=== PATIENT | female | born 1935 | race Caucasian/White ===

== ENCOUNTER 2023-08-12 10:35 | Emergency (ER) | payer MEDICARE ==
[2023-08-12 10:56] VITALS: TEMP 98
--- NOTE | 2023-08-12 10:57 | ERPHSYRPT ---
- History of Present Illness Time Seen by Provider: 08/12/23 10:53 Historian: patient, EMS Exam Limitations: no limitations Physician History: Patient is an 88-year-old white female who presents with a complaint of substernal pressure. The pressure sensation does not register it is affected by movement sometimes it helps and sometimes the movement hurts. She denies any shortness of breath her blood pressure per EMS was 200/90. She says that she has been having this pressure sensation on and off for 2 weeks. This morning she mentioned it to the nurses and subsequently was sent to the ER. Timing/Duration: week(s) (2) Activities at Onset: none Quality: pressure Location: substernal Chest Pain Radiation: no radiation Severity of Pain-Max: mild Severity of Pain-Current: mild Modifying Factors: Improves With: movement Associated Symptoms: denies symptoms Nitro Today/Relief: no nitro taken today Aspirin Treatment Today: no aspirin today Allergies/Adverse Reactions: clindamycin Allergy (Verified 08/12/23 10:37) hydralazine Allergy (Verified 08/12/23 10:37) oxytetracycline [From Terramycin] Allergy (Verified 08/12/23 10:37) sulfamethoxazole [From Bactrim] Allergy (Verified 08/12/23 10:37) trimethoprim [From Bactrim] Allergy (Verified 08/12/23 10:37) Home Medications: Acetaminophen 325 mg [Tylenol 325 mg] 650 mg PO Q6H PRN PRN 08/12/23 [History] Amlodipine Besylate [Norvasc] 10 mg PO DAILY 08/12/23 [History] Aspirin EC 81 mg [Ecotrin 81 mg] 81 mg PO DAILY 08/12/23 [History] Atorvastatin Calcium 40 mg PO HS 08/12/23 [History] Calcium Carbonate [Tums] 1 tab PO DAILY 08/12/23 [History] Carboxymethylcellulose Sodium [Refresh Plus] See Rx Instructions .ROUTE .COMPLEX 08/12/23 [History] Carvedilol 12.5 mg [Coreg 12.5 mg] 12.5 mg PO BID 08/12/23 [History] Clonidine HCl 0.1 mg [Clonidine 0.1 mg Tablet] 0.1 mg PO BID 08/12/23 [History] Clopidogrel Bisulfate [PLAVIX Tablet] 75 mg PO DAILY 08/12/23 [History] Insulin Aspart [NovoLOG Insulin] See Rx Instructions .ROUTE .COMPLEX 08/12/23 [History] Insulin Glargine,Hum.rec.anlog [Toujeo Solostar] 10 unit SQ HS 08/12/23 [History] Insulin Glargine,Hum.rec.anlog [Toujeo Solostar] 15 unit SQ DAILY 08/12/23 [History] Isosorbide Mononitrate 30 mg [Imdur 30 MG] 30 mg PO HS 08/12/23 [History] Levothyroxine Sodium 25 Mcg [Synthroid 25 Mcg] 25 mcg PO DAILY 08/12/23 [History] Nitroglycerin 0.4 mg PO Q5MIN PRN MR X 3 PRN 08/12/23 [History] Omeprazole 40 mg PO DAILY 08/12/23 [History] Sennosides/Docusate Sodium [Senna-S Tablet] 1 tab PO BID 08/12/23 [History] Tramadol HCl 50 mg [Ultram 50 mg] 50 mg PO Q6H PRN PRN 08/12/23 [History] Valsartan [Diovan] 320 mg PO DAILY 08/12/23 [History] - Review of Systems Constitutional: No Fever, No Chills Eyes: No Symptoms Ears, Nose, & Throat: No Symptoms Respiratory: No Cough, No Dyspnea Cardiac: Chest Pain (Chest pain in the form of a pressure sensation), No Edema, No Syncope Abdominal/Gastrointestinal: No Abdominal Pain, No Nausea, No Vomiting, No Diarrhea Genitourinary Symptoms: No Dysuria Musculoskeletal: No Back Pain, No Neck Pain Skin: No Rash Neurological: No Dizziness, No Focal Weakness, No Sensory Changes Psychological: No Symptoms Endocrine: No Symptoms All Other Systems: Reviewed and Negative - Nursing Vital Signs Nursing Vital Signs: Initial Vital Signs Pulse Rate 74 08/12/23 10:36 Respiratory Rate 15 08/12/23 10:36 Blood Pressure 187/92 08/12/23 10:36 O2 Sat by Pulse Oximetry 95 08/12/23 10:36 Pain Scale Pain Intensity 0 - Physical Exam General Appearance: mild distress, alert Eye Exam: PERRL/EOMI, eyes nml inspection Ears, Nose, Throat Exam: normal ENT inspection, moist mucous membranes Neck Exam: normal inspection, non-tender, supple, full range of motion Respiratory Exam: normal breath sounds, lungs clear, No respiratory distress Cardiovascular Exam: regular rate/rhythm, normal heart sounds Gastrointestinal/Abdomen Exam: soft, No tenderness, No mass Back Exam: normal inspection, No CVA tenderness, No vertebral tenderness Extremity Exam: normal inspection, normal range of motion Neurologic Exam: alert, oriented x 3, cooperative, normal mood/affect, sensation nml, No motor deficits Skin Exam: normal color, warm, dry - Course Nursing assessment & vital signs reviewed: Yes EKG Interpreted by Me: RATE (80), Sinus Rhythm, LAFB, 1st degree AV Block, Right Bundle Branch Block - Radiology Exams Chest X-ray Interpretation: Reviewed by me - CT Exams Chest CT Interpretation: Negative, Other (Reviewed by me) Ordered Tests: Active Orders 24 hr Category Date Time Status CHEST 1 VIEW (PORTABLE) Stat Exams 08/12/23 10:54 Completed CHEST WITH CONTRAST [CT] Stat Exams 08/12/23 12:12 Completed CBC W DIFF Stat Lab 08/12/23 11:10 Completed CK-Creatinine Phosphokinase Stat Lab 08/12/23 11:10 Completed CMP Stat Lab 08/12/23 11:10 Completed D-DIMER QUANTITATIVE Stat Lab 08/12/23 11:10 Completed PROTIME WITH INR Stat Lab 08/12/23 11:10 Completed PTT Stat Lab 08/12/23 11:10 Completed TROPONIN Q4H Lab 08/12/23 11:10 Completed TROPONIN Q4H Lab 08/12/23 15:00 Ordered TROPONIN Q4H Lab 08/12/23 19:00 Ordered UA W/RFX UR CULTURE Stat Lab 08/12/23 10:55 Ordered Medication Summary Generic Name Dose Route Start Last Admin Trade Name Freq PRN Reason Stop Dose Admin Clonidine 0.1 mg 08/12/23 13:32 Clonidine Hcl 0.1 Mg Tablet PO 08/12/23 13:33 STAT ONE Sodium Chloride 1,000 mls @ 50 mls/hr 08/12/23 11:30 08/12/23 11:43 Sodium Chloride 0.9% 1000 Ml IV 09/11/23 11:29 50 mls/hr .Q20H JOSE Administration Discontinued Medications Generic Name Dose Route Start Last Admin Trade Name Freq PRN Reason Stop Dose Admin Aspirin 324 mg 08/12/23 11:29 08/12/23 11:45 Aspirin 81 Mg Tab.Chew PO 08/12/23 11:30 324 mg STAT ONE Administration Aspirin Confirm 08/12/23 11:42 Aspirin 81 Mg Tab.Chew Administered 08/12/23 11:43 Dose 324 mg .ROUTE .STK-MED ONE Lab/Rad Data: Laboratory Result Diagrams 08/12/23 11:10 08/12/23 11:10 Laboratory Results 08/12/23 08/12/23 08/12/23 Range/Units 11:10 11:10 11:10 WBC (4.0-10.5) x10^3/uL RBC (4.1-5.4) x10^6/uL Hgb (12.0-16.0) g/dL Hct (35-47) % MCV (78-100) fL MCH (26-32) pg MCHC (32-36) g/dL RDW (11.5-14.0) % Plt Count (150-450) x10^3/uL MPV (7.5-11.0) fL Gran % (36.0-66.0) % Immature Gran % (Auto) (0.00-0.4) % Nucleat RBC Rel Count (0.00-0.1) % Eos # (Auto) (0-0.5) x10^3/uL Immature Gran # (Auto) (0.00-0.03) x10^3u/L Absolute Lymphs (auto) (1.0-4.6) x10^3/uL Absolute Monos (auto) (0.0-1.3) x10^3/uL Absolute Nucleated RBC (0.00-0.01) x10^3u/L Lymphocytes % (24.0-44.0) % Monocytes % (0.0-12.0) % Eosinophils % (0.00-5.0) % Basophils % (0.0-0.4) % Absolute Granulocytes (1.4-6.9) x10^3/uL Basophils # (0-0.4) x10^3/uL PT 10.2 (9.4-12.5) SECONDS INR 0.93 (0.8-3.0) APTT 29.2 (25.1-36.5) SECONDS D-Dimer 0.95 H* (0.0-0.50) mg/L Sodium 135 (135-145) mmol/L Potassium 4.4 (3.5-5.1) mmol/L Chloride 100 (98-107) mmol/L Carbon Dioxide 27 (22-30) mmol/L Anion Gap 12.7 (5-15) MEQ/L BUN 19 H (7-17) mg/dL Creatinine 1.14 H (0.52-1.04) mg/dL Estimated GFR 46.9 ML/MIN Glucose 135 H (74-106) mg/dL Calcium 9.1 (8.4-10.2) mg/dL Total Bilirubin 0.60 (0.2-1.3) mg/dL AST 21 (14-36) U/L ALT 12 (0-35) U/L Alkaline Phosphatase 64 (38-126) U/L Creatine Kinase 54 (30-135) U/L Troponin I < 0.012 (0.000-0.033) ng/mL Serum Total Protein 7.5 (6.3-8.2) g/dL Albumin 3.9 (3.5-5.0) g/dL / Range/Units 11:10 WBC 8.3 (4.0-10.5) x10^3/uL RBC 4.06 L (4.1-5.4) x10^6/uL Hgb 11.4 L (12.0-16.0) g/dL Hct 35.7 (35-47) % MCV 87.9 (78-100) fL MCH 28.1 (26-32) pg MCHC 31.9 L (32-36) g/dL RDW 14.1 H (11.5-14.0) % Plt Count 383 (150-450) x10^3/uL MPV 9.6 (7.5-11.0) fL Gran % 64.3 (36.0-66.0) % Immature Gran % (Auto) 0.7 H (0.00-0.4) % Nucleat RBC Rel Count 0.0 (0.00-0.1) % Eos # (Auto) 0.89 H (0-0.5) x10^3/uL Immature Gran # (Auto) 0.06 H (0.00-0.03) x10^3u/L Absolute Lymphs (auto) 1.49 (1.0-4.6) x10^3/uL Absolute Monos (auto) 0.45 (0.0-1.3) x10^3/uL Absolute Nucleated RBC 0.00 (0.00-0.01) x10^3u/L Lymphocytes % 17.9 L (24.0-44.0) % Monocytes % 5.4 (0.0-12.0) % Eosinophils % 10.7 H (0.00-5.0) % Basophils % 1.0 (0.0-0.4) % Absolute Granulocytes 5.34 (1.4-6.9) x10^3/uL Basophils # 0.08 (0-0.4) x10^3/uL PT (9.4-12.5) SECONDS INR (0.8-3.0) APTT (25.1-36.5) SECONDS D-Dimer (0.0-0.50) mg/L Sodium (135-145) mmol/L Potassium (3.5-5.1) mmol/L Chloride (98-107) mmol/L Carbon Dioxide (22-30) mmol/L Anion Gap (5-15) MEQ/L BUN (7-17) mg/dL Creatinine (0.52-1.04) mg/dL Estimated GFR ML/MIN Glucose (74-106) mg/dL Calcium (8.4-10.2) mg/dL Total Bilirubin (0.2-1.3) mg/dL AST (14-36) U/L ALT (0-35) U/L Alkaline Phosphatase (38-126) U/L Creatine Kinase (30-135) U/L Troponin I (0.000-0.033) ng/mL Serum Total Protein (6.3-8.2) g/dL Albumin (3.5-5.0) g/dL - Progress Progress: improved Air Movement: good Blood Culture(s) Obtained: No Antibiotics given: No Medical Desision Making - Diagnostic Testing Diagnostic test were ordered, analyzed, and reviewed by me: Yes Radiological Interpretation: Reviewed by me - Risk of complications Low Risk: Low risk of morbidity from additional dx testing or treatment - Departure Departure Disposition: Home Clinical Impression: Chest pain, Hypertension Condition: Stable Critical Care Time: No Instructions: Chest Pain (DC), High blood pressure in adults
[2023-08-12 11:17] LABS: Absolute Neutrophil Ct (ANC) 5.34 x10^3/uL (1.4-6.9); Basophil (Absolute #) 0.08 x10^3/uL (0-0.4); Eosinophil % 10.7 % (0.00-5.0); Eosinophil (Absolute #) 0.89 x10^3/uL (0-0.5); Hematocrit 35.7 % (35-47); Hemoglobin 11.4 g/dL (12.0-16.0); IMMATURE GRAN # 0.06 x10^3u/L (0.00-0.03); IMMATURE GRAN % 0.7 % (0.00-0.4); Lymphocyte (Absolute #) 1.49 x10^3/uL (1.0-4.6); Lymphocytes % 17.9 % (24.0-44.0); Mean Cell Volume 87.9 fL (78-100); Mean Corpuscular Hemoglobin 28.1 pg (26-32); Mean Corpuscular Hgb Concent. 31.9 g/dL (32-36); Mean Platelet Volume 9.6 fL (7.5-11.0); Monocyte (Absolute #) 0.45 x10^3/uL (0.0-1.3); Monocytes % 5.4 % (0.0-12.0); Neutrophil % 64.3 % (36.0-66.0); Platelet Count 383 x10^3/uL (150-450); Red Blood Count 4.06 x10^6/uL (4.1-5.4); Red Cell Distribution Width 14.1 % (11.5-14.0); White Blood Count 8.3 x10^3/uL (4.0-10.5)
[2023-08-12 11:29] LABS: ALBUMIN 3.9 g/dL (3.5-5.0); ANION GAP 12.7 MEQ/L (5-15); BILIRUBIN,TOTAL 0.6 mg/dL (0.2-1.3); Calcium 9.1 mg/dL (8.4-10.2); Creatinine 1 1.14 mg/dL (0.52-1.04); EST GLOMERULAR FILTRATION RATE 46.9 ML/MIN; Potassium 4.4 mmol/L (3.5-5.1); Total Protein 7.5 g/dL (6.3-8.2)
[2023-08-12] MEDS ORDERED: Sodium Chloride 0.9% 1000 ML 1,000 ML ONE (11:42)
[2023-08-12] MEDS ORDERED: BABY ASPIRIN 81 MG CHEW ONE (11:42)
[2023-08-12] MEDS: Sodium Chloride 0.9% 1000 ML 1,000 ML IV SCH (11:43)
--- NOTE | 2023-08-12 11:44 | XRAY ---
Indication: Chest pain. Comparison: None Portable apical lordotic chest hyperinflated with chronic lung markings. No focal infiltrate, consolidation, or large effusion. Heart not enlarged. Mild focal eventration right hemidiaphragm. Bony thorax intact with osteopenia and mild degenerative changes. Impression: Nonacute hyperinflated chest with chronic features.
[2023-08-12] MEDS: BABY ASPIRIN 81 MG CHEW PO ONE (11:45)
[2023-08-12 11:56] LABS: INR 0.93 (0.8-3.0); PROTIME 10.2 SECONDS (9.4-12.5); PTT 29.2 SECONDS (25.1-36.5)
[2023-08-12 12:02] LABS: D-DIMER QUANTITATIVE 0.95 mg/L (0.0-0.50)
--- NOTE | 2023-08-12 13:11 | XRAY ---
Indication: Chest pain. Elevated D-dimer. Multiple contiguous axial images obtained through the chest using 80 cc Isovue 370 contrast and PE protocol. Comparison: None Good opacification of the pulmonary arteries to includes the lobar and segmental branches. Mild respiration artifact limits evaluation of the segmental branches. No obvious pulmonary embolus. Heart not enlarged. Aorta is minimally arteriosclerotic without aneurysm/dissection. No pathologic mediastinal/hilar lymphadenopathy. Small hiatal hernia. Lungs hyperinflated with mild bibasilar and lesser degree posterior left upper lobe subsegmental atelectasis/scarring. No suspicious pulmonary mass/nodule, infiltrate, or effusion. Bony thorax intact with osteopenia and minimal/mild degenerative changes about the spine. Limited upper abdomen including adrenal glands are unremarkable. Impression: 1. Respiration artifact limits pulmonary embolus evaluation. No obvious pulmonary embolus or acute cardiopulmonary abnormalities. 2. Chronic findings including hiatal hernia, atelectasis/scarring, chronic bony findings, and arteriosclerotic disease.
[2023-08-12] MEDS ORDERED: CLONIDINE 0.1 MG TABLET ONE (13:34)
[2023-08-12] MEDS: CLONIDINE 0.1 MG TABLET PO ONE (13:36)
[2023-08-12 14:30] VITALS: O2SAT 97
[2023-08-12 14:33] VITALS: BP 121/67; PULSE 79; RESP 23
== END 2023-08-12 15:00 | disposition home or self-care (01) ==
LOC: ED 10:35
DX: R07.9 Chest pain, unspecified (principal); I10 Essential (primary) hypertension; Z79.02 Long term (current) use of antithrombotics/antiplatelets; Z79.4 Long term (current) use of insulin; Z79.891 Long term (current) use of opiate analgesic; Z79.899 Other long term (current) drug therapy
CPT/HCPCS: 36000; 36415; 71045; 71260; 80053; 82550; 84484; 85025; 85379; 85610; 85730; 93005; 99284; A9270-GY

== ENCOUNTER 2024-01-12 18:51 | Inpatient (IN) | payer MEDICARE, OTHER ==
[2024-01-12 19:42] LABS: Absolute Neutrophil Ct (ANC) 5.05 x10^3/uL (1.56-6.13); BASOPHIL % 0.7 % (0.1-1.2); Basophil (Absolute #) 0.06 x10^3/uL (0.01-0.08); Eosinophil % 8.1 % (0.7-5.8); Eosinophil (Absolute #) 0.66 x10^3/uL (0.04-0.36); Hematocrit 37.1 % (34.1-44.9); Hemoglobin 11.9 g/dL (11.2-15.7); IMMATURE GRAN # 0.03 x10^3u/L (0.001-0.031); IMMATURE GRAN % 0.4 % (0.001-0.429); Lymphocyte (Absolute #) 1.85 x10^3/uL (1.18-3.74); Lymphocytes % 22.7 % (19.3-51.7); Mean Cell Volume 87.9 fL (79.4-94.8); Mean Corpuscular Hemoglobin 28.2 pg (25.6-32.2); Mean Corpuscular Hgb Concent. 32.1 g/dL (32.2-35.5); Mean Platelet Volume 9.6 fL (9.4-12.3); Monocyte (Absolute #) 0.49 x10^3/uL (0.24-0.86); Neutrophil % 62.1 % (34.0-71.1); Platelet Count 509 x10^3/uL (182-369); Red Blood Count 4.22 x10^6/uL (3.93-5.22); Red Cell Distribution Width 14.6 % (11.7-14.4); White Blood Count 8.1 x10^3/uL (3.98-10.04)
--- NOTE | 2024-01-12 19:44 | ERPHSYRPT ---
- History of Present Illness Time Seen by Provider: 01/12/24 19:39 Source: patient Exam Limitations: no limitations Patient Subjective Stated Complaint: c/o SOB that started today Triage Nursing Assessment: Arrived by ambulance. She is alert and oriented; hard of hearing. Moist, non-productive cough present. SOB with minimal exertion. Crackles noted. BLE are wrapped in dressing; pitting edema noted around dressings to BLE. Physician History: 88-year-old female history of CHF presents to our ED via EMS for evaluation of shortness of breath and leg swelling. Patient reports symptoms began today. No associated chest pain. No trauma no fever. EMS reports patient was hypoxic upon their arrival. O2 sat was 89% on room air. Patient normally does not require home oxygen. Patient placed on oxygen. Oxygenation improved to 97% on 3 L. Patient currently resting no active shortness of breath at this time. Symptoms are mild to moderate in intensity. Exertion physical activity worsens symptoms. Symptoms improved with rest. Patient otherwise feels well. She voices no other complaints or concerns at this time. Portions of this note were created with voice recognition technology. There may be grammatical, spelling, punctuation or sound alike errors Timing/Duration: today Activities at Onset: none Severity of Dyspnea-Max: moderate Possible Cause: occasional episodes Modifying Factors: Improves With: activity Associated Symptoms: cough, leg swelling Allergies/Adverse Reactions: clindamycin Allergy (Verified 01/12/24 19:17) hydralazine Allergy (Verified 01/12/24 19:17) oxytetracycline [From Terramycin] Allergy (Verified 01/12/24 19:17) sulfamethoxazole [From Bactrim] Allergy (Verified 01/12/24 19:17) trimethoprim [From Bactrim] Allergy (Verified 01/12/24 19:17) Home Medications: Acetaminophen 325 mg [Tylenol 325 mg] 650 mg PO Q6H PRN PRN 08/12/23 [History] Amlodipine Besylate [Norvasc] 10 mg PO DAILY 08/12/23 [History] Aspirin EC 81 mg [Ecotrin 81 mg] 81 mg PO DAILY 08/12/23 [History] Atorvastatin Calcium 40 mg PO HS 08/12/23 [History] Calcium Carbonate [Tums] 1 tab PO DAILY 08/12/23 [History] Carboxymethylcellulose Sodium [Refresh Plus] See Rx Instructions .ROUTE .COMPLEX 08/12/23 [History] Carvedilol 12.5 mg [Coreg 12.5 mg] 12.5 mg PO BID 08/12/23 [History] Clonidine HCl 0.1 mg [Clonidine 0.1 mg Tablet] 0.1 mg PO BID 08/12/23 [History] Clopidogrel Bisulfate [PLAVIX Tablet] 75 mg PO DAILY 08/12/23 [History] Insulin Aspart [NovoLOG Insulin] 0 units SQ ACHS 08/12/23 [History] Insulin Glargine,Hum.rec.anlog [Toujeo Solostar] 10 unit SQ HS 08/12/23 [History] Insulin Glargine,Hum.rec.anlog [Toujeo Solostar] 15 unit SQ DAILY 08/12/23 [History] Isosorbide Mononitrate 30 mg [Imdur 30 MG] 30 mg PO HS 08/12/23 [History] Levothyroxine Sodium 25 Mcg [Synthroid 25 Mcg] 25 mcg PO DAILY 08/12/23 [History] Nitroglycerin 0.4 mg PO Q5MIN PRN MR X 3 PRN 08/12/23 [History] Omeprazole 40 mg PO DAILY 08/12/23 [History] Sennosides/Docusate Sodium [Senna-S Tablet] 1 tab PO BID 08/12/23 [History] Tramadol HCl 50 mg [Ultram 50 mg] 50 mg PO Q6H PRN PRN 08/12/23 [History] Valsartan [Diovan] 320 mg PO DAILY 08/12/23 [History] Hx Tetanus, Diphtheria Vaccination/Date Given: Yes Hx Influenza Vaccination/Date Given: Yes Hx Pneumococcal Vaccination/Date Given: Yes Travel Risk - International Travel Have you traveled outside of the country in past 3 weeks: No - Emerging Infectious Disease Are you exhibiting symptoms associated with any current EIDs: Yes Symptoms: Shortness of Breath - Review of Systems Constitutional: No Symptoms, No Fever, No Chills Eyes: No Symptoms Ears, Nose, & Throat: Other (Patient is hard of hearing) Respiratory: No Symptoms, No Cough, No Dyspnea Cardiac: No Symptoms, No Chest Pain, No Edema, No Syncope Abdominal/Gastrointestinal: No Symptoms, No Abdominal Pain, No Nausea, No Vomiting, No Diarrhea Genitourinary Symptoms: No Symptoms, No Dysuria Musculoskeletal: No Symptoms, No Back Pain, No Neck Pain Skin: No Symptoms, No Rash Neurological: No Symptoms, No Dizziness, No Focal Weakness, No Sensory Changes Psychological: No Symptoms Endocrine: No Symptoms Hematologic/Lymphatic: No Symptoms Immunological/Allergic: No Symptoms All Other Systems: Reviewed and Negative - Past Medical History Pertinent Past Medical History: Yes ENT History: Cataracts, Other Cardiac History: Coronary Artery Disease, High Cholesterol, Hypertension Endocrine Medical History: Diabetes Type II, Hypothyroidism GI Medical History: GERD, Gallbladder Disease Other Medical History: dry eyes, BLE wounds and cellulitis - Past Surgical History Past Surgical History: Yes Cardiac: Cardiac Catheterization, Cardiac Stent Gastrointestinal: Cholecystectomy Other Surgical History: breast, hip, heart - Social History Smoking Status: Never smoker Exposure to second hand smoke: No Drug Use: none - Social Determinants of Health Will the patient participate in the screening: Yes Do you worry about a steady place to live?: No Do you have any problems with any of the following?: No known problems In the past 12 months,have you had to go without utilities?: No Transportation Issues: No Has anyone in your support network made you feel unsafe?: No Have you or anyone in your house had to go without enough: No Comment: Lives at [facility] - Nursing Vital Signs Nursing Vital Signs: Initial Vital Signs Temperature 97.1 F 01/12/24 18:55 Pulse Rate 80 01/12/24 18:55 Respiratory Rate 24 01/12/24 18:55 Blood Pressure 184/101 01/12/24 18:55 O2 Sat by Pulse Oximetry 94 L 01/12/24 18:55 Pain Scale Pain Intensity 0 - Physical Exam General Appearance: no apparent distress, alert Eye Exam: PERRL/EOMI, eyes nml inspection Ears, Nose, Throat Exam: hearing grossly normal, normal ENT inspection, normal pharynx Neck Exam: normal inspection, supple, full range of motion Respiratory Exam: diminished breath sounds, crackles/rales Cardiovascular/Chest Exam: normal heart sounds, regular rate/rhythm Abdominal/Gastrointestinal Exam: soft, No tenderness, No distention, No mass Extremity Exam: non-tender, normal range of motion, normal inspection, no calf tenderness, pedal edema, No trenton's sign Neurologic Exam: alert, oriented x 3, cooperative, nephrologist II-XII nml as tested, se nsation nml, No motor deficits Skin Exam: normal color, warm, No dry Lymphatic Exam: No adenopathy SpO2 Interpretation: normal SpO2: 94 O2 Delivery: Room Air - Course Nursing assessment & vital signs reviewed: Yes - Radiology Exams Chest X-ray Interpretation: Interpreted by me (No acute findings) Ordered Tests: Active Orders 24 hr Category Date Time Status Mixer Machine Feeder STAT Care 01/12/24 19:37 Active EKG-ER Only STAT Care 01/12/24 19:36 Active IV Insertion STAT Care 01/12/24 19:36 Active Pulse Oximetry (ED) STAT Care 01/12/24 19:36 Active CHEST 1 VIEW (PORTABLE) Stat Exams 01/12/24 19:37 Taken BLOOD CULTURE Stat Lab 01/12/24 19:50 Received CBC W DIFF Stat Lab 01/12/24 19:41 Completed CMP Stat Lab 01/12/24 19:41 Completed CULTURE,URINE Stat Lab 01/12/24 19:30 Received NT PRO BNPII Stat Lab 01/12/24 Completed TROPONIN Q4H Lab 01/12/24 19:41 Completed TROPONIN Q4H Lab 01/12/24 23:45 Ordered TROPONIN Q4H Lab 01/13/24 03:45 Ordered UA W/RFX UR CULTURE Stat Lab 01/12/24 19:30 Completed Respiratory Therapy Assessment DAILY RT 01/12/24 22:42 Active Transfer Order Routine Transfer 01/12/24 Ordered Medication Summary Generic Name Dose Route Start Last Admin Trade Name Freq PRN Reason Stop Dose Admin Azithromycin 500 mg in 250 mls @ 250 mls/hr 01/12/24 22:10 Zithromax 500 Mg/ 250 Ml Nacl Premix IV 01/12/24 23:09 STAT STA Discontinued Medications Generic Name Dose Route Start Last Admin Trade Name Freq PRN Reason Stop Dose Admin Albuterol/Ipratropium 3 ml 01/12/24 22:13 01/12/24 22:29 Ipratropium/Albuterol Sulfate 3 Ml Ampul.Neb IH 01/12/24 22:14 3 ml STAT ONE Administration Albuterol/Ipratropium Confirm 01/12/24 22:25 Ipratropium/Albuterol Sulfate 3 Ml Ampul.Neb Administered 01/12/24 22:26 Dose 3 ml IH .STK-MED ONE Methylprednisolone Sodium 0 mg 01/12/24 22:09 01/12/24 22:22 Succinate 125 mg/ Sterile IV 01/12/24 22:10 125 mg Water 2 ml STAT ONE Administration Ceftriaxone Sodium 2 gm in 100 mls @ 200 mls/hr 01/12/24 22:10 01/12/24 22:23 Rocephin 2 Gm/100 Ml Nacl IV 01/12/24 22:39 200 mls/hr STAT ONE 200 mls/hr Administration Ceftriaxone Sodium Confirm 01/12/24 22:21 Rocephin 2 Gm/100 Ml Nacl Administered 01/12/24 22:22 Dose 2 gm in 100 mls @ ud IV .STK-MED ONE Methylprednisolone Sodium Succinate Confirm 01/12/24 22:21 Methylprednis Sod Succ 125 Mg/2 Ml Vial Administered 01/12/24 22:22 Dose 125 mg .ROUTE .STK-MED ONE Sterile Water Confirm 01/12/24 22:21 Water For Injection,Sterile 10 Ml Vial Administered 01/12/24 22:22 Dose 10 ml IJ .STK-MED ONE Lab/Rad Data: Laboratory Result Diagrams 01/12/24 19:41 01/12/24 19:41 Laboratory Results 01/12/24 01/12/24 01/12/24 Range/Units Unknown 19:41 19:41 WBC (3.98-10.04) x10^3/uL RBC (3.93-5.22) x10^6/uL Hgb (11.2-15.7) g/dL Hct (34.1-44.9) % MCV (79.4-94.8) fL MCH (25.6-32.2) pg MCHC (32.2-35.5) g/dL RDW (11.7-14.4) % Plt Count (182-369) x10^3/uL MPV (9.4-12.3) fL Gran % (34.0-71.1) % Immature Gran % (Auto) (0.001-0.429) % Nucleat RBC Rel Count (0.00-0.2) % Eos # (Auto) (0.04-0.36) x10^3/uL Immature Gran # (Auto) (0.001-0.031) x10^3u/L Absolute Lymphs (auto) (1.18-3.74) x10^3/uL Absolute Monos (auto) (0.24-0.86) x10^3/uL Absolute Nucleated RBC (0.00-0.012) x10^3u/L Lymphocytes % (19.3-51.7) % Monocytes % (4.7-12.5) % Eosinophils % (0.7-5.8) % Basophils % (0.1-1.2) % Absolute Granulocytes (1.56-6.13) x10^3/uL Basophils # (0.01-0.08) x10^3/uL Sodium 134 L (135-145) mmol/L Potassium 4.7 (3.5-5.1) mmol/L Chloride 99 (98-107) mmol/L Carbon Dioxide 24 (22-30) mmol/L Anion Gap 16.1 H (5-15) MEQ/L BUN 18 H (7-17) mg/dL Creatinine 0.93 (0.52-1.04) mg/dL Estimated GFR 59.9 ML/MIN Glucose 147 H (74-106) mg/dL Calcium 9.4 (8.4-10.2) mg/dL Total Bilirubin 0.50 (0.2-1.3) mg/dL AST 34 (14-36) U/L ALT 18 (0-35) U/L Alkaline Phosphatase 70 (38-126) U/L Troponin I 0.016 (0.000-0.033) ng/mL NT-Pro-B Natriuret Pep 1050 (<300) pg/mL Serum Total Protein 7.9 (6.3-8.2) g/dL Albumin 4.1 (3.5-5.0) g/dL Urine Color (Yellow) Urine Appearance (Clear) Urine pH (4.6-8.0) Ur Specific [place] (1.005-1.030) Urine Protein (Negative) Urine Glucose (UA) (Negative) mg/dL Urine Ketones (Negative) Urine Blood (Negative) Urine Nitrite (Negative) Urine Bilirubin (Negative) Urine Urobilinogen (0.2) mg/dL Ur Leukocyte Esterase (Negative) U Hyaline Cast (Auto) (0-2) /LPF Urine Microscopic RBC (0-5) /HPF Urine Microscopic WBC (0-5) /HPF Ur Epithelial Cells (None Seen) /HPF Urine Bacteria (None Seen) /HPF Urine Culture Reflexed (NO) 01/12/24 01/12/24 Range/Units 19:41 19:30 WBC 8.1 (3.98-10.04) x10^3/uL RBC 4.22 (3.93-5.22) x10^6/uL Hgb 11.9 (11.2-15.7) g/dL Hct 37.1 (34.1-44.9) % MCV 87.9 (79.4-94.8) fL MCH 28.2 (25.6-32.2) pg MCHC 32.1 L (32.2-35.5) g/dL RDW 14.6 H (11.7-14.4) % Plt Count 509 H (182-369) x10^3/uL MPV 9.6 (9.4-12.3) fL Gran % 62.1 (34.0-71.1) % Immature Gran % (Auto) 0.4 (0.001-0.429) % Nucleat RBC Rel Count 0.0 (0.00-0.2) % Eos # (Auto) 0.66 H (0.04-0.36) x10^3/uL Immature Gran # (Auto) 0.03 (0.001-0.031) x10^3u/L Absolute Lymphs (auto) 1.85 (1.18-3.74) x10^3/uL Absolute Monos (auto) 0.49 (0.24-0.86) x10^3/uL Absolute Nucleated RBC 0.00 (0.00-0.012) x10^3u/L Lymphocytes % 22.7 (19.3-51.7) % Monocytes % 6.0 (4.7-12.5) % Eosinophils % 8.1 H (0.7-5.8) % Basophils % 0.7 (0.1-1.2) % Absolute Granulocytes 5.05 (1.56-6.13) x10^3/uL Basophils # 0.06 (0.01-0.08) x10^3/uL Sodium (135-145) mmol/L Potassium (3.5-5.1) mmol/L Chloride (98-107) mmol/L Carbon Dioxide (22-30) mmol/L Anion Gap (5-15) MEQ/L BUN (7-17) mg/dL Creatinine (0.52-1.04) mg/dL Estimated GFR ML/MIN Glucose (74-106) mg/dL Calcium (8.4-10.2) mg/dL Total Bilirubin (0.2-1.3) mg/dL AST (14-36) U/L ALT (0-35) U/L Alkaline Phosphatase (38-126) U/L Troponin I (0.000-0.033) ng/mL NT-Pro-B Natriuret Pep (<300) pg/mL Serum Total Protein (6.3-8.2) g/dL Albumin (3.5-5.0) g/dL Urine Color Yellow (Yellow) Urine Appearance Clear (Clear) Urine pH 7.0 (4.6-8.0) Ur Specific [place] <=1.005 (1.005-1.030) Urine Protein 100 A (Negative) Urine Glucose (UA) Negative (Negative) mg/dL Urine Ketones Negative (Negative) Urine Blood Trace (Negative) Urine Nitrite Negative (Negative) Urine Bilirubin Negative (Negative) Urine Urobilinogen 0.2 (0.2) mg/dL Ur Leukocyte Esterase Trace A (Negative) U Hyaline Cast (Auto) NONE SEEN (0-2) /LPF Urine Microscopic RBC 0-2 (0-5) /HPF Urine Microscopic WBC 3-5 (0-5) /HPF Ur Epithelial Cells None Seen (None Seen) /HPF Urine Bacteria Rare A (None Seen) /HPF Urine Culture Reflexed YES (NO) - Progress Progress: improved Air Movement: good Progress Note: 88-year-old female presents to emergency department for evaluation of shortness of breath and hypoxia. Physical exam reveals diminished and coarse breath sounds. BNP 1050. Lungs are clear. No pulmonary congestive changes. Blood cultures obtained. Patient received Solu-Medrol and DuoNeb. Symptoms improved. Antibiotics administered. Symptoms significantly improved. Patient no longer complains of shortness of breath. Patient will require hospitalization for further evaluation and treatment. Case discussed with Dr. Marco Parsons hospitalist who accepts admission to observation at 10:32 PM. Plan of care discussed with patient. She agrees to admission [facility] for further evaluation and treatment. Portions of this note were created with voice recognition technology. There may be grammatical, spelling, punctuation or sound alike errors Complexity of problem addressed is moderate acute complicated. No critical care time. Complexity of data reviewed and analyzed is extensive. Test ordered chest reviewed results analyzed and correlated clinically with history and physical exam. Management discussed with hospitalist who accepts admission to observation at 10:32 PM. Risk of complication and or risk of morbidity/mortality of patient management is high. Patient requires hospitalization for further evaluation and treatment. Vital stable. Time spent admit patient approximately 20 minutes. Plan of care established for shared decision making. No social determinants of health present to impede follow-up. Portions of this note were created with voice recognition technology. There may be grammatical, spelling, punctuation or sound alike errors 01/12/24 23:04 Blood Culture(s) Obtained: Yes Antibiotics given: Yes Discussed with Dr.: Aria Will see patient in: hospital (observation) Counseled pt/family regarding: lab results, diagnosis, rad results - Departure Departure Disposition: Home Clinical Impression: Shortness of breath, Hypoxia, COPD exacerbation Condition: Stable Critical Care Time: No Referrals: WOLF HUERTA JR [Primary Care Provider] - Follow up/PCP as directed Instructions: Chronic Obstructive Pulmonary Disease Additional Instructions: Discharge/Care Plan STU AGUILAR was seen on 01/12/24 in the Emergency Room. The patient was counseled regarding Diagnosis,Lab results, Imaging studies, need for follow up and when to return to the Emergency Room. Prescriptions given: Discharge Note I have spoken with the patient and/or caregivers. I have explained the patient's condition, diagnosis and treatment plan based on the information available to me at this time. I have answered the patient's and/or caregiver's questions and addressed any concerns. The patient and/or caregivers have as good understanding of the patient's diagnosis, condition and treatment plan as can be expected at this point. The vital signs have been stable. The patient's condition is stable and appropriate for discharge from the emergency department. The patient will pursue further outpatient evaluation with the primary care physician or other designated or consulting physician as outlined in the discharge instructions. The patient and/or caregivers are agreeable to this plan of care and follow-up instructions have been explained in detail. The patient and/or caregivers have received these instruction. The patient/and or caregivers are aware that any significant change in condition or worsening of symptoms should prompt an immediate return to this or the closest emergency department or call 911.
[2024-01-12 19:47] LABS: ALBUMIN 4.1 g/dL (3.5-5.0); ANION GAP 16.1 MEQ/L (5-15); BILIRUBIN,TOTAL 0.5 mg/dL (0.2-1.3); Calcium 9.4 mg/dL (8.4-10.2); Creatinine 1 0.93 mg/dL (0.52-1.04); EST GLOMERULAR FILTRATION RATE 59.9 ML/MIN; Potassium 4.7 mmol/L (3.5-5.1); Total Protein 7.9 g/dL (6.3-8.2)
[2024-01-12 19:50] LABS: Appearance Clear (Clear); Bacteria Rare /HPF (None Seen); Bilirubin Negative (Negative); Blood Trace (Negative); Epithelial Cells None Seen /HPF (None Seen); Glucose, Urine Negative (Negative); Hyaline Casts NONE SEEN /LPF (0-2); Ketones Negative (Negative); Leukocyte Esterase Trace (Negative); Nitrite Negative (Negative); Protein,Urine Dip 100 (Negative); RBC 0-2 /HPF (0-5); Specific Gravity <=1.005 (1.005-1.030); Urobilinogen 0.2 mg/dL (0.2)
[2024-01-12] MEDS ORDERED: ROCEPHIN 2 GM/100 ML NACL 2 GM/100 ML IVPB IV ONE (22:21)
[2024-01-12] MEDS ORDERED: solu-MEDROL ONE (22:21)
[2024-01-12] MEDS ORDERED: Sterile H2O 10 ml IJ ONE (22:21)
[2024-01-12] MEDS: solu-MEDROL 125 MG, Sterile H2O 10 ml 2 ML IV ONE (22:22)
[2024-01-12] MEDS: ROCEPHIN 2 GM/100 ML NACL 2 GM/100 ML IVPB IV ONE (22:23)
[2024-01-12] MEDS ORDERED: DUONEB 0.5-3 MG/3 ml Neb IH ONE (22:25)
[2024-01-12] MEDS: DUONEB 0.5-3 MG/3 ml Neb IH ONE (22:29)
[2024-01-12] MEDS ORDERED: Zithromax 500 MG/ 250 ML NaCl Premix 500 MG/250 ML IVPB IV ONE (23:03)
[2024-01-12] MEDS: Zithromax 500 MG/ 250 ML NaCl Premix 500 MG/250 ML IVPB IV STA (23:04)
[2024-01-12 23:07] LABS: INFLUENZA A NEGATIVE (NEGATIVE); INFLUENZA B NEGATIVE (NEGATIVE); RESPIRATORY SYNCTIAL VIRUS NEGATIVE (NEGATIVE); SARS-CoV-2 Xpert Express NEGATIVE (NEGATIVE)
--- NOTE | 2024-01-13 00:58 | PCM.HP ---
History of Present Illness - Chief Complaint Chief Complaint: COPD Exac History of Present Illness: is a 88 year old female with CHF, COPD presents with SOB, leg swelling. No chest pain. O2 sat was 89% on room air. Patient normally does not require home oxygen. Patient placed on oxygen. Oxygenation improved to 97% on 3 L. Patient currently resting no active shortness of breath at this time and had improvement with nebs in the ED. - Review of Systems Constitutional: No Fever, No Chills Eyes: No Symptoms Ears, Nose, & Throat: No Symptoms Respiratory: No Cough, No Short Of Breath Cardiac: No Chest Pain, No Edema, No Syncope Abdominal/Gastrointestinal: No Abdominal Pain, No Nausea, No Vomiting, No Diarrhea Genitourinary Symptoms: No Dysuria Musculoskeletal: No Back Pain, No Neck Pain Skin: No Rash Neurological: No Dizziness, No Focal Weakness, No Sensory Changes Psychological: No Symptoms Endocrine: No Symptoms Hematologic/Lymphatic: No Symptoms Immunological/Allergic: No Symptoms Medications & Allergies Home Medications: Home Medication List Acetaminophen 325 mg [Tylenol 325 mg] 650 mg PO Q6H PRN PRN 08/12/23 [History Confirmed 01/12/24] Amlodipine Besylate [Norvasc] 10 mg PO DAILY 08/12/23 [History Confirmed 01/12/24] Aspirin EC 81 mg [Ecotrin 81 mg] 81 mg PO DAILY 08/12/23 [History Confirmed 01/12/24] Atorvastatin Calcium 40 mg PO HS 08/12/23 [History Confirmed 01/12/24] Calcium Carbonate [Tums] 1 tab PO DAILY 08/12/23 [History Confirmed 01/12/24] Carboxymethylcellulose Sodium [Refresh Plus] See Rx Instructions .ROUTE .COMPLEX 08/12/23 [History Confirmed 01/12/24] Carvedilol 12.5 mg [Coreg 12.5 mg] 12.5 mg PO BID 08/12/23 [History Confirmed 01/12/24] Clonidine HCl 0.1 mg [Clonidine 0.1 mg Tablet] 0.1 mg PO BID 08/12/23 [History Confirmed 01/12/24] Clopidogrel Bisulfate [PLAVIX Tablet] 75 mg PO DAILY 08/12/23 [History Confirmed 01/12/24] Insulin Aspart [NovoLOG Insulin] 0 units SQ ACHS 08/12/23 [History Confirmed 01/12/24] Insulin Glargine,Hum.rec.anlog [Toujeo Solostar] 10 unit SQ HS 08/12/23 [History Confirmed 01/12/24] Insulin Glargine,Hum.rec.anlog [Toujeo Solostar] 15 unit SQ DAILY 08/12/23 [History Confirmed 01/12/24] Isosorbide Mononitrate 30 mg [Imdur 30 MG] 30 mg PO HS 08/12/23 [History Confirmed 01/12/24] Levothyroxine Sodium 25 Mcg [Synthroid 25 Mcg] 25 mcg PO DAILY 08/12/23 [History Confirmed 01/12/24] Nitroglycerin 0.4 mg PO Q5MIN PRN MR X 3 PRN 08/12/23 [History Confirmed 01/12/24] Omeprazole 40 mg PO DAILY 08/12/23 [History Confirmed 01/12/24] Sennosides/Docusate Sodium [Senna-S Tablet] 1 tab PO BID 08/12/23 [History Confirmed 01/12/24] Tramadol HCl 50 mg [Ultram 50 mg] 50 mg PO Q6H PRN PRN 08/12/23 [History Confirmed 01/12/24] Valsartan [Diovan] 320 mg PO DAILY 08/12/23 [History Confirmed 01/12/24] Allergies/Adverse Reactions: Allergies Allergy/AdvReac Type Severity Reaction Status Date / Time clindamycin Allergy Verified 01/12/24 19:17 hydralazine Allergy Verified 01/12/24 19:17 oxytetracycline Allergy Verified 01/12/24 19:17 [From Terramycin] sulfamethoxazole Allergy Verified 01/12/24 19:17 [From Bactrim] trimethoprim [From Bactrim] Allergy Verified 01/12/24 19:17 - Past Medical History Past Medical History: Yes ENT History: Cataracts, Other Cardiac History: Coronary Artery Disease, High Cholesterol, Hypertension Endocrine Medical History: Diabetes Type II, Hypothyroidism GI Medical History: GERD, Gallbladder Disease Comment: dry eyes, BLE wounds and cellulitis - Past Surgical History Past Surgical History: Yes Cardiac History: Cardiac Catheterization, Cardiac Stent GI Surgical History: Cholecystectomy Other Surgical History: breast, hip, heart - Social History Smoking Status: Never smoker Exposure to second hand smoke: No Alcohol: None Drug Use: none - Social Determinants of Health Will the patient participate in the screening: Yes Do you worry about a steady place to live?: No Do you have any problems with any of the following?: No known problems In the past 12 months,have you had to go without utilities?: No Have you or anyone in your house had to go without enough: No Transportation Issues: No Has anyone in your support network made you feel unsafe?: No Comment: Lives at [facility] - Physical Exam Vital Signs: Vital Signs - 24 hr Temp Pulse Resp BP BP Pulse Ox 01/13/24 00:00 82 15 162/83 96 01/12/24 23:30 83 19 156/79 99 01/12/24 23:08 94 L 01/12/24 23:00 82 16 137/83 97 01/12/24 22:42 86 16 98 01/12/24 22:30 75 17 169/81 96 01/12/24 22:00 86 17 142/75 95 01/12/24 21:30 82 14 176/103 01/12/24 21:00 85 19 148/75 96 01/12/24 20:30 94 H 17 167/80 97 01/12/24 20:00 94 H 15 165/84 01/12/24 19:37 97 01/12/24 19:30 77 32 H 168/78 97 01/12/24 19:00 79 25 H 184/101 01/12/24 18:56 80 22 188/128 98 01/12/24 18:55 97.1 F 80 24 184/101 94 L General Appearance: no apparent distress, alert Neurologic Exam: alert, oriented x 3, cooperative, normal mood/affect, nml cerebellar function, nml station & gait, sensation nml, No motor deficits Eye Exam: PERRL/EOMI, eyes nml inspection Ears, Nose, Throat Exam: normal ENT inspection, TMs normal, pharynx normal, moist mucous membranes Neck Exam: normal inspection, non-tender, supple, full range of motion Respiratory Exam: normal breath sounds, lungs clear, No respiratory distress Cardiovascular Exam: regular rate/rhythm, normal heart sounds, normal peripheral pulses Gastrointestinal/Abdomen Exam: soft, normal bowel sounds, No tenderness, No mass Back Exam: normal inspection, normal range of motion, No CVA tenderness, No vertebral tenderness Extremity Exam: normal inspection, normal range of motion, pelvis stable Skin Exam: normal color, warm, dry, No rash Lymphatic Exam: No adenopathy Results - Labs Lab/Micro Results: Lab Results-Last 24 Hours 01/12/24 01/12/24 01/12/24 Range/Units 19:30 19:41 19:41 WBC 8.1 (3.98-10.04) x10^3/uL RBC 4.22 (3.93-5.22) x10^6/uL Hgb 11.9 (11.2-15.7) g/dL Hct 37.1 (34.1-44.9) % MCV 87.9 (79.4-94.8) fL MCH 28.2 (25.6-32.2) pg MCHC 32.1 L (32.2-35.5) g/dL RDW 14.6 H (11.7-14.4) % Plt Count 509 H (182-369) x10^3/uL MPV 9.6 (9.4-12.3) fL Gran % 62.1 (34.0-71.1) % Immature Gran % (Auto) 0.4 (0.001-0.429) % Nucleat RBC Rel Count 0.0 (0.00-0.2) % Eos # (Auto) 0.66 H (0.04-0.36) x10^3/uL Immature Gran # (Auto) 0.03 (0.001-0.031) x10^3u/L Absolute Lymphs (auto) 1.85 (1.18-3.74) x10^3/uL Absolute Monos (auto) 0.49 (0.24-0.86) x10^3/uL Absolute Nucleated RBC 0.00 (0.00-0.012) x10^3u/L Lymphocytes % 22.7 (19.3-51.7) % Monocytes % 6.0 (4.7-12.5) % Eosinophils % 8.1 H (0.7-5.8) % Basophils % 0.7 (0.1-1.2) % Absolute Granulocytes 5.05 (1.56-6.13) x10^3/uL Basophils # 0.06 (0.01-0.08) x10^3/uL Sodium 134 L (135-145) mmol/L Potassium 4.7 (3.5-5.1) mmol/L Chloride 99 (98-107) mmol/L Carbon Dioxide 24 (22-30) mmol/L Anion Gap 16.1 H (5-15) MEQ/L BUN 18 H (7-17) mg/dL Creatinine 0.93 (0.52-1.04) mg/dL Estimated GFR 59.9 ML/MIN Glucose 147 H (74-106) mg/dL Calcium 9.4 (8.4-10.2) mg/dL Total Bilirubin 0.50 (0.2-1.3) mg/dL AST 34 (14-36) U/L ALT 18 (0-35) U/L Alkaline Phosphatase 70 (38-126) U/L Troponin I (0.000-0.033) ng/mL NT-Pro-B Natriuret Pep (<300) pg/mL Serum Total Protein 7.9 (6.3-8.2) g/dL Albumin 4.1 (3.5-5.0) g/dL Urine Color Yellow (Yellow) Urine Appearance Clear (Clear) Urine pH 7.0 (4.6-8.0) Ur Specific [place] <=1.005 (1.005-1.030) Urine Protein 100 A (Negative) Urine Glucose (UA) Negative (Negative) mg/dL Urine Ketones Negative (Negative) Urine Blood Trace (Negative) Urine Nitrite Negative (Negative) Urine Bilirubin Negative (Negative) Urine Urobilinogen 0.2 (0.2) mg/dL Ur Leukocyte Esterase Trace A (Negative) U Hyaline Cast (Auto) NONE SEEN (0-2) /LPF Urine Microscopic RBC 0-2 (0-5) /HPF Urine Microscopic WBC 3-5 (0-5) /HPF Ur Epithelial Cells None Seen (None Seen) /HPF Urine Bacteria Rare A (None Seen) /HPF Urine Culture Reflexed YES (NO) Influenza Type A Ag (NEGATIVE) Influenza Type B Ag (NEGATIVE) RSV (PCR) (NEGATIVE) SARS-CoV-2 (PCR) (NEGATIVE) 01/12/24 01/12/24 01/12/24 Range/Units 19:41 22:24 23:51 WBC (3.98-10.04) x10^3/uL RBC (3.93-5.22) x10^6/uL Hgb (11.2-15.7) g/dL Hct (34.1-44.9) % MCV (79.4-94.8) fL MCH (25.6-32.2) pg MCHC (32.2-35.5) g/dL RDW (11.7-14.4) % Plt Count (182-369) x10^3/uL MPV (9.4-12.3) fL Gran % (34.0-71.1) % Immature Gran % (Auto) (0.001-0.429) % Nucleat RBC Rel Count (0.00-0.2) % Eos # (Auto) (0.04-0.36) x10^3/uL Immature Gran # (Auto) (0.001-0.031) x10^3u/L Absolute Lymphs (auto) (1.18-3.74) x10^3/uL Absolute Monos (auto) (0.24-0.86) x10^3/uL Absolute Nucleated RBC (0.00-0.012) x10^3u/L Lymphocytes % (19.3-51.7) % Monocytes % (4.7-12.5) % Eosinophils % (0.7-5.8) % Basophils % (0.1-1.2) % Absolute Granulocytes (1.56-6.13) x10^3/uL Basophils # (0.01-0.08) x10^3/uL Sodium (135-145) mmol/L Potassium (3.5-5.1) mmol/L Chloride (98-107) mmol/L Carbon Dioxide (22-30) mmol/L Anion Gap (5-15) MEQ/L BUN (7-17) mg/dL Creatinine (0.52-1.04) mg/dL Estimated GFR ML/MIN Glucose (74-106) mg/dL Calcium (8.4-10.2) mg/dL Total Bilirubin (0.2-1.3) mg/dL AST (14-36) U/L ALT (0-35) U/L Alkaline Phosphatase (38-126) U/L Troponin I 0.016 0.013 (0.000-0.033) ng/mL NT-Pro-B Natriuret Pep (<300) pg/mL Serum Total Protein (6.3-8.2) g/dL Albumin (3.5-5.0) g/dL Urine Color (Yellow) Urine Appearance (Clear) Urine pH (4.6-8.0) Ur Specific [place] (1.005-1.030) Urine Protein (Negative) Urine Glucose (UA) (Negative) mg/dL Urine Ketones (Negative) Urine Blood (Negative) Urine Nitrite (Negative) Urine Bilirubin (Negative) Urine Urobilinogen (0.2) mg/dL Ur Leukocyte Esterase (Negative) U Hyaline Cast (Auto) (0-2) /LPF Urine Microscopic RBC (0-5) /HPF Urine Microscopic WBC (0-5) /HPF Ur Epithelial Cells (None Seen) /HPF Urine Bacteria (None Seen) /HPF Urine Culture Reflexed (NO) Influenza Type A Ag NEGATIVE (NEGATIVE) Influenza Type B Ag NEGATIVE (NEGATIVE) RSV (PCR) NEGATIVE (NEGATIVE) SARS-CoV-2 (PCR) NEGATIVE (NEGATIVE) 01/12/24 Range/Units Unknown WBC (3.98-10.04) x10^3/uL RBC (3.93-5.22) x10^6/uL Hgb (11.2-15.7) g/dL Hct (34.1-44.9) % MCV (79.4-94.8) fL MCH (25.6-32.2) pg MCHC (32.2-35.5) g/dL RDW (11.7-14.4) % Plt Count (182-369) x10^3/uL MPV (9.4-12.3) fL Gran % (34.0-71.1) % Immature Gran % (Auto) (0.001-0.429) % Nucleat RBC Rel Count (0.00-0.2) % Eos # (Auto) (0.04-0.36) x10^3/uL Immature Gran # (Auto) (0.001-0.031) x10^3u/L Absolute Lymphs (auto) (1.18-3.74) x10^3/uL Absolute Monos (auto) (0.24-0.86) x10^3/uL Absolute Nucleated RBC (0.00-0.012) x10^3u/L Lymphocytes % (19.3-51.7) % Monocytes % (4.7-12.5) % Eosinophils % (0.7-5.8) % Basophils % (0.1-1.2) % Absolute Granulocytes (1.56-6.13) x10^3/uL Basophils # (0.01-0.08) x10^3/uL Sodium (135-145) mmol/L Potassium (3.5-5.1) mmol/L Chloride (98-107) mmol/L Carbon Dioxide (22-30) mmol/L Anion Gap (5-15) MEQ/L BUN (7-17) mg/dL Creatinine (0.52-1.04) mg/dL Estimated GFR ML/MIN Glucose (74-106) mg/dL Calcium (8.4-10.2) mg/dL Total Bilirubin (0.2-1.3) mg/dL AST (14-36) U/L ALT (0-35) U/L Alkaline Phosphatase (38-126) U/L Troponin I (0.000-0.033) ng/mL NT-Pro-B Natriuret Pep 1050 (<300) pg/mL Serum Total Protein (6.3-8.2) g/dL Albumin (3.5-5.0) g/dL Urine Color (Yellow) Urine Appearance (Clear) Urine pH (4.6-8.0) Ur Specific [place] (1.005-1.030) Urine Protein (Negative) Urine Glucose (UA) (Negative) mg/dL Urine Ketones (Negative) Urine Blood (Negative) Urine Nitrite (Negative) Urine Bilirubin (Negative) Urine Urobilinogen (0.2) mg/dL Ur Leukocyte Esterase (Negative) U Hyaline Cast (Auto) (0-2) /LPF Urine Microscopic RBC (0-5) /HPF Urine Microscopic WBC (0-5) /HPF Ur Epithelial Cells (None Seen) /HPF Urine Bacteria (None Seen) /HPF Urine Culture Reflexed (NO) Influenza Type A Ag (NEGATIVE) Influenza Type B Ag (NEGATIVE) RSV (PCR) (NEGATIVE) SARS-CoV-2 (PCR) (NEGATIVE) - Radiology Impressions Radiology Exams & Impressions: Radiology Procedures Category Date Time Status CHEST 1 VIEW (PORTABLE) Stat Exams 01/12/24 19:37 Taken - Other Procedures and Tests Respiratory Therapy 01/12/24 22:42 Respiratory Therapy Assessment DAILY Assessment/Plan (1) COPD exacerbation Current Visit: Yes Status: Acute Assessment & Plan: 1. Duo nebs PRN 2. O2 as needed 3. Transition to pred in the AM Code(s): J44.1 - CHRONIC OBSTRUCTIVE PULMONARY DISEASE W (ACUTE) EXACERBATION Telemedicine Encounter - Telemedicine Encounter Telemedicine Encounter: "The entirety of this encounter was performed via Telemedicine" This visit was performed using real-time audio and video connection between my location and thepatients locationwith the assistance of a surrogateat the patients location. Written or verbal consent was obtained from the patient/guardian to perform this visit usingsynchrReal Time Winetelemedicine technology. Any patient questions regarding the telemedicine interaction were answered.
[2024-01-13 05:42] LABS: Hematocrit 37.2 % (34.1-44.9); Hemoglobin 11.9 g/dL (11.2-15.7); Mean Cell Volume 87.9 fL (79.4-94.8); Mean Corpuscular Hemoglobin 28.1 pg (25.6-32.2); Mean Platelet Volume 9.6 fL (9.4-12.3); Platelet Count 477 x10^3/uL (182-369); Red Blood Count 4.23 x10^6/uL (3.93-5.22); Red Cell Distribution Width 14.8 % (11.7-14.4); White Blood Count 6.6 x10^3/uL (3.98-10.04)
[2024-01-13 07:01] LABS: ALBUMIN 3.6 g/dL (3.5-5.0); ANION GAP 15.8 MEQ/L (5-15); BILIRUBIN,TOTAL 0.4 mg/dL (0.2-1.3); Calcium 9.4 mg/dL (8.4-10.2); Creatinine 1 0.93 mg/dL (0.52-1.04); EST GLOMERULAR FILTRATION RATE 59.9 ML/MIN; PREALBUMIN 17.67 mg/dL (17.6-36.0); Potassium 4.6 mmol/L (3.5-5.1); Total Protein 6.8 g/dL (6.3-8.2)
[2024-01-13] MEDS: DUONEB 0.5-3 MG/3 ml Neb IH SCH (07:25)
[2024-01-13] MEDS ORDERED: ULTRAM 50 MG PO PRN (07:27)
--- NOTE | 2024-01-13 08:33 | XRAY ---
Indication: Short of breath. Comparison: August 12, 2023 Portable apical lordotic chest again hyperinflated with chronic lung markings and focal eventration right hemidiaphragm. No focal infiltrate, consolidation, or large effusion. Heart not enlarged. Bony thorax intact again with osteopenia and degenerative changes. Impression: Continued nonacute chest with chronic features.
[2024-01-13] MEDS: ECOTRIN 81 MG PO SCH (09:07)
[2024-01-13] MEDS: CLONIDINE 0.1 MG TABLET PO SCH (09:08)
[2024-01-13] MEDS: NORVASC 5 MG PO SCH (09:08)
[2024-01-13] MEDS: PLAVIX Tablet PO SCH (09:08)
[2024-01-13] MEDS: COREG 12.5 MG PO SCH (09:08)
[2024-01-13] MEDS: Senokot-S Tablet PO SCH (09:08)
[2024-01-13] MEDS: SYNTHROID 25 MCG PO SCH (09:08)
[2024-01-13] MEDS: Lantus Insulin SQ SCH ×2 (09:08→22:41)
[2024-01-13] MEDS: Protonix 40MG Tablet PO SCH (09:08)
[2024-01-13] MEDS: DIOVAN 80 MG PO SCH (09:08)
[2024-01-13] MEDS ORDERED: Tums EX 750 MG PO SCH (10:00)
[2024-01-13] MEDS ORDERED: NON-FORMULARY ITEM (Valsartan [Diovan] 320 MG Tablet) PO SCH (10:00)
[2024-01-13] MEDS ORDERED: NON-FORMULARY ITEM (Insulin Glargine,Hum.Rec.Anlog [Toujeo Solostar] 300 UNIT/ML Insuln.Pe SQ SCH ×2 (10:00→22:00)
[2024-01-13] MEDS ORDERED: NON-FORMULARY ITEM (Amlodipine Besylate [Norvasc] 10 MG Tablet) PO SCH (10:00)
[2024-01-13] MEDS ORDERED: NON-FORMULARY ITEM (Omeprazole [Omeprazole] 40 MG Capsule.Dr) PO SCH (10:00)
[2024-01-13] MEDS ORDERED: NON-FORMULARY ITEM (Calcium Carbonate [Tums] 200 MG Tab.Chew) PO SCH (10:00)
[2024-01-13] MEDS: solu-MEDROL 40 MG, Sterile H2O 10 ml 1 ML IV SCH (10:44)
[2024-01-13] MEDS: Advair Hfa 230/21 Mcg COMMON CANISTER IH SCH (10:46)
[2024-01-13] MEDS: HUMALOG SQ PRN (15:00)
--- NOTE | 2024-01-13 16:37 | PCM.CONS ---
Podiatry HPI - Consult Reason for Consult: bilateral lower extremity cellulitis Consulting Provider: YUSUF ARMENDARIZ DPM - HPI History of Present Illness: is a 88 year old female with CHF, COPD presents with SOB, leg swelling. No chest pain. O2 sat was 89% on room air. Patient normally does not require home oxygen. Patient placed on oxygen. Oxygenation improved to 97% on 3 L. Patient currently resting no active shortness of breath at this time and had improvement with nebs in the ED. Medications & Allergies Home Medications: Home Medication List Acetaminophen 325 mg [Tylenol 325 mg] 650 mg PO Q6H PRN PRN 08/12/23 [History Confirmed 01/13/24] Amlodipine Besylate [Norvasc] 10 mg PO DAILY 08/12/23 [History Confirmed 01/13/24] Aspirin EC 81 mg [Ecotrin 81 mg] 81 mg PO DAILY 08/12/23 [History Confirmed 01/13/24] Atorvastatin Calcium 40 mg PO HS 08/12/23 [History Confirmed 01/13/24] Calcium Carbonate [Tums] 1 tab PO DAILY 08/12/23 [History Confirmed 01/13/24] Carboxymethylcellulose Sodium [Refresh Plus] 1 drop OP TID PRN PRN 08/12/23 [History Confirmed 01/13/24] Carvedilol 12.5 mg [Coreg 12.5 mg] 12.5 mg PO BID 08/12/23 [History Confirmed 01/13/24] Clonidine HCl 0.1 mg [Clonidine 0.1 mg Tablet] 0.1 mg PO BID 08/12/23 [History Confirmed 01/13/24] Clopidogrel Bisulfate [PLAVIX Tablet] 75 mg PO DAILY 08/12/23 [History Confirmed 01/13/24] Insulin Aspart [NovoLOG Insulin] 0 units SQ ACHS 08/12/23 [History Confirmed 01/13/24] Insulin Glargine,Hum.rec.anlog [Toujeo Solostar] 10 unit SQ HS 08/12/23 [History Confirmed 01/13/24] Insulin Glargine,Hum.rec.anlog [Toujeo Solostar] 15 unit SQ DAILY 08/12/23 [History Confirmed 01/13/24] Isosorbide Mononitrate 30 mg [Imdur 30 MG] 30 mg PO HS 08/12/23 [History Confirmed 01/13/24] Levothyroxine Sodium 25 Mcg [Synthroid 25 Mcg] 25 mcg PO 0700 08/12/23 [History Confirmed 01/13/24] Nitroglycerin 0.4 mg PO Q5MIN PRN MR X 3 PRN 08/12/23 [History Confirmed 01/13/24] Omeprazole 40 mg PO DAILY 08/12/23 [History Confirmed 01/13/24] Sennosides/Docusate Sodium [Senna-S Tablet] 1 tab PO BID 08/12/23 [History Confirmed 01/13/24] Tramadol HCl 50 mg [Ultram 50 mg] 50 mg PO Q6H PRN PRN 08/12/23 [History Confirmed 01/13/24] Valsartan [Diovan] 320 mg PO DAILY 08/12/23 [History Confirmed 01/13/24] Allergies/Adverse Reactions: Allergies Allergy/AdvReac Type Severity Reaction Status Date / Time clindamycin Allergy Verified 01/12/24 19:17 hydralazine Allergy Verified 01/12/24 19:17 oxytetracycline Allergy Verified 01/12/24 19:17 [From Terramycin] sulfamethoxazole Allergy Verified 01/12/24 19:17 [From Bactrim] trimethoprim [From Bactrim] Allergy Verified 01/12/24 19:17 - Past Medical History Past Medical History: Yes Neurological History: No Pertinent History ENT History: Cataracts, Other Cardiac History: Coronary Artery Disease, High Cholesterol, Hypertension Respiratory History: Asthma Endocrine Medical History: Diabetes Type II, Hypothyroidism Musculoskelatal History: Arthritis GI Medical History: GERD, Gallbladder Disease History: No Pertinent History Pyscho-Social History: No Pertinent History Reproductive Disorders: No Pertinent History Comment: dry eyes, BLE wounds and cellulitis - Past Surgical History Past Surgical History: Yes Neuro Surgical History: No Pertinent History Cardiac History: Cardiac Catheterization, Cardiac Stent Respiratory Surgery: No Pertinent History GI Surgical History: Cholecystectomy Genitourinary Surgical Hx: No Pertinent History Musculskeletal Surgical Hx: Orthopedic Surgery Female Surgical History: Other Other Surgical History: breast abcess removed, hip surgery, 2 stents - Social History Smoking Status: Never smoker Exposure to second hand smoke: Yes Alcohol: None Drug Use: none - Social Determinants of Health Will the patient participate in the screening: Yes Do you worry about a steady place to live?: No Do you have any problems with any of the following?: No known problems In the past 12 months,have you had to go without utilities?: No Have you or anyone in your house had to go without enough: No Transportation Issues: No Has anyone in your support network made you feel unsafe?: No Does the patient want assistance with any of the above?: No Comment: Lives at [facility] Physical Exam - Narrative Narrative Physical Exam: Podiatry Physical Exam Results - Labs Lab/Micro Results: Lab Results-Last 24 Hours 01/12/24 01/12/24 01/12/24 Range/Units 19:30 19:41 19:41 WBC 8.1 (3.98-10.04) x10^3/uL RBC 4.22 (3.93-5.22) x10^6/uL Hgb 11.9 (11.2-15.7) g/dL Hct 37.1 (34.1-44.9) % MCV 87.9 (79.4-94.8) fL MCH 28.2 (25.6-32.2) pg MCHC 32.1 L (32.2-35.5) g/dL RDW 14.6 H (11.7-14.4) % Plt Count 509 H (182-369) x10^3/uL MPV 9.6 (9.4-12.3) fL Gran % 62.1 (34.0-71.1) % Immature Gran % (Auto) 0.4 (0.001-0.429) % Nucleat RBC Rel Count 0.0 (0.00-0.2) % Eos # (Auto) 0.66 H (0.04-0.36) x10^3/uL Immature Gran # (Auto) 0.03 (0.001-0.031) x10^3u/L Absolute Lymphs (auto) 1.85 (1.18-3.74) x10^3/uL Absolute Monos (auto) 0.49 (0.24-0.86) x10^3/uL Absolute Nucleated RBC 0.00 (0.00-0.012) x10^3u/L Lymphocytes % 22.7 (19.3-51.7) % Monocytes % 6.0 (4.7-12.5) % Eosinophils % 8.1 H (0.7-5.8) % Basophils % 0.7 (0.1-1.2) % Absolute Granulocytes 5.05 (1.56-6.13) x10^3/uL Basophils # 0.06 (0.01-0.08) x10^3/uL Sodium 134 L (135-145) mmol/L Potassium 4.7 (3.5-5.1) mmol/L Chloride 99 (98-107) mmol/L Carbon Dioxide 24 (22-30) mmol/L Anion Gap 16.1 H (5-15) MEQ/L BUN 18 H (7-17) mg/dL Creatinine 0.93 (0.52-1.04) mg/dL Estimated GFR 59.9 ML/MIN Glucose 147 H (74-106) mg/dL POC Glucometer (74 to 106) mg/dL Hemoglobin A1c (4.5-6.0) % Calcium 9.4 (8.4-10.2) mg/dL Total Bilirubin 0.50 (0.2-1.3) mg/dL AST 34 (14-36) U/L ALT 18 (0-35) U/L Alkaline Phosphatase 70 (38-126) U/L Troponin I (0.000-0.033) ng/mL NT-Pro-B Natriuret Pep (<300) pg/mL Serum Total Protein 7.9 (6.3-8.2) g/dL Albumin 4.1 (3.5-5.0) g/dL Prealbumin (17.6-36.0) mg/dL Urine Color Yellow (Yellow) Urine Appearance Clear (Clear) Urine pH 7.0 (4.6-8.0) Ur Specific [place] <=1.005 (1.005-1.030) Urine Protein 100 A (Negative) Urine Glucose (UA) Negative (Negative) mg/dL Urine Ketones Negative (Negative) Urine Blood Trace (Negative) Urine Nitrite Negative (Negative) Urine Bilirubin Negative (Negative) Urine Urobilinogen 0.2 (0.2) mg/dL Ur Leukocyte Esterase Trace A (Negative) U Hyaline Cast (Auto) NONE SEEN (0-2) /LPF Urine Microscopic RBC 0-2 (0-5) /HPF Urine Microscopic WBC 3-5 (0-5) /HPF Ur Epithelial Cells None Seen (None Seen) /HPF Urine Bacteria Rare A (None Seen) /HPF Urine Culture Reflexed YES (NO) Influenza Type A Ag (NEGATIVE) Influenza Type B Ag (NEGATIVE) RSV (PCR) (NEGATIVE) SARS-CoV-2 (PCR) (NEGATIVE) 01/12/24 01/12/24 01/12/24 Range/Units 19:41 22:24 23:51 WBC (3.98-10.04) x10^3/uL RBC (3.93-5.22) x10^6/uL Hgb (11.2-15.7) g/dL Hct (34.1-44.9) % MCV (79.4-94.8) fL MCH (25.6-32.2) pg MCHC (32.2-35.5) g/dL RDW (11.7-14.4) % Plt Count (182-369) x10^3/uL MPV (9.4-12.3) fL Gran % (34.0-71.1) % Immature Gran % (Auto) (0.001-0.429) % Nucleat RBC Rel Count (0.00-0.2) % Eos # (Auto) (0.04-0.36) x10^3/uL Immature Gran # (Auto) (0.001-0.031) x10^3u/L Absolute Lymphs (auto) (1.18-3.74) x10^3/uL Absolute Monos (auto) (0.24-0.86) x10^3/uL Absolute Nucleated RBC (0.00-0.012) x10^3u/L Lymphocytes % (19.3-51.7) % Monocytes % (4.7-12.5) % Eosinophils % (0.7-5.8) % Basophils % (0.1-1.2) % Absolute Granulocytes (1.56-6.13) x10^3/uL Basophils # (0.01-0.08) x10^3/uL Sodium (135-145) mmol/L Potassium (3.5-5.1) mmol/L Chloride (98-107) mmol/L Carbon Dioxide (22-30) mmol/L Anion Gap (5-15) MEQ/L BUN (7-17) mg/dL Creatinine (0.52-1.04) mg/dL Estimated GFR ML/MIN Glucose (74-106) mg/dL POC Glucometer (74 to 106) mg/dL Hemoglobin A1c (4.5-6.0) % Calcium (8.4-10.2) mg/dL Total Bilirubin (0.2-1.3) mg/dL AST (14-36) U/L ALT (0-35) U/L Alkaline Phosphatase (38-126) U/L Troponin I 0.016 0.013 (0.000-0.033) ng/mL NT-Pro-B Natriuret Pep (<300) pg/mL Serum Total Protein (6.3-8.2) g/dL Albumin (3.5-5.0) g/dL Prealbumin (17.6-36.0) mg/dL Urine Color (Yellow) Urine Appearance (Clear) Urine pH (4.6-8.0) Ur Specific [place] (1.005-1.030) Urine Protein (Negative) Urine Glucose (UA) (Negative) mg/dL Urine Ketones (Negative) Urine Blood (Negative) Urine Nitrite (Negative) Urine Bilirubin (Negative) Urine Urobilinogen (0.2) mg/dL Ur Leukocyte Esterase (Negative) U Hyaline Cast (Auto) (0-2) /LPF Urine Microscopic RBC (0-5) /HPF Urine Microscopic WBC (0-5) /HPF Ur Epithelial Cells (None Seen) /HPF Urine Bacteria (None Seen) /HPF Urine Culture Reflexed (NO) Influenza Type A Ag NEGATIVE (NEGATIVE) Influenza Type B Ag NEGATIVE (NEGATIVE) RSV (PCR) NEGATIVE (NEGATIVE) SARS-CoV-2 (PCR) NEGATIVE (NEGATIVE) 01/12/24 01/13/24 01/13/24 Range/Units Unknown 02:09 05:15 WBC (3.98-10.04) x10^3/uL RBC (3.93-5.22) x10^6/uL Hgb (11.2-15.7) g/dL Hct (34.1-44.9) % MCV (79.4-94.8) fL MCH (25.6-32.2) pg MCHC (32.2-35.5) g/dL RDW (11.7-14.4) % Plt Count (182-369) x10^3/uL MPV (9.4-12.3) fL Gran % (34.0-71.1) % Immature Gran % (Auto) (0.001-0.429) % Nucleat RBC Rel Count (0.00-0.2) % Eos # (Auto) (0.04-0.36) x10^3/uL Immature Gran # (Auto) (0.001-0.031) x10^3u/L Absolute Lymphs (auto) (1.18-3.74) x10^3/uL Absolute Monos (auto) (0.24-0.86) x10^3/uL Absolute Nucleated RBC (0.00-0.012) x10^3u/L Lymphocytes % (19.3-51.7) % Monocytes % (4.7-12.5) % Eosinophils % (0.7-5.8) % Basophils % (0.1-1.2) % Absolute Granulocytes (1.56-6.13) x10^3/uL Basophils # (0.01-0.08) x10^3/uL Sodium (135-145) mmol/L Potassium (3.5-5.1) mmol/L Chloride (98-107) mmol/L Carbon Dioxide (22-30) mmol/L Anion Gap (5-15) MEQ/L BUN (7-17) mg/dL Creatinine (0.52-1.04) mg/dL Estimated GFR ML/MIN Glucose (74-106) mg/dL POC Glucometer 130 H (74 to 106) mg/dL Hemoglobin A1c 7.44 H (4.5-6.0) % Calcium (8.4-10.2) mg/dL Total Bilirubin (0.2-1.3) mg/dL AST (14-36) U/L ALT (0-35) U/L Alkaline Phosphatase (38-126) U/L Troponin I (0.000-0.033) ng/mL NT-Pro-B Natriuret Pep 1050 (<300) pg/mL Serum Total Protein (6.3-8.2) g/dL Albumin (3.5-5.0) g/dL Prealbumin (17.6-36.0) mg/dL Urine Color (Yellow) Urine Appearance (Clear) Urine pH (4.6-8.0) Ur Specific [place] (1.005-1.030) Urine Protein (Negative) Urine Glucose (UA) (Negative) mg/dL Urine Ketones (Negative) Urine Blood (Negative) Urine Nitrite (Negative) Urine Bilirubin (Negative) Urine Urobilinogen (0.2) mg/dL Ur Leukocyte Esterase (Negative) U Hyaline Cast (Auto) (0-2) /LPF Urine Microscopic RBC (0-5) /HPF Urine Microscopic WBC (0-5) /HPF Ur Epithelial Cells (None Seen) /HPF Urine Bacteria (None Seen) /HPF Urine Culture Reflexed (NO) Influenza Type A Ag (NEGATIVE) Influenza Type B Ag (NEGATIVE) RSV (PCR) (NEGATIVE) SARS-CoV-2 (PCR) (NEGATIVE) 01/13/24 01/13/24 01/13/24 Range/Units 05:27 05:27 05:27 WBC 6.6 (3.98-10.04) x10^3/uL RBC 4.23 (3.93-5.22) x10^6/uL Hgb 11.9 (11.2-15.7) g/dL Hct 37.2 (34.1-44.9) % MCV 87.9 (79.4-94.8) fL MCH 28.1 (25.6-32.2) pg MCHC 32.0 L (32.2-35.5) g/dL RDW 14.8 H (11.7-14.4) % Plt Count 477 H (182-369) x10^3/uL MPV 9.6 (9.4-12.3) fL Gran % (34.0-71.1) % Immature Gran % (Auto) (0.001-0.429) % Nucleat RBC Rel Count (0.00-0.2) % Eos # (Auto) (0.04-0.36) x10^3/uL Immature Gran # (Auto) (0.001-0.031) x10^3u/L Absolute Lymphs (auto) (1.18-3.74) x10^3/uL Absolute Monos (auto) (0.24-0.86) x10^3/uL Absolute Nucleated RBC (0.00-0.012) x10^3u/L Lymphocytes % (19.3-51.7) % Monocytes % (4.7-12.5) % Eosinophils % (0.7-5.8) % Basophils % (0.1-1.2) % Absolute Granulocytes (1.56-6.13) x10^3/uL Basophils # (0.01-0.08) x10^3/uL Sodium 138 (135-145) mmol/L Potassium 4.6 (3.5-5.1) mmol/L Chloride 101 (98-107) mmol/L Carbon Dioxide 26 (22-30) mmol/L Anion Gap 15.8 H (5-15) MEQ/L BUN 17 (7-17) mg/dL Creatinine 0.93 (0.52-1.04) mg/dL Estimated GFR 59.9 ML/MIN Glucose 178 H (74-106) mg/dL POC Glucometer (74 to 106) mg/dL Hemoglobin A1c (4.5-6.0) % Calcium 9.4 (8.4-10.2) mg/dL Total Bilirubin 0.40 (0.2-1.3) mg/dL AST 22 (14-36) U/L ALT 16 (0-35) U/L Alkaline Phosphatase 76 (38-126) U/L Troponin I < 0.012 (0.000-0.033) ng/mL NT-Pro-B Natriuret Pep (<300) pg/mL Serum Total Protein 6.8 (6.3-8.2) g/dL Albumin 3.6 (3.5-5.0) g/dL Prealbumin 17.67 (17.6-36.0) mg/dL Urine Color (Yellow) Urine Appearance (Clear) Urine pH (4.6-8.0) Ur Specific [place] (1.005-1.030) Urine Protein (Negative) Urine Glucose (UA) (Negative) mg/dL Urine Ketones (Negative) Urine Blood (Negative) Urine Nitrite (Negative) Urine Bilirubin (Negative) Urine Urobilinogen (0.2) mg/dL Ur Leukocyte Esterase (Negative) U Hyaline Cast (Auto) (0-2) /LPF Urine Microscopic RBC (0-5) /HPF Urine Microscopic WBC (0-5) /HPF Ur Epithelial Cells (None Seen) /HPF Urine Bacteria (None Seen) /HPF Urine Culture Reflexed (NO) Influenza Type A Ag (NEGATIVE) Influenza Type B Ag (NEGATIVE) RSV (PCR) (NEGATIVE) SARS-CoV-2 (PCR) (NEGATIVE) 01/13/24 01/13/24 Range/Units 07:18 11:16 WBC (3.98-10.04) x10^3/uL RBC (3.93-5.22) x10^6/uL Hgb (11.2-15.7) g/dL Hct (34.1-44.9) % MCV (79.4-94.8) fL MCH (25.6-32.2) pg MCHC (32.2-35.5) g/dL RDW (11.7-14.4) % Plt Count (182-369) x10^3/uL MPV (9.4-12.3) fL Gran % (34.0-71.1) % Immature Gran % (Auto) (0.001-0.429) % Nucleat RBC Rel Count (0.00-0.2) % Eos # (Auto) (0.04-0.36) x10^3/uL Immature Gran # (Auto) (0.001-0.031) x10^3u/L Absolute Lymphs (auto) (1.18-3.74) x10^3/uL Absolute Monos (auto) (0.24-0.86) x10^3/uL Absolute Nucleated RBC (0.00-0.012) x10^3u/L Lymphocytes % (19.3-51.7) % Monocytes % (4.7-12.5) % Eosinophils % (0.7-5.8) % Basophils % (0.1-1.2) % Absolute Granulocytes (1.56-6.13) x10^3/uL Basophils # (0.01-0.08) x10^3/uL Sodium (135-145) mmol/L Potassium (3.5-5.1) mmol/L Chloride (98-107) mmol/L Carbon Dioxide (22-30) mmol/L Anion Gap (5-15) MEQ/L BUN (7-17) mg/dL Creatinine (0.52-1.04) mg/dL Estimated GFR ML/MIN Glucose (74-106) mg/dL POC Glucometer 192 H 320 H (74 to 106) mg/dL Hemoglobin A1c (4.5-6.0) % Calcium (8.4-10.2) mg/dL Total Bilirubin (0.2-1.3) mg/dL AST (14-36) U/L ALT (0-35) U/L Alkaline Phosphatase (38-126) U/L Troponin I (0.000-0.033) ng/mL NT-Pro-B Natriuret Pep (<300) pg/mL Serum Total Protein (6.3-8.2) g/dL Albumin (3.5-5.0) g/dL Prealbumin (17.6-36.0) mg/dL Urine Color (Yellow) Urine Appearance (Clear) Urine pH (4.6-8.0) Ur Specific [place] (1.005-1.030) Urine Protein (Negative) Urine Glucose (UA) (Negative) mg/dL Urine Ketones (Negative) Urine Blood (Negative) Urine Nitrite (Negative) Urine Bilirubin (Negative) Urine Urobilinogen (0.2) mg/dL Ur Leukocyte Esterase (Negative) U Hyaline Cast (Auto) (0-2) /LPF Urine Microscopic RBC (0-5) /HPF Urine Microscopic WBC (0-5) /HPF Ur Epithelial Cells (None Seen) /HPF Urine Bacteria (None Seen) /HPF Urine Culture Reflexed (NO) Influenza Type A Ag (NEGATIVE) Influenza Type B Ag (NEGATIVE) RSV (PCR) (NEGATIVE) SARS-CoV-2 (PCR) (NEGATIVE) Microbiology 01/12/24 19:30 Urine Culture - Preliminary Urine, Void GRAM NEGATIVE ID AND SENSITIVITY PENDING Accuchecks Date 01/13/24 - Radiology Impressions Radiology Exams & Impressions: Radiology Procedures Category Date Time Status CHEST 1 VIEW (PORTABLE) Stat Exams 01/12/24 19:37 Completed - Other Procedures and Tests Respiratory Therapy 01/12/24 22:42 Respiratory Therapy Assessment DAILY 01/13/24 07:26 Oxygen NASAL CANNULA 2 lpm Assessment/Plan (1) Venous insufficiency of both lower extremities Current Visit: Yes Status: Acute Code(s): I87.2 - VENOUS INSUFFICIENCY (CHRONIC) (PERIPHERAL) (2) Bilateral lower leg cellulitis Current Visit: Yes Status: Acute Code(s): L03.116 - CELLULITIS OF LEFT LOWER LIMB; L03.115 - CELLULITIS OF RIGHT LOWER LIMB (3) Shortness of breath Current Visit: Yes Status: Acute Code(s): R06.02 - SHORTNESS OF BREATH (4) COPD exacerbation Current Visit: Yes Status: Acute Code(s): J44.1 - CHRONIC OBSTRUCTIVE PULMONARY DISEASE W (ACUTE) EXACERBATION
[2024-01-13] MEDS ORDERED: LIPITOR 40MG PO SCH (22:00)
[2024-01-13] MEDS: ROCEPHIN 1 GM / 100 ML NaCl 1 GM/100 ML IVPB IV SCH (22:10)
[2024-01-13] MEDS: ZOCOR 20MG PO SCH (22:42)
[2024-01-13] MEDS: TYLENOL 325 MG PO PRN (22:43)
[2024-01-13] MEDS: Imdur 30 MG PO SCH (22:43)
[2024-01-14 05:31] LABS: Hematocrit 31.2 % (34.1-44.9); Hemoglobin 10.1 g/dL (11.2-15.7); Mean Cell Volume 87.6 fL (79.4-94.8); Mean Corpuscular Hemoglobin 28.4 pg (25.6-32.2); Mean Corpuscular Hgb Concent. 32.4 g/dL (32.2-35.5); Mean Platelet Volume 9.8 fL (9.4-12.3); Platelet Count 451 x10^3/uL (182-369); Red Blood Count 3.56 x10^6/uL (3.93-5.22); Red Cell Distribution Width 14.8 % (11.7-14.4); White Blood Count 10.8 x10^3/uL (3.98-10.04)
[2024-01-14 06:01] LABS: ALBUMIN 3.2 g/dL (3.5-5.0); ANION GAP 12.8 MEQ/L (5-15); BILIRUBIN,TOTAL 0.2 mg/dL (0.2-1.3); Calcium 8.4 mg/dL (8.4-10.2); Creatinine 1 1.15 mg/dL (0.52-1.04); EST GLOMERULAR FILTRATION RATE 46.4 ML/MIN; Potassium 4.6 mmol/L (3.5-5.1); Total Protein 6.2 g/dL (6.3-8.2)
--- NOTE | 2024-01-14 10:21 | PCM.NOTE ---
Date and Time: 01/14/24 1014 Subjective Assessment: is a 88 year old female with PMHX of CHF, CAD, hyperlipidemia, HTN, Type II DM, GERD, hypothyroidism, and COPD. She presented to ER on 01/13/24 with SOB, and BL leg swelling. No chest pain. O2 sat was 89% on room air. Patient normally does not require home oxygen. Patient placed on oxygen. Oxygenation improved to 97% on 3 L. Antibiotics started IP for COPD exacerbation and cellulitis of BLLE. UA + for e-coli in urine. Continue Rocephin as sensitivity shows this works well. SOB has improved today. She is awaiting arterial and venous duplex ordered by podiatry. 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 BC x2 negative. Continue Advair, duonebs and steriods. WBC up at 10.8 and likely 2:2 starting steroids yesterday. She states she is overall feeling better but has continued weakness. Will have PT eval and treat. She denies CP, Abd pain, N/V/D. - Review of Systems Constitutional: Weakness, No Fever, No Chills Eyes: No Symptoms Ears, Nose, & Throat: No Symptoms Respiratory: Short Of Breath, Wheezing, No Cough Cardiac: No Chest Pain, No Edema, No Syncope Abdominal/Gastrointestinal: No Abdominal Pain, No Nausea, No Vomiting, No Diarrhea Genitourinary Symptoms: No Dysuria Musculoskeletal: No Back Pain, No Neck Pain Skin: Cellulitis (BLLE), No Rash Neurological: No Dizziness, No Focal Weakness, No Sensory Changes Psychological: No Symptoms Endocrine: No Symptoms Hematologic/Lymphatic: No Symptoms Immunological/Allergic: No Symptoms Objective Exam General Appearance: no apparent distress, alert Neurologic Exam: alert, oriented x 3, cooperative, normal mood/affect, nml cerebellar function, sensation nml, No motor deficits Skin Exam: warm, dry, pale Wound Assessment: Skin/Wound Assessment Wound/Incision Assessment Start: 01/13/24 03:39 Text: Status: Active Freq: Q6H Protocol: Document 01/14/24 08:00 AR (Rec: 01/14/24 08:27 AR [id number]) Wound/Incision Assessment Bilateral Lower Extremities Wound Assessment Shift Assessment Wound Type cellulitis Wound Stage Non Pressure Wound General Appearance Open to air,Reddened Surrounding Tissue Dark Red,Edematous Comment barrier cream applied Wound Photo Photo Taken No Eye Exam: PERRL, EOMI, eyes nml inspection Ears, Nose, Throat Exam: normal ENT inspection, pharynx normal, moist mucous membranes Neck Exam: normal inspection, non-tender, supple, full range of motion Respiratory Exam: normal breath sounds, lungs clear, wheezing (CABRERA), No respiratory distress Cardiovascular Exam: regular rate/rhythm, normal heart sounds, murmur Gastrointestinal/Abdomen Exam: soft, No tenderness, No mass Extremity Exam: normal inspection, normal range of motion, inflammation, swelling (BLLE) Back Exam: normal inspection, normal range of motion, No CVA tenderness, No vertebral tenderness Pelvic Exam: deferred Rectal Exam: deferred Objective Data Vital Signs: Vital Signs - 24 hr Temp Pulse Resp BP Pulse Ox 01/14/24 08:00 98.3 F 76 18 145/67 96 01/14/24 06:57 70 18 96 01/14/24 04:00 97.1 F 73 20 141/63 93 L 01/14/24 00:00 97.6 F 100 H 18 156/73 91 L 01/13/24 20:00 97.3 F 92 H 21 132/63 92 L 01/13/24 18:26 80 20 92 L 01/13/24 16:00 97.1 F 71 16 137/65 96 01/13/24 14:46 78 18 94 L 01/13/24 13:28 91 L 01/13/24 13:02 97 01/13/24 11:48 97.1 F 90 18 152/70 97 01/13/24 10:48 90 18 98 Pain Assessment - Last Documented Pain Intensity 6 Pain Scale Used 0-10 Pain Scale Intake and Output: Intake & Output 01/11/24 01/12/24 01/13/24 01/14/24 11:59 11:59 11:59 11:59 Intake Total 220 880 Output Total 300 Balance 220 580 Weight 62.5 kg Lab Results: Lab Results-Last 24 Hours 01/13/24 01/13/24 01/13/24 Range/Units 05:15 11:16 16:51 WBC (3.98-10.04) x10^3/uL RBC (3.93-5.22) x10^6/uL Hgb (11.2-15.7) g/dL Hct (34.1-44.9) % MCV (79.4-94.8) fL MCH (25.6-32.2) pg MCHC (32.2-35.5) g/dL RDW (11.7-14.4) % Plt Count (182-369) x10^3/uL MPV (9.4-12.3) fL Sodium (135-145) mmol/L Potassium (3.5-5.1) mmol/L Chloride (98-107) mmol/L Carbon Dioxide (22-30) mmol/L Anion Gap (5-15) MEQ/L BUN (7-17) mg/dL Creatinine (0.52-1.04) mg/dL Estimated GFR ML/MIN Glucose (74-106) mg/dL POC Glucometer 320 H 324 H (74 to 106) mg/dL Hemoglobin A1c 7.44 H (4.5-6.0) % Calcium (8.4-10.2) mg/dL Total Bilirubin (0.2-1.3) mg/dL AST (14-36) U/L ALT (0-35) U/L Alkaline Phosphatase (38-126) U/L Serum Total Protein (6.3-8.2) g/dL Albumin (3.5-5.0) g/dL 01/13/24 01/14/24 01/14/24 Range/Units 22:38 05:23 05:23 WBC 10.8 H (3.98-10.04) x10^3/uL RBC 3.56 L (3.93-5.22) x10^6/uL Hgb 10.1 L (11.2-15.7) g/dL Hct 31.2 L (34.1-44.9) % MCV 87.6 (79.4-94.8) fL MCH 28.4 (25.6-32.2) pg MCHC 32.4 (32.2-35.5) g/dL RDW 14.8 H (11.7-14.4) % Plt Count 451 H (182-369) x10^3/uL MPV 9.8 (9.4-12.3) fL Sodium 132 L (135-145) mmol/L Potassium 4.6 (3.5-5.1) mmol/L Chloride 98 (98-107) mmol/L Carbon Dioxide 26 (22-30) mmol/L Anion Gap 12.8 (5-15) MEQ/L BUN 34 H (7-17) mg/dL Creatinine 1.15 H (0.52-1.04) mg/dL Estimated GFR 46.4 ML/MIN Glucose 237 H (74-106) mg/dL POC Glucometer 317 H (74 to 106) mg/dL Hemoglobin A1c (4.5-6.0) % Calcium 8.4 (8.4-10.2) mg/dL Total Bilirubin 0.20 (0.2-1.3) mg/dL AST 20 (14-36) U/L ALT 16 (0-35) U/L Alkaline Phosphatase 62 (38-126) U/L Serum Total Protein 6.2 L (6.3-8.2) g/dL Albumin 3.2 L (3.5-5.0) g/dL 01/13/ Range/Units 07:06 WBC (3.98-10.04) x10^3/uL RBC (3.93-5.22) x10^6/uL Hgb (11.2-15.7) g/dL Hct (34.1-44.9) % MCV (79.4-94.8) fL MCH (25.6-32.2) pg MCHC (32.2-35.5) g/dL RDW (11.7-14.4) % Plt Count (182-369) x10^3/uL MPV (9.4-12.3) fL Sodium (135-145) mmol/L Potassium (3.5-5.1) mmol/L Chloride (98-107) mmol/L Carbon Dioxide (22-30) mmol/L Anion Gap (5-15) MEQ/L BUN (7-17) mg/dL Creatinine (0.52-1.04) mg/dL Estimated GFR ML/MIN Glucose (74-106) mg/dL POC Glucometer 248 H (74 to 106) mg/dL Hemoglobin A1c (4.5-6.0) % Calcium (8.4-10.2) mg/dL Total Bilirubin (0.2-1.3) mg/dL AST (14-36) U/L ALT (0-35) U/L Alkaline Phosphatase (38-126) U/L Serum Total Protein (6.3-8.2) g/dL Albumin (3.5-5.0) g/dL Radiology Exams: Radiology Procedures Category Date Time Status ARTERIAL BILAT LOWER EXTREMITY [US] Urgent Exams 01/14/24 10:00 Ordered ARTERIAL BILAT LOWER EXTREMITY [US] Urgent Exams 01/15/24 08:00 Stop Req CHEST 1 VIEW (PORTABLE) Stat Exams 01/12/24 19:37 Completed VENOUS BILATERAL EXTREMITY [US] Urgent Exams 01/14/24 08:00 Stop Req VENOUS BILATERAL EXTREMITY [US] Urgent Exams 01/15/24 08:00 Ordered Assessment/Plan (1) COPD exacerbation Current Visit: Yes Status: Acute Assessment & Plan: - Ceftriaxone IV - CBC, CMP reviewed - WBC 10.8- elevated today - likely 2:2 Steroids started yesterday - Advair, Duonebs, Steriods - 2LNC 93%- Baseline RA Code(s): J44.1 - CHRONIC OBSTRUCTIVE PULMONARY DISEASE W (ACUTE) EXACERBATION (2) Shortness of breath Current Visit: Yes Status: Acute Assessment & Plan: - 2:2 COPD exacerbation - Improving today - See above plan Code(s): R06.02 - SHORTNESS OF BREATH (3) Weakness Current Visit: Yes Status: Acute Assessment & Plan: - Lives in assisted living - 2:2 COPD exacerbation - PT eval and treat Code(s): R53.1 - WEAKNESS (4) Bilateral lower leg cellulitis Current Visit: Yes Status: Acute Assessment & Plan: - podiatry consult - Ceftriaxone Code(s): L03.116 - CELLULITIS OF LEFT LOWER LIMB; L03.115 - CELLULITIS OF RIGHT LOWER LIMB (5) Venous insufficiency of both lower extremities Current Visit: Yes Status: Acute Assessment & Plan: - podiatry consulted - Arterial and venous duplex ordered by podiatry Code(s): I87.2 - VENOUS INSUFFICIENCY (CHRONIC) (PERIPHERAL) (6) UTI (urinary tract infection) Current Visit: Yes Status: Acute Assessment & Plan: - UC + e-coli - Ceftraixone IV Code(s): N39.0 - URINARY TRACT INFECTION, SITE NOT SPECIFIED (7) Type II diabetes mellitus Current Visit: Yes Status: Chronic Qualifiers: Diabetes mellitus local intermodal truck driver insulin use: with local intermodal truck driver use Diabetes mellitus complication status: with circulatory complication Diabetes mellitus complication detail: with peripheral angiopathy without gangrene Qualified Code(s): E11.51 - Type 2 diabetes mellitus with diabetic peripheral angiopathy without gangrene; Z79.4 - snf (current) use of insulin Assessment & Plan: - Continue home insulin dosing - Accuchecks ac/hs - Humalog s/s - A1C 7.44- controlled (8) Hypothyroidism Current Visit: Yes Status: Chronic Assessment & Plan: - continue synthroid Code(s): E03.9 - HYPOTHYROIDISM, UNSPECIFIED (9) GERD (gastroesophageal reflux disease) Current Visit: Yes Status: Chronic Assessment & Plan: - continue protonix Code(s): K21.9 - GASTRO-ESOPHAGEAL REFLUX DISEASE WITHOUT ESOPHAGITIS (10) Hypertension Current Visit: No Status: Chronic Assessment & Plan: - BP stable - Continue home meds Code(s): I10 - ESSENTIAL (PRIMARY) HYPERTENSION (11) Hyperlipemia Current Visit: Yes Status: Chronic Assessment & Plan: - Continue statin VTE: Plavix PPI: Protonix Next of KIN: Child- Stoney Murillo [phone] D/C plan: tomorrow? Code status: Full Code(s): E78.5 - HYPERLIPIDEMIA, UNSPECIFIED
--- NOTE | 2024-01-14 12:25 | XRAY ---
Indication: Cellulitis. Left leg DVT. Two-dimensional sonogram and color Doppler imaging major arteries left and right leg performed. Comparison: None Examination right leg demonstrates minimal/mild scattered arteriosclerotic disease in common femoral and deep femoral arteries. Greater mild/moderate scattered disease in remaining superficial femoral, popliteal, posterior tibial, and dorsal pedal arteries. Arterial waveforms are monophasic throughout right leg. Examination left leg demonstrates minimal/mild scattered arterial scattered disease in common femoral and deep femoral arteries. Mild/moderate scattered disease throughout superficial femoral, popliteal, and dorsal pedal arteries. No flow in posterior tibial artery. Ankle brachial index not performed due to known left leg DVT and lower extremity blisters. Impression: Scattered arteriosclerotic disease bilaterally as detailed. No flow left posterior tibial artery. Right leg negative for critical stenosis/obstruction.
[2024-01-15 05:03] LABS: Hematocrit 29.5 % (34.1-44.9); Hemoglobin 9.5 g/dL (11.2-15.7); Mean Cell Volume 87.8 fL (79.4-94.8); Mean Corpuscular Hemoglobin 28.3 pg (25.6-32.2); Mean Corpuscular Hgb Concent. 32.2 g/dL (32.2-35.5); Mean Platelet Volume 9.8 fL (9.4-12.3); Platelet Count 426 x10^3/uL (182-369); Red Blood Count 3.36 x10^6/uL (3.93-5.22); White Blood Count 12.3 x10^3/uL (3.98-10.04)
[2024-01-15 05:20] LABS: ALBUMIN 2.9 g/dL (3.5-5.0); ANION GAP 12.6 MEQ/L (5-15); BILIRUBIN,TOTAL 0.2 mg/dL (0.2-1.3); Creatinine 1 1.25 mg/dL (0.52-1.04); Potassium 4.6 mmol/L (3.5-5.1); Total Protein 5.7 g/dL (6.3-8.2)
--- NOTE | 2024-01-15 07:44 | XRAY ---
Indication: Cellulitis. Two-dimensional sonogram and color Doppler imaging major venous vessels left and right leg performed. Comparison: None Left leg demonstrates tiny nonoccluding thrombus distal femoral vein. No thrombus seen in the remaining deep venous vessels left right leg including greater saphenous vein. Patent veins demonstrate normal compressibility and normal venous waveforms. Impression: Tiny nonoccluding DVT distal left femoral vein. Right leg negative for DVT.
[2024-01-15] MEDS: COREG 12.5 MG PO SCH (08:07)
[2024-01-15] MEDS: Sodium Chloride 0.9% 1000 ML 1,000 ML IV SCH (08:48)
--- NOTE | 2024-01-15 12:04 | PCM.DS ---
Discharge Summary Date of Admission: 01/13/24 08:00 Date of Discharge: 01/15/24 Admitting Physician: DANYA LEIGH MD Consults: Consults on Case 01/13/24 09:50 Consult Podiatry ROUTINE Primary Care Provider: WOLF HUERTA JR Allergies Allergies clindamycin Allergy (Verified 01/12/24 19:17) hydralazine Allergy (Verified 01/12/24 19:17) oxytetracycline [From Terramycin] Allergy (Verified 01/12/24 19:17) sulfamethoxazole [From Bactrim] Allergy (Verified 01/12/24 19:17) trimethoprim [From Bactrim] Allergy (Verified 01/12/24 19:17) Hospital Summary - Vitals & Intake/Output Vital Signs: Vital Signs Temperature 97.1 F 01/15/24 08:00 Pulse Rate 64 01/15/24 10:53 Respiratory Rate 18 01/15/24 10:53 Blood Pressure 134/63 01/15/24 08:00 O2 Sat by Pulse Oximetry 95 01/15/24 10:53 Intake & Output: Intake & Output 01/12/24 01/13/24 01/14/24 01/15/24 11:59 11:59 11:59 11:59 Intake Total 220 880 700 Output Total 600 750 Balance 220 280 -50 Weight 62.5 kg - Lab Result Diagrams: 01/15/24 04:25 01/15/24 04:25 Lab Results-Last 24 Hrs: Lab Results-Last 24 Hours 01/14/24 01/14/24 01/15/24 Range/Units 16:20 22:12 04:25 WBC 12.3 H (3.98-10.04) x10^3/uL RBC 3.36 L (3.93-5.22) x10^6/uL Hgb 9.5 L (11.2-15.7) g/dL Hct 29.5 L (34.1-44.9) % MCV 87.8 (79.4-94.8) fL MCH 28.3 (25.6-32.2) pg MCHC 32.2 (32.2-35.5) g/dL RDW 15.0 H (11.7-14.4) % Plt Count 426 H (182-369) x10^3/uL MPV 9.8 (9.4-12.3) fL Sodium (135-145) mmol/L Potassium (3.5-5.1) mmol/L Chloride (98-107) mmol/L Carbon Dioxide (22-30) mmol/L Anion Gap (5-15) MEQ/L BUN (7-17) mg/dL Creatinine (0.52-1.04) mg/dL Estimated GFR ML/MIN Glucose (74-106) mg/dL POC Glucometer TNP 279 H Uric Acid (2.6-6.0) mg/dL Calcium (8.4-10.2) mg/dL Total Bilirubin (0.2-1.3) mg/dL AST (14-36) U/L ALT (0-35) U/L Alkaline Phosphatase (38-126) U/L Serum Total Protein (6.3-8.2) g/dL Albumin (3.5-5.0) g/dL 25-OH Vitamin D Total (30-100) ng/mL 01/15/24 01/15/24 01/15/24 Range/Units 04:25 04:45 04:45 WBC (3.98-10.04) x10^3/uL RBC (3.93-5.22) x10^6/uL Hgb (11.2-15.7) g/dL Hct (34.1-44.9) % MCV (79.4-94.8) fL MCH (25.6-32.2) pg MCHC (32.2-35.5) g/dL RDW (11.7-14.4) % Plt Count (182-369) x10^3/uL MPV (9.4-12.3) fL Sodium 129 L (135-145) mmol/L Potassium 4.6 (3.5-5.1) mmol/L Chloride 97 L (98-107) mmol/L Carbon Dioxide 24 (22-30) mmol/L Anion Gap 12.6 (5-15) MEQ/L BUN 42 H (7-17) mg/dL Creatinine 1.25 H (0.52-1.04) mg/dL Estimated GFR 42.0 ML/MIN Glucose 301 H (74-106) mg/dL POC Glucometer Uric Acid 6.9 H (2.6-6.0) mg/dL Calcium 8.0 L (8.4-10.2) mg/dL Total Bilirubin 0.20 (0.2-1.3) mg/dL AST 22 (14-36) U/L ALT 19 (0-35) U/L Alkaline Phosphatase 56 (38-126) U/L Serum Total Protein 5.7 L (6.3-8.2) g/dL Albumin 2.9 L (3.5-5.0) g/dL 25-OH Vitamin D Total < 12.8 L (30-100) ng/mL 01/15/24 01/15/24 Range/Units 07:03 11:08 WBC (3.98-10.04) x10^3/uL RBC (3.93-5.22) x10^6/uL Hgb (11.2-15.7) g/dL Hct (34.1-44.9) % MCV (79.4-94.8) fL MCH (25.6-32.2) pg MCHC (32.2-35.5) g/dL RDW (11.7-14.4) % Plt Count (182-369) x10^3/uL MPV (9.4-12.3) fL Sodium (135-145) mmol/L Potassium (3.5-5.1) mmol/L Chloride (98-107) mmol/L Carbon Dioxide (22-30) mmol/L Anion Gap (5-15) MEQ/L BUN (7-17) mg/dL Creatinine (0.52-1.04) mg/dL Estimated GFR ML/MIN Glucose (74-106) mg/dL POC Glucometer 308 H 386 H Uric Acid (2.6-6.0) mg/dL Calcium (8.4-10.2) mg/dL Total Bilirubin (0.2-1.3) mg/dL AST (14-36) U/L ALT (0-35) U/L Alkaline Phosphatase (38-126) U/L Serum Total Protein (6.3-8.2) g/dL Albumin (3.5-5.0) g/dL 25-OH Vitamin D Total (30-100) ng/mL Micro Results-Entire Visit: Microbiology 01/12/24 19:50 Blood Culture - Preliminary Blood 01/12/24 19:50 Blood Culture - Preliminary Blood 01/12/24 19:30 Urine Culture - Final Urine, Void Escherichia Coli Accuchecks Date 01/15/24 Date 01/14/24 - Radiology Exams Ordered Rad Exams-Entire Visit: Radiology Procedures Category Date Time Status ARTERIAL BILAT LOWER EXTREMITY [US] Urgent Exams 01/14/24 10:00 Completed VENOUS BILATERAL EXTREMITY [US] Urgent Exams 01/14/24 08:00 Completed - Procedures and Test Procedures and Tests throughout Hospitalization: Therapy Orders & Screens 01/12/24 22:42 Respiratory Therapy Assessment DAILY Comment: 01/13/24 03:39 OT Screen per Nursing Assess ONCE Comment: Protocol Order Physician Instructions: Greater than 3 points order OT Admission Screening Reason For Exam: Triggered on Admission Diagnosis: COPD Exacerbation Open Wound/Cellutlitis/Pressure Ulcers: Yes Acute Fx/ORIF/Change in wt bearing status: No Severe MUSCULOSKELETAL pain: No ADL Dysfunction: Yes Acute CVA w/Hemiparesis/Hemiplegia: No Decreased Functional Mobility/Strength: No Sprain/Strain: No Acute Post-op Mobility Dysfunction: No Total Points: 8 PT Screen per Nursing Assess ONCE Comment: Protocol Order Physician Instructions: Greater than 3 points order PT Admission Screenin Reason For Exam: Triggered on Admission Diagnosis: COPD Exacerbation Open Wound/Cellutlitis/Pressure Ulcers: Yes Acute Fx/ORIF/Change in wt bearing status: No Severe MUSCULOSKELETAL pain: No ADL Dysfunction: Yes Acute CVA w/Hemiparesis/Hemiplegia: No Decreased Functional Mobility/Strength: No Sprain/Strain: No Acute Post-op Mobility Dysfunction: No Total Points: 8 RT Screen per Nursing Assess ONCE Comment: Protocol Order Physician Instructions: Greater than 3 points order RT Admission Screen Reason For Exam: Triggered on Admission Diagnosis: COPD Exacerbation Diagnosis: COPD Exacerbation Pneumonia: No Home O2: No Asthma: Yes CHF: No Home CPAP/BIPAP: No Home Nebs/MDI: Yes Total Points: 9 01/13/24 07:26 Oxygen NASAL CANNULA 2 lpm Comment: Diagnosis: COPD Exacerbation 01/13/24 09:49 Respiratory MDI BID Comment: Diagnosis: COPD Exacerbation 01/14/24 10:21 PT Eval & Treat (MD Order) ONCE Reason for Eval:: weakness, lives in assisted living Diagnosis: COPD Exacerbation, BLE CELLULITIS, UTI Discharge Exam Wound Assessment: Skin/Wound Assessment Wound/Incision Assessment Start: 01/13/24 03:39 Text: Status: Active Freq: Q6H Protocol: Document 01/15/24 02:00 KD (Rec: 01/15/24 02:15 KD [id number]) Wound/Incision Assessment Bilateral Lower Extremities Wound Assessment Shift Assessment Wound Type cellulitis Wound Stage Non Pressure Wound General Appearance Open to air,Reddened Surrounding Tissue [place],Edematous Wound Photo Photo Taken No Final Diagnosis/Problem List - Final Discharge Diagnosis/Problem (1) COPD exacerbation Current Visit: Yes Status: Acute Code(s): J44.1 - CHRONIC OBSTRUCTIVE PULMONARY DISEASE W (ACUTE) EXACERBATION (2) Shortness of breath Current Visit: Yes Status: Acute Code(s): R06.02 - SHORTNESS OF BREATH (3) Weakness Current Visit: Yes Status: Acute Code(s): R53.1 - WEAKNESS (4) Bilateral lower leg cellulitis Current Visit: Yes Status: Acute Code(s): L03.116 - CELLULITIS OF LEFT LOWER LIMB; L03.115 - CELLULITIS OF RIGHT LOWER LIMB (5) Venous insufficiency of both lower extremities Current Visit: Yes Status: Acute Code(s): I87.2 - VENOUS INSUFFICIENCY (CHR ONIC) (PERIPHERAL) (6) UTI (urinary tract infection) Current Visit: Yes Status: Acute Code(s): N39.0 - URINARY TRACT INFECTION, SITE NOT SPECIFIED (7) Type II diabetes mellitus Current Visit: Yes Status: Chronic (8) Hypothyroidism Current Visit: Yes Status: Chronic Code(s): E03.9 - HYPOTHYROIDISM, UNSPECIFIED (9) GERD (gastroesophageal reflux disease) Current Visit: Yes Status: Chronic Code(s): K21.9 - GASTRO-ESOPHAGEAL REFLUX DISEASE WITHOUT ESOPHAGITIS (10) Hypertension Current Visit: No Status: Chronic Code(s): I10 - ESSENTIAL (PRIMARY) H YPERTENSION (11) Hyperlipemia Current Visit: Yes Status: Chronic Code(s): E78.5 - HYPERLIPIDEMIA, UNSPEC IFIED - Discharge Disposition: Home, Self-Care Condition: Stable Prescriptions: No Action Insulin Glargine,Hum.rec.anlog [Toujeo Solostar] 10 unit SQ HS Insulin Glargine,Hum.rec.anlog [Toujeo Solostar] 15 unit SQ DAILY Calcium Carbonate [Tums] 1 tab PO DAILY Carvedilol 12.5 mg [Coreg 12.5 mg] 12.5 mg PO BID Tramadol HCl 50 mg [Ultram 50 mg] 50 mg PO Q6H PRN PRN PRN Reason: Pain Carboxymethylcellulose Sodium [Refresh Plus] 1 drop OP TID PRN PRN PRN Reason: dry eyes Valsartan [Diovan] 320 mg PO DAILY Acetaminophen 325 mg [Tylenol 325 mg] 650 mg PO Q6H PRN PRN PRN Reason: Pain Sennosides/Docusate Sodium [Senna-S Tablet] 1 tab PO BID Nitroglycerin 0.4 mg PO Q5MIN PRN MR X 3 PRN PRN Reason: Chest Pain Aspirin EC 81 mg [Ecotrin 81 mg] 81 mg PO DAILY Omeprazole 40 mg PO DAILY Levothyroxine Sodium 25 Mcg [Synthroid 25 Mcg] 25 mcg PO 0700 Isosorbide Mononitrate 30 mg [Imdur 30 MG] 30 mg PO HS Clopidogrel Bisulfate [PLAVIX Tablet] 75 mg PO DAILY Clonidine HCl 0.1 mg [Clonidine 0.1 mg Tablet] 0.1 mg PO BID Atorvastatin Calcium 40 mg PO HS Amlodipine Besylate [Norvasc] 10 mg PO DAILY Insulin Aspart [NovoLOG Insulin] 0 units SQ ACHS Follow up with: WOLF HUERTA JR [Primary Care Provider] -
--- NOTE | 2024-01-15 12:11 | PCM.NOTE ---
Date and Time: 01/15/24 1206 Subjective Assessment: 01/14/24 is a 88 year old female with PMHX of CHF, CAD, hyperlipidemia, HTN, Type II DM, GERD, hypothyroidism, and COPD. She presented to ER on 01/13/24 with SOB, and BL leg swelling. No chest pain. O2 sat was 89% on room air. Patient normally does not require home oxygen. Patient placed on oxygen. Oxygenation improved to 97% on 3 L. Antibiotics started IP for COPD exacerbation and cellulitis of BLLE. UA + for e-coli in urine. Continue Rocephin as sensitivity shows this works well. SOB has improved today. She is awaiting arterial and venous duplex ordered by podiatry. Pt reports a hx of vascular insufficiency reported to her by her collection support specialist. BC x2 negative. Continue Advair, duonebs and steriods. WBC up at 10.8 and likely 2:2 starting steroids yesterday. She states she is overall feeling better but has continued weakness. Will have PT eval and treat. She denies CP, Abd pain, N/V/D. 01/15/24 Pt resting in bed. She is feeling weak today. Na+ 129- NS at 80ml/hr started. 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 She had a venous and arterial duplex yesterday. Results back today and show no flow of left posterior tibial artery. She also has a tiiny non-occluding left femoral DVT. She is already on Plavix. Pt states she knew she has a hx of poor peripheral perfusion but did not know the extent. Discussed pt case with vascular surgeon Dr. Martinez vascular surgeon at [facility] in [place]. He did not feel pt needed transferred to higher level of care and could be f/u op based on findings of arterial and venous duplex. Also asked about anticoagulation and he said d/t her age to keep her on Plavix. Continue antibiotic for cellulitis, UTI, COPD exacerbation. Continue Duonebs, steriods, and advair for COPD exacerbation. - Review of Systems Constitutional: Weakness, No Fever, No Chills Eyes: No Symptoms Ears, Nose, & Throat: No Symptoms Respiratory: No Cough, No Short Of Breath Cardiac: No Chest Pain, No Edema, No Syncope Abdominal/Gastrointestinal: No Abdominal Pain, No Nausea, No Vomiting, No Diarrhea Genitourinary Symptoms: No Dysuria Musculoskeletal: No Back Pain, No Neck Pain Skin: Cellulitis, No Rash Neurological: No Dizziness, No Focal Weakness, No Sensory Changes Psychological: No Symptoms Endocrine: No Symptoms Hematologic/Lymphatic: No Symptoms Immunological/Allergic: No Symptoms Objective Exam General Appearance: no apparent distress, alert Neurologic Exam: alert, oriented x 3, cooperative, normal mood/affect, nml cerebellar function, sensation nml, motor weakness, No motor deficits Skin Exam: warm, dry, pale, other (Cellulitis of BLLE) Wound Assessment: Skin/Wound Assessment Wound/Incision Assessment Start: 01/13/24 03:39 Text: Status: Active Freq: Q6H Protocol: Document 01/15/24 02:00 KD (Rec: 01/15/24 02:15 KD [id number]) Wound/Incision Assessment Bilateral Lower Extremities Wound Assessment Shift Assessment Wound Type cellulitis Wound Stage Non Pressure Wound General Appearance Open to air,Reddened Surrounding Tissue [place],Edematous Wound Photo Photo Taken No Eye Exam: PERRL, EOMI, eyes nml inspection Ears, Nose, Throat Exam: normal ENT inspection, pharynx normal, moist mucous membranes Neck Exam: normal inspection, non-tender, supple, full range of motion Respiratory Exam: normal breath sounds, lungs clear, No respiratory distress Cardiovascular Exam: regular rate/rhythm, murmur (aortic), other (decreased pulses LLE) Gastrointestinal/Abdomen Exam: soft, No tenderness, No mass Extremity Exam: normal inspection, normal range of motion, inflammation (BLLE), tenderness Back Exam: normal inspection, normal range of motion, No CVA tenderness, No vertebral tenderness Pelvic Exam: deferred Rectal Exam: deferred Objective Data Vital Signs: Vital Signs - 24 hr Temp Pulse Resp BP Pulse Ox 01/15/24 10:53 64 18 95 01/15/24 08:00 97.1 F 62 18 134/63 97 01/15/24 07:12 60 16 96 01/15/24 04:00 97.3 F 69 22 130/61 88 L 01/15/24 02:00 53 L 01/15/24 00:00 97.3 F 75 22 147/66 88 L 01/14/24 22:31 68 18 94 L 01/14/24 20:00 97.1 F 72 18 130/60 89 L 01/14/24 16:00 97.5 F 67 18 125/60 92 L 01/14/24 15:11 72 20 92 L Pain Assessment - Last Documented Pain Intensity 5 Pain Scale Used 0-10 Pain Scale Intake and Output: Intake & Output 01/13/24 01/14/24 01/15/24 01/16/24 11:59 11:59 11:59 11:59 Intake Total 220 880 700 Output Total 600 750 Balance 220 280 -50 Weight 62.5 kg Lab Results: Lab Results-Last 24 Hours 01/14/24 01/14/24 01/15/24 Range/Units 16:20 22:12 04:25 WBC 12.3 H (3.98-10.04) x10^3/uL RBC 3.36 L (3.93-5.22) x10^6/uL Hgb 9.5 L (11.2-15.7) g/dL Hct 29.5 L (34.1-44.9) % MCV 87.8 (79.4-94.8) fL MCH 28.3 (25.6-32.2) pg MCHC 32.2 (32.2-35.5) g/dL RDW 15.0 H (11.7-14.4) % Plt Count 426 H (182-369) x10^3/uL MPV 9.8 (9.4-12.3) fL Sodium (135-145) mmol/L Potassium (3.5-5.1) mmol/L Chloride (98-107) mmol/L Carbon Dioxide (22-30) mmol/L Anion Gap (5-15) MEQ/L BUN (7-17) mg/dL Creatinine (0.52-1.04) mg/dL Estimated GFR ML/MIN Glucose (74-106) mg/dL POC Glucometer TNP 279 H Uric Acid (2.6-6.0) mg/dL Calcium (8.4-10.2) mg/dL Total Bilirubin (0.2-1.3) mg/dL AST (14-36) U/L ALT (0-35) U/L Alkaline Phosphatase (38-126) U/L Serum Total Protein (6.3-8.2) g/dL Albumin (3.5-5.0) g/dL 25-OH Vitamin D Total (30-100) ng/mL 01/15/24 01/15/24 01/15/24 Range/Units 04:25 04:45 04:45 WBC (3.98-10.04) x10^3/uL RBC (3.93-5.22) x10^6/uL Hgb (11.2-15.7) g/dL Hct (34.1-44.9) % MCV (79.4-94.8) fL MCH (25.6-32.2) pg MCHC (32.2-35.5) g/dL RDW (11.7-14.4) % Plt Count (182-369) x10^3/uL MPV (9.4-12.3) fL Sodium 129 L (135-145) mmol/L Potassium 4.6 (3.5-5.1) mmol/L Chloride 97 L (98-107) mmol/L Carbon Dioxide 24 (22-30) mmol/L Anion Gap 12.6 (5-15) MEQ/L BUN 42 H (7-17) mg/dL Creatinine 1.25 H (0.52-1.04) mg/dL Estimated GFR 42.0 ML/MIN Glucose 301 H (74-106) mg/dL POC Glucometer Uric Acid 6.9 H (2.6-6.0) mg/dL Calcium 8.0 L (8.4-10.2) mg/dL Total Bilirubin 0.20 (0.2-1.3) mg/dL AST 22 (14-36) U/L ALT 19 (0-35) U/L Alkaline Phosphatase 56 (38-126) U/L Serum Total Protein 5.7 L (6.3-8.2) g/dL Albumin 2.9 L (3.5-5.0) g/dL 25-OH Vitamin D Total < 12.8 L (30-100) ng/mL 01/15/24 01/15/24 Range/Units 07:03 11:08 WBC (3.98-10.04) x10^3/uL RBC (3.93-5.22) x10^6/uL Hgb (11.2-15.7) g/dL Hct (34.1-44.9) % MCV (79.4-94.8) fL MCH (25.6-32.2) pg MCHC (32.2-35.5) g/dL RDW (11.7-14.4) % Plt Count (182-369) x10^3/uL MPV (9.4-12.3) fL Sodium (135-145) mmol/L Potassium (3.5-5.1) mmol/L Chloride (98-107) mmol/L Carbon Dioxide (22-30) mmol/L Anion Gap (5-15) MEQ/L BUN (7-17) mg/dL Creatinine (0.52-1.04) mg/dL Estimated GFR ML/MIN Glucose (74-106) mg/dL POC Glucometer 308 H 386 H Uric Acid (2.6-6.0) mg/dL Calcium (8.4-10.2) mg/dL Total Bilirubin (0.2-1.3) mg/dL AST (14-36) U/L ALT (0-35) U/L Alkaline Phosphatase (38-126) U/L Serum Total Protein (6.3-8.2) g/dL Albumin (3.5-5.0) g/dL 25-OH Vitamin D Total (30-100) ng/mL Radiology Exams: Radiology Procedures Category Date Time Status ARTERIAL BILAT LOWER EXTREMITY [US] Urgent Exams 01/14/24 10:00 Completed VENOUS BILATERAL EXTREMITY [US] Urgent Exams 01/14/24 08:00 Completed Multi-Disciplinary Progress Notes: Multi-Disciplinary Progress Notes 01/14/24 12:17 Case Management Note by Elsa Marlow S/W PATIENT ABOUT DC PLANS- SHE CONTINUES TO REFUSE A REHAB STAY. SHE PLANS TO RETURN HOME TO HER ASSISTED LIVING APARTMENT WITH HER . WILL SEE IF I CAN GET PATIENT AGREEABLE TO [facility], ESPECIALLY IF [employer] BOOTS ARE NEEDED AT DC. PATIENT REQUIRING OXYGEN WHEN SHE SLEEPS- OVERNIGHT PULSE OX ORDERED TO ASSESS NEED FOR HS OXYGEN. Initialized on 01/14/24 12:17 - END OF NOTE Assessment/Plan (1) COPD exacerbation Current Visit: Yes Status: Acute Code(s): J44.1 - CHRONIC OBSTRUCTIVE PULMONARY DISEASE W (ACUTE) EXACERBATION (2) Shortness of breath Current Visit: Yes Status: Acute Code(s): R06.02 - SHORTNESS OF BREATH (3) Weakness Current Visit: Yes Status: Acute Code(s): R53.1 - WEAKNESS (4) Bilateral lower leg cellulitis Current Visit: Yes Status: Acute Code(s): L03.116 - CELLULITIS OF LEFT LOWER LIMB; L03.115 - CELLULITIS OF RIGHT LOWER LIMB (5) Venous insufficiency of both lower extremities Current Visit: Yes Status: Acute Code(s): I87.2 - VENOUS INSUFFICIENCY (CHRONIC) (PERIPHERAL) (6) UTI (urinary tract infection) Current Visit: Yes Status: Acute Code(s): N39.0 - URINARY TRACT INFECTION, SITE NOT SPECIFIED (7) Type II diabetes mellitus Current Visit: Yes Status: Chronic Qualifiers: Diabetes mellitus care home insulin use: with care home use Diabetes mellitus complication status: with circulatory complication Diabetes mellitus complication detail: with peripheral angiopathy without gangrene Qualified Code(s): E11.51 - Type 2 diabetes mellitus with diabetic peripheral angiopathy without gangrene; Z79.4 - intermodal customer service (current) use of insulin (8) Hypothyroidism Current Visit: Yes Status: Chronic Code(s): E03.9 - HYPOTHYROIDISM, UNSP ECIFIED (9) GERD (gastroesophageal reflux disease) Current Visit: Yes Status: Chronic Code(s): K21.9 - GASTRO-ESOPHAGEAL REFLUX DISEASE WITHOUT ESOPHAGITIS (10) Hypertension Current Visit: No Status: Chronic Code(s): I10 - ESSENTIAL (PRIMARY) HYPERTENSION (11) Hyperlipemia Current Visit: Yes Status: Chronic Assessment & Plan: (1) COPD exacerbation Current Visit: Yes Status: Acute Assessment & Plan: - Ceftriaxone IV - CBC, CMP reviewed - WBC 10.8- elevated today - likely 2:2 Steroids started yesterday - Sean Card Steriods - 2LNC 93%- Baseline RA 01/14 - overnight pulse ox - O2 96% RA - qualified for home O2 at d/c - O2 drops at night - WBC 12.3 - up likely 2:2 steroids Code(s): J44.1 - CHRONIC OBSTRUCTIVE PULMONARY DISEASE W (ACUTE) EXACERBATION (2) Shortness of breath Current Visit: Yes Status: Acute Assessment & Plan: - 2:2 COPD exacerbation - Improving today - See above plan Code(s): R06.02 - SHORTNESS OF BREATH (3) Weakness Current Visit: Yes Status: Acute Assessment & Plan: - Lives in assisted living - 2:2 COPD exacerbation - PT eval and treat 01/14 - continued weakness Code(s): R53.1 - WEAKNESS (4) Bilateral lower leg cellulitis Current Visit: Yes Status: Acute Assessment & Plan: - podiatry consult - Ceftriaxone 01/14 - Arterial and venous duplex results read- Report shows no blood flow left posterior tibial artery, tiny non-occluding left femoral DVT - Spoke with vascular surgeon and no need to transfer to higher level of care and can be f/u OP at D/C. - Continue plavix no additional meds required d/t her age. Code(s): L03.116 - CELLULITIS OF LEFT LOWER LIMB; L03.115 - CELLULITIS OF RIGHT LOWER LIMB (5) Venous insufficiency of both lower extremities Current Visit: Yes Status: Acute Assessment & Plan: - podiatry consulted - Arterial and venous duplex ordered by podiatry Code(s): I87.2 - VENOUS INSUFFICIENCY (CHRONIC) (PERIPHERAL) (6) UTI (urinary tract infection) Current Visit: Yes Status: Acute Assessment & Plan: - UC + e-coli - Ceftraixone IV - CBC and CMP reviewed daily Code(s): N39.0 - URINARY TRACT INFECTION, SITE NOT SPECIFIED (7) Type II diabetes mellitus Current Visit: Yes Status: Chronic Qualifiers: Diabetes mellitus care home insulin use: with terminal gauger use Diabetes mellitus complication status: with circulatory complication Diabetes mellitus complication detail: with peripheral angiopathy without gangrene Qualified Code(s): E11.51 - Type 2 diabetes mellitus with diabetic peripheral angiopathy without gangrene; Z79.4 - intermodal customer service (current) use of insulin Assessment & Plan: - Continue home insulin dosing - Accuchecklina ac/hs - Humalog s/s - A1C 7.44- controlled 01/14 - HUmalog changed to 10 units with meals (8) Hypothyroidism Current Visit: Yes Status: Chronic Assessment & Plan: - continue synthroid Code(s): E03.9 - HYPOTHYROIDISM, UNSPECIFIED (9) GERD (gastroesophageal reflux disease) Current Visit: Yes Status: Chronic Assessment & Plan: - continue protonix Code(s): K21.9 - GASTRO-ESOPHAGEAL REFLUX DISEASE WITHOUT ESOPHAGITIS (10) Hypertension Current Visit: No Status: Chronic Assessment & Plan: - BP stable - Continue home meds Code(s): I10 - ESSENTIAL (PRIMARY) HYPERTENSION (11) Hyperlipemia Current Visit: Yes Status: Chronic Assessment & Plan: - Continue statin Code(s): E78.5 - HYPERLIPIDEMIA, UNSPECIFIED Code(s): E78.5 - HYPERLIPIDEMIA, UNSPECIFIED (12) Hyponatremia Current Visit: Yes Status: Acute Assessment & Plan: - Likely SIADH- labs ordered - Na+ 129- trend - NS @ 80ml/hr started VTE: Plavix PPI: Protonix Next of KIN: Child- Stoney Murillo [phone] D/C plan: 1-2 days Code status: Full Code(s): E87.1 - HYPO-OSMOLALITY AND HYPONATREMIA
[2024-01-15] MEDS: HUMALOG SQ SCH (12:24)
[2024-01-15] MEDS: Lantus Insulin SQ SCH (22:15)
[2024-01-16 06:33] LABS: Hematocrit 27.3 % (34.1-44.9); Hemoglobin 8.9 g/dL (11.2-15.7); Mean Cell Volume 88.6 fL (79.4-94.8); Mean Corpuscular Hemoglobin 28.9 pg (25.6-32.2); Mean Corpuscular Hgb Concent. 32.6 g/dL (32.2-35.5); Mean Platelet Volume 9.8 fL (9.4-12.3); Platelet Count 387 x10^3/uL (182-369); Red Blood Count 3.08 x10^6/uL (3.93-5.22); Red Cell Distribution Width 15.2 % (11.7-14.4); White Blood Count 12.2 x10^3/uL (3.98-10.04)
[2024-01-16 06:49] LABS: ALBUMIN 2.6 g/dL (3.5-5.0); ALKALINE PHOSPHATASE 47 U/L (38-126); ANION GAP 13.7 MEQ/L (5-15); BILIRUBIN,TOTAL < 0.10 mg/dL (0.2-1.3); BLOOD UREA NITROGEN 40 mg/dL (7-17); CHLORIDE 99 mmol/L (98-107); Calcium 7.5 mg/dL (8.4-10.2); Carbon Dioxide 22 mmol/L (22-30); Creatinine 1 1.27 mg/dL (0.52-1.04); EST GLOMERULAR FILTRATION RATE 41.2 ML/MIN; Glucose 243 mg/dL (74-106); Potassium 4.6 mmol/L (3.5-5.1); SGOT/AST 17 U/L (14-36); SGPT/ALT 17 U/L (0-35); SODIUM 130 mmol/L (135-145); Total Protein 5.1 g/dL (6.3-8.2)
[2024-01-16] MEDS: VITAMIN D PO SCH (09:36)
--- NOTE | 2024-01-16 12:11 | PCM.NOTE ---
Date and Time: 01/16/24 1205 Subjective Assessment: 01/14/24 is a 88 year old female with PMHX of CHF, CAD, hyperlipidemia, HTN, Type II DM, GERD, hypothyroidism, and COPD. She presented to ER on 01/13/24 with SOB, and BL leg swelling. No chest pain. O2 sat was 89% on room air. Patient normally does not require home oxygen. Patient placed on oxygen. Oxygenation improved to 97% on 3 L. Antibiotics started IP for COPD exacerbation and cellulitis of BLLE. UA + for e-coli in urine. Continue Rocephin as sensitivity shows this works well. SOB has improved today. She is awaiting arterial and venous duplex ordered by podiatry. Pt reports a hx of vascular insufficiency reported to her by her project management engineer. BC x2 negative. Continue Advair, duonebs and steriods. WBC up at 10.8 and likely 2:2 starting steroids yesterday. She states she is overall feeling better but has continued weakness. Will have PT eval and treat. She denies CP, Abd pain, N/V/D. 01/15/24 Pt resting in bed. She is feeling weak today. Na+ 129- NS at 80ml/hr started. 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 She had a venous and arterial duplex yesterday. Results back today and show no flow of left posterior tibial artery. She also has a tiiny non-occluding left femoral DVT. She is already on Plavix. Pt states she knew she has a hx of poor peripheral perfusion but did not know the extent. Discussed pt case with vascular surgeon Dr. Martinez vascular surgeon at [facility] in [place]. He did not feel pt needed transferred to higher level of care and could be f/u op based on findings of arterial and venous duplex. Also asked about anticoagulation and he said d/t her age to keep her on Plavix. Continue antibiotic for cellulitis, UTI, COPD exacerbation. Continue Duonebs, steriods, and advair for COPD exacerbation. 01/16/24 Pt resting in the chair. She is feeling better today. BLLE wrapped by podiatry yesterday. Na+ improved 130 with IVF. Creat 1.27- worsening, valsartan held. IVF stopped as pt states she feels somewhat SOB today and not to cause fluid overload with CHF hx. She is RA 92% currently. Vit D < 12.8 and daily replacem ent added in combination with education on diet and addition of sunlight daily. She denies CP, Abd. pain, N/V/D. - Review of Systems Constitutional: No Fever, No Chills Eyes: No Symptoms Ears, Nose, & Throat: No Symptoms Respiratory: Short Of Breath, No Cough Cardiac: No Chest Pain, No Edema, No Syncope Abdominal/Gastrointestinal: No Abdominal Pain, No Nausea, No Vomiting, No Diarrhea Genitourinary Symptoms: No Dysuria Musculoskeletal: No Back Pain, No Neck Pain Skin: Other (BLLE wrapped by podiatry yesterday), No Rash Neurological: No Dizziness, No Focal Weakness, No Sensory Changes Psychological: No Symptoms Endocrine: No Symptoms Hematologic/Lymphatic: No Symptoms Immunological/Allergic: No Symptoms Objective Exam General Appearance: no apparent distress, alert Neurologic Exam: alert, oriented x 3, cooperative, normal mood/affect, nml cerebellar function, sensation nml, motor weakness, No motor deficits Skin Exam: warm, dry, pale Wound Assessment: Skin/Wound Assessment Wound/Incision Assessment Start: 01/13/24 03:39 Text: Status: Active Freq: Q6H Protocol: Document 01/16/24 08:00 RB (Rec: 01/16/24 08:39 RB [id number]) Wound/Incision Assessment Bilateral Lower Extremities Wound Assessment Shift Assessment Wound Type cellulitis Wound Stage Non Pressure Wound Primary Dressing orville boots Secondary Dressing Gauze Roll/Wrap Comment orville boots in place Wound Photo Photo Taken No Eye Exam: PERRL, EOMI, eyes nml inspection Ears, Nose, Throat Exam: normal ENT inspection, pharynx normal, moist mucous membranes Neck Exam: normal inspection, non-tender, supple, full range of motion Respiratory Exam: normal breath sounds, lungs clear, No respiratory distress Cardiovascular Exam: regular rate/rhythm, normal heart sounds Gastrointestinal/Abdomen Exam: soft, No tenderness, No mass Extremity Exam: normal inspection, normal range of motion, other (BLLE wrapped) Back Exam: normal inspection, normal range of motion, No CVA tenderness, No vertebral tenderness Pelvic Exam: deferred Rectal Exam: deferred Objective Data Vital Signs: Vital Signs - 24 hr Temp Pulse Resp BP Pulse Ox 01/16/24 11:07 61 16 92 L 01/16/24 07:35 97.1 F 59 L 10 L 138/65 97 01/16/24 07:18 57 L 18 93 L 01/16/24 04:00 97.6 F 66 17 134/62 98 01/16/24 00:00 97.8 F 65 17 159/72 96 01/15/24 19:43 97.5 F 74 18 120/59 94 L 01/15/24 18:44 88 16 88 L 01/15/24 16:00 97.3 F 72 16 134/63 91 L 01/15/24 14:59 68 16 92 L Pain Assessment - Last Documented Pain Intensity 0 Pain Scale Used 0-10 Pain Scale Intake and Output: Intake & Output 01/14/24 01/15/24 01/16/24 01/17/24 11:59 11:59 11:59 11:59 Intake Total 004 159 4086 Output Total 600 750 700 Balance 280 -50 1129 Lab Results: Lab Results-Last 24 Hours 01/15/24 01/15/24 01/16/24 Range/Units 15:58 21:05 05:20 WBC 12.2 H (3.98-10.04) x10^3/uL RBC 3.08 L (3.93-5.22) x10^6/uL Hgb 8.9 L (11.2-15.7) g/dL Hct 27.3 L (34.1-44.9) % MCV 88.6 (79.4-94.8) fL MCH 28.9 (25.6-32.2) pg MCHC 32.6 (32.2-35.5) g/dL RDW 15.2 H (11.7-14.4) % Plt Count 387 H (182-369) x10^3/uL MPV 9.8 (9.4-12.3) fL Sodium (135-145) mmol/L Potassium (3.5-5.1) mmol/L Chloride (98-107) mmol/L Carbon Dioxide (22-30) mmol/L Anion Gap (5-15) MEQ/L BUN (7-17) mg/dL Creatinine (0.52-1.04) mg/dL Estimated GFR ML/MIN Glucose (74-106) mg/dL POC Glucometer 291 H 277 H (74 to 106) mg/dL Calcium (8.4-10.2) mg/dL Total Bilirubin (0.2-1.3) mg/dL AST (14-36) U/L ALT (0-35) U/L Alkaline Phosphatase (38-126) U/L Serum Total Protein (6.3-8.2) g/dL Albumin (3.5-5.0) g/dL 01/16/24 01/16/24 Range/Units 05:20 06:55 WBC (3.98-10.04) x10^3/uL RBC (3.93-5.22) x10^6/uL Hgb (11.2-15.7) g/dL Hct (34.1-44.9) % MCV (79.4-94.8) fL MCH (25.6-32.2) pg MCHC (32.2-35.5) g/dL RDW (11.7-14.4) % Plt Count (182-369) x10^3/uL MPV (9.4-12.3) fL Sodium 130 L (135-145) mmol/L Potassium 4.6 (3.5-5.1) mmol/L Chloride 99 (98-107) mmol/L Carbon Dioxide 22 (22-30) mmol/L Anion Gap 13.7 (5-15) MEQ/L BUN 40 H (7-17) mg/dL Creatinine 1.27 H (0.52-1.04) mg/dL Estimated GFR 41.2 ML/MIN Glucose 243 H (74-106) mg/dL POC Glucometer 226 H (74 to 106) mg/dL Calcium 7.5 L (8.4-10.2) mg/dL Total Bilirubin < 0.10 L (0.2-1.3) mg/dL AST 17 (14-36) U/L ALT 17 (0-35) U/L Alkaline Phosphatase 47 (38-126) U/L Serum Total Protein 5.1 L (6.3-8.2) g/dL Albumin 2.6 L (3.5-5.0) g/dL Multi-Disciplinary Progress Notes: Multi-Disciplinary Progress Notes 01/15/24 13:52 Case Management Note by Elsa Marlow PATIENT REPORTS SHE CONTINUES TO PLAN TO DC HOME TO HER ASSISTED LIVING APARTMENT. PATIENT HAVING [employer] APPLIED TODAY- SET UP C TO ASSIST WITH CHANGING THESE AT HOME. PATIENT HAS HAD [facility] IN THE PAST AND WOULD LIKE THEM AGAIN. PATIENT QUALIFIED FOR HS OXYGEN VIA OVERNIGHT PULSE OX. SHE PREFERS TO USE [employer] TO SUPPLY THIS. ORDER SUBMITTED TO [employer] [facility] [employer] FOR 2L/NC AT HS. [facility] RECEIVED ORDER- PATIENT TO CALL WHEN SHE GETS HOME AND THEY WILL DELIVER IT AT THAT TIME. INSTRUCTIONS ADDED TO DC INSTRUCTIONS Initialized on 01/15/24 13:52 - END OF NOTE 01/15/24 12:59 Case Management Note by Elsa Marlow REFERRAL FAXED TO [facility]. THEY WILL NEED NOTIFIED AT TIME OF DC AT [phone]. THEY WILL NEED FAXED THE DC INSTRUCTIONS, DC MED LIST AND DC SUMMARY TO [phone] Initialized on 01/15/24 12:59 - END OF NOTE Assessment/Plan (1) COPD exacerbation Current Visit: Yes Status: Acute Code(s): J44.1 - CHRONIC OBSTRUCTIVE PULMONARY DISEASE W (ACUTE) EXACERBATION (2) Shortness of breath Current Visit: Yes Status: Acute Code(s): R06.02 - SHORTNESS OF BREATH (3) Weakness Current Visit: Yes Status: Acute Code(s): R53.1 - WEAKNESS (4) Bilateral lower leg cellulitis Current Visit: Yes Status: Acute Code(s): L03.116 - CELLULITIS OF LEFT LOWER LIMB; L03.115 - CELLULITIS OF RIGHT LOWER LIMB (5) Venous insufficiency of both lower extremities Current Visit: Yes Status: Acute Code(s): I87.2 - VENOUS INSUFFICIENCY (CHRONIC) (PERIPHERAL) (6) UTI (urinary tract infection) Current Visit: Yes Status: Acute Code(s): N39.0 - URINARY TRACT INFECTION, SITE NOT SPECIFIED (7) Type II diabetes mellitus Current Visit: Yes Status: Chronic Qualifiers: Diabetes mellitus nursing home insulin use: with roasterman use Diabetes mellitus complication status: with circulatory complication Diabetes mellitus complication detail: with peripheral angiopathy without gangrene Qualified Code(s): E11.51 - Type 2 diabetes mellitus with diabetic peripheral angiopathy without gangrene; Z79.4 - termite control representative (current) use of insulin (8) Hypothyroidism Current Visit: Yes Status: Chronic Code(s): E03.9 - HYPOTHYROIDISM, UNSPECIFIED (9) GERD (gastroesophageal reflux disease) Current Visit: Yes Status: Chronic Code(s): K21.9 - GASTRO-ESOPHAGEAL REFLUX DISEASE WITHOUT ESOPHAGITIS (10) Hypertension Current Visit: No Status: Chronic Code(s): I10 - ESSENTIAL (PRIMARY) HYPERTENSION (11) Hyperlipemia Current Visit: Yes Status: Chronic Code(s): E78.5 - HYPERLIPIDEMIA, UNSPECIFIED (12) Hyponatremia Current Visit: Yes Status: Acute Assessment & Plan: (1) COPD exacerbation Current Visit: Yes Status: Acute Assessment & Plan: - Ceftriaxone IV - CBC, CMP reviewed - WBC 10.8- elevated today - likely 2:2 Steroids started yesterday - Sean Card Steriodlina - 2LNC 93%- Baseline RA 01/14 - overnight pulse ox - O2 96% RA - qualified for home O2 at d/c - O2 drops at night - WBC 12.3 - up likely 2:2 steroids 01/15 - CBC reviewed - WBC 12.2 -2:2 steroids - RA 92% - BC x2 negative Code(s): J44.1 - CHRONIC OBSTRUCTIVE PULMONARY DISEASE W (ACUTE) EXACERBATION (2) Shortness of breath Current Visit: Yes Status: Acute Assessment & Plan: - 2:2 COPD exacerbation - Improving today - See above plan Code(s): R06.02 - SHORTNESS OF BREATH (3) Weakness Current Visit: Yes Status: Acute Assessment & Plan: - Lives in assisted living - 2:2 COPD exacerbation - PT eval and treat 01/14 - continued weakness 01/15 - improved- up in chair Code(s): R53.1 - WEAKNESS (4) Bilateral lower leg cellulitis Current Visit: Yes Status: Acute Assessment & Plan: - podiatry consult - Ceftriaxone 01/14 - Arterial and venous duplex results read- Report shows no blood flow left posterior tibial artery, tiny non-occluding left femoral DVT - Spoke with vascular surgeon and no need to transfer to higher level of care and can be f/u OP at D/C. - Continue plavix no additional meds required d/t her age and bleeding risk. - BLLE wrapped by podiatry Code(s): L03.116 - CELLULITIS OF LEFT LOWER LIMB; L03.115 - CELLULITIS OF RIGHT LOWER LIMB (5) Venous insufficiency of both lower extremities Current Visit: Yes Status: Acute Assessment & Plan: - podiatry consulted - Arterial and venous duplex ordered by podiatry- reviewed Code(s): I87.2 - VENOUS INSUFFICIENCY (CHRONIC) (PERIPHERAL) (6) UTI (urinary tract infection) Current Visit: Yes Status: Acute Assessment & Plan: - UC + e-coli - Ceftraixone IV - CBC and CMP reviewed daily Code(s): N39.0 - URINARY TRACT INFECTION, SITE NOT SPECIFIED (7) Type II diabetes mellitus Current Visit: Yes Status: Chronic Qualifiers: Diabetes mellitus nursing home insulin use: with roasterman use Diabetes mellitus complication status: with circulatory complication Diabetes mellitus complication detail: with peripheral angiopathy without gangrene Qualified Code(s): E11.51 - Type 2 diabetes mellitus with diabetic peripheral angiopathy without gangrene; Z79.4 - residential (current) use of insulin Assessment & Plan: - Continue home insulin dosing - Accuchecks ac/hs - Humalog s/s - A1C 7.44- controlled 01/14 - Humalog changed to 10 units with meals 01/15 - continue to monitor accuchecks-may need to change insulin dosing. (8) Hypothyroidism Current Visit: Yes Status: Chronic Assessment & Plan: - continue synthroid - TSH in AM Code(s): E03.9 - HYPOTHYROIDISM, UNSPECIFIED (9) GERD (gastroesophageal reflux disease) Current Visit: Yes Status: Chronic Assessment & Plan: - continue protonix Code(s): K21.9 - GASTRO-ESOPHAGEAL REFLUX DISEASE WITHOUT ESOPHAGITIS (10) Hypertension Current Visit: No Status: Chronic Assessment & Plan: - BP stable - Continue home meds Code(s): I10 - ESSENTIAL (PRIMARY) HYPERTENSION (11) Hyperlipemia Current Visit: Yes Status: Chronic Assessment & Plan: - Continue statin Code(s): E78.5 - HYPERLIPIDEMIA, UNSPECIFIED Code(s): E78.5 - HYPERLIPIDEMIA, UNSPECIFIED (12) Hyponatremia Current Visit: Yes Status: Acute Assessment & Plan: - Likely SIADH- labs ordered for further eval - Na+ 129- trend - NS @ 80ml/hr started 01/15 - Na+130- improved- mild hyponatremia - IVF stopped as to not cause CHF exacerbation Code(s): E87.1 - HYPO-OSMOLALITY AND HYPONATREMIA Code(s): E87.1 - HYPO-OSMOLALITY AND HYPONATREMIA (13) Vitamin D deficiency Current Visit: Yes Status: Acute Assessment & Plan: - Vit D <12.8 - Pale - 2,000 units daily PO- will continue OP at D/C VTE: Plavix PPI: Protonix Next of KIN: Child- Stoney Murillo [phone] D/C plan: 1-2 days Code status: Full Code(s): E55.9 - VITAMIN D DEFICIENCY, UNSPECIFIED
[2024-01-16] MEDS: HUMALOG SQ PRN (18:08)
[2024-01-16 18:49] LABS: Hematocrit 32.4 % (34.1-44.9); Hemoglobin 10.3 g/dL (11.2-15.7)
[2024-01-17 07:11] LABS: ALBUMIN 2.5 g/dL (3.5-5.0); BILIRUBIN,TOTAL 0.3 mg/dL (0.2-1.3); Calcium 7.6 mg/dL (8.4-10.2); Creatinine 1 1.3 mg/dL (0.52-1.04); EST GLOMERULAR FILTRATION RATE 40.1 ML/MIN; Potassium 3.9 mmol/L (3.5-5.1); Total Protein 5.1 g/dL (6.3-8.2)
[2024-01-17 07:25] LABS: Hematocrit 29.7 % (34.1-44.9); Hemoglobin 9.6 g/dL (11.2-15.7); Mean Cell Volume 88.9 fL (79.4-94.8); Mean Corpuscular Hemoglobin 28.7 pg (25.6-32.2); Mean Corpuscular Hgb Concent. 32.3 g/dL (32.2-35.5); Mean Platelet Volume 9.7 fL (9.4-12.3); Platelet Count 384 x10^3/uL (182-369); Red Blood Count 3.34 x10^6/uL (3.93-5.22); Red Cell Distribution Width 15.1 % (11.7-14.4)
[2024-01-17 07:30] LABS: White Blood Count 28.4 x10^3/uL (3.98-10.04)
[2024-01-17] MEDS: Sodium Chloride 0.9% 1000 ML 1,000 ML IV SCH (10:14)
[2024-01-17 11:25] LABS: Slide Review YES
--- NOTE | 2024-01-17 11:33 | XRAY ---
CLINICAL HISTORY: INCREASED SHORTNESS OF BREATH COMPARISON: 01/12/2024 TECHNIQUE: Single portable view. FINDINGS: Lung Almaraz: Bilateral reticular opacities are noted, consistent with interstitial lung disease. Cystic changes particularly prominent in the lower lung zones,. Increased linear markings throughout the lungs suggest the presence of interstitial thickening. Pleura: No pleural effusion or pleural thickening is observed. Cardiac Silhouette: The cardiac silhouette is within normal limits, with no significant cardiomegaly noted. Diaphragm: The diaphragms are well positioned, with no evidence of eventration or paralysis. Other Structures: No significant mediastinal shift is observed. The trachea is midline, with no evidence of mass effect. Degenerative bony changes. IMPRESSION: Imaging appearances are likely due to interstitial lung disease, would recommend HRCT chest for further evaluation. Electronically Signed by: Benjamin Bateman MD. (01/17/2024 11:29:05 EDT)
[2024-01-17] MEDS: PHARMACY RENAL DOSING MC ONE (12:54)
[2024-01-17] MEDS: VANCOCIN 500 MG VIAL*** 500 MG in Sodium Chloride 100ML MINI-BAG PLUS 100 ML IV SCH (12:58)
[2024-01-17 14:03] LABS: Appearance Clear (Clear); Bacteria None Seen /HPF (None Seen); Bilirubin Negative (Negative); Blood Negative (Negative); Epithelial Cells Rare /HPF (None Seen); Glucose, Urine Negative (Negative); Hyaline Casts NONE SEEN /LPF (0-2); Ketones Negative (Negative); Leukocyte Esterase Trace (Negative); Nitrite Negative (Negative); Ph 5.5 (4.6-8.0); Protein,Urine Dip 100 (Negative); RBC 0-2 /HPF (0-5); Urobilinogen 0.2 mg/dL (0.2); WBC 0-2 /HPF (0-5)
--- NOTE | 2024-01-17 14:11 | PCM.NOTE ---
Date and Time: 01/17/24 1406 Subjective Assessment: 01/14/24 is a 88 year old female with PMHX of CHF, CAD, hyperlipidemia, HTN, Type II DM, GERD, hypothyroidism, and COPD. She presented to ER on 01/13/24 with SOB, and BL leg swelling. No chest pain. O2 sat was 89% on room air. Patient normally does not require home oxygen. Patient placed on oxygen. Oxygenation improved to 97% on 3 L. Antibiotics started IP for COPD exacerbation and cellulitis of BLLE. UA + for e-coli in urine. Continue Rocephin as sensitivity shows this works well. SOB has improved today. She is awaiting arterial and venous duplex ordered by podiatry. Pt reports a hx of vascular insufficiency reported to her by her rehabilitation teacher. BC x2 negative. Continue Advair, duonebs and steriods. WBC up at 10.8 and likely 2:2 starting steroids yesterday. She states she is overall feeling better but has continued weakness. Will have PT eval and treat. She denies CP, Abd pain, N/V/D. 01/15/24 Pt resting in bed. She is feeling weak today. Na+ 129- NS at 80ml/hr started. 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 She had a venous and arterial duplex yesterday. Results back today and show no flow of left posterior tibial artery. She also has a tiiny non-occluding left femoral DVT. She is already on Plavix. Pt states she knew she has a hx of poor peripheral perfusion but did not know the extent. Discussed pt case with vascular surgeon Dr. Martinez vascular surgeon at [facility] in [place]. He did not feel pt needed transferred to higher level of care and could be f/u op based on findings of arterial and venous duplex. Also asked about anticoagulation and he said d/t her age to keep her on Plavix. Continue antibiotic for cellulitis, UTI, COPD exacerbation. Continue Duonebs, steriods, and advair for COPD exacerbation. 01/16/24 Pt resting in the chair. She is feeling better today. BLLE wrapped by podiatry yesterday. Na+ improved 130 with IVF. Creat 1.27- worsening, valsartan held. IVF stopped as pt states she feels somewhat SOB today and not to cause fluid overload with CHF hx. She is RA 92% currently. Vit D < 12.8 and daily replacem ent added in combination with education on diet and addition of sunlight daily. She denies CP, Abd. pain, N/V/D. 01/17/24 Pt resting in bed. She reports not feeling well this AM. WBC 28.4 and lung sounds are coarse in BL upper lobes. She reports feeling SOB overnight but her O2 was off. Ceftriaxone changed to cefepime and vancomycin. BC x2 and UC ordered. Pt had a temp of 99.5 this AM. GIANNI worse- NS at 50ml/hr started. Pt refused insulin this morning per nursing staff. CT chest ordered for further evaluation of findings on CXR. Continue nguyen flor steriods. She denies CP, Abd. pain, N/V/D. - Review of Systems Constitutional: No Fever, No Chills Eyes: No Symptoms Ears, Nose, & Throat: No Symptoms Respiratory: Short Of Breath, No Cough Cardiac: No Chest Pain, No Edema, No Syncope Abdominal/Gastrointestinal: No Abdominal Pain, No Nausea, No Vomiting, No Diarrhea Genitourinary Symptoms: No Dysuria Musculoskeletal: No Back Pain, No Neck Pain Skin: Other (BLLE wrapped), No Rash Neurological: No Dizziness, No Focal Weakness, No Sensory Changes Psychological: No Symptoms Endocrine: No Symptoms Hematologic/Lymphatic: No Symptoms Immunological/Allergic: No Symptoms Objective Exam General Appearance: no apparent distress, alert Neurologic Exam: alert, oriented x 3, cooperative, normal mood/affect, nml cerebellar function, sensation nml, No motor deficits Skin Exam: warm, dry, pale Wound Assessment: Skin/Wound Assessment Wound/Incision Assessment Start: 01/13/24 03:39 Text: Status: Active Freq: Q6H Protocol: Document 01/17/24 02:00 LB (Rec: 01/17/24 04:55 LB [id number]) Wound/Incision Assessment Bilateral Lower Extremities Wound Assessment Shift Assessment Wound Type cellulitis Wound Stage Non Pressure Wound Primary Dressing orville boots Secondary Dressing Gauze Roll/Wrap Comment orville boots in place- orders to not remove. Wound Photo Photo Taken No Eye Exam: PERRL, EOMI, eyes nml inspection Ears, Nose, Throat Exam: normal ENT inspection, pharynx normal, moist mucous membranes Neck Exam: normal inspection, non-tender, supple, full range of motion Respiratory Exam: crackles/rales (BL upper lobes), No respiratory distress Cardiovascular Exam: regular rate/rhythm, normal heart sounds Gastrointestinal/Abdomen Exam: soft, No tenderness, No mass Extremity Exam: normal inspection, normal range of motion Back Exam: normal inspection, normal range of motion, No CVA tenderness, No vertebral tenderness Pelvic Exam: deferred Rectal Exam: deferred Objective Data Vital Signs: Vital Signs - 24 hr Temp Pulse Resp BP Pulse Ox 01/17/24 11:44 97.3 F 71 13 112/59 91 L 01/17/24 10:18 98.5 F 73 17 114/55 94 L 01/17/24 07:04 99.5 F 64 11 L 117/57 92 L 01/17/24 07:02 69 16 92 L 01/17/24 03:14 99.9 F 72 16 144/66 92 L 01/16/24 23:32 97.9 F 86 16 127/63 94 L 01/16/24 20:00 98.0 F 71 16 101/55 93 L 01/16/24 19:34 67 16 90 L 01/16/24 16:00 97.8 F 65 14 113/54 94 L 01/16/24 15:13 66 16 93 L Pain Assessment - Last Documented Pain Intensity 0 Pain Scale Used 0-10 Pain Scale Intake and Output: Intake & Output 01/15/24 01/16/24 01/17/24 01/18/24 11:59 11:59 11:59 11:59 Intake Total 700 1829 1580 400 Output Total 750 700 200 200 Balance -50 1129 1380 200 Lab Results: Lab Results-Last 24 Hours 01/16/24 01/16/24 01/16/24 Range/Units 16:16 18:40 20:51 WBC (3.98-10.04) x10^3/uL RBC (3.93-5.22) x10^6/uL Hgb 10.3 L (11.2-15.7) g/dL Hct 32.4 L (34.1-44.9) % MCV (79.4-94.8) fL MCH (25.6-32.2) pg MCHC (32.2-35.5) g/dL RDW (11.7-14.4) % Plt Count (182-369) x10^3/uL MPV (9.4-12.3) fL Smear Path Review Sodium (135-145) mmol/L Potassium (3.5-5.1) mmol/L Chloride (98-107) mmol/L Carbon Dioxide (22-30) mmol/L Anion Gap (5-15) MEQ/L BUN (7-17) mg/dL Creatinine (0.52-1.04) mg/dL Estimated GFR ML/MIN Glucose (74-106) mg/dL POC Glucometer 274 H 223 H (74 to 106) mg/dL Calcium (8.4-10.2) mg/dL Total Bilirubin (0.2-1.3) mg/dL AST (14-36) U/L ALT (0-35) U/L Alkaline Phosphatase (38-126) U/L Serum Total Protein (6.3-8.2) g/dL Albumin (3.5-5.0) g/dL TSH 3rd Generation (0.470-4.680) mIU/L Slides for Path Review 01/17/24 01/17/24 01/17/24 Range/Units 05:35 05:35 05:40 WBC 28.4 H* (3.98-10.04) x10^3/uL RBC 3.34 L (3.93-5.22) x10^6/uL Hgb 9.6 L (11.2-15.7) g/dL Hct 29.7 L (34.1-44.9) % MCV 88.9 (79.4-94.8) fL MCH 28.7 (25.6-32.2) pg MCHC 32.3 (32.2-35.5) g/dL RDW 15.1 H (11.7-14.4) % Plt Count 384 H (182-369) x10^3/uL MPV 9.7 (9.4-12.3) fL Smear Path Review Pending Sodium 132 L (135-145) mmol/L Potassium 3.9 (3.5-5.1) mmol/L Chloride 101 (98-107) mmol/L Carbon Dioxide 23 (22-30) mmol/L Anion Gap 12.0 (5-15) MEQ/L BUN 47 H (7-17) mg/dL Creatinine 1.30 H (0.52-1.04) mg/dL Estimated GFR 40.1 ML/MIN Glucose 170 H (74-106) mg/dL POC Glucometer (74 to 106) mg/dL Calcium 7.6 L (8.4-10.2) mg/dL Total Bilirubin 0.30 (0.2-1.3) mg/dL AST 20 (14-36) U/L ALT 17 (0-35) U/L Alkaline Phosphatase 50 (38-126) U/L Serum Total Protein 5.1 L (6.3-8.2) g/dL Albumin 2.5 L (3.5-5.0) g/dL TSH 3rd Generation 0.747 (0.470-4.680) mIU/L Slides for Path Review YES 01/17/24 01/17/24 Range/Units 06:52 11:42 WBC (3.98-10.04) x10^3/uL RBC (3.93-5.22) x10^6/uL Hgb (11.2-15.7) g/dL Hct (34.1-44.9) % MCV (79.4-94.8) fL MCH (25.6-32.2) pg MCHC (32.2-35.5) g/dL RDW (11.7-14.4) % Plt Count (182-369) x10^3/uL MPV (9.4-12.3) fL Smear Path Review Sodium (135-145) mmol/L Potassium (3.5-5.1) mmol/L Chloride (98-107) mmol/L Carbon Dioxide (22-30) mmol/L Anion Gap (5-15) MEQ/L BUN (7-17) mg/dL Creatinine (0.52-1.04) mg/dL Estimated GFR ML/MIN Glucose (74-106) mg/dL POC Glucometer 171 H 205 H (74 to 106) mg/dL Calcium (8.4-10.2) mg/dL Total Bilirubin (0.2-1.3) mg/dL AST (14-36) U/L ALT (0-35) U/L Alkaline Phosphatase (38-126) U/L Serum Total Protein (6.3-8.2) g/dL Albumin (3.5-5.0) g/dL TSH 3rd Generation (0.470-4.680) mIU/L Slides for Path Review Radiology Exams: Radiology Procedures Category Date Time Status CHEST 1 VIEW (PORTABLE) Urgent Exams 01/17/24 09:28 Completed CHEST WITHOUT CONTRAST [CT] Routine Exams 01/17/24 11:35 Ordered Multi-Disciplinary Progress Notes: Multi-Disciplinary Progress Notes 01/17/24 03:15 Respiratory Note by Wendi Dye Pt's SpO2 mid 80's on room air, applied 2lpm nasal cannula. SpO2 92%. Will continue to monitor. Initialized on 01/17/24 03:15 - END OF NOTE Assessment/Plan (1) COPD exacerbation Current Visit: Yes Status: Acute Code(s): J44.1 - CHRONIC OBSTRUCTIVE PULMONARY DISEASE W (ACUTE) EXACERBATION (2) Shortness of breath Current Visit: Yes Status: Acute Code(s): R06.02 - SHORTNESS OF BREATH (3) Weakness Current Visit: Yes Status: Acute Code(s): R53.1 - WEAKNESS (4) Bilateral lower leg cellulitis Current Visit: Yes Status: Acute Code(s): L03.116 - CELLULITIS OF LEFT LOWER LIMB; L03.115 - CELLULITIS OF RIGHT LOWER LIMB (5) Venous insufficiency of both lower extremities Current Visit: Yes Status: Acute Code(s): I87.2 - VENOUS INSUFFICIENCY (CHRONIC) (PERIPHERAL) (6) UTI (urinary tract infection) Current Visit: Yes Status: Acute Code(s): N39.0 - URINARY TRACT INFECTION, SITE NOT SPECIFIED (7) Type II diabetes mellitus Current Visit: Yes Status: Chronic Qualifiers: Diabetes mellitus intermediate teacher insulin use: with intermediate teacher use Diabetes mellitus complication status: with circulatory complication Diabetes mellitus complication detail: with peripheral angiopathy without gangrene Qualified Code(s): E11.51 - Type 2 diabetes mellitus with diabetic peripheral angiopathy without gangrene; Z79.4 - long-term (current) use of insulin (8) Hypothyroidism Current Visit: Yes Status: Chronic Code(s): E03.9 - HYPOTHYROIDISM, UNSPECIFIED (9) GERD (gastroesophageal reflux disease) Current Visit: Yes Status: Chronic Code(s): K21.9 - GASTRO-ESOPHAGEAL REFLUX DISEASE WITHOUT ESOPHAGITIS (10) Hypertension Current Visit: No Status: Chronic Code(s): I10 - ESSENTIAL (PRIMARY) HYPERTENSION (11) Hyperlipemia Current Visit: Yes Status: Chronic Code(s): E78.5 - HYPERLIPIDEMIA, UNSPECIFIED (12) Hyponatremia Current Visit: Yes Status: Acute Code(s): E87.1 - HYPO-OSMOLALITY AND HYPONATREMIA (13) Vitamin D deficiency Current Visit: Yes Status: Acute Assessment & Plan: (1) COPD exacerbation Current Visit: Yes Status: Acute Assessment & Plan: - Ceftriaxone IV - CBC, CMP reviewed - WBC 10.8- elevated today - likely 2:2 Steroids started yesterday - Advair, Duonebs, Steriods - 2LNC 93%- Baseline RA 01/14 - overnight pulse ox - O2 96% RA - qualified for home O2 at d/c - O2 drops at night - WBC 12.3 - up likely 2:2 steroids 01/15 - CBC reviewed - WBC 12.2 -2:2 steroids - RA 92% - BC x2 negative 01/16 - WBC 28.4 - CXR reviewed- CT chest ordered for further evaluation - CBC, CMP reviewed. - Antibiotics changed. - 2lNC 91% Code(s): J44.1 - CHRONIC OBSTRUCTIVE PULMONARY DISEASE W (ACUTE) EXACERBATION (2) Shortness of breath Current Visit: Yes Status: Acute Assessment & Plan: - 2:2 COPD exacerbation - Improving today - See above plan 01/16 - Antibiotics changed to cefepime and vancomycin - CXR reviewed- CT chest ordered for further evaluation - rrepeat BC x2 Code(s): R06.02 - SHORTNESS OF BREATH (3) Weakness Current Visit: Yes Status: Acute Assessment & Plan: - Lives in assisted living - 2:2 COPD exacerbation - PT eval and treat 01/14 - continued weakness 01/15 - improved- up in chair Code(s): R53.1 - WEAKNESS (4) Bilateral lower leg cellulitis Current Visit: Yes Status: Acute Assessment & Plan: - podiatry consult - Ceftriaxone 01/14 - Arterial and venous duplex results read- Report shows no blood flow left posterior tibial artery, tiny non-occluding left femoral DVT - Spoke with vascular surgeon and no need to transfer to higher level of care and can be f/u OP at D/C. - Continue plavix no additional meds required d/t her age and bleeding risk. - BLLE wrapped by podiatry Code(s): L03.116 - CELLULITIS OF LEFT LOWER LIMB; L03.115 - CELLULITIS OF RIGHT LOWER LIMB (5) Venous insufficiency of both lower extremities Current Visit: Yes Status: Acute Assessment & Plan: - podiatry consulted - Arterial and venous duplex ordered by podiatry- reviewed Code(s): I87.2 - VENOUS INSUFFICIENCY (CHRONIC) (PERIPHERAL) (6) UTI (urinary tract infection) Current Visit: Yes Status: Acute Assessment & Plan: - UC + e-coli - Ceftraixone IV - CBC and CMP reviewed daily 01/16 - repeat UC Code(s): N39.0 - URINARY TRACT INFECTION, SITE NOT SPECIFIED (7) Type II diabetes mellitus Current Visit: Yes Status: Chronic Qualifiers: Diabetes mellitus intermediate teacher insulin use: with correction use Diabetes mellitus complication status: with circulatory complication Diabetes mellitus complication detail: with peripheral angiopathy without gangrene Qualified Code(s): E11.51 - Type 2 diabetes mellitus with diabetic peripheral angiopathy without gangrene; Z79.4 - long-term (current) use of insulin Assessment & Plan: - Continue home insulin dosing - Accuchecks ac/hs - Humalog s/s - A1C 7.44- controlled 01/14 - Humalog changed to 10 units with meals 01/15 - continue to monitor accuchecks-may need to change insulin dosing. 01/16 - refused insulin coverage this AM (8) Hypothyroidism Current Visit: Yes Status: Chronic Assessment & Plan: - continue synthroid - TSH - reviewed Code(s): E03.9 - HYPOTHYROIDISM, UNSPECIFIED (9) GERD (gastroesophageal reflux disease) Current Visit: Yes Status: Chronic Assessment & Plan: - continue protonix Code(s): K21.9 - GASTRO-ESOPHAGEAL REFLUX DISEASE WITHOUT ESOPHAGITIS (10) Hypertension Current Visit: No Status: Chronic Assessment & Plan: - BP stable - Continue home meds 01/16 - Clonidine changed to PRN per pt request Code(s): I10 - ESSENTIAL (PRIMARY) HYPERTENSION (11) Hyperlipemia Current Visit: Yes Status: Chronic Assessment & Plan: - Continue statin Code(s): E78.5 - HYPERLIPIDEMIA, UNSPECIFIED (12) Hyponatremia Current Visit: Yes Status: Acute Assessment & Plan: - Likely SIADH- labs ordered for further eval - Na+ 129- trend - NS @ 80ml/hr started 01/15 - Na+130- improved- mild hyponatremia - IVF stopped as to not cause CHF exacerbation 01/16 - Na+ 132 Code(s): E87.1 - HYPO-OSMOLALITY AND HYPONATREMIA (13) Vitamin D deficiency Current Visit: Yes Status: Acute Assessment & Plan: - Vit D <12.8 - Pale - 2,000 units daily PO- will continue OP at D/C Code(s): E55.9 - VITAMIN D DEFICIENCY, UNSPECIFIED Code(s): E55.9 - VITAMIN D DEFICIENCY, UNSPECIFIED (14) Leukocytosis, unspecified Current Visit: Yes Status: Acute Assessment & Plan: - WBC 28.4 - repeat BC x2 - repeat UA with culture - + Temp 99 this AM - antibiotics changed - CXR reviewed then CT chest ordered for further eval VTE: Plavix PPI: Protonix Next of KIN: Child- Stoney Murillo [phone] D/C plan: 1-2 days Code status: Full Code(s): D72.829 - ELEVATED WHITE BLOOD CELL COUNT, UNSPECIFIED
--- NOTE | 2024-01-17 15:41 | XRAY ---
CLINICAL HISTORY: abnormal CXR COMPARISON: Prior x-ray study 01/17/2024 TECHNIQUE: Contiguous axial CT images of the chest were acquired without administration of intravenous contrast. Coronal and sagittal reconstructions were obtained. One of the following dose reduction techniques were utilized for this exam: Automated exposure control, adjustment of the mA and/or kV according to patient size, use of iterative reconstruction. FINDINGS: Lungs: Mild mosaic attenuation noted Bilateral multiple small confluent dense rounded nodules are seen more prominent in the apical segment of the left lower lobe,subpleural and medial segments of the right lower lobe respectively more evident in the left lower lobe A small solid nodule is seen in the apical segment of the right lower lobe measured 3.8 mm (S3 image # 28/63). The lung parenchyma is clear with no evidence of consolidation, collapse, or focal lesions. No pulmonary nodules or masses are identified. No evidence of interstitial lung disease or emphysema. Minimal bilateral pleural effusions more evident in the left. Bibasal thick atelectatic plates. Mediastinum: The mediastinum is normal in size and contour. Few nonspecific enlarged mediastinal nodes No mediastinal mass or abnormal lymphadenopathy. The heart size is within normal limits. Hilar Structures: The hilar structures appear normal without enlargement or abnormality. Trachea and Main Bronchi: The trachea and main bronchi are patent without evidence of obstruction or abnormality. Chest Wall: The chest wall is unremarkable with no evidence of soft tissue or bony abnormalities. Upper Abdomen: Possible right adrenal lesions of about 2.7 cm for further evaluation Visualized portions of the liver, spleen, and kidneys are unremarkable. Bones: Visualized osseous structures are normal, no evidence of fracture or lytic/sclerotic lesions. IMPRESSION: 1. Mild mosaic attenuation for clinical correlation 2. Bilateral multiple small confluent dense rounded nodules as described above, may suggest infection, inflammatory condition or amyloidosis, for clinical correlation and follow up. 3. A small solid nodule ( 3.8 mm ) was seen in the apical segment of the right lower lobe, likely a granuloma for follow up. 4. Minimal bilateral pleural effusions more evident in the left 5. Bibasal thick atelectatic bands. 6. Possible right adrenal lesions for further evaluation Electronically Signed by: Benjamin Bateman MD. (01/17/2024 15:37:31 EDT)
[2024-01-17] MEDS: Maxipime 2 GM** 2 G in Dextrose 5%/Water IV Soln. 100ML PLUS BAG 100 ML IV SCH (21:22)
--- NOTE | 2024-01-18 05:13 | PCM.NOTE ---
Date and Time: 01/18/24 0508 Subjective Assessment: is a 88 year old female with PMHX of CHF, CAD, hyperlipidemia, HTN, Type II DM, GERD, hypothyroidism, and COPD. She presented to ER on 01/13/24 with SOB and BLE edema. On admission CXR was nonacute. CT chest 01/17/24 showing mild mosaic attenuation. Bilateral multiple small confluent dense rounded nodules suggestive of infection/inflammatory condition/ or amyloidosis. Also noted was a small solid nodule, mild bilateral pleural effusions, and possible right adrenal lesion. Venous Doppler with nonoccluding DVT in the distal left femoral vein. Right leg negative for DVT. Arterial US showing scattered arteriosclerotic disease bilaterally, no flow left posterior tibial artery. Right leg negative for stenosis/obstruction. Pt reports a hx of vascular insufficiency reported to her by her sustainability coach.Patient case discussed with Dr. Martinez vascular surgeon at [facility] in [place]. He did not feel pt needed transferred to higher level of care and could be f/u op based on findings of arterial and venous duplex. Also asked about anticoagulation and he said d/t her age to keep her on Plavix. BC x2 negative. UA + for e-coli in urine. Podiatry consulted, compression dressing placed bilaterally. Continue Advair, duonebs and steriods. Antibiotics started IP for COPD exacerbation and cellulitis of BLLE. 01/18/24: Met and examined patient bedside. Endorses increased production with cough - yellow. Remains weak. Examined BLE during dressing change by podiatry, small pin-sized area with minimal drainage, otherwise redness/swelling improved - do not appear to be the source of infection. Will culture drainage. WBC count is improving some 26.2<28.4. Patient is afebrile. Will decrease solu-medrol to daily dosing. Lung sounds with crackles at bilateral bases on auscultation. Patient is requiring 2L of oxygen - RA at baseline. Denies fever, cp, abdominal pain, ELIZONDO, dizziness, N/V/D. Will order home qualification for oxygen. - Review of Systems Constitutional: Weakness Eyes: No Symptoms Ears, Nose, & Throat: No Symptoms Respiratory: Cough, Short Of Breath Cardiac: No Symptoms Abdominal/Gastrointestinal: No Symptoms Genitourinary Symptoms: No Symptoms Musculoskeletal: No Symptoms Skin: Cellulitis (BLE ) Neurological: No Symptoms Psychological: No Symptoms Endocrine: No Symptoms Hematologic/Lymphatic: No Symptoms Immunological/Allergic: No Symptoms Objective Exam General Appearance: no apparent distress Neurologic Exam: alert, oriented x 3, cooperative Skin Exam: normal color Wound Assessment: Skin/Wound Assessment Wound/Incision Assessment Start: 01/13/24 03:39 Text: Status: Active Freq: Q6H Protocol: Document 01/18/24 02:00 MM (Rec: 01/18/24 02:05 MM [id number]) Wound/Incision Assessment Bilateral Lower Extremities Wound Assessment Shift Assessment Wound Type cellulitis Wound Stage Non Pressure Wound Primary Dressing orville boots Secondary Dressing Gauze Roll/Wrap Comment orville boots c/d/i- remains true Wound Photo Photo Taken No Eye Exam: PERRL Ears, Nose, Throat Exam: normal ENT inspection Neck Exam: normal inspection Respiratory Exam: crackles/rales Cardiovascular Exam: regular rate/rhythm, normal heart sounds Gastrointestinal/Abdomen Exam: soft, normal bowel sounds Extremity Exam: other (BLE with erythema to mid garcia - wrapped) Back Exam: normal inspection Pelvic Exam: deferred Rectal Exam: deferred Objective Data Vital Signs: Vital Signs - 24 hr Temp Pulse Resp BP Pulse Ox 01/18/24 04:00 97.4 F 67 16 154/70 93 L 01/18/24 00:00 97.3 F 67 17 124/60 92 L 01/17/24 20:00 97.5 F 71 16 131/63 93 L 01/17/24 19:08 70 18 95 01/17/24 16:00 97.7 F 69 9 L 125/58 91 L 01/17/24 14:24 67 18 93 L 01/17/24 11:44 97.3 F 71 13 112/59 91 L 01/17/24 10:18 98.5 F 73 17 114/55 94 L 01/17/24 07:04 99.5 F 64 11 L 117/57 92 L 01/17/24 07:02 69 16 92 L Pain Assessment - Last Documented Pain Intensity 0 Pain Scale Used 0-10 Pain Scale Intake and Output: Intake & Output 01/15/24 01/16/24 01/17/24 01/18/24 11:59 11:59 11:59 11:59 Intake Total 700 1829 1580 1458 Output Total 750 700 200 450 Balance -50 1129 1380 1008 Lab Results: Lab Results-Last 24 Hours 01/17/24 01/17/24 01/17/24 Range/Units 05:35 05:35 05:40 WBC 28.4 H* (3.98-10.04) x10^3/uL RBC 3.34 L (3.93-5.22) x10^6/uL Hgb 9.6 L (11.2-15.7) g/dL Hct 29.7 L (34.1-44.9) % MCV 88.9 (79.4-94.8) fL MCH 28.7 (25.6-32.2) pg MCHC 32.3 (32.2-35.5) g/dL RDW 15.1 H (11.7-14.4) % Plt Count 384 H (182-369) x10^3/uL MPV 9.7 (9.4-12.3) fL Smear Path Review Pending Sodium 132 L (135-145) mmol/L Potassium 3.9 (3.5-5.1) mmol/L Chloride 101 (98-107) mmol/L Carbon Dioxide 23 (22-30) mmol/L Anion Gap 12.0 (5-15) MEQ/L BUN 47 H (7-17) mg/dL Creatinine 1.30 H (0.52-1.04) mg/dL Estimated GFR 40.1 ML/MIN Glucose 170 H (74-106) mg/dL POC Glucometer (74 to 106) mg/dL Calcium 7.6 L (8.4-10.2) mg/dL Total Bilirubin 0.30 (0.2-1.3) mg/dL AST 20 (14-36) U/L ALT 17 (0-35) U/L Alkaline Phosphatase 50 (38-126) U/L Serum Total Protein 5.1 L (6.3-8.2) g/dL Albumin 2.5 L (3.5-5.0) g/dL TSH 3rd Generation 0.747 (0.470-4.680) mIU/L Urine Color (Yellow) Urine Appearance (Clear) Urine pH (4.6-8.0) Ur Specific [place] (1.005-1.030) Urine Protein (Negative) Urine Glucose (UA) (Negative) mg/dL Urine Ketones (Negative) Urine Blood (Negative) Urine Nitrite (Negative) Urine Bilirubin (Negative) Urine Urobilinogen (0.2) mg/dL Ur Leukocyte Esterase (Negative) U Hyaline Cast (Auto) (0-2) /LPF Urine Microscopic RBC (0-5) /HPF Urine Microscopic WBC (0-5) /HPF Ur Epithelial Cells (None Seen) /HPF Urine Bacteria (None Seen) /HPF Urine Culture Reflexed (NO) Slides for Path Review YES 01/17/24 01/17/24 01/17/24 Range/Units 06:52 11:42 13:55 WBC (3.98-10.04) x10^3/uL RBC (3.93-5.22) x10^6/uL Hgb (11.2-15.7) g/dL Hct (34.1-44.9) % MCV (79.4-94.8) fL MCH (25.6-32.2) pg MCHC (32.2-35.5) g/dL RDW (11.7-14.4) % Plt Count (182-369) x10^3/uL MPV (9.4-12.3) fL Smear Path Review Sodium (135-145) mmol/L Potassium (3.5-5.1) mmol/L Chloride (98-107) mmol/L Carbon Dioxide (22-30) mmol/L Anion Gap (5-15) MEQ/L BUN (7-17) mg/dL Creatinine (0.52-1.04) mg/dL Estimated GFR ML/MIN Glucose (74-106) mg/dL POC Glucometer 171 H 205 H (74 to 106) mg/dL Calcium (8.4-10.2) mg/dL Total Bilirubin (0.2-1.3) mg/dL AST (14-36) U/L ALT (0-35) U/L Alkaline Phosphatase (38-126) U/L Serum Total Protein (6.3-8.2) g/dL Albumin (3.5-5.0) g/dL TSH 3rd Generation (0.470-4.680) mIU/L Urine Color Yellow (Yellow) Urine Appearance Clear (Clear) Urine pH 5.5 (4.6-8.0) Ur Specific [place] 1.020 (1.005-1.030) Urine Protein 100 A (Negative) Urine Glucose (UA) Negative (Negative) mg/dL Urine Ketones Negative (Negative) Urine Blood Negative (Negative) Urine Nitrite Negative (Negative) Urine Bilirubin Negative (Negative) Urine Urobilinogen 0.2 (0.2) mg/dL Ur Leukocyte Esterase Trace A (Negative) U Hyaline Cast (Auto) NONE SEEN (0-2) /LPF Urine Microscopic RBC 0-2 (0-5) /HPF Urine Microscopic WBC 0-2 (0-5) /HPF Ur Epithelial Cells Rare (None Seen) /HPF Urine Bacteria None Seen (None Seen) /HPF Urine Culture Reflexed NO (NO) Slides for Path Review 01/17/24 01/17/24 Range/Units 16:26 20:25 WBC (3.98-10.04) x10^3/uL RBC (3.93-5.22) x10^6/uL Hgb (11.2-15.7) g/dL Hct (34.1-44.9) % MCV (79.4-94.8) fL MCH (25.6-32.2) pg MCHC (32.2-35.5) g/dL RDW (11.7-14.4) % Plt Count (182-369) x10^3/uL MPV (9.4-12.3) fL Smear Path Review Sodium (135-145) mmol/L Potassium (3.5-5.1) mmol/L Chloride (98-107) mmol/L Carbon Dioxide (22-30) mmol/L Anion Gap (5-15) MEQ/L BUN (7-17) mg/dL Creatinine (0.52-1.04) mg/dL Estimated GFR ML/MIN Glucose (74-106) mg/dL POC Glucometer 121 H 215 H (74 to 106) mg/dL Calcium (8.4-10.2) mg/dL Total Bilirubin (0.2-1.3) mg/dL AST (14-36) U/L ALT (0-35) U/L Alkaline Phosphatase (38-126) U/L Serum Total Protein (6.3-8.2) g/dL Albumin (3.5-5.0) g/dL TSH 3rd Generation (0.470-4.680) mIU/L Urine Color (Yellow) Urine Appearance (Clear) Urine pH (4.6-8.0) Ur Specific [place] (1.005-1.030) Urine Protein (Negative) Urine Glucose (UA) (Negative) mg/dL Urine Ketones (Negative) Urine Blood (Negative) Urine Nitrite (Negative) Urine Bilirubin (Negative) Urine Urobilinogen (0.2) mg/dL Ur Leukocyte Esterase (Negative) U Hyaline Cast (Auto) (0-2) /LPF Urine Microscopic RBC (0-5) /HPF Urine Microscopic WBC (0-5) /HPF Ur Epithelial Cells (None Seen) /HPF Urine Bacteria (None Seen) /HPF Urine Culture Reflexed (NO) Slides for Path Review Radiology Exams: Radiology Procedures Category Date Time Status CHEST 1 VIEW (PORTABLE) Urgent Exams 01/17/24 09:28 Completed CHEST WITHOUT CONTRAST [CT] Routine Exams 01/17/24 14:07 Completed Assessment/Plan (1) COPD exacerbation Current Visit: Yes Status: Acute Assessment & Plan: -CXR and CT findings reviewed: On admission CXR was nonacute. CT chest 01/17/24 showing mild mosaic attenuation. Bilateral multiple small confluent dense rounded nodules suggestive of infection/inflammatory condition/ or amyloidosis. Also noted was a small solid nodule, mild bilateral pleural effusions, and possible right adrenal lesion. - Ceftriaxone IV - CBC, CMP reviewed with mild improvement of WBC 26.4 <28.4 and GIANNI - Sean Card Steriods - 2LNC - Baseline RA - qualified for home O2 at d/c - O2 drops at night - BC x2 negative -Antimicrobial history: -Ceftriaxone 01/12-01/16 -Vancomycin 01/16-current -Maxipime 01/16-current -repeat BC x 2 pending Code(s): J44.1 - CHRONIC OBSTRUCTIVE PULMONARY DISEASE W (ACUTE) EXACERBATION (2) Bilateral lower leg cellulitis Current Visit: Yes Status: Acute Assessment & Plan: - podiatry consult -legs wrapped in compression dressings - vanc/maxipime Code(s): L03.116 - CELLULITIS OF LEFT LOWER LIMB; L03.115 - CELLULITIS OF RIGHT LOWER LIMB (3) Hyponatremia Current Visit: Yes Status: Acute Assessment & Plan: - in the setting of hyperglycemia - will monitor blood glucose levels closely -CMP reviewed showing worsening - blood glucose level at 266 this morning -Documentation reviewed from admission -Initial treatment with IVF -stopped as to not cause CHF exacerbation Code(s): E87.1 - HYPO-OSMOLALITY AND HYPONATREMIA (4) Leukocytosis, unspecified Current Visit: Yes Status: Acute Assessment & Plan: -CBC reviewed with some improvement 26.2<28.4 -examined BLE - does not appear to be the source of infection - will culture drainage - repeat BC x2 - pending - repeat UA appears negative - antibiotics changed to cefepime/vanc - CXR reviewed then CT chest as stated above - Code(s): D72.829 - ELEVATED WHITE BLOOD CELL COUNT, UNSPECIFIED (5) Shortness of breath Current Visit: Yes Status: Acute Assessment & Plan: - 2:2 COPD exacerbation --see copd exac Code(s): R06.02 - SHORTNESS OF BREATH (6) UTI (urinary tract infection) Current Visit: Yes Status: Acute Assessment & Plan: - UC + e-coli - Ceftraixone IV 01/12-01/16 - adequate abx course - repeat UA reviewed and appears negative Code(s): N39.0 - URINARY TRACT INFECTION, SITE NOT SPECIFIED (7) Venous insufficiency of both lower extremities Current Visit: Yes Status: Acute Assessment & Plan: - podiatry consulted and following - Arterial and venous duplex results read- Report shows no blood flow left posterior tibial artery, tiny non-occluding left femoral DVT - Case discused with vascular surgeon per previous documentation - no need to transfer to higher level of care and can be f/u OP at D/C. - Continue plavix no additional meds required d/t her age and bleeding risk. Code(s): I87.2 - VENOUS INSUFFICIENCY (CHRONIC) (PERIPHERAL) (8) Vitamin D deficiency Current Visit: Yes Status: Acute Assessment & Plan: - Vit D level reviewed and <12.8 - 2,000 units daily PO- will continue OP at D/C Code(s): E55.9 - VITAMIN D DEFICIENCY, UNSPECIFIED (9) Weakness Current Visit: Yes Status: Acute Assessment & Plan: - Lives in assisted living - 2:2 COPD exacerbation - PT eval and treat Code(s): R53.1 - WEAKNESS (10) GERD (gastroesophageal reflux disease) Current Visit: Yes Status: Chronic Assessment & Plan: - continue protonix Code(s): K21.9 - GASTRO-ESOPHAGEAL REFLUX DISEASE WITHOUT ESOPHAGITIS (11) Hyperlipemia Current Visit: Yes Status: Chronic Assessment & Plan: - Continue statin Code(s): E78.5 - HYPERLIPIDEMIA, UNSPECIFIED (12) Hypothyroidism Current Visit: Yes Status: Chronic Assessment & Plan: - continue synthroid - TSH - reviewed Code(s): E03.9 - HYPOTHYROIDISM, UNSPECIFIED (13) Type II diabetes mellitus Current Visit: Yes Status: Chronic Qualifiers: Diabetes mellitus long term care social worker insulin use: with shelter use Diabetes mellitus complication status: with circulatory complication Diabetes mellitus complication detail: with peripheral angiopathy without gangrene Qualified Code(s): E11.51 - Type 2 diabetes mellitus with diabetic peripheral angiopathy without gangrene; Z79.4 - termite exterminator helper (current) use of insulin Assessment & Plan: - Continue home insulin dosing - Accuchecks ac/hs - Humalog s/s 10 units with meals - A1C reviewed at 7.44 (14) Hypertension Current Visit: No Status: Chronic Assessment & Plan: - BP stable - Continue home meds - Clonidine changed to PRN per pt request Next of KIN: Child- Stoney Murillo [phone] D/C plan: 1-2 days Code status: Full Code(s): I10 - ESSENTIAL (PRIMARY) HYPERTENSION (15) GIANNI (acute kidney injury) Current Visit: Yes Status: Acute Assessment & Plan: -Baseline around 0.93 -CMP reviewed, creat improving at 1.27<1.30>1.27>1.25 -Avoid nephrotoxic meds -monitor renal/lytes daily Code(s): N17.9 - ACUTE KIDNEY FAILURE, UNSPECIFIED
[2024-01-18 05:55] LABS: ALBUMIN 2.6 g/dL (3.5-5.0); ANION GAP 11.6 MEQ/L (5-15); BILIRUBIN,TOTAL 0.2 mg/dL (0.2-1.3); Calcium 7.9 mg/dL (8.4-10.2); Creatinine 1 1.27 mg/dL (0.52-1.04); EST GLOMERULAR FILTRATION RATE 41.2 ML/MIN; Potassium 4.3 mmol/L (3.5-5.1); Total Protein 5.4 g/dL (6.3-8.2)
[2024-01-18 06:17] LABS: Hematocrit 29.1 % (34.1-44.9); Hemoglobin 9.6 g/dL (11.2-15.7); Mean Cell Volume 88.2 fL (79.4-94.8); Mean Corpuscular Hemoglobin 29.1 pg (25.6-32.2); Mean Platelet Volume 10.5 fL (9.4-12.3); Platelet Count 389 x10^3/uL (182-369); Red Cell Distribution Width 15.6 % (11.7-14.4)
[2024-01-18 06:48] LABS: White Blood Count 26.2 x10^3/uL (3.98-10.04)
[2024-01-18] MEDS: solu-MEDROL 40 MG, Sterile H2O 10 ml 1 ML IV SCH (10:26)
[2024-01-18 16:18] LABS: Hematocrit 30.6 % (34.1-44.9); Mean Cell Volume 88.4 fL (79.4-94.8); Mean Corpuscular Hemoglobin 28.9 pg (25.6-32.2); Mean Corpuscular Hgb Concent. 32.7 g/dL (32.2-35.5); Mean Platelet Volume 10.2 fL (9.4-12.3); Platelet Count 399 x10^3/uL (182-369); Red Blood Count 3.46 x10^6/uL (3.93-5.22); Red Cell Distribution Width 15.4 % (11.7-14.4)
[2024-01-18 16:34] LABS: White Blood Count 30.1 x10^3/uL (3.98-10.04)
[2024-01-18 17:29] LABS: Slide Review YES
[2024-01-18] MEDS: MAXIPIME 1 GM** 1 G in Sodium Chloride 100ML MINI-BAG PLUS 100 ML IV SCH (18:00)
--- NOTE | 2024-01-19 05:08 | PCM.NOTE ---
Date and Time: 01/19/24 0507 Subjective Assessment: is a 88 year old female with PMHX of CHF, CAD, hyperlipidemia, HTN, Type II DM, GERD, hypothyroidism, and COPD. She presented to ER on 01/13/24 with SOB and BLE edema. On admission CXR was nonacute. CT chest 01/17/24 showing mild mosaic attenuation. Bilateral multiple small confluent dense rounded nodules suggestive of infection/inflammatory condition/ or amyloidosis. Also noted was a small solid nodule, mild bilateral pleural effusions, and possible right adrenal lesion. Venous Doppler with nonoccluding DVT in the distal left femoral vein. Right leg negative for DVT. Arterial US showing scattered arteriosclerotic disease bilaterally, no flow left posterior tibial artery. Right leg negative for stenosis/obstruction. Pt reports a hx of vascular insufficiency reported to her by her sales development director.Patient case discussed with Dr. Martinez vascular surgeon at [facility] in [place]. He did not feel pt needed transferred to higher level of care and could be f/u op based on findings of arterial and venous duplex. Also asked about anticoagulation and he said d/t her age to keep her on Plavix. BC x2 negative. UA + for e-coli in urine. Podiatry consulted, compression dressing placed bilaterally. Continue Advair, duonebs and steriods. Antibiotics started IP for COPD exacerbation and cellulitis of BLLE. 01/18/24: Met and examined patient bedside. Endorses increased production with cough - yellow. Remains weak. Examined BLE during dressing change by podiatry, small pin-sized area with minimal drainage, otherwise redness/swelling improved - do not appear to be the source of infection. Will culture drainage. WBC count is improving some 26.2<28.4. Patient is afebrile. Will decrease solu-medrol to daily dosing. Lung sounds with crackles at bilateral bases on auscultation. Patient is requiring 2L of oxygen - RA at baseline. Denies fever, cp, abdominal pain, ELIZONDO, dizziness, N/V/D. Will order home qualification for oxygen. 01/19/24: Patient states she is feeling better today. WBC is trending down. Cough continues, with white sputum. Lung sounds coarse on auscultation. Advised IS and ambulation as tolerated. Reports concerns about going home feeling so weak. Discussed rehab stay, patient currently resides at assisted living and does not wish for IP rehab stay. Would like [facility] with physical therapy if able. Will have CM look into this. Will change solumedrol to oral prednisone today. Blood culture with NGTD. Wound culture with NGTD. Possible discharge tomorrow. Sputum culture pending. - Review of Systems Constitutional: Weakness Eyes: No Symptoms Ears, Nose, & Throat: No Symptoms Respiratory: Cough, Short Of Breath Cardiac: No Symptoms Abdominal/Gastrointestinal: No Symptoms Genitourinary Symptoms: No Symptoms Musculoskeletal: No Symptoms Skin: No Symptoms Neurological: No Symptoms Psychological: No Symptoms Endocrine: No Symptoms Hematologic/Lymphatic: No Symptoms Immunological/Allergic: No Symptoms Objective Exam General Appearance: no apparent distress Neurologic Exam: alert, oriented x 3, cooperative Skin Exam: pale Wound Assessment: Skin/Wound Assessment Wound/Incision Assessment Start: 01/13/24 03:39 Text: Status: Active Freq: Q6H Protocol: Document 01/19/24 02:00 MM (Rec: 01/19/24 02:03 MM [id number]) Wound/Incision Assessment Bilateral Lower Extremities Wound Assessment Shift Assessment Wound Type cellulitis Wound Stage Non Pressure Wound Primary Dressing orville boots Secondary Dressing Gauze Roll/Wrap Comment orville boots c/d/i- remains true Wound Photo Photo Taken No Eye Exam: PERRL Ears, Nose, Throat Exam: normal ENT inspection Neck Exam: normal inspection Respiratory Exam: crackles/rales, rhonchi Cardiovascular Exam: regular rate/rhythm, normal heart sounds Gastrointestinal/Abdomen Exam: soft, normal bowel sounds Extremity Exam: normal inspection Back Exam: normal inspection Pelvic Exam: deferred Rectal Exam: deferred Objective Data Vital Signs: Vital Signs - 24 hr Temp Pulse Resp BP Pulse Ox 01/18/24 23:11 97.3 F 70 16 108/58 92 L 01/18/24 20:00 97.4 F 81 16 154/67 95 01/18/24 19:41 75 18 96 01/18/24 16:00 96.7 F 79 17 132/63 92 L 01/18/24 15:16 86 18 91 L 01/18/24 12:00 97.6 F 77 17 128/60 92 L 01/18/24 11:56 82 20 91 L 01/18/24 09:28 70 16 90 L 01/18/24 07:53 97.7 F 71 17 159/71 92 L Pain Assessment - Last Documented Pain Intensity 0 Pain Scale Used 0-10 Pain Scale Intake and Output: Intake & Output 01/16/24 01/17/24 01/18/24 01/19/24 11:59 11:59 11:59 11:59 Intake Total 1829 1580 1578 1200 Output Total 700 200 450 Balance 1129 1380 1128 1200 Weight 62.5 kg Lab Results: Lab Results-Last 24 Hours 01/18/24 01/18/24 01/18/24 Range/Units 05:11 05:11 07:28 WBC 26.2 H* (3.98-10.04) x10^3/uL RBC 3.30 L (3.93-5.22) x10^6/uL Hgb 9.6 L (11.2-15.7) g/dL Hct 29.1 L (34.1-44.9) % MCV 88.2 (79.4-94.8) fL MCH 29.1 (25.6-32.2) pg MCHC 33.0 (32.2-35.5) g/dL RDW 15.6 H (11.7-14.4) % Plt Count 389 H (182-369) x10^3/uL MPV 10.5 (9.4-12.3) fL Sodium 130 L (135-145) mmol/L Potassium 4.3 (3.5-5.1) mmol/L Chloride 100 (98-107) mmol/L Carbon Dioxide 23 (22-30) mmol/L Anion Gap 11.6 (5-15) MEQ/L BUN 39 H (7-17) mg/dL Creatinine 1.27 H (0.52-1.04) mg/dL Estimated GFR 41.2 ML/MIN Glucose 266 H (74-106) mg/dL POC Glucometer 207 H (74 to 106) mg/dL Lactic Acid (0.4-2.0) Calcium 7.9 L (8.4-10.2) mg/dL Total Bilirubin 0.20 (0.2-1.3) mg/dL AST 18 (14-36) U/L ALT 22 (0-35) U/L Alkaline Phosphatase 59 (38-126) U/L Serum Total Protein 5.4 L (6.3-8.2) g/dL Albumin 2.6 L (3.5-5.0) g/dL Procalcitonin (0.030-0.080) ng/mL Slides for Path Review 01/18/24 01/18/24 01/18/24 Range/Units 12:01 16:05 16:05 WBC 30.1 H* (3.98-10.04) x10^3/uL RBC 3.46 L (3.93-5.22) x10^6/uL Hgb 10.0 L (11.2-15.7) g/dL Hct 30.6 L (34.1-44.9) % MCV 88.4 (79.4-94.8) fL MCH 28.9 (25.6-32.2) pg MCHC 32.7 (32.2-35.5) g/dL RDW 15.4 H (11.7-14.4) % Plt Count 399 H (182-369) x10^3/uL MPV 10.2 (9.4-12.3) fL Sodium (135-145) mmol/L Potassium (3.5-5.1) mmol/L Chloride (98-107) mmol/L Carbon Dioxide (22-30) mmol/L Anion Gap (5-15) MEQ/L BUN (7-17) mg/dL Creatinine (0.52-1.04) mg/dL Estimated GFR ML/MIN Glucose (74-106) mg/dL POC Glucometer 266 H (74 to 106) mg/dL Lactic Acid (0.4-2.0) Calcium (8.4-10.2) mg/dL Total Bilirubin (0.2-1.3) mg/dL AST (14-36) U/L ALT (0-35) U/L Alkaline Phosphatase (38-126) U/L Serum Total Protein (6.3-8.2) g/dL Albumin (3.5-5.0) g/dL Procalcitonin 0.157 H (0.030-0.080) ng/mL Slides for Path Review YES 01/18/24 01/18/24 01/18/24 Range/Units 16:07 16:12 21:52 WBC (3.98-10.04) x10^3/uL RBC (3.93-5.22) x10^6/uL Hgb (11.2-15.7) g/dL Hct (34.1-44.9) % MCV (79.4-94.8) fL MCH (25.6-32.2) pg MCHC (32.2-35.5) g/dL RDW (11.7-14.4) % Plt Count (182-369) x10^3/uL MPV (9.4-12.3) fL Sodium (135-145) mmol/L Potassium (3.5-5.1) mmol/L Chloride (98-107) mmol/L Carbon Dioxide (22-30) mmol/L Anion Gap (5-15) MEQ/L BUN (7-17) mg/dL Creatinine (0.52-1.04) mg/dL Estimated GFR ML/MIN Glucose (74-106) mg/dL POC Glucometer 270 H 303 H (74 to 106) mg/dL Lactic Acid 1.7 (0.4-2.0) Calcium (8.4-10.2) mg/dL Total Bilirubin (0.2-1.3) mg/dL AST (14-36) U/L ALT (0-35) U/L Alkaline Phosphatase (38-126) U/L Serum Total Protein (6.3-8.2) g/dL Albumin (3.5-5.0) g/dL Procalcitonin (0.030-0.080) ng/mL Slides for Path Review Radiology Exams: Radiology Procedures Category Date Time Status CHEST 1 VIEW (PORTABLE) Urgent Exams 01/17/24 09:28 Completed CHEST WITHOUT CONTRAST [CT] Routine Exams 01/17/24 14:07 Completed Multi-Disciplinary Progress Notes: Multi-Disciplinary Progress Notes 01/18/24 13:58 Case Management Note by Elsa Marlow S/W PATIENT- SHE CONTINUES TO PLAN TO RETURN TO HER APARTMENT AT ASSISTED LIVING. [employer] DELIVERED A PORTABLE CONCENTRATOR- PATIENT TO CALL WHEN SHE GOES HOME FOR BIGGER MORE PERMANENT CONCENTRATOR FOR HS O2. [facility] HAS BEEN SET UP TO ASSIST WITH [employer] DR[employer]ING CHANGES. NO OTHER NEW NEEDS IDENT IFIED AT THIS TIME- WILL CONTINUE TO FOLLOW Initialized on 01/18/24 13:58 - END OF NOTE 01/18/24 09:20 Pharmacy Note by Shukri Walker Cefepime decreased to 1gm iv q12h per renal dosing policy. Est crcl is 22ml/min. Initialized on 01/18/24 09:20 - END OF NOTE Assessment/Plan (1) COPD exacerbation Current Visit: Yes Status: Acute Assessment & Plan: -CXR and CT findings reviewed: On admission CXR was nonacute. CT chest 01/17/24 showing mild mosaic attenuation. Bilateral multiple small confluent dense rounded nodules suggestive of infection/inflammatory condition/ or amyloidosis. Also noted was a small solid nodule, mild bilateral pleural effusions, and possible right adrenal lesion. - Ceftriaxone IV - CBC, CMP reviewed with mild improvement of WBC 26.4 <28.4 and GIANNI - Advair, Sean, Shaniodlina - 2LNC - Baseline RA - qualified for home O2 at d/c - O2 drops at night - BC x2 negative -Antimicrobial history: -Ceftriaxone 01/12-01/16 -Vancomycin 01/16-current -Maxipime 01/16-current -repeat BC x 2 pending 01/18: -CBC reviewed, WBC trending down 24.5<30.1<28.4 -LA WNL -Procal slightly elevated at 0.157 +IS and flutter -Change solumedrol to prednisone -continue abx Code(s): J44.1 - CHRONIC OBSTRUCTIVE PULMONARY DISEASE W (ACUTE) EXACERBATION (2) Bilateral lower leg cellulitis Current Visit: Yes Status: Acute Assessment & Plan: - podiatry consult -legs wrapped in compression dressings - vanc/maxipime 01/18: -Wound culture NGTD Code(s): L03.116 - CELLULITIS OF LEFT LOWER LIMB; L03.115 - CELLULITIS OF RIGHT LOWER LIMB (3) Hyponatremia Current Visit: Yes Status: Acute Assessment & Plan: - in the setting of hyperglycemia - will monitor blood glucose levels closely -CMP reviewed showing worsening - blood glucose level at 266 this morning -Documentation reviewed from admission -Initial treatment with IVF -stopped as to not cause CHF exacerbation 01/18: -Sodium level reviewed and improving -Most likely pseudohyponatremia with h yperglycemia - will adjust insulin regimen -RN states pt has been refusing SSI - educated patient Code(s): E87.1 - HYPO-OSMOLALITY AND HYPONATREMIA (4) Leukocytosis, unspecified Current Visit: Yes Status: Acute Assessment & Plan: -CBC reviewed with some improvement 26.2<28.4 -examined BLE - does not appear to be the source of infection - will culture drainage - repeat BC x2 - pending - repeat UA appears negative - antibiotics changed to cefepime/vanc - CXR reviewed then CT chest as stated above 01/18: -WBC reviewed- improving -continue current abx cefepime/vanc -cultures pending Code(s): D72.829 - ELEVATED WHITE BLOOD CELL COUNT, UNSPECIFIED (5) Shortness of breath Current Visit: Yes Status: Acute Assessment & Plan: - 2:2 COPD exacerbation --see copd exac Code(s): R06.02 - SHORTNESS OF BREATH (6) UTI (urinary tract infection) Current Visit: Yes Status: Acute Assessment & Plan: - UC + e-coli - Ceftraixone IV 01/12-01/16 - adequate abx course - repeat UA reviewed and appears negative Code(s): N39.0 - URINARY TRACT INFECTION, SITE NOT SPECIFIED (7) Venous insufficiency of both lower extremities Current Visit: Yes Status: Acute Assessment & Plan: - podiatry consulted and following - Arterial and venous duplex results read- Report shows no blood flow left posterior tibial artery, tiny non-occluding left femoral DVT - Case discused with vascular surgeon per previous documentation - no need to transfer to higher level of care and can be f/u OP at D/C. - Continue plavix no additional meds required d/t her age and bleeding risk. Code(s): I87.2 - VENOUS INSUFFICIENCY (CHRONIC) (PERIPHERAL) (8) Vitamin D deficiency Current Visit: Yes Status: Acute Assessment & Plan: - Vit D level reviewed and <12.8 - 2,000 units daily PO- will continue OP at D/C Code(s): E55.9 - VITAMIN D DEFICIENCY, UNSPECIFIED (9) Weakness Current Visit: Yes Status: Acute Assessment & Plan: - Lives in assisted living - 2:2 COPD exacerbation - PT eval and treat -declines IP rehab Code(s): R53.1 - WEAKNESS (10) GERD (gastroesophageal reflux disease) Current Visit: Yes Status: Chronic Assessment & Plan: - continue protonix Code(s): K21.9 - GASTRO-ESOPHAGEAL REFLUX DISEASE WITHOUT ESOPHAGITIS (11) Hyperlipemia Current Visit: Yes Status: Chronic Assessment & Plan: - Continue statin Code(s): E78.5 - HYPERLIPIDEMIA, UNSPECIFIED (12) Hypothyroidism Current Visit: Yes Status: Chronic Assessment & Plan: - continue synthroid - TSH - reviewed Code(s): E03.9 - HYPOTHYROIDISM, UNSPECIFIED (13) Type II diabetes mellitus Current Visit: Yes Status: Chronic Qualifiers: Diabetes mellitus terminal makeup operator insulin use: with senior care use Diabetes mellitus complication status: with circulatory complication Diabetes mellitus complication detail: with peripheral angiopathy without gangrene Qualified Code(s): E11.51 - Type 2 diabetes mellitus with diabetic peripheral angiopathy without gangrene; Z79.4 - intermediate school teacher (current) use of insulin Assessment & Plan: - Continue home insulin dosing - Accuchecks ac/hs - Humalog s/s 10 units with meals - A1C reviewed at 7.44 (14) Hypertension Current Visit: No Status: Chronic Assessment & Plan: - BP stable - Continue home meds - Clonidine changed to PRN per pt request Next of KIN: Child- Stoney Murillo [phone] D/C plan: 1-2 days Code status: Full Code(s): J44.1 - CHRONIC OBSTRUCTIVE PULMONARY DISEASE W (ACUTE) EXACERBATION (2) Bilateral lower leg cellulitis Current Visit: Yes Status: Acute Code(s): L03.116 - CELLULITIS OF LEFT LOWER LIMB; L03.115 - CELLULITIS OF RIGHT LOWER LIMB (3) Hyponatremia Current Visit: Yes Status: Acute Code(s): E87.1 - HYPO-OSMOLALITY AND HYPONATREMIA (4) Leukocytosis, unspecified Current Visit: Yes Status: Acute Code(s): D72.829 - ELEVATED WHITE BLOOD CELL COUNT, UNSPECIFIED (5) Shortness of breath Current Visit: Yes Status: Acute Code(s): R06.02 - SHORTNESS OF BREATH (6) UTI (urinary tract infection) Current Visit: Yes Status: Acute Code(s): N39.0 - URINARY TRACT INFECTION, SITE NOT SPECIFIED (7) Venous insufficiency of both lower extremities Current Visit: Yes Status: Acute Code(s): I87.2 - VENOUS INSUFFICIENCY (CHRONIC) (PERIPHERAL) (8) Vitamin D deficiency Current Visit: Yes Status: Acute Code(s): E55.9 - VITAMIN D DEFICIENCY, UNSPECIFIED (9) Weakness Current Visit: Yes Status: Acute Code(s): R53.1 - WEAKNESS (10) GERD (gastroesophageal reflux disease) Current Visit: Yes Status: Chronic Code(s): K21.9 - GASTRO-ESOPHAGEAL REFLUX DISEASE WITHOUT ESOPHAGITIS (11) Hyperlipemia Current Visit: Yes Status: Chronic Code(s): E78.5 - HYPERLIPIDEMIA, UNSPECIFIED (12) Hypothyroidism Current Visit: Yes Status: Chronic Code(s): E03.9 - HYPOTHYROIDISM, UNSPECIFIED (13) Type II diabetes mellitus Current Visit: Yes Status: Chronic Qualifiers: Diabetes mellitus terminal makeup operator insulin use: with senior care use Diabetes mellitus complication status: with circulatory complication Diabetes mellitus complication detail: with peripheral angiopathy without gangrene Qualified Code(s): E11.51 - Type 2 diabetes mellitus with diabetic peripheral angiopathy without gangrene; Z79.4 - intermediate school teacher (current) use of insulin (14) Hypertension Current Visit: No Status: Chronic Code(s): I10 - ESSENTIAL (PRIMARY) HYPERTENSION (15) GIANNI (acute kidney injury) Current Visit: Yes Status: Acute Code(s): N17.9 - ACUTE KIDNEY FAILURE, U NSPECIFIED
[2024-01-19 05:25] LABS: Absolute Neutrophil Ct (ANC) 22.03 x10^3/uL (1.56-6.13); BASOPHIL % 0.1 % (0.1-1.2); Basophil (Absolute #) 0.03 x10^3/uL (0.01-0.08); Eosinophil % 0.1 % (0.7-5.8); Eosinophil (Absolute #) 0.02 x10^3/uL (0.04-0.36); Hematocrit 29.5 % (34.1-44.9); Hemoglobin 9.4 g/dL (11.2-15.7); IMMATURE GRAN # 0.34 x10^3u/L (0.001-0.031); IMMATURE GRAN % 1.4 % (0.001-0.429); Lymphocyte (Absolute #) 0.91 x10^3/uL (1.18-3.74); Lymphocytes % 3.7 % (19.3-51.7); Mean Cell Volume 88.9 fL (79.4-94.8); Mean Corpuscular Hemoglobin 28.3 pg (25.6-32.2); Mean Corpuscular Hgb Concent. 31.9 g/dL (32.2-35.5); Mean Platelet Volume 10.4 fL (9.4-12.3); Monocyte (Absolute #) 1.16 x10^3/uL (0.24-0.86); Monocytes % 4.7 % (4.7-12.5); Platelet Count 357 x10^3/uL (182-369); Red Blood Count 3.32 x10^6/uL (3.93-5.22); Red Cell Distribution Width 15.4 % (11.7-14.4); White Blood Count 24.5 x10^3/uL (3.98-10.04)
[2024-01-19 05:50] LABS: ALBUMIN 2.6 g/dL (3.5-5.0); ANION GAP 11.7 MEQ/L (5-15); BILIRUBIN,TOTAL 0.3 mg/dL (0.2-1.3); Calcium 7.8 mg/dL (8.4-10.2); Creatinine 1 1.06 mg/dL (0.52-1.04); EST GLOMERULAR FILTRATION RATE 51.2 ML/MIN; Potassium 4.3 mmol/L (3.5-5.1); Total Protein 5.3 g/dL (6.3-8.2)
[2024-01-19 06:42] LABS: Slide Review 1 YES
[2024-01-19] MEDS: CLONIDINE 0.1 MG TABLET PO PRN (08:55)
[2024-01-19] MEDS: DELTASONE 20 MG PO SCH (09:51)
[2024-01-19] MEDS: TROUGH DRUG LEVELS IJ ONE (11:28)
[2024-01-20 05:03] LABS: Absolute Neutrophil Ct (ANC) 12.91 x10^3/uL (1.56-6.13); BASOPHIL % 0.2 % (0.1-1.2); Basophil (Absolute #) 0.03 x10^3/uL (0.01-0.08); Eosinophil % 0.3 % (0.7-5.8); Eosinophil (Absolute #) 0.05 x10^3/uL (0.04-0.36); Hematocrit 27.8 % (34.1-44.9); Hemoglobin 8.9 g/dL (11.2-15.7); IMMATURE GRAN # 0.56 x10^3u/L (0.001-0.031); IMMATURE GRAN % 3.7 % (0.001-0.429); Lymphocyte (Absolute #) 0.79 x10^3/uL (1.18-3.74); Lymphocytes % 5.3 % (19.3-51.7); Mean Cell Volume 88.3 fL (79.4-94.8); Mean Corpuscular Hemoglobin 28.3 pg (25.6-32.2); Mean Platelet Volume 10.3 fL (9.4-12.3); Neutrophil % 86.5 % (34.0-71.1); Platelet Count 395 x10^3/uL (182-369); Red Blood Count 3.15 x10^6/uL (3.93-5.22); Red Cell Distribution Width 15.3 % (11.7-14.4); White Blood Count 14.9 x10^3/uL (3.98-10.04)
--- NOTE | 2024-01-20 05:05 | PCM.NOTE ---
Date and Time: 01/20/24 0504 Subjective Assessment: is a 88 year old female with PMHX of CHF, CAD, hyperlipidemia, HTN, Type II DM, GERD, hypothyroidism, and COPD. She presented to ER on 01/13/24 with SOB and BLE edema. On admission CXR was nonacute. CT chest 01/17/24 showing mild mosaic attenuation. Bilateral multiple small confluent dense rounded nodules suggestive of infection/inflammatory condition/ or amyloidosis. Also noted was a small solid nodule, mild bilateral pleural effusions, and possible right adrenal lesion. Venous Doppler with nonoccluding DVT in the distal left femoral vein. Right leg negative for DVT. Arterial US showing scattered arteriosclerotic disease bilaterally, no flow left posterior tibial artery. Right leg negative for stenosis/obstruction. Pt reports a hx of vascular insufficiency reported to her by her geospatial image analyst.Patient case discussed with Dr. Martinez vascular surgeon at [facility] in [place]. He did not feel pt needed transferred to higher level of care and could be f/u op based on findings of arterial and venous duplex. Also asked about anticoagulation and he said d/t her age to keep her on Plavix. BC x2 negative. UA + for e-coli in urine. Podiatry consulted, compression dressing placed bilaterally. Continue Advair, duonebs and steriods. Antibiotics started IP for COPD exacerbation and cellulitis of BLLE. 01/18/24: Met and examined patient bedside. Endorses increased production with cough - yellow. Remains weak. Examined BLE during dressing change by podiatry, small pin-sized area with minimal drainage, otherwise redness/swelling improved - do not appear to be the source of infection. Will culture drainage. WBC count is improving some 26.2<28.4. Patient is afebrile. Will decrease solu-medrol to daily dosing. Lung sounds with crackles at bilateral bases on auscultation. Patient is requiring 2L of oxygen - RA at baseline. Denies fever, cp, abdominal pain, ELIZONDO, dizziness, N/V/D. Will order home qualification for oxygen. 01/19/24: Patient states she is feeling better today. WBC is trending down. Cough continues, with white sputum. Lung sounds coarse on auscultation. Advised IS and ambulation as tolerated. Reports concerns about going home feeling so weak. Discussed rehab stay, patient currently resides at assisted living and does not wish for IP rehab stay. Would like [facility] with physical therapy if able. Will have CM look into this. Will change solumedrol to oral prednisone today. Blood culture with NGTD. Wound culture with NGTD. Possible discharge tomorrow. Sputum culture pending. 01/20/24: Endorsing continued improvement in dyspnea. Has mild rib pain with cough. Lung sounds with improved aeration - coarse in bilateral lower lobes. WBC trending down 14.9<24.5. Continue vanc/cefepime - sputum culture pending final read. Denies fever,cp, abdominal pain, ELIZONDO, dizziness, N/V/D. - Review of Systems Constitutional: Weakness Eyes: No Symptoms Ears, Nose, & Throat: No Symptoms Respiratory: Cough, Short Of Breath, Wheezing Cardiac: No Symptoms Abdominal/Gastrointestinal: No Symptoms Genitourinary Symptoms: No Symptoms Musculoskeletal: Other (rib pain with cough) Skin: No Symptoms Neurological: No Symptoms Psychological: No Symptoms Endocrine: No Symptoms Hematologic/Lymphatic: No Symptoms Immunological/Allergic: No Symptoms Objective Exam General Appearance: no apparent distress Neurologic Exam: alert, oriented x 3, cooperative Skin Exam: normal color Wound Assessment: Skin/Wound Assessment Wound/Incision Assessment Start: 01/13/24 03:39 Text: Status: Active Freq: Q6H Protocol: Document 01/20/24 02:00 LB (Rec: 01/20/24 03:26 LB [id number]) Wound/Incision Assessment Bilateral Lower Extremities Wound Assessment Shift Assessment Wound Type cellulitis Wound Stage Non Pressure Wound Primary Dressing orville boots Comment orville boots in place Wound Photo Photo Taken No Eye Exam: PERRL Ears, Nose, Throat Exam: normal ENT inspection Neck Exam: normal inspection Respiratory Exam: crackles/rales, wheezing Cardiovascular Exam: regular rate/rhythm, normal heart sounds Gastrointestinal/Abdomen Exam: soft, normal bowel sounds Extremity Exam: normal inspection Back Exam: normal inspection Pelvic Exam: deferred Rectal Exam: deferred Objective Data Vital Signs: Vital Signs - 24 hr Temp Pulse Resp BP Pulse Ox 01/20/24 03:33 97.5 F 61 14 187/79 96 01/19/24 23:25 97.5 F 63 17 146/67 96 01/19/24 19:51 97.6 F 76 22 141/65 95 01/19/24 18:53 75 20 95 01/19/24 16:00 98.3 F 65 18 115/55 91 L 01/19/24 15:52 58 L 18 94 L 01/19/24 11:56 98 F 57 L 22 118/56 94 L 01/19/24 11:07 58 L 18 87 L 01/19/24 07:14 64 18 94 L 01/19/24 07:08 97.3 F 63 20 195/79 94 L Pain Assessment - Last Documented Pain Intensity 0 Pain Scale Used 0-10 Pain Scale Intake and Output: Intake & Output 01/17/24 01/18/24 01/19/24 01/20/24 11:59 11:59 11:59 11:59 Intake Total 1580 1578 1440 600 Output Total 200 450 300 750 Balance 1380 1128 1140 -150 Weight 62.5 kg Lab Results: Lab Results-Last 24 Hours 01/19/24 01/19/24 01/19/24 Range/Units 05:20 05:20 06:56 WBC 24.5 H (3.98-10.04) x10^3/uL RBC 3.32 L (3.93-5.22) x10^6/uL Hgb 9.4 L (11.2-15.7) g/dL Hct 29.5 L (34.1-44.9) % MCV 88.9 (79.4-94.8) fL MCH 28.3 (25.6-32.2) pg MCHC 31.9 L (32.2-35.5) g/dL RDW 15.4 H (11.7-14.4) % Plt Count 357 (182-369) x10^3/uL MPV 10.4 (9.4-12.3) fL Gran % 90.0 H (34.0-71.1) % Immature Gran % (Auto) 1.4 H (0.001-0.429) % Nucleat RBC Rel Count 0.0 (0.00-0.2) % Eos # (Auto) 0.02 L (0.04-0.36) x10^3/uL Immature Gran # (Auto) 0.34 H (0.001-0.031) x10^3u/L Absolute Lymphs (auto) 0.91 L (1.18-3.74) x10^3/uL Absolute Monos (auto) 1.16 H (0.24-0.86) x10^3/uL Absolute Nucleated RBC 0.00 (0.00-0.012) x10^3u/L Lymphocytes % 3.7 L (19.3-51.7) % Monocytes % 4.7 (4.7-12.5) % Eosinophils % 0.1 L (0.7-5.8) % Basophils % 0.1 (0.1-1.2) % Absolute Granulocytes 22.03 H (1.56-6.13) x10^3/uL Basophils # 0.03 (0.01-0.08) x10^3/uL Sodium 131 L (135-145) mmol/L Potassium 4.3 (3.5-5.1) mmol/L Chloride 102 (98-107) mmol/L Carbon Dioxide 22 (22-30) mmol/L Anion Gap 11.7 (5-15) MEQ/L BUN 35 H (7-17) mg/dL Creatinine 1.06 H (0.52-1.04) mg/dL Estimated GFR 51.2 ML/MIN Glucose 294 H (74-106) mg/dL POC Glucometer 248 H (74 to 106) mg/dL Calcium 7.8 L (8.4-10.2) mg/dL Total Bilirubin 0.30 (0.2-1.3) mg/dL AST 28 (14-36) U/L ALT 36 H (0-35) U/L Alkaline Phosphatase 75 (38-126) U/L Serum Total Protein 5.3 L (6.3-8.2) g/dL Albumin 2.6 L (3.5-5.0) g/dL Vancomycin Trough (10-20) ug/mL Slides for Path Review YES 01/19/24 01/19/24 01/19/24 Range/Units 09:23 11:36 16:29 WBC (3.98-10.04) x10^3/uL RBC (3.93-5.22) x10^6/uL Hgb (11.2-15.7) g/dL Hct (34.1-44.9) % MCV (79.4-94.8) fL MCH (25.6-32.2) pg MCHC (32.2-35.5) g/dL RDW (11.7-14.4) % Plt Count (182-369) x10^3/uL MPV (9.4-12.3) fL Gran % (34.0-71.1) % Immature Gran % (Auto) (0.001-0.429) % Nucleat RBC Rel Count (0.00-0.2) % Eos # (Auto) (0.04-0.36) x10^3/uL Immature Gran # (Auto) (0.001-0.031) x10^3u/L Absolute Lymphs (auto) (1.18-3.74) x10^3/uL Absolute Monos (auto) (0.24-0.86) x10^3/uL Absolute Nucleated RBC (0.00-0.012) x10^3u/L Lymphocytes % (19.3-51.7) % Monocytes % (4.7-12.5) % Eosinophils % (0.7-5.8) % Basophils % (0.1-1.2) % Absolute Granulocytes (1.56-6.13) x10^3/uL Basophils # (0.01-0.08) x10^3/uL Sodium (135-145) mmol/L Potassium (3.5-5.1) mmol/L Chloride (98-107) mmol/L Carbon Dioxide (22-30) mmol/L Anion Gap (5-15) MEQ/L BUN (7-17) mg/dL Creatinine (0.52-1.04) mg/dL Estimated GFR ML/MIN Glucose (74-106) mg/dL POC Glucometer 192 H 290 H (74 to 106) mg/dL Calcium (8.4-10.2) mg/dL Total Bilirubin (0.2-1.3) mg/dL AST (14-36) U/L ALT (0-35) U/L Alkaline Phosphatase (38-126) U/L Serum Total Protein (6.3-8.2) g/dL Albumin (3.5-5.0) g/dL Vancomycin Trough 6.05 L (10-20) ug/mL Slides for Path Review 01/19/24 01/19/24 Range/Units 21:19 22:40 WBC (3.98-10.04) x10^3/uL RBC (3.93-5.22) x10^6/uL Hgb (11.2-15.7) g/dL Hct (34.1-44.9) % MCV (79.4-94.8) fL MCH (25.6-32.2) pg MCHC (32.2-35.5) g/dL RDW (11.7-14.4) % Plt Count (182-369) x10^3/uL MPV (9.4-12.3) fL Gran % (34.0-71.1) % Immature Gran % (Auto) (0.001-0.429) % Nucleat RBC Rel Count (0.00-0.2) % Eos # (Auto) (0.04-0.36) x10^3/uL Immature Gran # (Auto) (0.001-0.031) x10^3u/L Absolute Lymphs (auto) (1.18-3.74) x10^3/uL Absolute Monos (auto) (0.24-0.86) x10^3/uL Absolute Nucleated RBC (0.00-0.012) x10^3u/L Lymphocytes % (19.3-51.7) % Monocytes % (4.7-12.5) % Eosinophils % (0.7-5.8) % Basophils % (0.1-1.2) % Absolute Granulocytes (1.56-6.13) x10^3/uL Basophils # (0.01-0.08) x10^3/uL Sodium (135-145) mmol/L Potassium (3.5-5.1) mmol/L Chloride (98-107) mmol/L Carbon Dioxide (22-30) mmol/L Anion Gap (5-15) MEQ/L BUN (7-17) mg/dL Creatinine (0.52-1.04) mg/dL Estimated GFR ML/MIN Glucose (74-106) mg/dL POC Glucometer 288 H 246 H (74 to 106) mg/dL Calcium (8.4-10.2) mg/dL Total Bilirubin (0.2-1.3) mg/dL AST (14-36) U/L ALT (0-35) U/L Alkaline Phosphatase (38-126) U/L Serum Total Protein (6.3-8.2) g/dL Albumin (3.5-5.0) g/dL Vancomycin Trough (10-20) ug/mL Slides for Path Review Multi-Disciplinary Progress Notes: Multi-Disciplinary Progress Notes 01/19/24 13:40 Case Management Note by Elsa Marlow NO CHANGE IN DC PLANS AT THIS TIME. PATIENT NOW QUALIFIED FOR 24 HR OXYGEN- WILL UPDATE ORDERS. [facility] HAS ALSO ACCEPTED PATIENT. WILL SEND THEM UNNA BOOT ORDERS WHEN AVAILABLE Initialized on 01/19/24 13:40 - END OF NOTE 01/19/24 11:08 Respiratory Note by Oksana Jordan Patient's O2 sat is 87% on Room Air at rest. Patient placed back on O2 at 2lpm per NC and O2 sat increased to 93% on 2lpm per NC at rest. Initialized on 01/19/24 11:08 - END OF NOTE Assessment/Plan (1) COPD exacerbation Current Visit: Yes Status: Acute Assessment & Plan: -CXR and CT findings reviewed: On admission CXR was nonacute. CT chest 01/17/24 showing mild mosaic attenuation. Bilateral multiple small confluent dense rounded nodules suggestive of infection/inflammatory condition/ or amyloidosis. Also noted was a small solid nodule, mild bilateral pleural effusions, and possible right adrenal lesion. - Ceftriaxone IV - CBC, CMP reviewed with mild improvement of WBC 26.4 <28.4 and GIANNI - Advair, Duonebs, Steriods - 2LNC - Baseline RA - qualified for home O2 at d/c - O2 drops at night - BC x2 negative -Antimicrobial history: -Ceftriaxone 01/12-01/16 -Vancomycin 01/16-current -Maxipime 01/16-current -repeat BC x 2 pending 01/18: -CBC reviewed, WBC trending down 24.5<30.1<28.4 -LA WNL -Procal slightly elevated at 0.157 +IS and flutter -Change solumedrol to prednisone -continue abx 01/19: -CBC reviewed, WBC continues to downtrend 14.9<24.5<30.1>28.4 - trend -on 2L - qualified for home oxygen will set up at dc -sputum cult with gram - pending sens- will follow -continue Abx -add mucinex -Possible discharge tomorrow Code(s): J44.1 - CHRONIC OBSTRUCTIVE PULMONARY DISEASE W (ACUTE) EXACERBATION (2) Bilateral lower leg cellulitis Current Visit: Yes Status: Acute Assessment & Plan: - podiatry consult -legs wrapped in compression dressings - vanc/maxipime 01/18: -Wound culture NGTD Code(s): L03.116 - CELLULITIS OF LEFT LOWER LIMB; L03.115 - CELLULITIS OF RIGHT LOWER LIMB (3) Hyponatremia Current Visit: Yes Status: Acute Assessment & Plan: - in the setting of hyperglycemia - will monitor blood glucose levels closely -CMP reviewed showing worsening - blood glucose level at 266 this morning -Documentation reviewed from admission -Initial treatment with IVF -stopped as to not cause CHF exacerbation 01/18: -Sodium level reviewed and improving -Most likely pseudohyponatremia with hyperglycemia - will adjust insulin regimen -RN states pt has been refusing SSI - educated patient 01/19: -CMP reviewed, sodium level continues to improve- patient still refusing full dose insulin coverage Code(s): E87.1 - HYPO-OSMOLALITY AND HYPONATREMIA (4) Leukocytosis, unspecified Current Visit: Yes Status: Acute Assessment & Plan: -CBC reviewed with some improvement 26.2<28.4 -examined BLE - does not appear to be the source of infection - will culture drainage - repeat BC x2 - pending - repeat UA appears negative - antibiotics changed to cefepime/vanc - CXR reviewed then CT chest as stated above 01/18: -WBC reviewed- improving -continue current abx cefepime/vanc -cultures pending 01/19: -Improving as stated above- continue abx -possible d/c tomorrow Code(s): D72.829 - ELEVATED WHITE BLOOD CELL COUNT, UNSPECIFIED (5) Shortness of breath Current Visit: Yes Status: Acute Assessment & Plan: - 2:2 COPD exacerbation --see copd exac Code(s): R06.02 - SHORTNESS OF BREATH (6) UTI (urinary tract infection) Current Visit: Yes Status: Acute Assessment & Plan: - UC + e-coli - Ceftraixone IV 01/12-01/16 - adequate abx course - repeat UA reviewed and appears negative Code(s): N39.0 - URINARY TRACT INFECTION, SITE NOT SPECIFIED (7) Venous insufficiency of both lower extremities Current Visit: Yes Status: Acute Assessment & Plan: - podiatry consulted and following - Arterial and venous duplex results read- Report shows no blood flow left posterior tibial artery, tiny non-occluding left femoral DVT - Case discused with vascular surgeon per previous documentation - no need to transfer to higher level of care and can be f/u OP at D/C. - Continue plavix no additional meds required d/t her age and bleeding risk. Code(s): I87.2 - VENOUS INSUFFICIENCY (CHRONIC) (PERIPHERAL) (8) Vitamin D deficiency Current Visit: Yes Status: Acute Assessment & Plan: - Vit D level reviewed and <12.8 - 2,000 units daily PO- will continue OP at D/C Code(s): E55.9 - VITAMIN D DEFICIENCY, UNSPECIFIED (9) Weakness Current Visit: Yes Status: Acute Assessment & Plan: - Lives in assisted living - 2:2 COPD exacerbation - PT eval and treat -declines IP rehab Code(s): R53.1 - WEAKNESS (10) GERD (gastroesophageal reflux disease) Current Visit: Yes Status: Chronic Assessment & Plan: - continue protonix Code(s): K21.9 - GASTRO-ESOPHAGEAL REFLUX DISEASE WITHOUT ESOPHAGITIS (11) Hyperlipemia Current Visit: Yes Status: Chronic Assessment & Plan: - Continue statin Code(s): E78.5 - HYPERLIPIDEMIA, UNSPECIFIED (12) Hypothyroidism Current Visit: Yes Status: Chronic Assessment & Plan: - continue synthroid - TSH - reviewed Code(s): E03.9 - HYPOTHYROIDISM, UNSPECIFIED (13) Type II diabetes mellitus Current Visit: Yes Status: Chronic Qualifiers: Diabetes mellitus nursing home insulin use: with nursing home use Diabetes mellitus complication status: with circulatory complication Diabetes mellitus complication detail: with peripheral angiopathy without gangrene Qualified Code(s): E11.51 - Type 2 diabetes mellitus with diabetic peripheral angiopathy without gangrene; Z79.4 - termite treater (current) use of insulin Assessment & Plan: - Continue home insulin dosing - Accuchecks ac/hs - Humalog s/s 10 units with meals - A1C reviewed at 7.44 01/19: -refusing full dose insulin w/ SSI - discussed the importance of good glycemic control (14) Hypertension Current Visit: No Status: Chronic Assessment & Plan: - BP stable - Continue home meds - Clonidine changed to PRN per pt request Next of KIN: Child- Stoney Murillo [phone] D/C plan: 1-2 days Code status: Full Code(s): J44.1 - CHRONIC OBSTRUCTIVE PULMONARY DISEASE W (ACUTE) EXACERBATION (2) Bilateral lower leg cellulitis Current Visit: Yes Status: Acute Code(s): L03.116 - CELLULITIS OF LEFT LOWER LIMB; L03.115 - CELLULITIS OF RIGHT LOWER LIMB (3) Hyponatremia Current Visit: Yes Status: Acute Code(s): E87.1 - HYPO-OSMOLALITY AND HYPONATREMIA (4) Leukocytosis, unspecified Current Visit: Yes Status: Acute Code(s): D72.829 - ELEVATED WHITE BLOOD CELL COUNT, UNSPECIFIED (5) Shortness of breath Current Visit: Yes Status: Acute Code(s): R06.02 - SHORTNESS OF BREATH (6) UTI (urinary tract infection) Current Visit: Yes Status: Acute Code(s): N39.0 - URINARY TRACT INFECTION, SITE NOT SPECIFIED (7) Venous insufficiency of both lower extremities Current Visit: Yes Status: Acute Code(s): I87.2 - VENOUS INSUFFICIENCY (CHRONIC) (PERIPHERAL) (8) Vitamin D deficiency Current Visit: Yes Status: Acute Code(s): E55.9 - VITAMIN D DEFICIENCY, UNSPECIFIED (9) Weakness Current Visit: Yes Status: Acute Code(s): R53.1 - WEAKNESS (10) GERD (gastroesophageal reflux disease) Current Visit: Yes Status: Chronic Code(s): K21.9 - GASTRO-ESOPHAGEAL REFLUX DISEASE WITHOUT ESOPHAGITIS (11) Hyperlipemia Current Visit: Yes Status: Chronic Code(s): E78.5 - HYPERLIPIDEMIA, UNSPECIFIED (12) Hypothyroidism Current Visit: Yes Status: Chronic Code(s): E03.9 - HYPOTHYROIDISM, UNSPECIFIED (13) Type II diabetes mellitus Current Visit: Yes Status: Chronic Qualifiers: Diabetes mellitus nursing home insulin use: with nursing home use Diabetes mellitus complication status: with circulatory complication Diabetes mellitus complication detail: with peripheral angiopathy without gangrene Qualified Code(s): E11.51 - Type 2 diabetes mellitus with diabetic peripheral angiopathy without gangrene; Z79.4 - termite treater (current) use of insulin (14) Hypertension Current Visit: No Status: Chronic Code(s): I10 - ESSENTIAL (PRIMARY) HYPERTENSION (15) GIANNI (acute kidney injury) Current Visit: Yes Status: Acute Code(s): N17.9 - ACUTE KIDNEY FAILURE, UNSPECIFIED
[2024-01-20 05:15] LABS: ALBUMIN 2.3 g/dL (3.5-5.0); ANION GAP 9.2 MEQ/L (5-15); BILIRUBIN,TOTAL 0.2 mg/dL (0.2-1.3); Calcium 7.7 mg/dL (8.4-10.2); Creatinine 1 1.03 mg/dL (0.52-1.04); Potassium 4.6 mmol/L (3.5-5.1); Total Protein 4.9 g/dL (6.3-8.2)
[2024-01-20] MEDS: WATER IV SCH (10:02)
[2024-01-20] MEDS: DEXTROSE IV SCH (10:02)
[2024-01-20] MEDS: VANCOCIN IV SCH (10:02)
[2024-01-20] MEDS: Mucinex 600MG ER Tabs PO SCH (22:48)
--- NOTE | 2024-01-21 05:07 | PCM.NOTE ---
Date and Time: 01/21/24 0506 Subjective Assessment: is a 88 year old female with PMHX of CHF, CAD, hyperlipidemia, HTN, Type II DM, GERD, hypothyroidism, and COPD. She presented to ER on 01/13/24 with SOB and BLE edema. On admission CXR was nonacute. CT chest 01/17/24 showing mild mosaic attenuation. Bilateral multiple small confluent dense rounded nodules suggestive of infection/inflammatory condition/ or amyloidosis. Also noted was a small solid nodule, mild bilateral pleural effusions, and possible right adrenal lesion. Venous Doppler with nonoccluding DVT in the distal left femoral vein. Right leg negative for DVT. Arterial US showing scattered arteriosclerotic disease bilaterally, no flow left posterior tibial artery. Right leg negative for stenosis/obstruction. Pt reports a hx of vascular insufficiency reported to her by her rolling attendant.Patient case discussed with Dr. Martinez vascular surgeon at [facility] in [place]. He did not feel pt needed transferred to higher level of care and could be f/u op based on findings of arterial and venous duplex. Also asked about anticoagulation and he said d/t her age to keep her on Plavix. BC x2 negative. UA + for e-coli in urine. Podiatry consulted, compression dressing placed bilaterally. Continue Advair, duonebs and steriods. Antibiotics started IP for COPD exacerbation and cellulitis of BLLE. 01/18/24: Met and examined patient bedside. Endorses increased production with cough - yellow. Remains weak. Examined BLE during dressing change by podiatry, small pin-sized area with minimal drainage, otherwise redness/swelling improved - do not appear to be the source of infection. Will culture drainage. WBC count is improving some 26.2<28.4. Patient is afebrile. Will decrease solu-medrol to daily dosing. Lung sounds with crackles at bilateral bases on auscultation. Patient is requiring 2L of oxygen - RA at baseline. Denies fever, cp, abdominal pain, ELIZONDO, dizziness, N/V/D. Will order home qualification for oxygen. 01/19/24: Patient states she is feeling better today. WBC is trending down. Cough continues, with white sputum. Lung sounds coarse on auscultation. Advised IS and ambulation as tolerated. Reports concerns about going home feeling so weak. Discussed rehab stay, patient currently resides at assisted living and does not wish for IP rehab stay. Would like [facility] with physical therapy if able. Will have CM look into this. Will change solumedrol to oral prednisone today. Blood culture with NGTD. Wound culture with NGTD. Possible discharge tomorrow. Sputum culture pending. 01/20/24: Endorsing continued improvement in dyspnea. Has mild rib pain with cough. Lung sounds with improved aeration - coarse in bilateral lower lobes. WBC trending down 14.9<24.5. Continue vanc/cefepime - sputum culture pending final read. Denies fever,cp, abdominal pain, ELIZONDO, dizziness, N/V/D. 01/21/24 Patient reports she is feeling stronger today. Sputum culture with pseudomonas. Vanc d/cd. Cefepime continued. Most likely can discharge on po levaquin tomorrow. WBC now at 12.1<14.9<24.5. Qualified for home oxygen. - Review of Systems Constitutional: Weakness Eyes: No Symptoms Ears, Nose, & Throat: No Symptoms Respiratory: Cough, Short Of Breath Cardiac: No Symptoms Abdominal/Gastrointestinal: No Symptoms Genitourinary Symptoms: No Symptoms Musculoskeletal: No Symptoms Skin: No Symptoms Neurological: No Symptoms Psychological: No Symptoms Endocrine: No Symptoms Hematologic/Lymphatic: No Symptoms Immunological/Allergic: No Symptoms Objective Exam General Appearance: no apparent distress Neurologic Exam: alert, oriented x 3, cooperative Skin Exam: pale Wound Assessment: Skin/Wound Assessment Wound/Incision Assessment Start: 01/13/24 03:39 Text: Status: Active Freq: Q6H Protocol: Document 01/21/24 02:00 LB (Rec: 01/21/24 02:47 LB [id number]) Wound/Incision Assessment Bilateral Lower Extremities Wound Assessment Shift Assessment Wound Type cellulitis Wound Stage Non Pressure Wound Primary Dressing orville boots Comment orville boots in place Wound Photo Photo Taken No Eye Exam: PERRL Ears, Nose, Throat Exam: normal ENT inspection Respiratory Exam: crackles/rales, wheezing Cardiovascular Exam: regular rate/rhythm, normal heart sounds Gastrointestinal/Abdomen Exam: soft, normal bowel sounds Extremity Exam: normal inspection Back Exam: normal inspection Objective Data Vital Signs: Vital Signs - 24 hr Temp Pulse Resp BP Pulse Ox 01/21/24 04:03 98.1 F 65 18 189/81 96 01/20/24 23:21 98.6 F 81 15 174/75 95 01/20/24 19:32 97.8 F 72 18 162/69 95 01/20/24 19:25 71 18 98 01/20/24 15:00 97.2 F 63 16 143/67 97 01/20/24 14:45 63 16 96 01/20/24 11:31 65 18 93 L 01/20/24 11:00 97.8 F 61 18 137/65 96 01/20/24 07:00 97.6 F 66 16 171/74 96 01/20/24 06:54 60 16 92 L Pain Assessment - Last Documented Pain Intensity 0 Pain Scale Used 0-10 Pain Scale Intake and Output: Intake & Output 01/18/24 01/19/24 01/20/24 01/21/24 11:59 11:59 11:59 11:59 Intake Total 1578 1440 840 600 Output Total 450 300 750 Balance 1128 1140 90 600 Weight 62.5 kg Lab Results: Lab Results-Last 24 Hours 01/20/24 01/20/24 01/20/24 Range/Units 04:49 04:49 07:22 WBC 14.9 H (3.98-10.04) x10^3/uL RBC 3.15 L (3.93-5.22) x10^6/uL Hgb 8.9 L (11.2-15.7) g/dL Hct 27.8 L (34.1-44.9) % MCV 88.3 (79.4-94.8) fL MCH 28.3 (25.6-32.2) pg MCHC 32.0 L (32.2-35.5) g/dL RDW 15.3 H (11.7-14.4) % Plt Count 395 H (182-369) x10^3/uL MPV 10.3 (9.4-12.3) fL Gran % 86.5 H (34.0-71.1) % Immature Gran % (Auto) 3.7 H (0.001-0.429) % Nucleat RBC Rel Count 0.0 (0.00-0.2) % Eos # (Auto) 0.05 (0.04-0.36) x10^3/uL Immature Gran # (Auto) 0.56 H (0.001-0.031) x10^3u/L Absolute Lymphs (auto) 0.79 L (1.18-3.74) x10^3/uL Absolute Monos (auto) 0.60 (0.24-0.86) x10^3/uL Absolute Nucleated RBC 0.00 (0.00-0.012) x10^3u/L Lymphocytes % 5.3 L (19.3-51.7) % Monocytes % 4.0 L (4.7-12.5) % Eosinophils % 0.3 L (0.7-5.8) % Basophils % 0.2 (0.1-1.2) % Absolute Granulocytes 12.91 H (1.56-6.13) x10^3/uL Basophils # 0.03 (0.01-0.08) x10^3/uL Sodium 132 L (135-145) mmol/L Potassium 4.6 (3.5-5.1) mmol/L Chloride 104 (98-107) mmol/L Carbon Dioxide 24 (22-30) mmol/L Anion Gap 9.2 (5-15) MEQ/L BUN 31 H (7-17) mg/dL Creatinine 1.03 (0.52-1.04) mg/dL Estimated GFR 53.0 ML/MIN Glucose 233 H (74-106) mg/dL POC Glucometer 238 H (74 to 106) mg/dL Calcium 7.7 L (8.4-10.2) mg/dL Total Bilirubin 0.20 (0.2-1.3) mg/dL AST 54 H (14-36) U/L ALT 78 H (0-35) U/L Alkaline Phosphatase 69 (38-126) U/L Serum Total Protein 4.9 L (6.3-8.2) g/dL Albumin 2.3 L (3.5-5.0) g/dL 01/20/24 01/20/24 01/20/24 Range/Units 11:48 16:09 20:49 WBC (3.98-10.04) x10^3/uL RBC (3.93-5.22) x10^6/uL Hgb (11.2-15.7) g/dL Hct (34.1-44.9) % MCV (79.4-94.8) fL MCH (25.6-32.2) pg MCHC (32.2-35.5) g/dL RDW (11.7-14.4) % Plt Count (182-369) x10^3/uL MPV (9.4-12.3) fL Gran % (34.0-71.1) % Immature Gran % (Auto) (0.001-0.429) % Nucleat RBC Rel Count (0.00-0.2) % Eos # (Auto) (0.04-0.36) x10^3/uL Immature Gran # (Auto) (0.001-0.031) x10^3u/L Absolute Lymphs (auto) (1.18-3.74) x10^3/uL Absolute Monos (auto) (0.24-0.86) x10^3/uL Absolute Nucleated RBC (0.00-0.012) x10^3u/L Lymphocytes % (19.3-51.7) % Monocytes % (4.7-12.5) % Eosinophils % (0.7-5.8) % Basophils % (0.1-1.2) % Absolute Granulocytes (1.56-6.13) x10^3/uL Basophils # (0.01-0.08) x10^3/uL Sodium (135-145) mmol/L Potassium (3.5-5.1) mmol/L Chloride (98-107) mmol/L Carbon Dioxide (22-30) mmol/L Anion Gap (5-15) MEQ/L BUN (7-17) mg/dL Creatinine (0.52-1.04) mg/dL Estimated GFR ML/MIN Glucose (74-106) mg/dL POC Glucometer 269 H 267 H 282 H (74 to 106) mg/dL Calcium (8.4-10.2) mg/dL Total Bilirubin (0.2-1.3) mg/dL AST (14-36) U/L ALT (0-35) U/L Alkaline Phosphatase (38-126) U/L Serum Total Protein (6.3-8.2) g/dL Albumin (3.5-5.0) g/dL 01/21/24 Range/Units 03:46 WBC (3.98-10.04) x10^3/uL RBC (3.93-5.22) x10^6/uL Hgb (11.2-15.7) g/dL Hct (34.1-44.9) % MCV (79.4-94.8) fL MCH (25.6-32.2) pg MCHC (32.2-35.5) g/dL RDW (11.7-14.4) % Plt Count (182-369) x10^3/uL MPV (9.4-12.3) fL Gran % (34.0-71.1) % Immature Gran % (Auto) (0.001-0.429) % Nucleat RBC Rel Count (0.00-0.2) % Eos # (Auto) (0.04-0.36) x10^3/uL Immature Gran # (Auto) (0.001-0.031) x10^3u/L Absolute Lymphs (auto) (1.18-3.74) x10^3/uL Absolute Monos (auto) (0.24-0.86) x10^3/uL Absolute Nucleated RBC (0.00-0.012) x10^3u/L Lymphocytes % (19.3-51.7) % Monocytes % (4.7-12.5) % Eosinophils % (0.7-5.8) % Basophils % (0.1-1.2) % Absolute Granulocytes (1.56-6.13) x10^3/uL Basophils # (0.01-0.08) x10^3/uL Sodium (135-145) mmol/L Potassium (3.5-5.1) mmol/L Chloride (98-107) mmol/L Carbon Dioxide (22-30) mmol/L Anion Gap (5-15) MEQ/L BUN (7-17) mg/dL Creatinine (0.52-1.04) mg/dL Estimated GFR ML/MIN Glucose (74-106) mg/dL POC Glucometer 240 H (74 to 106) mg/dL Calcium (8.4-10.2) mg/dL Total Bilirubin (0.2-1.3) mg/dL AST (14-36) U/L ALT (0-35) U/L Alkaline Phosphatase (38-126) U/L Serum Total Protein (6.3-8.2) g/dL Albumin (3.5-5.0) g/dL Multi-Disciplinary Progress Notes: Multi-Disciplinary Progress Notes 01/20/24 10:25 Case Management Note by Elsa Marlow S/W PATIENT- NO CHANGE IN DC PLANS AT THIS TIME- PATIENT TO RETURN TO HER APT AT AR WITH [facility]. PATIENT REPORTS HER DAUGHTER PLANS TO STAY WITH HER FOR A FEW DAYS AT [place] TO ASSIST HER Initialized on 01/20/24 10:25 - END OF NOTE Assessment/Plan (1) COPD exacerbation Current Visit: Yes Status: Acute Assessment & Plan: -CXR and CT findings reviewed: On admission CXR was nonacute. CT chest 01/17/24 showing mild mosaic attenuation. Bilateral multiple small confluent dense rounded nodules suggestive of infection/inflammatory condition/ or amyloidosis. Also noted was a small solid nodule, mild bilateral pleural effusions, and possible right adrenal lesion. - Ceftriaxone IV - CBC, CMP reviewed with mild improvement of WBC 26.4 <28.4 and GIANNI - Sean Card Steriods - 2LNC - Baseline RA - qualified for home O2 at d/c - O2 drops at night - BC x2 negative -Antimicrobial history: -Ceftriaxone 01/12-01/16 -Vancomycin 01/16-current -Maxipime 01/16-current -repeat BC x 2 pending 01/18: -CBC reviewed, WBC trending down 24.5<30.1<28.4 -LA WNL -Procal slightly elevated at 0.157 +IS and flutter -Change solumedrol to prednisone -continue abx 01/19: -CBC reviewed, WBC continues to downtrend 14.9<24.5<30.1>28.4 - trend -on 2L - qualified for home oxygen will set up at dc -sputum cult with gram - pending sens- will follow -continue Abx -add mucinex -Possible discharge tomorrow 01/20: -CBC reviewed, WBC downtrending 12.1<14.9<24.5 -sputum culture with pseudomonas sensitive to cefepime - will discharge on levquin (S) Code(s): J44.1 - CHRONIC OBSTRUCTIVE PULMONARY DISEASE W (ACUTE) EXACERBATION (2) Bilateral lower leg cellulitis Current Visit: Yes Status: Acute Assessment & Plan: - podiatry consult -legs wrapped in compression dressings - vanc/maxipime 01/18: -Wound culture NGTD Code(s): L03.116 - CELLULITIS OF LEFT LOWER LIMB; L03.115 - CELLULITIS OF RIGHT LOWER LIMB (3) Hyponatremia Current Visit: Yes Status: Acute Assessment & Plan: - in the setting of hyperglycemia - will monitor blood glucose levels closely -CMP reviewed showing worsening - blood glucose level at 266 this morning -Documentation reviewed from admission -Initial treatment with IVF -stopped as to not cause CHF exacerbation 01/18: -Sodium level reviewed and improving -Most likely pseudohyponatremia with hyp erglycemia - will adjust insulin regimen -RN states pt has been refusing SSI - educated patient 01/19: -CMP reviewed, sodium level continues to improve- patient still refusing full dose insulin coverage 01/20 -CMP reviewed, hyperglycemia - increased mealtime insulin - should help with hyponatremia Code(s): E87.1 - HYPO-OSMOLALITY AND HYPONATREMIA (4) Leukocytosis, unspecified Current Visit: Yes Status: Acute Assessment & Plan: -CBC reviewed with some improvement 26.2<28.4 -examined BLE - does not appear to be the source of infection - will culture drainage - repeat BC x2 - pending - repeat UA appears negative - antibiotics changed to cefepime/vanc - CXR reviewed then CT chest as stated above 01/18: -WBC reviewed- improving -continue current abx cefepime/vanc -cultures pending 01/19: -Improving as stated above- continue abx -possible d/c tomorrow 01/20: -CBC reviewed, continues to improve Code(s): D72.829 - ELEVATED WHITE BLOOD CELL COUNT, UNSPECIFIED (5) Shortness of breath Current Visit: Yes Status: Acute Assessment & Plan: - 2:2 COPD exacerbation --see copd exac Code(s): R06.02 - SHORTNESS OF BREATH (6) UTI (urinary tract infection) Current Visit: Yes Status: Acute Assessment & Plan: - UC + e-coli - Ceftraixone IV 01/12-01/16 - adequate abx course - repeat UA reviewed and appears negative Code(s): N39.0 - URINARY TRACT INFECTION, SITE NOT SPECIFIED (7) Venous insufficiency of both lower extremities Current Visit: Yes Status: Acute Assessment & Plan: - podiatry consulted and following - Arterial and venous duplex results read- Report shows no blood flow left posterior tibial artery, tiny non-occluding left femoral DVT - Case discused with vascular surgeon per previous documentation - no need to transfer to higher level of care and can be f/u OP at D/C. - Continue plavix no additional meds required d/t her age and bleeding risk. Code(s): I87.2 - VENOUS INSUFFICIENCY (CHRONIC) (PERIPHERAL) (8) Vitamin D deficiency Current Visit: Yes Status: Acute Assessment & Plan: - Vit D level reviewed and <12.8 - 2,000 units daily PO- will continue OP at D/C Code(s): E55.9 - VITAMIN D DEFICIENCY, UNSPECIFIED (9) Weakness Current Visit: Yes Status: Acute Assessment & Plan: - Lives in assisted living - 2:2 COPD exacerbation - PT eval and treat -declines IP rehab Code(s): R53.1 - WEAKNESS (10) GERD (gastroesophageal reflux disease) Current Visit: Yes Status: Chronic Assessment & Plan: - continue protonix Code(s): K21.9 - GASTRO-ESOPHAGEAL REFLUX DISEASE WITHOUT ESOPHAGITIS (11) Hyperlipemia Current Visit: Yes Status: Chronic Assessment & Plan: - Continue statin Code(s): E78.5 - HYPERLIPIDEMIA, UNSPECIFIED (12) Hypothyroidism Current Visit: Yes Status: Chronic Assessment & Plan: - continue synthroid - TSH - reviewed Code(s): E03.9 - HYPOTHYROIDISM, UNSPECIFIED (13) Type II diabetes mellitus Current Visit: Yes Status: Chronic Qualifiers: Diabetes mellitus group home insulin use: with termite control service representative use Diabetes mellitus complication status: with circulatory complication Diabetes mellitus complication detail: with peripheral angiopathy without gangrene Qualified Code(s): E11.51 - Type 2 diabetes mellitus with diabetic peripheral angiopathy without gangrene; Z79.4 - skilled nursing (current) use of insulin Assessment & Plan: - Continue home insulin dosing - Accuchecks ac/hs - Humalog s/s 10 units with meals - A1C reviewed at 7.44 01/19: -refusing full dose insulin w/ SSI - discussed the importance of good glycemic control (14) Hypertension Current Visit: No Status: Chronic Assessment & Plan: - BP stable - Continue home meds - Clonidine changed to PRN per pt request Next of KIN: Child- Stoney Murillo [phone] D/C plan: 1-2 days Code status: Full Code(s): J44.1 - CHRONIC OBSTRUCTIVE PULMONARY DISEASE W (ACUTE) EXACERBATION (2) Bilateral lower leg cellulitis Current Visit: Yes Status: Acute Code(s): L03.116 - CELLULITIS OF LEFT LOWER LIMB; L03.115 - CELLULITIS OF RIGHT LOWER LIMB (3) Hyponatremia Current Visit: Yes Status: Acute Code(s): E87.1 - HYPO-OSMOLALITY AND HYPONATREMIA (4) Leukocytosis, unspecified Current Visit: Yes Status: Acute Code(s): D72.829 - ELEVATED WHITE BLOOD CELL COUNT, UNSPECIFIED (5) Shortness of breath Current Visit: Yes Status: Acute Code(s): R06.02 - SHORTNESS OF BREATH (6) UTI (urinary tract infection) Current Visit: Yes Status: Acute Code(s): N39.0 - URINARY TRACT INFECTION, SITE NOT SPECIFIED (7) Venous insufficiency of both lower extremities Current Visit: Yes Status: Acute Code(s): I87.2 - VENOUS INSUFFICIENCY (CHRONIC) (PERIPHERAL) (8) Vitamin D deficiency Current Visit: Yes Status: Acute Code(s): E55.9 - VITAMIN D DEFICIENCY, UNSPECIFIED (9) Weakness Current Visit: Yes Status: Acute Code(s): R53.1 - WEAKNESS (10) GERD (gastroesophageal reflux disease) Current Visit: Yes Status: Chronic Code(s): K21.9 - GASTRO-ESOPHAGEAL REFLUX DISEASE WITHOUT ESOPHAGITIS (11) Hyperlipemia Current Visit: Yes Status: Chronic Code(s): E78.5 - HYPERLIPIDEMIA, UNSPECIFIED (12) Hypothyroidism Current Visit: Yes Status: Chronic Code(s): E03.9 - HYPOTHYROIDISM, UNSPECIFIED (13) Type II diabetes mellitus Current Visit: Yes Status: Chronic Qualifiers: Diabetes mellitus termite control service representative insulin use: with termite control service representative use Diabetes mellitus complication status: with circulatory complication Diabetes mellitus complication detail: with peripheral angiopathy without gangrene Qualified Code(s): E11.51 - Type 2 diabetes mellitus with diabetic peripheral angiopathy without gangrene; Z79.4 - skilled nursing (current) use of insulin (14) Hypertension Current Visit: No Status: Chronic Code(s): I10 - ESSENTIAL (PRIMARY) HYP ERTENSION (15) GIANNI (acute kidney injury) Current Visit: Yes Status: Acute Code(s): N17.9 - ACUTE KIDNEY FAILURE, UNSPECIFIED
[2024-01-21 05:51] LABS: Hematocrit 29.4 % (34.1-44.9); Hemoglobin 9.4 g/dL (11.2-15.7); Mean Corpuscular Hemoglobin 28.1 pg (25.6-32.2); Mean Platelet Volume 10.4 fL (9.4-12.3); Platelet Count 463 x10^3/uL (182-369); Red Blood Count 3.34 x10^6/uL (3.93-5.22); Red Cell Distribution Width 15.2 % (11.7-14.4); White Blood Count 12.1 x10^3/uL (3.98-10.04)
[2024-01-21 06:08] LABS: ALBUMIN 2.4 g/dL (3.5-5.0); ANION GAP 11.8 MEQ/L (5-15); BILIRUBIN,TOTAL 0.3 mg/dL (0.2-1.3); Calcium 7.8 mg/dL (8.4-10.2); Creatinine 1 1.05 mg/dL (0.52-1.04); EST GLOMERULAR FILTRATION RATE 51.8 ML/MIN; Potassium 4.2 mmol/L (3.5-5.1); Total Protein 5.2 g/dL (6.3-8.2)
[2024-01-21 07:45] LABS: Lymphocytes 12 % (19.3-51.7); Metamyelocyte 2 %; Monocyte 5 % (4.7-12.5); Neutrophils 81 % (34.0-71.1); Total Cells Counted 100
[2024-01-21 07:46] LABS: Hypochromia 1+; Platelet Estimate INCREASED (NORMAL)
[2024-01-21 07:47] LABS: ANISOCYTOSIS 1+
[2024-01-21] MEDS: HUMALOG SQ SCH (09:19)
--- NOTE | 2024-01-21 17:26 | PCM.NOTE ---
Date and Time: 01/15/24 172 Physical Exam - Narrative Narrative Physical Exam: Podiatry Physical Exam Objective Data Vital Signs: Vital Signs - 24 hr Temp Pulse Resp BP Pulse Ox 01/21/24 16:00 97.6 F 73 16 161/63 96 01/21/24 14:49 70 18 96 01/21/24 11:49 98.4 F 58 L 16 141/63 98 01/21/24 11:18 68 18 94 L 01/21/24 07:17 64 16 95 01/21/24 07:06 98.4 F 61 16 164/68 97 01/21/24 04:03 98.1 F 65 18 189/81 96 01/20/24 23:21 98.6 F 81 15 174/75 95 01/20/24 19:32 97.8 F 72 18 162/69 95 01/20/24 19:25 71 18 98 Pain Assessment - Last Documented Pain Intensity 0 Pain Scale Used 0-10 Pain Scale Intake and Output: Intake & Output 01/19/24 01/20/24 01/21/24 01/22/24 11:59 11:59 11:59 11:59 Intake Total 3352 538 4683 280 Output Total 300 750 Balance 1140 90 1080 280 Weight 62.5 kg Lab Results: Lab Results-Last 24 Hours 01/17/24 01/20/24 01/21/24 Range/Units 05:35 20:49 03:46 WBC (3.98-10.04) x10^3/uL RBC (3.93-5.22) x10^6/uL Hgb (11.2-15.7) g/dL Hct (34.1-44.9) % MCV (79.4-94.8) fL MCH (25.6-32.2) pg MCHC (32.2-35.5) g/dL RDW (11.7-14.4) % Plt Count (182-369) x10^3/uL MPV (9.4-12.3) fL Segmented Neutrophils (34.0-71.1) % Lymphocytes (Manual) (19.3-51.7) % Monocytes (Manual) (4.7-12.5) % Metamyelocytes % Hypochromia Platelet Estimate (NORMAL) RBC Morphology Anisocytosis Smear Path Review Sodium (135-145) mmol/L Potassium (3.5-5.1) mmol/L Chloride (98-107) mmol/L Carbon Dioxide (22-30) mmol/L Anion Gap (5-15) MEQ/L BUN (7-17) mg/dL Creatinine (0.52-1.04) mg/dL Estimated GFR ML/MIN Glucose (74-106) mg/dL POC Glucometer 282 H 240 H (74 to 106) mg/dL Calcium (8.4-10.2) mg/dL Total Bilirubin (0.2-1.3) mg/dL AST (14-36) U/L ALT (0-35) U/L Alkaline Phosphatase (38-126) U/L Serum Total Protein (6.3-8.2) g/dL Albumin (3.5-5.0) g/dL 01/21/24 01/21/24 01/21/24 Range/Units 04:44 04:44 07:21 WBC 12.1 H (3.98-10.04) x10^3/uL RBC 3.34 L (3.93-5.22) x10^6/uL Hgb 9.4 L (11.2-15.7) g/dL Hct 29.4 L (34.1-44.9) % MCV 88.0 (79.4-94.8) fL MCH 28.1 (25.6-32.2) pg MCHC 32.0 L (32.2-35.5) g/dL RDW 15.2 H (11.7-14.4) % Plt Count 463 H (182-369) x10^3/uL MPV 10.4 (9.4-12.3) fL Segmented Neutrophils 81 H (34.0-71.1) % Lymphocytes (Manual) 12 L (19.3-51.7) % Monocytes (Manual) 5 (4.7-12.5) % Metamyelocytes 2 % Hypochromia 1+ Platelet Estimate INCREASED (NORMAL) RBC Morphology ABNORMAL Anisocytosis 1+ Smear Path Review Sodium 131 L (135-145) mmol/L Potassium 4.2 (3.5-5.1) mmol/L Chloride 102 (98-107) mmol/L Carbon Dioxide 22 (22-30) mmol/L Anion Gap 11.8 (5-15) MEQ/L BUN 34 H (7-17) mg/dL Creatinine 1.05 H (0.52-1.04) mg/dL Estimated GFR 51.8 ML/MIN Glucose 274 H (74-106) mg/dL POC Glucometer 270 H (74 to 106) mg/dL Calcium 7.8 L (8.4-10.2) mg/dL Total Bilirubin 0.30 (0.2-1.3) mg/dL AST 44 H (14-36) U/L ALT 87 H (0-35) U/L Alkaline Phosphatase 74 (38-126) U/L Serum Total Protein 5.2 L (6.3-8.2) g/dL Albumin 2.4 L (3.5-5.0) g/dL 01/21/24 01/21/24 Range/Units 11:31 16:07 WBC (3.98-10.04) x10^3/uL RBC (3.93-5.22) x10^6/uL Hgb (11.2-15.7) g/dL Hct (34.1-44.9) % MCV (79.4-94.8) fL MCH (25.6-32.2) pg MCHC (32.2-35.5) g/dL RDW (11.7-14.4) % Plt Count (182-369) x10^3/uL MPV (9.4-12.3) fL Segmented Neutrophils (34.0-71.1) % Lymphocytes (Manual) (19.3-51.7) % Monocytes (Manual) (4.7-12.5) % Metamyelocytes % Hypochromia Platelet Estimate (NORMAL) RBC Morphology Anisocytosis Smear Path Review Sodium (135-145) mmol/L Potassium (3.5-5.1) mmol/L Chloride (98-107) mmol/L Carbon Dioxide (22-30) mmol/L Anion Gap (5-15) MEQ/L BUN (7-17) mg/dL Creatinine (0.52-1.04) mg/dL Estimated GFR ML/MIN Glucose (74-106) mg/dL POC Glucometer 285 H 262 H (74 to 106) mg/dL Calcium (8.4-10.2) mg/dL Total Bilirubin (0.2-1.3) mg/dL AST (14-36) U/L ALT (0-35) U/L Alkaline Phosphatase (38-126) U/L Serum Total Protein (6.3-8.2) g/dL Albumin (3.5-5.0) g/dL Multi-Disciplinary Progress Notes: Multi-Disciplinary Progress Notes 01/21/24 17:08 Nutrition Note by Yordan Curran Dressings to july lower legs changed. Removed dressings. Applied unna boot, fan-folded, to level of tibial tuberosity. Wrapped with kerlix and coban with 30% compression. Pt tolerated well. Initialized on 01/21/24 17:08 - END OF NOTE 01/21/24 14:59 Nutrition Note by Dodie Velásquez F/u Note: 1800CC diet con't with 50-100% po intake. stable weight. Labs 01/20= Na 131, BUN 34, Cr 1.05, glu 285, alb 2.4, hgb 9.4, hct 29.4. goal of po intake >=75% not met consistently; goal of glu to decrease not met. Goals ongoing. Will con't to monitor and f/u prn. T.CANDE VelásquezCD Initialized on 01/21/24 14:59 - END OF NOTE 01/21/24 13:08 Case Management Note by Elsa Marlow NO CHANGE IN DC PLANS AT THIS TIME Initialized on 01/21/24 13:08 - END OF NOTE Assessment/Plan (1) Venous insufficiency of both lower extremities Current Visit: Yes Status: Acute Assessment & Plan: compression therapy applied to both legs for venous insufficiency and cellulites. already signs of improvement at this time. Code(s): I87.2 - VENOUS INSUFFICIENCY (CHRONIC) (PERIPHERAL) (2) Bilateral lower leg cellulitis Current Visit: Yes Status: Acute Code(s): L03.116 - CELLULITIS OF LEFT LOWER LIMB; L03.115 - CELLULITIS OF RIGHT LOWER LIMB (3) Shortness of breath Current Visit: Yes Status: Acute Code(s): R06.02 - SHORTNESS OF BREATH (4) COPD exacerbation Current Visit: Yes Status: Acute Code(s): J44.1 - CHRONIC OBSTRUCTIVE PULMONARY DISEASE W (ACUTE) EXACERBATION
--- NOTE | 2024-01-21 17:27 | PCM.NOTE ---
Date and Time: 01/18/24 1726 Physical Exam - Narrative Narrative Physical Exam: Podiatry Physical Exam Objective Data Vital Signs: Vital Signs - 24 hr Temp Pulse Resp BP Pulse Ox 01/21/24 16:00 97.6 F 73 16 161/63 96 01/21/24 14:49 70 18 96 01/21/24 11:49 98.4 F 58 L 16 141/63 98 01/21/24 11:18 68 18 94 L 01/21/24 07:17 64 16 95 01/21/24 07:06 98.4 F 61 16 164/68 97 01/21/24 04:03 98.1 F 65 18 189/81 96 01/20/24 23:21 98.6 F 81 15 174/75 95 01/20/24 19:32 97.8 F 72 18 162/69 95 01/20/24 19:25 71 18 98 Pain Assessment - Last Documented Pain Intensity 0 Pain Scale Used 0-10 Pain Scale Intake and Output: Intake & Output 01/19/24 01/20/24 01/21/24 01/22/24 11:59 11:59 11:59 11:59 Intake Total 3488 905 3151 280 Output Total 300 750 Balance 1140 90 1080 280 Weight 62.5 kg Lab Results: Lab Results-Last 24 Hours 01/17/24 01/20/24 01/21/24 Range/Units 05:35 20:49 03:46 WBC (3.98-10.04) x10^3/uL RBC (3.93-5.22) x10^6/uL Hgb (11.2-15.7) g/dL Hct (34.1-44.9) % MCV (79.4-94.8) fL MCH (25.6-32.2) pg MCHC (32.2-35.5) g/dL RDW (11.7-14.4) % Plt Count (182-369) x10^3/uL MPV (9.4-12.3) fL Segmented Neutrophils (34.0-71.1) % Lymphocytes (Manual) (19.3-51.7) % Monocytes (Manual) (4.7-12.5) % Metamyelocytes % Hypochromia Platelet Estimate (NORMAL) RBC Morphology Anisocytosis Smear Path Review Sodium (135-145) mmol/L Potassium (3.5-5.1) mmol/L Chloride (98-107) mmol/L Carbon Dioxide (22-30) mmol/L Anion Gap (5-15) MEQ/L BUN (7-17) mg/dL Creatinine (0.52-1.04) mg/dL Estimated GFR ML/MIN Glucose (74-106) mg/dL POC Glucometer 282 H 240 H (74 to 106) mg/dL Calcium (8.4-10.2) mg/dL Total Bilirubin (0.2-1.3) mg/dL AST (14-36) U/L ALT (0-35) U/L Alkaline Phosphatase (38-126) U/L Serum Total Protein (6.3-8.2) g/dL Albumin (3.5-5.0) g/dL 01/21/24 01/21/24 01/21/24 Range/Units 04:44 04:44 07:21 WBC 12.1 H (3.98-10.04) x10^3/uL RBC 3.34 L (3.93-5.22) x10^6/uL Hgb 9.4 L (11.2-15.7) g/dL Hct 29.4 L (34.1-44.9) % MCV 88.0 (79.4-94.8) fL MCH 28.1 (25.6-32.2) pg MCHC 32.0 L (32.2-35.5) g/dL RDW 15.2 H (11.7-14.4) % Plt Count 463 H (182-369) x10^3/uL MPV 10.4 (9.4-12.3) fL Segmented Neutrophils 81 H (34.0-71.1) % Lymphocytes (Manual) 12 L (19.3-51.7) % Monocytes (Manual) 5 (4.7-12.5) % Metamyelocytes 2 % Hypochromia 1+ Platelet Estimate INCREASED (NORMAL) RBC Morphology ABNORMAL Anisocytosis 1+ Smear Path Review Sodium 131 L (135-145) mmol/L Potassium 4.2 (3.5-5.1) mmol/L Chloride 102 (98-107) mmol/L Carbon Dioxide 22 (22-30) mmol/L Anion Gap 11.8 (5-15) MEQ/L BUN 34 H (7-17) mg/dL Creatinine 1.05 H (0.52-1.04) mg/dL Estimated GFR 51.8 ML/MIN Glucose 274 H (74-106) mg/dL POC Glucometer 270 H (74 to 106) mg/dL Calcium 7.8 L (8.4-10.2) mg/dL Total Bilirubin 0.30 (0.2-1.3) mg/dL AST 44 H (14-36) U/L ALT 87 H (0-35) U/L Alkaline Phosphatase 74 (38-126) U/L Serum Total Protein 5.2 L (6.3-8.2) g/dL Albumin 2.4 L (3.5-5.0) g/dL 01/21/24 01/21/24 Range/Units 11:31 16:07 WBC (3.98-10.04) x10^3/uL RBC (3.93-5.22) x10^6/uL Hgb (11.2-15.7) g/dL Hct (34.1-44.9) % MCV (79.4-94.8) fL MCH (25.6-32.2) pg MCHC (32.2-35.5) g/dL RDW (11.7-14.4) % Plt Count (182-369) x10^3/uL MPV (9.4-12.3) fL Segmented Neutrophils (34.0-71.1) % Lymphocytes (Manual) (19.3-51.7) % Monocytes (Manual) (4.7-12.5) % Metamyelocytes % Hypochromia Platelet Estimate (NORMAL) RBC Morphology Anisocytosis Smear Path Review Sodium (135-145) mmol/L Potassium (3.5-5.1) mmol/L Chloride (98-107) mmol/L Carbon Dioxide (22-30) mmol/L Anion Gap (5-15) MEQ/L BUN (7-17) mg/dL Creatinine (0.52-1.04) mg/dL Estimated GFR ML/MIN Glucose (74-106) mg/dL POC Glucometer 285 H 262 H (74 to 106) mg/dL Calcium (8.4-10.2) mg/dL Total Bilirubin (0.2-1.3) mg/dL AST (14-36) U/L ALT (0-35) U/L Alkaline Phosphatase (38-126) U/L Serum Total Protein (6.3-8.2) g/dL Albumin (3.5-5.0) g/dL Multi-Disciplinary Progress Notes: Multi-Disciplinary Progress Notes 01/21/24 17:08 Nutrition Note by Yordan Curran Dressings to july lower legs changed. Removed dressings. Applied unna boot, fan-folded, to level of tibial tuberosity. Wrapped with kerlix and coban with 30% compression. Pt tolerated well. Initialized on 01/21/24 17:08 - END OF NOTE 01/21/24 14:59 Nutrition Note by Dodie Velásquez F/u Note: 1800CC diet con't with 50-100% po intake. stable weight. Labs 01/20= Na 131, BUN 34, Cr 1.05, glu 285, alb 2.4, hgb 9.4, hct 29.4. goal of po intake >=75% not met consistently; goal of glu to decrease not met. Goals ongoing. Will con't to monitor and f/u prn. T.DENIS Velásquez Initialized on 01/21/24 14:59 - END OF NOTE 01/21/24 13:08 Case Management Note by Elsa Marlow NO CHANGE IN DC PLANS AT THIS TIME Initialized on 01/21/24 13:08 - END OF NOTE Assessment/Plan (1) Venous insufficiency of both lower extremities Current Visit: Yes Status: Acute Assessment & Plan: Bilateral compression therapy applied to the legs to the level of the tibial tuberosity for venous insufficiency and cellulites. Code(s): I87.2 - VENOUS INSUFFICIENCY (CHRONIC) (PERIPHERAL) (2) Bilateral lower leg cellulitis Current Visit: Yes Status: Acute Code(s): L03.116 - CELLULITIS OF LEFT LOWER LIMB; L03.115 - CELLULITIS OF RIGHT LOWER LIMB (3) Shortness of breath Current Visit: Yes Status: Acute Code(s): R06.02 - SHORTNESS OF BREATH (4) COPD exacerbation Current Visit: Yes Status: Acute Code(s): J44.1 - CHRONIC OBSTRUCTIVE PULMONARY DISEASE W (ACUTE) EXACERBATION
--- NOTE | 2024-01-21 17:29 | PCM.NOTE ---
Date and Time: 01/21/24 172 Physical Exam - Narrative Narrative Physical Exam: Podiatry Physical Exam Objective Data Vital Signs: Vital Signs - 24 hr Temp Pulse Resp BP Pulse Ox 01/21/24 16:00 97.6 F 73 16 161/63 96 01/21/24 14:49 70 18 96 01/21/24 11:49 98.4 F 58 L 16 141/63 98 01/21/24 11:18 68 18 94 L 01/21/24 07:17 64 16 95 01/21/24 07:06 98.4 F 61 16 164/68 97 01/21/24 04:03 98.1 F 65 18 189/81 96 01/20/24 23:21 98.6 F 81 15 174/75 95 01/20/24 19:32 97.8 F 72 18 162/69 95 01/20/24 19:25 71 18 98 Pain Assessment - Last Documented Pain Intensity 0 Pain Scale Used 0-10 Pain Scale Intake and Output: Intake & Output 01/19/24 01/20/24 01/21/24 01/22/24 11:59 11:59 11:59 11:59 Intake Total 6212 206 4094 280 Output Total 300 750 Balance 1140 90 1080 280 Weight 62.5 kg Lab Results: Lab Results-Last 24 Hours 01/17/24 01/20/24 01/21/24 Range/Units 05:35 20:49 03:46 WBC (3.98-10.04) x10^3/uL RBC (3.93-5.22) x10^6/uL Hgb (11.2-15.7) g/dL Hct (34.1-44.9) % MCV (79.4-94.8) fL MCH (25.6-32.2) pg MCHC (32.2-35.5) g/dL RDW (11.7-14.4) % Plt Count (182-369) x10^3/uL MPV (9.4-12.3) fL Segmented Neutrophils (34.0-71.1) % Lymphocytes (Manual) (19.3-51.7) % Monocytes (Manual) (4.7-12.5) % Metamyelocytes % Hypochromia Platelet Estimate (NORMAL) RBC Morphology Anisocytosis Smear Path Review Sodium (135-145) mmol/L Potassium (3.5-5.1) mmol/L Chloride (98-107) mmol/L Carbon Dioxide (22-30) mmol/L Anion Gap (5-15) MEQ/L BUN (7-17) mg/dL Creatinine (0.52-1.04) mg/dL Estimated GFR ML/MIN Glucose (74-106) mg/dL POC Glucometer 282 H 240 H (74 to 106) mg/dL Calcium (8.4-10.2) mg/dL Total Bilirubin (0.2-1.3) mg/dL AST (14-36) U/L ALT (0-35) U/L Alkaline Phosphatase (38-126) U/L Serum Total Protein (6.3-8.2) g/dL Albumin (3.5-5.0) g/dL 01/21/24 01/21/24 01/21/24 Range/Units 04:44 04:44 07:21 WBC 12.1 H (3.98-10.04) x10^3/uL RBC 3.34 L (3.93-5.22) x10^6/uL Hgb 9.4 L (11.2-15.7) g/dL Hct 29.4 L (34.1-44.9) % MCV 88.0 (79.4-94.8) fL MCH 28.1 (25.6-32.2) pg MCHC 32.0 L (32.2-35.5) g/dL RDW 15.2 H (11.7-14.4) % Plt Count 463 H (182-369) x10^3/uL MPV 10.4 (9.4-12.3) fL Segmented Neutrophils 81 H (34.0-71.1) % Lymphocytes (Manual) 12 L (19.3-51.7) % Monocytes (Manual) 5 (4.7-12.5) % Metamyelocytes 2 % Hypochromia 1+ Platelet Estimate INCREASED (NORMAL) RBC Morphology ABNORMAL Anisocytosis 1+ Smear Path Review Sodium 131 L (135-145) mmol/L Potassium 4.2 (3.5-5.1) mmol/L Chloride 102 (98-107) mmol/L Carbon Dioxide 22 (22-30) mmol/L Anion Gap 11.8 (5-15) MEQ/L BUN 34 H (7-17) mg/dL Creatinine 1.05 H (0.52-1.04) mg/dL Estimated GFR 51.8 ML/MIN Glucose 274 H (74-106) mg/dL POC Glucometer 270 H (74 to 106) mg/dL Calcium 7.8 L (8.4-10.2) mg/dL Total Bilirubin 0.30 (0.2-1.3) mg/dL AST 44 H (14-36) U/L ALT 87 H (0-35) U/L Alkaline Phosphatase 74 (38-126) U/L Serum Total Protein 5.2 L (6.3-8.2) g/dL Albumin 2.4 L (3.5-5.0) g/dL 01/21/24 01/21/24 Range/Units 11:31 16:07 WBC (3.98-10.04) x10^3/uL RBC (3.93-5.22) x10^6/uL Hgb (11.2-15.7) g/dL Hct (34.1-44.9) % MCV (79.4-94.8) fL MCH (25.6-32.2) pg MCHC (32.2-35.5) g/dL RDW (11.7-14.4) % Plt Count (182-369) x10^3/uL MPV (9.4-12.3) fL Segmented Neutrophils (34.0-71.1) % Lymphocytes (Manual) (19.3-51.7) % Monocytes (Manual) (4.7-12.5) % Metamyelocytes % Hypochromia Platelet Estimate (NORMAL) RBC Morphology Anisocytosis Smear Path Review Sodium (135-145) mmol/L Potassium (3.5-5.1) mmol/L Chloride (98-107) mmol/L Carbon Dioxide (22-30) mmol/L Anion Gap (5-15) MEQ/L BUN (7-17) mg/dL Creatinine (0.52-1.04) mg/dL Estimated GFR ML/MIN Glucose (74-106) mg/dL POC Glucometer 285 H 262 H (74 to 106) mg/dL Calcium (8.4-10.2) mg/dL Total Bilirubin (0.2-1.3) mg/dL AST (14-36) U/L ALT (0-35) U/L Alkaline Phosphatase (38-126) U/L Serum Total Protein (6.3-8.2) g/dL Albumin (3.5-5.0) g/dL Multi-Disciplinary Progress Notes: Multi-Disciplinary Progress Notes 01/21/24 17:08 Nutrition Note by Yordan Curran Dressings to july lower legs changed. Removed dressings. Applied unna boot, fan-folded, to level of tibial tuberosity. Wrapped with kerlix and coban with 30% compression. Pt tolerated well. Initialized on 01/21/24 17:08 - END OF NOTE 01/21/24 14:59 Nutrition Note by Dodie Velásquez F/u Note: 1800CC diet con't with 50-100% po intake. stable weight. Labs 01/20= Na 131, BUN 34, Cr 1.05, glu 285, alb 2.4, hgb 9.4, hct 29.4. goal of po intake >=75% not met consistently; goal of glu to decrease not met. Goals ongoing. Will con't to monitor and f/u prn. T.DENIS Velásquez Initialized on 01/21/24 14:59 - END OF NOTE 01/21/24 13:08 Case Management Note by Elsa Marlow NO CHANGE IN DC PLANS AT THIS TIME Initialized on 01/21/24 13:08 - END OF NOTE Assessment/Plan (1) Venous insufficiency of both lower extremities Current Visit: Yes Status: Acute Assessment & Plan: B/l compression therapy removed. Legs reassessed. Signficant improvement noted. Continued compression therapy recommended given patients CHF and venous insufficiency. will likely continue from outpatient standpoint with C at [facility]. Ok for d.c from my standpoint. Code(s): I87.2 - VENOUS INSUFFICIENCY (CHRONIC) (PERIPHERAL) (2) Bilateral lower leg cellulitis Current Visit: Yes Status: Acute Code(s): L03.116 - CELLULITIS OF LEFT LOWER LIMB; L03.115 - CELLULITIS OF RIGHT LOWER LIMB (3) Shortness of breath Current Visit: Yes Status: Acute Code(s): R06.02 - SHORTNESS OF BREATH (4) COPD exacerbation Current Visit: Yes Status: Acute Code(s): J44.1 - CHRONIC OBSTRUCTIVE PULMONARY DISEASE W (ACUTE) EXACERBATION
[2024-01-21 18:02] LABS: ADH <0.8 pg/mL (0.0-4.7)
[2024-01-21] MEDS: Tums EX 750 MG PO PRN (23:02)
[2024-01-22 05:16] LABS: Hematocrit 29.4 % (34.1-44.9); Hemoglobin 9.4 g/dL (11.2-15.7); Mean Cell Volume 88.3 fL (79.4-94.8); Mean Corpuscular Hemoglobin 28.2 pg (25.6-32.2); Mean Platelet Volume 9.8 fL (9.4-12.3); Platelet Count 447 x10^3/uL (182-369); Red Blood Count 3.33 x10^6/uL (3.93-5.22); Red Cell Distribution Width 15.1 % (11.7-14.4); White Blood Count 14.2 x10^3/uL (3.98-10.04)
[2024-01-22 05:30] LABS: ALBUMIN 2.5 g/dL (3.5-5.0); ANION GAP 9.1 MEQ/L (5-15); BILIRUBIN,TOTAL 0.3 mg/dL (0.2-1.3); Calcium 8.2 mg/dL (8.4-10.2); Creatinine 1 1.04 mg/dL (0.52-1.04); EST GLOMERULAR FILTRATION RATE 52.3 ML/MIN; Potassium 4.7 mmol/L (3.5-5.1); Total Protein 5.2 g/dL (6.3-8.2)
[2024-01-22 08:16] LABS: Osmolality, Urine 425 mOsmol/kg (.)
[2024-01-22 08:27] LABS: Eosinophil 1 % (0.7-5.8); Lymphocytes 6 % (19.3-51.7); Metamyelocyte 3 %; Monocyte 5 % (4.7-12.5); Neutrophils 85 % (34.0-71.1); Total Cells Counted 100
[2024-01-22 08:28] LABS: Platelet Estimate NORMAL (NORMAL)
--- NOTE | 2024-01-22 10:25 | XRAY ---
Indication: Pneumonia. Comparison: January 17, 2024 Portable chest again hyperinflated with minimally worsening mild left base infiltrate/atelectasis/effusion. Remaining heart and right lung unremarkable. No new cardiopulmonary abnormalities.
--- NOTE | 2024-01-22 11:26 | PCM.DS ---
Discharge Summary Date of Admission: 01/13/24 08:00 Date of Discharge: 01/22/24 Admitting Physician: DANYA LEIGH MD Consults: Consults on Case 01/13/24 09:50 Consult Podiatry ROUTINE Primary Care Provider: WOLF HUERTA JR Allergies Allergies clindamycin Allergy (Verified 01/12/24 19:17) hydralazine Allergy (Verified 01/12/24 19:17) oxytetracycline [From Terramycin] Allergy (Verified 01/12/24 19:17) sulfamethoxazole [From Bactrim] Allergy (Verified 01/12/24 19:17) trimethoprim [From Bactrim] Allergy (Verified 01/12/24 19:17) Hospital Summary - Hospital Course Hospital Course: is a 88 year old female with PMHX of CHF, CAD, hyperlipidemia, HTN, Type II DM, GERD, hypothyroidism, and COPD. She presented to ER on 01/13/24 with SOB and BLE edema. On admission CXR was nonacute. CT chest 01/17/24 showing mild mosaic attenuation. Bilateral multiple small confluent dense rounded nodules suggestive of infection/inflammatory condition/ or amyloidosis. Also noted was a small solid nodule, mild bilateral pleural effusions, and possible right adrenal lesion. Venous Doppler with nonoccluding DVT in the distal left femoral vein. Right leg negative for DVT. Arterial US showing scattered arteriosclerotic disease bilaterally, no flow left posterior tibial artery. Right leg negative for stenosis/obstruction. Pt reports a hx of vascular insufficiency reported to her by her compensation/benefits specialist.Patient case discussed with Dr. Martinez vascular surgeon at [facility] in [place]. He did not feel pt needed transferred to higher level of care and could be f/u op based on findings of arterial and venous duplex. Also asked about anticoagulation and he said d/t her age to keep her on Plavix. BC x2 negative. UA + for e-coli in urine. Podiatry consulted, compression dressing placed bilaterally. Wound cultures negative. No further intervention needed. UTI with ecoli -completed abx course - will need repeat UA as OP. Continue Advair, duonebs and steriods. Patient received Cefepime/vanc IP for COPD exacerbation and cellulitis of BLLE. Sputum culture with pseudomonas. Vanc d/cd. Cefepime continued. Dyspnea much improved, no longer requiring oxygen during the day, she does qualify for oxygen at night. Ambulation and weakness improved. Patient declines IP rehab stay. Patient ready for discharge with [facility]. She will be dismissed on Levaquin and prednisone. Advised follow up with pulm and PCP. Discharge Note New Diagnosis: COPD exac and UTI New Medications: Levaquin/prednisone Follow Up: PCP/Pulm Latest Assessment & Plan (1) COPD exacerbation Current Visit: Yes Status: Acute Assessment & Plan: -CXR and CT findings reviewed: On admission CXR was nonacute. CT chest 01/17/24 showing mild mosaic attenuation. Bilateral multiple small confluent dense roun ded nodules suggestive of infection/inflammatory condition/ or amyloidosis. Also noted was a small solid nodule, mild bilateral pleural effusions, and possible right adrenal lesion. - Ceftriaxone IV - CBC, CMP reviewed with mild improvement of WBC 26.4 <28.4 and GIANNI - Advair, Duonebs, Steriods - 2LNC - Baseline RA - qualified for home O2 at d/c - O2 drops at night - BC x2 negative -Antimicrobial history: -Ceftriaxone 01/12-01/16 -Vancomycin 01/16-current -Maxipime 01/16-current -repeat BC x 2 pending 01/18: -CBC reviewed, WBC trending down 24.5<30.1<28.4 -LA WNL -Procal slightly elevated at 0.157 +IS and flutter -Change solumedrol to prednisone -continue abx 01/19: -CBC reviewed, WBC continues to downtrend 14.9<24.5<30.1>28.4 - trend -on 2L - qualified for home oxygen will set up at [facility] -sputum cult with gram - pending sens- will follow -continue Abx -add mucinex -Possible discharge tomorrow 01/20: -CBC reviewed, WBC downtrending 12.1<14.9<24.5 -sputum culture with pseudomonas sensitive to cefepime - will discharge on levquin (S) Code(s): J44.1 - CHRONIC OBSTRUCTIVE PULMONARY DISEASE W (ACUTE) EXACERBATION (2) Bilateral lower leg cellulitis Current Visit: Yes Status: Acute Assessment & Plan: - podiatry consult -legs wrapped in compression dressings - vanc/maxipime 01/18: -Wound culture NGTD Code(s): L03.116 - CELLULITIS OF LEFT LOWER LIMB; L03.115 - CELLULITIS OF RIGHT LOWER LIMB (3) Hyponatremia Current Visit: Yes Status: Acute Assessment & Plan: - in the setting of hyperglycemia - will monitor blood glucose levels closely -CMP reviewed showing worsening - blood glucose level at 266 this morning -Documentation reviewed from admission -Initial treatment with IVF -stopped as to not cause CHF exacerbation 01/18: -Sodium level reviewed and improving -Most likely pseudohyponatremia with hyperglycemia - will adjust insulin regimen -RN states pt has been refusing SSI - educated patient 01/19: -CMP reviewed, sodium level continues to improve- patient still refusing full dose insulin coverage 01/20 -CMP reviewed, hyperglycemia - increased mealtime insulin - should help with hyponatremia Code(s): E87.1 - HYPO-OSMOLALITY AND HYPONATREMIA (4) Leukocytosis, unspecified Current Visit: Yes Status: Acute Assessment & Plan: -CBC reviewed with some improvement 26.2<28.4 -examined BLE - does not appear to be the source of infection - will culture drainage - repeat BC x2 - pending - repeat UA appears negative - antibiotics changed to cefepime/vanc - CXR reviewed then CT chest as stated above 01/18: -WBC reviewed- improving -continue current abx cefepime/vanc -cultures pending 01/19: -Improving as stated above- continue abx -possible d/c tomorrow 01/20: -CBC reviewed, continues to improve Code(s): D72.829 - ELEVATED WHITE BLOOD CELL COUNT, UNSPECIFIED (5) Shortness of breath Current Visit: Yes Status: Acute Assessment & Plan: - 2:2 COPD exacerbation --see copd exac Code(s): R06.02 - SHORTNESS OF BREATH (6) UTI (urinary tract infection) Current Visit: Yes Status: Acute Assessment & Plan: - UC + e-coli - Ceftraixone IV 01/12-01/16 - adequate abx course - repeat UA reviewed and appears negative Code(s): N39.0 - URINARY TRACT INFECTION, SITE NOT SPECIFIED (7) Venous insufficiency of both lower extremities Current Visit: Yes Status: Acute Assessment & Plan: - podiatry consulted and following - Arterial and venous duplex results read- Report shows no blood flow left posterior tibial artery, tiny non-occluding left femoral DVT - Case discused with vascular surgeon per previous documentation - no need to transfer to higher level of care and can be f/u OP at D/C. - Continue plavix no additional meds required d/t her age and bleeding risk. Code(s): I87.2 - VENOUS INSUFFICIENCY (CHRONIC) (PERIPHERAL) (8) Vitamin D deficiency Current Visit: Yes Status: Acute Assessment & Plan: - Vit D level reviewed and <12.8 - 2,000 units daily PO- will continue OP at D/C Code(s): E55.9 - VITAMIN D DEFICIENCY, UNSPECIFIED (9) Weakness Current Visit: Yes Status: Acute Assessment & Plan: - Lives in assisted living - 2:2 COPD exacerbation - PT eval and treat -declines IP rehab Code(s): R53.1 - WEAKNESS (10) GERD (gastroesophageal reflux disease) Current Visit: Yes Status: Chronic Assessment & Plan: - continue protonix Code(s): K21.9 - GASTRO-ESOPHAGEAL REFLUX DISEASE WITHOUT ESOPHAGITIS (11) Hyperlipemia Current Visit: Yes Status: Chronic Assessment & Plan: - Continue statin Code(s): E78.5 - HYPERLIPIDEMIA, UNSPECIFIED (12) Hypothyroidism Current Visit: Yes Status: Chronic Assessment & Plan: - continue synthroid - TSH - reviewed Code(s): E03.9 - HYPOTHYROIDISM, UNSPECIFIED (13) Type II diabetes mellitus Current Visit: Yes Status: Chronic Qualifiers: Diabetes mellitus terminal operations manager insulin use: with terminal operations manager use Diabetes mellitus complication status: with circulatory complication Diabetes mellitus complication detail: with peripheral angiopathy without gangrene Qualified Code(s): E11.51 - Type 2 diabetes mellitus with diabetic peripheral angiopathy without gangrene; Z79.4 - correction (current) use of insulin Assessment & Plan: - Continue home insulin dosing - Accuchecks ac/hs - Humalog s/s 10 units with meals - A1C reviewed at 7.44 01/19: -refusing full dose insulin w/ SSI - discussed the importance of good glycemic control (14) Hypertension Current Visit: No Status: Chronic Assessment & Plan: - BP stable - Continue home meds - Clonidine changed to PRN per pt request I spent 35 minutes [id number] with the patient on the day of discharge performing discharge exam, discussing hospital stay and discharge instructions with patient and caregivers, preparation of discharge records, prescriptions & referral forms and addressing any questions/concerns the patient had as documented above. - Vitals & Intake/Output Vital Signs: Vital Signs Temperature 98.4 F 01/22/24 07:28 Pulse Rate 65 01/22/24 10:53 Respiratory Rate 18 01/22/24 10:53 Blood Pressure 160/72 01/22/24 09:25 O2 Sat by Pulse Oximetry 92 L 01/22/24 10:53 Intake & Output: Intake & Output 01/19/24 01/20/24 01/21/24 01/22/24 11:59 11:59 11:59 11:59 Intake Total 7239 986 9177 1240 Output Total 300 750 Balance 1140 90 1080 1240 Weight 62.5 kg - Lab Result Diagrams: 01/22/24 05:14 01/22/24 05:14 Lab Results-Last 24 Hrs: Lab Results-Last 24 Hours 01/15/24 01/21/24 01/21/24 Range/Units 08:42 11:31 16:07 WBC (3.98-10.04) x10^3/uL RBC (3.93-5.22) x10^6/uL Hgb (11.2-15.7) g/dL Hct (34.1-44.9) % MCV (79.4-94.8) fL MCH (25.6-32.2) pg MCHC (32.2-35.5) g/dL RDW (11.7-14.4) % Plt Count (182-369) x10^3/uL MPV (9.4-12.3) fL Segmented Neutrophils (34.0-71.1) % Lymphocytes (Manual) (19.3-51.7) % Monocytes (Manual) (4.7-12.5) % Eosinophils (Manual) (0.7-5.8) % Metamyelocytes % Platelet Estimate (NORMAL) RBC Morphology Sodium (135-145) mmol/L Potassium (3.5-5.1) mmol/L Chloride (98-107) mmol/L Carbon Dioxide (22-30) mmol/L Anion Gap (5-15) MEQ/L BUN (7-17) mg/dL Creatinine (0.52-1.04) mg/dL Estimated GFR ML/MIN Glucose (74-106) mg/dL POC Glucometer 285 H 262 H (74 to 106) mg/dL Serum Osmolality Pending Calcium (8.4-10.2) mg/dL Total Bilirubin (0.2-1.3) mg/dL AST (14-36) U/L ALT (0-35) U/L Alkaline Phosphatase (38-126) U/L Serum Total Protein (6.3-8.2) g/dL Albumin (3.5-5.0) g/dL Anti-Diuretic Hormone <0.8 (0.0-4.7) pg/mL Urine Osmolality 425 (.) mOsmol/kg 01/21/24 01/22/24 01/22/24 Range/Units 21:01 03:38 05:14 WBC 14.2 H (3.98-10.04) x10^3/uL RBC 3.33 L (3.93-5.22) x10^6/uL Hgb 9.4 L (11.2-15.7) g/dL Hct 29.4 L (34.1-44.9) % MCV 88.3 (79.4-94.8) fL MCH 28.2 (25.6-32.2) pg MCHC 32.0 L (32.2-35.5) g/dL RDW 15.1 H (11.7-14.4) % Plt Count 447 H (182-369) x10^3/uL MPV 9.8 (9.4-12.3) fL Segmented Neutrophils 85 H (34.0-71.1) % Lymphocytes (Manual) 6 L (19.3-51.7) % Monocytes (Manual) 5 (4.7-12.5) % Eosinophils (Manual) 1 (0.7-5.8) % Metamyelocytes 3 % Platelet Estimate NORMAL (NORMAL) RBC Morphology NORMAL Sodium (135-145) mmol/L Potassium (3.5-5.1) mmol/L Chloride (98-107) mmol/L Carbon Dioxide (22-30) mmol/L Anion Gap (5-15) MEQ/L BUN (7-17) mg/dL Creatinine (0.52-1.04) mg/dL Estimated GFR ML/MIN Glucose (74-106) mg/dL POC Glucometer 254 H 156 H (74 to 106) mg/dL Serum Osmolality Calcium (8.4-10.2) mg/dL Total Bilirubin (0.2-1.3) mg/dL AST (14-36) U/L ALT (0-35) U/L Alkaline Phosphatase (38-126) U/L Serum Total Protein (6.3-8.2) g/dL Albumin (3.5-5.0) g/dL Anti-Diuretic Hormone (0.0-4.7) pg/mL Urine Osmolality (.) mOsmol/kg 01/22/24 01/22/24 01/22/24 Range/Units 05:14 06:53 11:11 WBC (3.98-10.04) x10^3/uL RBC (3.93-5.22) x10^6/uL Hgb (11.2-15.7) g/dL Hct (34.1-44.9) % MCV (79.4-94.8) fL MCH (25.6-32.2) pg MCHC (32.2-35.5) g/dL RDW (11.7-14.4) % Plt Count (182-369) x10^3/uL MPV (9.4-12.3) fL Segmented Neutrophils (34.0-71.1) % Lymphocytes (Manual) (19.3-51.7) % Monocytes (Manual) (4.7-12.5) % Eosinophils (Manual) (0.7-5.8) % Metamyelocytes % Platelet Estimate (NORMAL) RBC Morphology Sodium 132 L (135-145) mmol/L Potassium 4.7 (3.5-5.1) mmol/L Chloride 102 (98-107) mmol/L Carbon Dioxide 26 (22-30) mmol/L Anion Gap 9.1 (5-15) MEQ/L BUN 35 H (7-17) mg/dL Creatinine 1.04 (0.52-1.04) mg/dL Estimated GFR 52.3 ML/MIN Glucose 176 H (74-106) mg/dL POC Glucometer 185 H 228 H (74 to 106) mg/dL Serum Osmolality Calcium 8.2 L (8.4-10.2) mg/dL Total Bilirubin 0.30 (0.2-1.3) mg/dL AST 39 H (14-36) U/L ALT 77 H (0-35) U/L Alkaline Phosphatase 61 (38-126) U/L Serum Total Protein 5.2 L (6.3-8.2) g/dL Albumin 2.5 L (3.5-5.0) g/dL Anti-Diuretic Hormone (0.0-4.7) pg/mL Urine Osmolality (.) mOsmol/kg Micro Results-Entire Visit: Microbiology 01/18/24 Unknown Wound Culture - Final Ankle - Right NO GROWTH 01/17/24 09:13 Blood Culture - Final Blood 01/17/24 07:19 Blood Culture - Final Blood 01/18/24 19:30 Gram Stain - Final Sputum - Expectorant Sputum Culture - Final Pseudomonas Aeruginosa 01/12/24 19:50 Blood Culture - Final Blood 01/12/24 19:50 Blood Culture - Final Blood 01/12/24 19:30 Urine Culture - Final Urine, Void Escherichia Coli Accuchecks Date 01/22/24 Date 01/22/24 Date 01/21/24 Date 01/21/24 Date 01/21/24 Date 01/21/24 Time 03:30 Time 21:00 Time 17:15 Time 17:09 Time 11:48 - Radiology Exams Ordered Rad Exams-Entire Visit: Radiology Procedures Category Date Time Status CHEST 1 VIEW (PORTABLE) Stat Exams 01/22/24 09:32 Completed - Procedures and Test Procedures and Tests throughout Hospitalization: Therapy Orders & Screens 01/12/24 22:42 Respiratory Therapy Assessment DAILY Comment: 01/13/24 03:39 OT Screen per Nursing Assess ONCE Comment: Protocol Order Physician Instructions: Greater than 3 points order OT Admission Screening Reason For Exam: Triggered on Admission Diagnosis: COPD Exacerbation Open Wound/Cellutlitis/Pressure Ulcers: Yes Acute Fx/ORIF/Change in wt bearing status: No Severe MUSCULOSKELETAL pain: No ADL Dysfunction: Yes Acute CVA w/Hemiparesis/Hemiplegia: No Decreased Functional Mobility/Strength: No Sprain/Strain: No Acute Post-op Mobility Dysfunction: No Total Points: 8 PT Screen per Nursing Assess ONCE Comment: Protocol Order Physician Instructions: Greater than 3 points order PT Admission Screenin Reason For Exam: Triggered on Admission Diagnosis: COPD Exacerbation Open Wound/Cellutlitis/Pressure Ulcers: Yes Acute Fx/ORIF/Change in wt bearing status: No Severe MUSCULOSKELETAL pain: No ADL Dysfunction: Yes Acute CVA w/Hemiparesis/Hemiplegia: No Decreased Functional Mobility/Strength: No Sprain/Strain: No Acute Post-op Mobility Dysfunction: No Total Points: 8 RT Screen per Nursing Assess ONCE Comment: Protocol Order Physician Instructions: Greater than 3 points order RT Admission Screen Reason For Exam: Triggered on Admission Diagnosis: COPD Exacerbation Diagnosis: COPD Exacerbation Pneumonia: No Home O2: No Asthma: Yes CHF: No Home CPAP/BIPAP: No Home Nebs/MDI: Yes Total Points: 9 01/13/24 07:26 Oxygen NASAL CANNULA 2 lpm Comment: Diagnosis: COPD Exacerbation 01/13/24 09:49 Respiratory MDI BID Comment: Diagnosis: COPD Exacerbation 01/14/24 10:21 PT Eval & Treat (MD Order) ONCE Reason for Eval:: weakness, lives in assisted living Diagnosis: COPD Exacerbation, BLE CELLULITIS, UTI 01/19/24 11:49 FLUTTER [Flutter Therapy] UD Comment: Diagnosis: COPD Exacerbation, BLE CELLULITIS, UTI Incentive Spirometry UD Comment: Diagnosis: COPD Exacerbation, BLE CELLULITIS, UTI Discharge Exam General Appearance: no apparent distress Neurologic Exam: alert, oriented x 3, cooperative Eye Exam: PERRL Ears, Nose, Throat Exam: normal ENT inspection Neck Exam: normal inspection Respiratory Exam: crackles/rales, rhonchi Cardiovascular Exam: regular rate/rhythm, normal heart sounds Gastrointestinal/Abdomen Exam: soft, normal bowel sounds Pelvic Exam: deferred Rectal Exam: deferred Back Exam: normal inspection Extremity Exam: normal inspection Skin Exam: pale Wound Assessment: Skin/Wound Assessment Wound/Incision Assessment Start: 01/13/24 03:39 Text: Status: Active Freq: Q6H Protocol: Document 01/22/24 07:45 JV (Rec: 01/22/24 08:54 JV [id number]) Wound/Incision Assessment Bilateral Lower Extremities Wound Assessment Shift Assessment Wound Type cellulitis Wound Stage Non Pressure Wound Dressing Status Dry & Intact Drainage Amount None Primary Dressing orville boots Comment orville boots in place, CDI. Wound Photo Photo Taken No Final Diagnosis/Problem List - Final Discharge Diagnosis/Problem (1) COPD exacerbation Current Visit: Yes Status: Acute Code(s): J44.1 - CHRONIC OBSTRUCTIVE PULMONARY DISEASE W (ACUTE) EXACERBATION (2) Bilateral lower leg cellulitis Current Visit: Yes Status: Acute Code(s): L03.116 - CELLULITIS OF LEFT LOWER LIMB; L03.115 - CELLULITIS OF RIGHT LOWER LIMB (3) Hyponatremia Current Visit: Yes Status: Acute Code(s): E87.1 - HYPO-OSMOLALITY AND HYPONATREMIA (4) Leukocytosis, unspecified Current Visit: Yes Status: Acute Code(s): D72.829 - ELEVATED WHITE BLOOD CELL COUNT, UNSPECIFIED (5) Shortness of breath Current Visit: Yes Status: Acute Code(s): R06.02 - SHORTNESS OF BREATH (6) UTI (urinary tract infection) Current Visit: Yes Status: Acute Code(s): N39.0 - URINARY TRACT INFECTION, SITE NOT SPECIFIED (7) Venous insufficiency of both lower extremities Current Visit: Yes Status: Acute Code(s): I87.2 - VENOUS INSUFFICIENCY (CHRONIC) (PERIPHERAL) (8) Vitamin D deficiency Current Visit: Yes Status: Acute Code(s): E55.9 - VITAMIN D DEFICIENCY, UNSPECIFIED (9) Weakness Current Visit: Yes Status: Acute Code(s): R53.1 - WEAKNESS (10) GERD (gastroesophageal reflux disease) Current Visit: Yes Status: Chronic Code(s): K21.9 - GASTRO-ESOPHAGEAL REFLUX DISEASE WITHOUT ESOPHAGITIS (11) Hyperlipemia Current Visit: Yes Status: Chronic Code(s): E78.5 - HYPERLIPIDEMIA, UNSPECIFIED (12) Hypothyroidism Current Visit: Yes Status: Chronic Code(s): E03.9 - HYPOTHYROIDISM, UNSPECIFIED (13) Type II diabetes mellitus Current Visit: Yes Status: Chronic (14) Hypertension Current Visit: No Status: Chronic Code(s): I10 - ESSENTIAL (PRIMARY) HYPERTENSION (15) GIANNI (acute kidney injury) Current Visit: Yes Status: Acute Code(s): N17.9 - ACUTE KIDNEY FAILURE, UNSPECIFIED - Discharge Discharge Date: 01/22/24 Disposition: Home, Self-Care Condition: Stable Prescriptions: New Prednisone 20 mg [Deltasone 20 mg] 20 mg PO BID 5 Days #10 tablet levoFLOXacin [Levofloxacin] 750 mg PO DAILY 10 Days #10 tablet Guaifenesin 600 mg ER [Mucinex 600MG ER Tabs] 600 mg PO BID 7 Days #14 tablet Cholecalciferol (Vitamin D3) [Vitamin D] 2,000 unit PO DAILY 30 Days #60 tablet Continue Insulin Glargine,Hum.rec.anlog [Toujeo Solostar] 10 unit SQ HS Insulin Glargine,Hum.rec.anlog [Toujeo Solostar] 15 unit SQ DAILY Calcium Carbonate [Tums] 1 tab PO DAILY Carvedilol 12.5 mg [Coreg 12.5 mg] 12.5 mg PO BID Tramadol HCl 50 mg [Ultram 50 mg] 50 mg PO Q6H PRN PRN PRN Reason: Pain Carboxymethylcellulose Sodium [Refresh Plus] 1 drop OP TID PRN PRN PRN Reason: dry eyes Valsartan [Diovan] 320 mg PO DAILY Acetaminophen 325 mg [Tylenol 325 mg] 650 mg PO Q6H PRN PRN PRN Reason: Pain Sennosides/Docusate Sodium [Senna-S Tablet] 1 tab PO BID Nitroglycerin 0.4 mg PO Q5MIN PRN MR X 3 PRN PRN Reason: Chest Pain Aspirin EC 81 mg [Ecotrin 81 mg] 81 mg PO DAILY Omeprazole 40 mg PO DAILY Levothyroxine Sodium 25 Mcg [Synthroid 25 Mcg] 25 mcg PO 0700 Isosorbide Mononitrate 30 mg [Imdur 30 MG] 30 mg PO HS Clopidogrel Bisulfate [PLAVIX Tablet] 75 mg PO DAILY Clonidine HCl 0.1 mg [Clonidine 0.1 mg Tablet] 0.1 mg PO BID PRN PRN Reason: HYPERTENSION Atorvastatin Calcium 40 mg PO HS Amlodipine Besylate [Norvasc] 10 mg PO DAILY Insulin Aspart [NovoLOG Insulin] 0 units SQ ACHS Instructions: Oxygen therapy at home Additional Instructions: YOU NEED TO WEAR 2L/NC WHEN SLEEPING OR NAPPING THIS WAS ORDERED THRU [employer]-YOU NEED TO CALL THEM AT [phone] SOON YOU GET HOME (EVEN IF AFTER HOURS, FOLLOW AFTER HOURS PROMPTS) SO THEY CAN DELIVER YOUR HOME CONCENTRATOR. [facility] HAS BEEN SET UP FOR YOU. THEY WILL CALL YOU TO ARRANGE A TIME TO COME SEE YOU. THEIR PHONE NUMBER IS [phone] IF YOU NEED ANYTHING BEFORE THEY CONTACT YOU. [facility] WILL CHANGE YOUR LEG DRESSINGS Follow up with: YUSUF ARMENDARIZ DPM [ACTIVE STAFF] - KATHIE ESPINOZA MD [ACTIVE STAFF] - WOLF HUERTA JR [Primary Care Provider] -
[2024-01-22 12:19] VITALS: BP 129/62; PULSE 62; RESP 22; TEMP 97.6; O2SAT 91
[2024-01-26 17:16] LABS: Osmolality-Se/Pl 289 mOsmol/kg (280-301)
== END 2024-01-22 13:45 | disposition home health service (06) | DRG 191 ==
LOC: ED 18:51 → MED SURG 01-13 01:40 → OBSVTOIN 01-13 08:00
PROVIDERS: ADMIT Student in an Organized Health Care Education/Training Program; ATTEND Student in an Organized Health Care Education/Training Program
DX: J44.1 Chronic obstructive pulmonary disease with (acute) exacerbation (principal); E87.1 Hypo-osmolality and hyponatremia; L03.115 Cellulitis of right lower limb; L03.116 Cellulitis of left lower limb; N39.0 Urinary tract infection, site not specified; I82.4Z2 Acute embolism and thrombosis of unspecified deep veins of left distal lower extremity; N17.9 Acute kidney failure, unspecified; I11.0 Hypertensive heart disease with heart failure; I50.9 Heart failure, unspecified; E11.9 Type 2 diabetes mellitus without complications; I25.10 Atherosclerotic heart disease of native coronary artery without angina pectoris; E78.5 Hyperlipidemia, unspecified; K21.9 Gastro-esophageal reflux disease without esophagitis; R60.0 Localized edema; D72.829 Elevated white blood cell count, unspecified; R06.02 Shortness of breath; I87.2 Venous insufficiency (chronic) (peripheral); E55.9 Vitamin D deficiency, unspecified; R53.1 Weakness; E03.9 Hypothyroidism, unspecified; B96.20 Unspecified Escherichia coli [E. coli] as the cause of diseases classified elsewhere; E11.51 Type 2 diabetes mellitus with diabetic peripheral angiopathy without gangrene; Z79.899 Other long term (current) drug therapy; Z79.4 Long term (current) use of insulin; Z79.01 Long term (current) use of anticoagulants
CPT/HCPCS: 0241U; 29580; 36000; 36415; 71045; 71250; 80053; 80202; 81001; 82306; 82947; 83036; 83605; 83880; 83930; 83935; 84134; 84145; 84443; 84484; 84550; 84588; 85014; 85018; 85025; 85027; 87040; 87070; 87077; 87086; 87186; 93005; 93041; 93925; 93970; 94640; 94667; 94668; 94760; 94762; 96365; 96367; 96374; 97110; 97162; 97530; 99223; 99231; 99285; Q3014; 99232; J0456; J0692; J0696; J1817; J2919; J3370; A9270-GY

== ENCOUNTER 2024-01-26 12:02 | Observation (INO) | payer MEDICARE, OTHER ==
--- NOTE | 2024-01-26 12:23 | ERPHSYRPT ---
- History of Present Illness Time Seen by Provider: 01/26/24 12:23 Source: patient, family Physician History: This is an 88-year-old white female patient who presents to the emergency department with symptoms of worsening weakness, shortness of air, cough and painful sores in her mouth since yesterday. Patient was admitted into the hospital here at [facility] on 1023 and remained inpatient until 01/22/2024. She was discharged at that time. Her clinical impressions at the time of disch arge include COPD, bilateral lower extremity cellulitis, hyponatremia, shortness of breath and hypertension. At the time of discharge she was placed on 2 L of oxygen via nasal cannula to wear at night. However in the last day or so she has been wearing it at all times. She has had decreased oral intake secondary to painful sores in her mouth. Overall, she does not feel well. I did review the hospital admission and discharge summary from the above dates of her last admission. Her EKG at that time showed normal sinus rhythm with a heart rate of 80 bpm, atrial complexes and right bundle branch block and left anterior fascicular block. The patient has a history of gastroesophageal reflux disease, hypothyroidism, insulin-dependent diabetes, hypertension, hyperlipidemia, asthma, coronary artery disease (cardiac stent) on Plavix, CHF and chronic bilateral lower extremity cellulitis. She has been on antibiotics. She denies chest pain. Timing/Duration: yesterday, worse Severity: moderate Associated Symptoms: nausea, shortness of breath, loss of appetite, weakness, No vomiting, No abdominal pain, No chest pain Allergies/Adverse Reactions: clindamycin Allergy (Verified 01/26/24 12:26) hydralazine Allergy (Verified 01/26/24 12:26) oxytetracycline [From Terramycin] Allergy (Verified 01/26/24 12:26) sulfamethoxazole [From Bactrim] Allergy (Verified 01/26/24 12:) trimethoprim [From Bactrim] Allergy (Verified 01/26/24 12:) Home Medications: Acetaminophen 325 mg [Tylenol 325 mg] 650 mg PO Q6H PRN PRN 08/12/23 [History] Amlodipine Besylate [Norvasc] 10 mg PO DAILY 08/12/23 [History] Aspirin EC 81 mg [Ecotrin 81 mg] 81 mg PO DAILY 08/12/23 [History] Atorvastatin Calcium 40 mg PO HS 08/12/23 [History] Calcium Carbonate [Tums] 1 tab PO DAILY 08/12/23 [History] Carboxymethylcellulose Sodium [Refresh Plus] 1 drop OP TID PRN PRN 08/12/23 [History] Carvedilol 12.5 mg [Coreg 12.5 mg] 12.5 mg PO BID 08/12/23 [History] Clonidine HCl 0.1 mg [Clonidine 0.1 mg Tablet] 0.1 mg PO BID PRN 08/12/23 [History] Clopidogrel Bisulfate [PLAVIX Tablet] 75 mg PO DAILY 08/12/23 [History] Insulin Aspart [NovoLOG Insulin] 0 units SQ ACHS 08/12/23 [History] Insulin Glargine,Hum.rec.anlog [Toujeo Solostar] 10 unit SQ HS 08/12/23 [History] Insulin Glargine,Hum.rec.anlog [Toujeo Solostar] 15 unit SQ DAILY 08/12/23 [History] Isosorbide Mononitrate 30 mg [Imdur 30 MG] 30 mg PO HS 08/12/23 [History] Levothyroxine Sodium 25 Mcg [Synthroid 25 Mcg] 25 mcg PO 0700 08/12/23 [History] Nitroglycerin 0.4 mg PO Q5MIN PRN MR X 3 PRN 08/12/23 [History] Omeprazole 40 mg PO DAILY 08/12/23 [History] Sennosides/Docusate Sodium [Senna-S Tablet] 1 tab PO BID 08/12/23 [History] Tramadol HCl 50 mg [Ultram 50 mg] 50 mg PO Q6H PRN PRN 08/12/23 [History] Valsartan [Diovan] 320 mg PO DAILY 08/12/23 [History] Spironolactone 1 tab PO DAILY 01/26/24 [History] Hx Tetanus, Diphtheria Vaccination/Date Given: Yes Hx Influenza Vaccination/Date Given: Yes Hx Pneumococcal Vaccination/Date Given: Yes Travel Risk - International Travel Have you traveled outside of the country in past 3 weeks: No - Emerging Infectious Disease Are you exhibiting symptoms associated with any current EIDs: Yes Symptoms: Shortness of Breath - Review of Systems Constitutional: Weakness Eyes: No Symptoms Ears, Nose, & Throat: Mouth Pain Respiratory: Cough, Dyspnea Cardiac: No Symptoms Abdominal/Gastrointestinal: Nausea, Appetite Changes, No Vomiting, No Diarrhea, No Constipation Genitourinary Symptoms: No Symptoms Musculoskeletal: Other Skin: No Symptoms Neurological: No Symptoms Psychological: No Symptoms Endocrine: No Symptoms Hematologic/Lymphatic: No Symptoms Immunological/Allergic: No Symptoms All Other Systems: Reviewed and Negative - Past Medical History Pertinent Past Medical History: Yes Neurological History: No Pertinent History ENT History: Cataracts, Other Cardiac History: Coronary Artery Disease, High Cholesterol, Hypertension Respiratory History: Asthma Endocrine Medical History: Diabetes Type II, Hypothyroidism Musculoskeletal History: Arthritis GI Medical History: GERD, Gallbladder Disease History: No Pertinent History Psycho-Social History: No Pertinent History Female Reproductive Disorders: No Pertinent History Other Medical History: dry eyes, BLE wounds and cellulitis - Past Surgical History Past Surgical History: Yes Neuro Surgical History: No Pertinent History Cardiac: Cardiac Catheterization, Cardiac Stent Respiratory: No Pertinent History Gastrointestinal: Cholecystectomy Genitourinary: No Pertinent History Musculoskeletal: Orthopedic Surgery Female Surgical History: Other Other Surgical History: breast abcess removed, hip surgery, 2 stents - Social History Smoking Status: Never smoker Exposure to second hand smoke: Yes Drug Use: none - Social Determinants of Health Will the patient participate in the screening: Yes Do you worry about a steady place to live?: No In the past 12 months,have you had to go without utilities?: No Transportation Issues: No Has anyone in your support network made you feel unsafe?: No Have you or anyone in your house had to go without enough: No Comment: Lives at [facility] [place] - Nursing Vital Signs Nursing Vital Signs: Initial Vital Signs Temperature 97.8 F 01/26/24 12:04 Pulse Rate 68 01/26/24 12:04 Respiratory Rate 28 H 01/26/24 12:04 Blood Pressure 179/74 01/26/24 12:04 O2 Sat by Pulse Oximetry 94 L 01/26/24 12:04 Pain Scale Pain Intensity 0 - Physical Exam General Appearance: mild distress, alert, obese Eye Exam: PERRL/EOMI, eyes nml inspection Ears, Nose, Throat Exam: dry mucous membranes, other (White spots on her tongue) Neck Exam: normal inspection, non-tender, supple, full range of motion Respiratory Exam: rhonchi, No chest tenderness, No respiratory distress, No accessory muscle use Cardiovascular Exam: regular rate/rhythm, normal heart sounds, normal peripheral pulses Gastrointestinal/Abdomen Exam: soft, normal bowel sounds, No tenderness Pelvic Exam: not done Rectal Exam: not done Back Exam: normal inspection, normal range of motion, No CVA tenderness, No vertebral tenderness Extremity Exam: tenderness (Bilateral lower extremities are wrapped. Patient has a history of bilateral lower extremity cellulitis.) Neurologic Exam: alert, oriented x 3, cooperative, hand fur cleaner II-XII nml as tested, other (Patient is chronically hard of hearing) Skin Exam: normal color, warm, dry Lymphatic Exam: No adenopathy SpO2 Interpretation: borderline oxygenation O2 Delivery: Nasal Cannula - Course Nursing assessment & vital signs reviewed: Yes EKG Interpreted by Me: RATE (63), Sinus Rhythm, NORMAL AXIS, LAFB, NORMAL INTERVALS, Right Bundle Branch Block, Other (No acute ischemic changes on today's twelve-lead EKG. QTc is 419. No change when compared to twelve-lead EKG dated 01/25/2024.) Ordered Tests: Active Orders 24 hr Category Date Time Status Electrical Mechanical Technician STAT Care 01/26/24 12:40 Active EKG-ER Only STAT Care 01/26/24 12:39 Active Mijares [Catheter-Keota Mijares] STAT Care 01/26/24 14:01 Active IV Insertion STAT Care 01/26/24 12:39 Active POCT Glucose Check STAT Care 01/26/24 12:47 Active CHEST 1 VIEW (PORTABLE) Stat Exams 01/26/24 12:40 Completed BLOOD CULTURE Stat Lab 01/26/24 13:05 Received CBC W DIFF Stat Lab 01/26/24 13:05 Completed CMP Stat Lab 01/26/24 13:05 Completed CULTURE,URINE Stat Lab 01/26/24 12:35 Received MAGNESIUM Stat Lab 01/26/24 13:05 Completed MONO SCREEN Stat Lab 01/26/24 13:05 Completed NT PRO BNPII Stat Lab 01/26/24 13:05 Completed POCT GLUCOSE Stat Lab 01/26/24 12:48 Completed POCT GLUCOSE Stat Lab 01/26/24 14:53 Completed TROPONIN Q4H Lab 01/26/24 13:05 Completed TROPONIN Q4H Lab 01/26/24 15:30 Completed TROPONIN Q4H Lab 01/26/24 20:45 Ordered TSH, 3RD Generation Stat Lab 01/26/24 13:05 Completed UA W/RFX UR CULTURE Stat Lab 01/26/24 14:00 Completed Respiratory Therapy Assessment DAILY RT 01/26/24 12:59 Active Medication Summary Generic Name Dose Route Start Last Admin Trade Name Alyssa PRN Reason Stop Dose Admin Sodium Chloride 500 mls @ 50 mls/hr 01/26/24 12:45 01/26/24 13:45 Sodium Chloride 0.9% 500 Ml IV 02/25/24 12:44 50 mls/hr .Q10H JOSE Administration Fluconazole 100 mls @ 100 mls/hr 01/26/24 15:00 01/26/24 16:04 Diflucan/Saline 0.2g/100ml Premix IV 02/25/24 14:59 100 mls/hr DAILY JOSE Administration Discontinued Medications Generic Name Dose Route Start Last Admin Trade Name Alyssa PRN Reason Stop Dose Admin Albuterol/Ipratropium Confirm 01/26/24 12:44 Ipratropium/Albuterol Sulfate 3 Ml Ampul.Neb Administered 01/26/24 12:45 Dose 3 ml IH .STK-MED ONE Albuterol/Ipratropium 3 ml 01/26/24 12:58 01/26/24 12:50 Ipratropium/Albuterol Sulfate 3 Ml Ampul.Neb IH 01/26/24 12:59 3 ml STAT ONE Administration Furosemide 40 mg 01/26/24 14:42 01/26/24 16:03 Furosemide 40 Mg/4 Ml Vial IV 01/26/24 14:43 40 mg STAT ONE Administration Furosemide Confirm 01/26/24 15:59 Furosemide 40 Mg/4 Ml Vial Administered 01/26/24 16:00 Dose 40 mg .ROUTE .STK-MED ONE Fluconazole 100 mls @ 100 mls/hr 01/26/24 14:15 01/26/24 16:14 Diflucan/Saline 0.2g/100ml Premix IV 02/25/24 14:14 Not Given Q24H JOSE Morphine Sulfate 2 mg 01/26/24 13:38 01/26/24 13:45 Morphine Sulfate 2 Mg/Ml Inj IV 01/26/24 13:39 2 mg STAT ONE Administration Morphine Sulfate Confirm 01/26/24 13:42 Morphine Sulfate 2 Mg/Ml Inj Administered 01/26/24 13:43 Dose 2 mg .ROUTE .STK-MED ONE Ondansetron HCl 4 mg 01/26/24 13:39 01/26/24 13:45 Ondansetron Hcl 4 Mg/2 Ml Vial IV 01/26/24 13:40 4 mg STAT ONE Administration Ondansetron HCl Confirm 01/26/24 13:42 Ondansetron Hcl 4 Mg/2 Ml Vial Administered 01/26/24 13:43 Dose 4 mg .ROUTE .STK-MED ONE Lab/Rad Data: Laboratory Result Diagrams 01/26/24 13:05 01/26/24 13:05 Laboratory Results 01/26/24 01/26/24 01/26/24 Range/Units 15:30 14:53 14:00 WBC (3.98-10.04) x10^3/uL RBC (3.93-5.22) x10^6/uL Hgb (11.2-15.7) g/dL Hct (34.1-44.9) % MCV (79.4-94.8) fL MCH (25.6-32.2) pg MCHC (32.2-35.5) g/dL RDW (11.7-14.4) % Plt Count (182-369) x10^3/uL MPV (9.4-12.3) fL Gran % (34.0-71.1) % Immature Gran % (Auto) (0.001-0.429) % Nucleat RBC Rel Count (0.00-0.2) % Eos # (Auto) (0.04-0.36) x10^3/uL Immature Gran # (Auto) (0.001-0.031) x10^3u/L Absolute Lymphs (auto) (1.18-3.74) x10^3/uL Absolute Monos (auto) (0.24-0.86) x10^3/uL Absolute Nucleated RBC (0.00-0.012) x10^3u/L Lymphocytes % (19.3-51.7) % Monocytes % (4.7-12.5) % Eosinophils % (0.7-5.8) % Basophils % (0.1-1.2) % Absolute Granulocytes (1.56-6.13) x10^3/uL Basophils # (0.01-0.08) x10^3/uL Sodium (135-145) mmol/L Potassium (3.5-5.1) mmol/L Chloride (98-107) mmol/L Carbon Dioxide (22-30) mmol/L Anion Gap (5-15) MEQ/L BUN (7-17) mg/dL Creatinine (0.52-1.04) mg/dL Estimated GFR ML/MIN Glucose (74-106) mg/dL POC Glucometer 150 H (74 to 106) mg/dL Calcium (8.4-10.2) mg/dL Magnesium (1.6-2.3) mg/dL Total Bilirubin (0.2-1.3) mg/dL AST (14-36) U/L ALT (0-35) U/L Alkaline Phosphatase (38-126) U/L Troponin I 0.025 (0.000-0.033) ng/mL NT-Pro-B Natriuret Pep (<300) pg/mL Serum Total Protein (6.3-8.2) g/dL Albumin (3.5-5.0) g/dL Free T4 (0.78-2.19) ng/dL TSH 3rd Generation (0.470-4.680) mIU/L Urine Color Yellow (Yellow) Urine Appearance Clear (Clear) Urine pH 7.5 (4.6-8.0) Ur Specific Carney <=1.005 (1.005-1.030) Urine Protein 30 (Negative) Urine Glucose (UA) Negative (Negative) mg/dL Urine Ketones Negative (Negative) Urine Blood Moderate A (Negative) Urine Nitrite Negative (Negative) Urine Bilirubin Negative (Negative) Urine Urobilinogen 0.2 (0.2) mg/dL Ur Leukocyte Esterase Small A (Negative) U Hyaline Cast (Auto) NONE SEEN (0-2) /LPF Urine Microscopic RBC 6-10 A (0-5) /HPF Urine Microscopic WBC 6-10 A (0-5) /HPF Ur Epithelial Cells None Seen (None Seen) /HPF Urine Bacteria None Seen (None Seen) /HPF Urine Culture Reflexed ORDERED SEPARATELY (NO) Monoscreen (NEGATIVE) Influenza Type A Ag (NEGATIVE) Influenza Type B Ag (NEGATIVE) RSV (PCR) (NEGATIVE) SARS-CoV-2 (PCR) (NEGATIVE) Group A Strep Antibody (NEGATIVE) 01/26/24 01/26/24 01/26/24 Range/Units 13:05 13:05 13:05 WBC (3.98-10.04) x10^3/uL RBC (3.93-5.22) x10^6/uL Hgb (11.2-15.7) g/dL Hct (34.1-44.9) % MCV (79.4-94.8) fL MCH (25.6-32.2) pg MCHC (32.2-35.5) g/dL RDW (11.7-14.4) % Plt Count (182-369) x10^3/uL MPV (9.4-12.3) fL Gran % (34.0-71.1) % Immature Gran % (Auto) (0.001-0.429) % Nucleat RBC Rel Count (0.00-0.2) % Eos # (Auto) (0.04-0.36) x10^3/uL Immature Gran # (Auto) (0.001-0.031) x10^3u/L Absolute Lymphs (auto) (1.18-3.74) x10^3/uL Absolute Monos (auto) (0.24-0.86) x10^3/uL Absolute Nucleated RBC (0.00-0.012) x10^3u/L Lymphocytes % (19.3-51.7) % Monocytes % (4.7-12.5) % Eosinophils % (0.7-5.8) % Basophils % (0.1-1.2) % Absolute Granulocytes (1.56-6.13) x10^3/uL Basophils # (0.01-0.08) x10^3/uL Sodium (135-145) mmol/L Potassium (3.5-5.1) mmol/L Chloride (98-107) mmol/L Carbon Dioxide (22-30) mmol/L Anion Gap (5-15) MEQ/L BUN (7-17) mg/dL Creatinine (0.52-1.04) mg/dL Estimated GFR ML/MIN Glucose (74-106) mg/dL POC Glucometer (74 to 106) mg/dL Calcium (8.4-10.2) mg/dL Magnesium (1.6-2.3) mg/dL Total Bilirubin (0.2-1.3) mg/dL AST (14-36) U/L ALT (0-35) U/L Alkaline Phosphatase (38-126) U/L Troponin I (0.000-0.033) ng/mL NT-Pro-B Natriuret Pep (<300) pg/mL Serum Total Protein (6.3-8.2) g/dL Albumin (3.5-5.0) g/dL Free T4 1.05 (0.78-2.19) ng/dL TSH 3rd Generation (0.470-4.680) mIU/L Urine Color (Yellow) Urine Appearance (Clear) Urine pH (4.6-8.0) Ur Specific Carney (1.005-1.030) Urine Protein (Negative) Urine Glucose (UA) (Negative) mg/dL Urine Ketones (Negative) Urine Blood (Negative) Urine Nitrite (Negative) Urine Bilirubin (Negative) Urine Urobilinogen (0.2) mg/dL Ur Leukocyte Esterase (Negative) U Hyaline Cast (Auto) (0-2) /LPF Urine Microscopic RBC (0-5) /HPF Urine Microscopic WBC (0-5) /HPF Ur Epithelial Cells (None Seen) /HPF Urine Bacteria (None Seen) /HPF Urine Culture Reflexed (NO) Monoscreen NEGATIVE (NEGATIVE) Influenza Type A Ag NEGATIVE (NEGATIVE) Influenza Type B Ag NEGATIVE (NEGATIVE) RSV (PCR) NEGATIVE (NEGATIVE) SARS-CoV-2 (PCR) NEGATIVE (NEGATIVE) Group A Strep Antibody (NEGATIVE) 01/26/24 01/26/24 01/26/24 Range/Units 13:05 13:05 13:05 WBC (3.98-10.04) x10^3/uL RBC (3.93-5.22) x10^6/uL Hgb (11.2-15.7) g/dL Hct (34.1-44.9) % MCV (79.4-94.8) fL MCH (25.6-32.2) pg MCHC (32.2-35.5) g/dL RDW (11.7-14.4) % Plt Count (182-369) x10^3/uL MPV (9.4-12.3) fL Gran % (34.0-71.1) % Immature Gran % (Auto) (0.001-0.429) % Nucleat RBC Rel Count (0.00-0.2) % Eos # (Auto) (0.04-0.36) x10^3/uL Immature Gran # (Auto) (0.001-0.031) x10^3u/L Absolute Lymphs (auto) (1.18-3.74) x10^3/uL Absolute Monos (auto) (0.24-0.86) x10^3/uL Absolute Nucleated RBC (0.00-0.012) x10^3u/L Lymphocytes % (19.3-51.7) % Monocytes % (4.7-12.5) % Eosinophils % (0.7-5.8) % Basophils % (0.1-1.2) % Absolute Granulocytes (1.56-6.13) x10^3/uL Basophils # (0.01-0.08) x10^3/uL Sodium 129 L (135-145) mmol/L Potassium 5.0 (3.5-5.1) mmol/L Chloride 95 L (98-107) mmol/L Carbon Dioxide 28 (22-30) mmol/L Anion Gap 10.9 (5-15) MEQ/L BUN 24 H (7-17) mg/dL Creatinine 1.04 (0.52-1.04) mg/dL Estimated GFR 52.3 ML/MIN Glucose 149 H (74-106) mg/dL POC Glucometer (74 to 106) mg/dL Calcium 8.7 (8.4-10.2) mg/dL Magnesium 2.1 (1.6-2.3) mg/dL Total Bilirubin 0.50 (0.2-1.3) mg/dL AST 32 (14-36) U/L ALT 42 H (0-35) U/L Alkaline Phosphatase 68 (38-126) U/L Troponin I 0.029 (0.000-0.033) ng/mL NT-Pro-B Natriuret Pep 2470 (<300) pg/mL Serum Total Protein 5.8 L (6.3-8.2) g/dL Albumin 3.2 L (3.5-5.0) g/dL Free T4 (0.78-2.19) ng/dL TSH 3rd Generation 4.327 (0.470-4.680) mIU/L Urine Color (Yellow) Urine Appearance (Clear) Urine pH (4.6-8.0) Ur Specific Carney (1.005-1.030) Urine Protein (Negative) Urine Glucose (UA) (Negative) mg/dL Urine Ketones (Negative) Urine Blood (Negative) Urine Nitrite (Negative) Urine Bilirubin (Negative) Urine Urobilinogen (0.2) mg/dL Ur Leukocyte Esterase (Negative) U Hyaline Cast (Auto) (0-2) /LPF Urine Microscopic RBC (0-5) /HPF Urine Microscopic WBC (0-5) /HPF Ur Epithelial Cells (None Seen) /HPF Urine Bacteria (None Seen) /HPF Urine Culture Reflexed (NO) Monoscreen (NEGATIVE) Influenza Type A Ag (NEGATIVE) Influenza Type B Ag (NEGATIVE) RSV (PCR) (NEGATIVE) SARS-CoV-2 (PCR) (NEGATIVE) Group A Strep Antibody NOT DETECTED (NEGATIVE) 01/26/24 01/26/24 Range/Units 13:05 12:48 WBC 15.4 H (3.98-10.04) x10^3/uL RBC 3.62 L (3.93-5.22) x10^6/uL Hgb 10.2 L (11.2-15.7) g/dL Hct 31.2 L (34.1-44.9) % MCV 86.2 (79.4-94.8) fL MCH 28.2 (25.6-32.2) pg MCHC 32.7 (32.2-35.5) g/dL RDW 15.1 H (11.7-14.4) % Plt Count 516 H (182-369) x10^3/uL MPV 9.3 L (9.4-12.3) fL Gran % 86.2 H (34.0-71.1) % Immature Gran % (Auto) 4.3 H (0.001-0.429) % Nucleat RBC Rel Count 0.0 (0.00-0.2) % Eos # (Auto) 0.04 (0.04-0.36) x10^3/uL Immature Gran # (Auto) 0.66 H (0.001-0.031) x10^3u/L Absolute Lymphs (auto) 0.93 L (1.18-3.74) x10^3/uL Absolute Monos (auto) 0.45 (0.24-0.86) x10^3/uL Absolute Nucleated RBC 0.00 (0.00-0.012) x10^3u/L Lymphocytes % 6.0 L (19.3-51.7) % Monocytes % 2.9 L (4.7-12.5) % Eosinophils % 0.3 L (0.7-5.8) % Basophils % 0.3 (0.1-1.2) % Absolute Granulocytes 13.28 H (1.56-6.13) x10^3/uL Basophils # 0.04 (0.01-0.08) x10^3/uL Sodium (135-145) mmol/L Potassium (3.5-5.1) mmol/L Chloride (98-107) mmol/L Carbon Dioxide (22-30) mmol/L Anion Gap (5-15) MEQ/L BUN (7-17) mg/dL Creatinine (0.52-1.04) mg/dL Estimated GFR ML/MIN Glucose (74-106) mg/dL POC Glucometer 154 H (74 to 106) mg/dL Calcium (8.4-10.2) mg/dL Magnesium (1.6-2.3) mg/dL Total Bilirubin (0.2-1.3) mg/dL AST (14-36) U/L ALT (0-35) U/L Alkaline Phosphatase (38-126) U/L Troponin I (0.000-0.033) ng/mL NT-Pro-B Natriuret Pep (<300) pg/mL Serum Total Protein (6.3-8.2) g/dL Albumin (3.5-5.0) g/dL Free T4 (0.78-2.19) ng/dL TSH 3rd Generation (0.470-4.680) mIU/L Urine Color (Yellow) Urine Appearance (Clear) Urine pH (4.6-8.0) Ur Specific Carney (1.005-1.030) Urine Protein (Negative) Urine Glucose (UA) (Negative) mg/dL Urine Ketones (Negative) Urine Blood (Negative) Urine Nitrite (Negative) Urine Bilirubin (Negative) Urine Urobilinogen (0.2) mg/dL Ur Leukocyte Esterase (Negative) U Hyaline Cast (Auto) (0-2) /LPF Urine Microscopic RBC (0-5) /HPF Urine Microscopic WBC (0-5) /HPF Ur Epithelial Cells (None Seen) /HPF Urine Bacteria (None Seen) /HPF Urine Culture Reflexed (NO) Monoscreen (NEGATIVE) Influenza Type A Ag (NEGATIVE) Influenza Type B Ag (NEGATIVE) RSV (PCR) (NEGATIVE) SARS-CoV-2 (PCR) (NEGATIVE) Group A Strep Antibody (NEGATIVE) - Progress Progress Note: 01/26/24 12:59 My medical decision making and the assignment of moderate to high complexity is based on review of the patient's past medical history, review of the patient's most recent inpatient admission and discharge summary notes, review of the patient's medication list, review the patient drug allergy list, history present illness and physical findings on examination. The workup in this patient inclu kyra placement of an intravenous line, infusion of low rate intravenous fluid, urinalysis, CBC, CMP, BNP, magnesium level, troponin level, blood culture, chest x-ray Free T4 and TSH as well as respiratory therapy consultation, evaluation Differential diagnosis includes but is not limited to pneumonia, CHF exacerbation, COPD extubation, myocardial infarction, sepsis, urinary tract infection, viral illness, group A strep pharyngitis, oral candidiasis, electrolyte abnormalities, arrhythmias 01/26/24 13:22 The chest x-ray was interpreted by the radiologist and I reviewed the impression. The impression states when compared to similar study dated 01/22/2024, the study shows hyper inflated with mild left base infiltrate/atelectasis/effusion. Remaining heart and lung is unremarkable. No new or acute abnormalities 01/26/24 16:27 I interpreted the patient's laboratory data results. Based on the laboratory data results, patient has a urinary tract infection, mild hyponatremia, CHF. I interpreted the patient's second twelve-lead EKG that was performed on 01/26/2024 at 1611. The patient's heart rate is 65 bpm, it is normal sinus rhythm, she has a right bundle branch block and left anterior fascicular block. QTc is 433. There is no evidence of any acute ischemia. The second twelve-lead EKG is stable when compared to the 1 performed approximately 2-1/2 hours prior. Discussed with : José Counseled pt/family regarding: lab results, diagnosis, rad results Medical Desision Making - Diagnostic Testing Diagnostic test were ordered, analyzed, and reviewed by me: Yes Radiological Interpretation: Reviewed by me, Teleradiologist Report - Risk of complications The pt has a high risk of morbidity or mortality based on: Decision regarding hospitilization or escalation of hosp level of care - Departure Departure Disposition: Observation Clinical Impression: Hypoxia, UTI (urinary tract infection), CHF (congestive heart failure), Hyponatremia, Oral candidiasis Condition: Fair Critical Care Time: Yes Critical Care Time(excluding separately billable procedures): Critical 30-74 mins (45 minutes) Referrals: WOLF HUERTA JR [Primary Care Provider] - Follow up/PCP as directed Instructions: Heart Failure
[2024-01-26] MEDS ORDERED: DUONEB 0.5-3 MG/3 ml Neb IH ONE ×2 (12:44→18:35)
[2024-01-26] MEDS: DUONEB 0.5-3 MG/3 ml Neb IH ONE (12:50)
--- NOTE | 2024-01-26 12:56 | XRAY ---
Indication: Short of breath. Comparison: January 22, 2024 Portable apical lordotic chest unchanged again hyperinflated with mild left base infiltrate/atelectasis/effusion. Remaining heart and right lung unremarkable. No new cardiopulmonary abnormalities.
[2024-01-26 13:16] LABS: Absolute Neutrophil Ct (ANC) 13.28 x10^3/uL (1.56-6.13); BASOPHIL % 0.3 % (0.1-1.2); Basophil (Absolute #) 0.04 x10^3/uL (0.01-0.08); Eosinophil % 0.3 % (0.7-5.8); Eosinophil (Absolute #) 0.04 x10^3/uL (0.04-0.36); Hematocrit 31.2 % (34.1-44.9); Hemoglobin 10.2 g/dL (11.2-15.7); IMMATURE GRAN # 0.66 x10^3u/L (0.001-0.031); IMMATURE GRAN % 4.3 % (0.001-0.429); Lymphocyte (Absolute #) 0.93 x10^3/uL (1.18-3.74); Mean Cell Volume 86.2 fL (79.4-94.8); Mean Corpuscular Hemoglobin 28.2 pg (25.6-32.2); Mean Corpuscular Hgb Concent. 32.7 g/dL (32.2-35.5); Mean Platelet Volume 9.3 fL (9.4-12.3); Monocyte (Absolute #) 0.45 x10^3/uL (0.24-0.86); Monocytes % 2.9 % (4.7-12.5); Neutrophil % 86.2 % (34.0-71.1); Platelet Count 516 x10^3/uL (182-369); Red Blood Count 3.62 x10^6/uL (3.93-5.22); Red Cell Distribution Width 15.1 % (11.7-14.4); White Blood Count 15.4 x10^3/uL (3.98-10.04)
[2024-01-26] MEDS ORDERED: Zofran 4 MG/2 ML VIAL ONE (13:42)
[2024-01-26] MEDS ORDERED: MORPHINE SULFATE 2 MG INJ ONE (13:42)
[2024-01-26] MEDS: Zofran 4 MG/2 ML VIAL IV ONE (13:45)
[2024-01-26] MEDS: Sodium Chloride 0.9% 500 ML 500 ML IV SCH (13:45)
[2024-01-26] MEDS: MORPHINE SULFATE 2 MG INJ IV ONE (13:45)
[2024-01-26 13:55] LABS: INFLUENZA A NEGATIVE (NEGATIVE); INFLUENZA B NEGATIVE (NEGATIVE); RESPIRATORY SYNCTIAL VIRUS NEGATIVE (NEGATIVE); SARS-CoV-2 Xpert Express NEGATIVE (NEGATIVE)
[2024-01-26 14:04] LABS: ALBUMIN 3.2 g/dL (3.5-5.0); ANION GAP 10.9 MEQ/L (5-15); BILIRUBIN,TOTAL 0.5 mg/dL (0.2-1.3); Calcium 8.7 mg/dL (8.4-10.2); Creatinine 1 1.04 mg/dL (0.52-1.04); EST GLOMERULAR FILTRATION RATE 52.3 ML/MIN; MAGNESIUM 2.1 mg/dL (1.6-2.3); TSH, 3RD Generation 4.327 mIU/L (0.470-4.680); Total Protein 5.8 g/dL (6.3-8.2)
[2024-01-26 14:17] LABS: Appearance Clear (Clear); Bacteria None Seen /HPF (None Seen); Bilirubin Negative (Negative); Blood Moderate (Negative); Epithelial Cells None Seen /HPF (None Seen); Glucose, Urine Negative (Negative); Hyaline Casts NONE SEEN /LPF (0-2); Ketones Negative (Negative); Leukocyte Esterase Small (Negative); Nitrite Negative (Negative); Ph 7.5 (4.6-8.0); Protein,Urine Dip 30 (Negative); Specific Gravity <=1.005 (1.005-1.030); Urobilinogen 0.2 mg/dL (0.2)
[2024-01-26] MEDS ORDERED: Lasix 40 MG/4 ML ONE (15:59)
[2024-01-26] MEDS: Lasix 40 MG/4 ML IV ONE (16:03)
[2024-01-26] MEDS: Diflucan/Saline 0.2G/100ML PREMIX*** 100 ML IV SCH ×2 (16:04→16:14)
[2024-01-26] MEDS ORDERED: Unasyn 3 GM Vial ONE (16:40)
[2024-01-26] MEDS ORDERED: Sodium Chloride 0.9% 100 ML ONE (16:40)
[2024-01-26] MEDS: Unasyn 3 GM Vial*** 3 G in Sodium Chloride 0.9% 100 ML IV ONE (16:44)
[2024-01-26] MEDS ORDERED: TYLENOL 325 MG PO PRN ×2 (17:16→17:26)
[2024-01-26] MEDS ORDERED: Zofran 4 MG/2 ML VIAL IV PRN (17:16)
[2024-01-26] MEDS ORDERED: ULTRAM 50 MG PO PRN (17:26)
[2024-01-26] MEDS ORDERED: CLONIDINE 0.1 MG TABLET PO PRN (17:26)
--- NOTE | 2024-01-26 17:29 | PCM.HP ---
History of Present Illness - Chief Complaint Chief Complaint: COPD exacerbation Date: 01/26/24 History of Present Illness: is a 88 year old female with PMHX of gastroesophageal reflux disease, hypothyroidism, insulin-dependent diabetes, hypertension, hyperlipidemia, asthma, coronary artery disease (cardiac stent) on Plavix, CHF and chronic bilateral lower extremity cellulitis. She presented to the emergency department with symptoms of worsening weakness, shortness of breath, cough and painful sores in her mouth since yesterday. Patient was admitted into the hospital here at [facility] on 01/12 and remained inpatient until 01/22/2024. She was dis charged at that time. Her clinical impressions at the time of discharge include COPD, bilateral lower extremity cellulitis, hyponatremia, shortness of breath and hypertension. At the time of discharge she was placed on 2 L of oxygen via nasal cannula to wear at night. However in the last day or so she has been wearing it at all times. She has had decreased oral intake secondary to painful sores in her mouth. Overall, she does not feel well. She has been on antibiotics and steroids since her d/c. UA shows possible UTI and IV antibiotics started- will continue until UC is back. Lung sounds are clear after duoneb gave in ER. She was also gave zofran in ER but she reports she has no current nausea. She admits to chronic left hip pain and feels like the pins are poking out. Will order left hip XR. She denies any recent fall. A brown was placed in ER and this will be discontinued. Discussed with nurse and purewick can be used. She sattes she does not feel well but denies dysuria. She lives in [facility] living and may need rehab or ECF placement at D/C. She deneis CP, SOB, abd pain, N/V/D at this time. - Review of Systems Constitutional: No Fever, No Chills Eyes: No Symptoms Ears, Nose, & Throat: No Symptoms, Mouth Pain Respiratory: Cough, Short Of Breath Cardiac: No Chest Pain, No Edema, No Syncope Abdominal/Gastrointestinal: No Abdominal Pain, No Nausea, No Vomiting, No Diarrhea Genitourinary Symptoms: No Dysuria Musculoskeletal: Joint Pain (left hip pain increased with movement), No Back Pain, No Neck Pain Skin: No Rash Neurological: No Dizziness, No Focal Weakness, No Sensory Changes Psychological: No Symptoms Endocrine: No Symptoms Hematologic/Lymphatic: No Symptoms Immunological/Allergic: No Symptoms Medications & Allergies Home Medications: Home Medication List Acetaminophen 325 mg [Tylenol 325 mg] 650 mg PO Q6H PRN PRN 08/12/23 [History Confirmed 01/26/24] Amlodipine Besylate [Norvasc] 10 mg PO DAILY 08/12/23 [History Confirmed 01/26/24] Aspirin EC 81 mg [Ecotrin 81 mg] 81 mg PO DAILY 08/12/23 [History Confirmed 01/26/24] Atorvastatin Calcium 40 mg PO HS 08/12/23 [History Confirmed 01/26/24] Calcium Carbonate [Tums] 1 tab PO DAILY 08/12/23 [History Confirmed 01/26/24] Carboxymethylcellulose Sodium [Refresh Plus] 1 drop OP TID PRN PRN 08/12/23 [History Confirmed 01/26/24] Carvedilol 12.5 mg [Coreg 12.5 mg] 12.5 mg PO BID 08/12/23 [History Confirmed 01/26/24] Clonidine HCl 0.1 mg [Clonidine 0.1 mg Tablet] 0.1 mg PO BID PRN 08/12/23 [History Confirmed 01/26/24] Clopidogrel Bisulfate [PLAVIX Tablet] 75 mg PO DAILY 08/12/23 [History Confirmed 01/26/24] Insulin Aspart [NovoLOG Insulin] 0 units SQ [facility] 08/12/23 [History Confirmed 01/26/24] Insulin Glargine,Hum.rec.anlog [Toujeo Solostar] 10 unit SQ 08/12/23 [History Confirmed 01/26/24] Insulin Glargine,Hum.rec.anlog [Toujeo Solostar] 15 unit SQ DAILY 08/12/23 [History Confirmed 01/26/24] Isosorbide Mononitrate 30 mg [Imdur 30 MG] 30 mg PO HS 08/12/23 [History Confirmed 01/26/24] Levothyroxine Sodium 25 Mcg [Synthroid 25 Mcg] 25 mcg PO 0700 08/12/23 [History Confirmed 01/26/24] Nitroglycerin 0.4 mg PO Q5MIN PRN MR X 3 PRN 08/12/23 [History Confirmed 01/26/24] Omeprazole 40 mg PO DAILY 08/12/23 [History Confirmed 01/26/24] Sennosides/Docusate Sodium [Senna-S Tablet] 1 tab PO BID 08/12/23 [History Confirmed 01/26/24] Tramadol HCl 50 mg [Ultram 50 mg] 50 mg PO Q6H PRN PRN 08/12/23 [History Confirmed 01/26/24] Valsartan [Diovan] 320 mg PO DAILY 08/12/23 [History Confirmed 01/26/24] Cholecalciferol (Vitamin D3) [Vitamin D] 2,000 unit PO DAILY 30 Days #60 tablet 01/22/24 [Rx Confirmed 01/26/24] Guaifenesin 600 mg ER [Mucinex 600MG ER Tabs] 600 mg PO BID 7 Days #14 tablet 01/22/24 [Rx Confirmed 01/26/24] Prednisone 20 mg [Deltasone 20 mg] 20 mg PO BID 5 Days #10 tablet 01/22/24 [Rx Confirmed 01/26/24] levoFLOXacin [Levofloxacin] 750 mg PO DAILY 10 Days #10 tablet 01/22/24 [Rx Confirmed 01/26/24] Spironolactone 50 mg PO DAILY 01/26/24 [History Confirmed 01/26/24] Allergies/Adverse Reactions: Allergies Allergy/AdvReac Type Severity Reaction Status Date / Time clindamycin Allergy Verified 01/26/24 12:26 hydralazine Allergy Verified 01/26/24 12:26 oxytetracycline Allergy Verified 01/26/24 12:26 [From Terramycin] sulfamethoxazole Allergy Verified 01/26/24 12:26 [From Bactrim] trimethoprim [From Bactrim] Allergy Verified 01/26/24 12:26 - Past Medical History Past Medical History: Yes Neurological History: No Pertinent History ENT History: Cataracts, Other Cardiac History: Coronary Artery Disease, High Cholesterol, Hypertension Respiratory History: Asthma Endocrine Medical History: Diabetes Type II, Hypothyroidism Musculoskelatal History: Arthritis GI Medical History: GERD, Gallbladder Disease History: No Pertinent History Pyscho-Social History: No Pertinent History Reproductive Disorders: No Pertinent History Comment: dry eyes, BLE wounds and cellulitis - Past Surgical History Past Surgical History: Yes Neuro Surgical History: No Pertinent History Cardiac History: Cardiac Catheterization, Cardiac Stent Respiratory Surgery: No Pertinent History GI Surgical History: Cholecystectomy Genitourinary Surgical Hx: No Pertinent History Musculskeletal Surgical Hx: Orthopedic Surgery Female Surgical History: Other Other Surgical History: breast abcess removed, hip surgery, 2 stents - Social History Smoking Status: Never smoker Exposure to second hand smoke: Yes Alcohol: None Drug Use: none - Social Determinants of Health Will the patient participate in the screening: Yes Do you worry about a steady place to live?: No In the past 12 months,have you had to go without utilities?: No Have you or anyone in your house had to go without enough: No Transportation Issues: No Has anyone in your support network made you feel unsafe?: No Does the patient want assistance with any of the above?: No Comment: Lives at [facility] - Physical Exam Vital Signs: Vital Signs - 24 hr Temp Pulse Resp BP BP Pulse Ox 01/26/24 16:10 65 26 H 187/73 98 01/26/24 16:00 173/66 99 01/26/24 15:50 61 22 173/63 100 01/26/24 15:40 62 24 176/64 100 01/26/24 15:35 61 17 170/71 98 01/26/24 15:20 61 17 172/69 99 01/26/24 15:10 62 17 162/66 100 01/26/24 15:00 60 15 184/66 99 01/26/24 14:50 57 L 14 159/60 99 01/26/24 14:40 61 13 169/65 99 01/26/24 14:30 59 L 16 156/60 99 01/26/24 14:20 56 L 14 153/66 100 01/26/24 14:10 59 L 13 163/65 99 01/26/24 14:00 59 L 15 174/67 99 01/26/24 13:50 66 19 193/72 99 01/26/24 13:40 60 14 170/63 97 01/26/24 13:31 63 16 156/62 99 01/26/24 13:20 57 L 13 173/71 99 01/26/24 12:59 60 15 98 11/05/24 12:04 97.8 F 68 28 H 179/74 94 L General Appearance: no apparent distress, alert Neurologic Exam: alert, oriented x 3, cooperative, normal mood/affect, nml cerebellar function, nml station & gait, sensation nml, No motor deficits Eye Exam: PERRL/EOMI, eyes nml inspection Ears, Nose, Throat Exam: TMs normal, pharynx normal, moist mucous membranes, pharyngeal erythema Neck Exam: normal inspection, non-tender, supple, full range of motion Respiratory Exam: normal breath sounds, lungs clear, No respiratory distress Cardiovascular Exam: regular rate/rhythm, normal heart sounds, normal peripheral pulses Gastrointestinal/Abdomen Exam: soft, normal bowel sounds, No tenderness, No mass Back Exam: normal inspection, normal range of motion, No CVA tenderness, No vertebral tenderness Extremity Exam: normal inspection, pelvis stable, limited range of motion (left hip) Skin Exam: normal color, warm, dry, No rash Lymphatic Exam: No adenopathy Results - Labs Lab/Micro Results: Lab Results-Last 24 Hours 01/26/24 01/26/24 01/26/24 Range/Units 12:48 13:05 13:05 WBC 15.4 H (3.98-10.04) x10^3/uL RBC 3.62 L (3.93-5.22) x10^6/uL Hgb 10.2 L (11.2-15.7) g/dL Hct 31.2 L (34.1-44.9) % MCV 86.2 (79.4-94.8) fL MCH 28.2 (25.6-32.2) pg MCHC 32.7 (32.2-35.5) g/dL RDW 15.1 H (11.7-14.4) % Plt Count 516 H (182-369) x10^3/uL MPV 9.3 L (9.4-12.3) fL Gran % 86.2 H (34.0-71.1) % Immature Gran % (Auto) 4.3 H (0.001-0.429) % Nucleat RBC Rel Count 0.0 (0.00-0.2) % Eos # (Auto) 0.04 (0.04-0.36) x10^3/uL Immature Gran # (Auto) 0.66 H (0.001-0.031) x10^3u/L Absolute Lymphs (auto) 0.93 L (1.18-3.74) x10^3/uL Absolute Monos (auto) 0.45 (0.24-0.86) x10^3/uL Absolute Nucleated RBC 0.00 (0.00-0.012) x10^3u/L Lymphocytes % 6.0 L (19.3-51.7) % Monocytes % 2.9 L (4.7-12.5) % Eosinophils % 0.3 L (0.7-5.8) % Basophils % 0.3 (0.1-1.2) % Absolute Granulocytes 13.28 H (1.56-6.13) x10^3/uL Basophils # 0.04 (0.01-0.08) x10^3/uL Sodium 129 L (135-145) mmol/L Potassium 5.0 (3.5-5.1) mmol/L Chloride 95 L (98-107) mmol/L Carbon Dioxide 28 (22-30) mmol/L Anion Gap 10.9 (5-15) MEQ/L BUN 24 H (7-17) mg/dL Creatinine 1.04 (0.52-1.04) mg/dL Estimated GFR 52.3 ML/MIN Glucose 149 H (74-106) mg/dL POC Glucometer 154 H (74 to 106) mg/dL Calcium 8.7 (8.4-10.2) mg/dL Magnesium 2.1 (1.6-2.3) mg/dL Total Bilirubin 0.50 (0.2-1.3) mg/dL AST 32 (14-36) U/L ALT 42 H (0-35) U/L Alkaline Phosphatase 68 (38-126) U/L Troponin I (0.000-0.033) ng/mL NT-Pro-B Natriuret Pep 2470 (<300) pg/mL Serum Total Protein 5.8 L (6.3-8.2) g/dL Albumin 3.2 L (3.5-5.0) g/dL Free T4 (0.78-2.19) ng/dL TSH 3rd Generation 4.327 (0.470-4.680) mIU/L Urine Color (Yellow) Urine Appearance (Clear) Urine pH (4.6-8.0) Ur Specific [place] (1.005-1.030) Urine Protein (Negative) Urine Glucose (UA) (Negative) mg/dL Urine Ketones (Negative) Urine Blood (Negative) Urine Nitrite (Negative) Urine Bilirubin (Negative) Urine Urobilinogen (0.2) mg/dL Ur Leukocyte Esterase (Negative) U Hyaline Cast (Auto) (0-2) /LPF Urine Microscopic RBC (0-5) /HPF Urine Microscopic WBC (0-5) /HPF Ur Epithelial Cells (None Seen) /HPF Urine Bacteria (None Seen) /HPF Urine Culture Reflexed (NO) Monoscreen (NEGATIVE) Influenza Type A Ag (NEGATIVE) Influenza Type B Ag (NEGATIVE) RSV (PCR) (NEGATIVE) SARS-CoV-2 (PCR) (NEGATIVE) Group A Strep Antibody (NEGATIVE) 01/26/24 01/26/24 01/26/24 Range/Units 13:05 13:05 13:05 WBC (3.98-10.04) x10^3/uL RBC (3.93-5.22) x10^6/uL Hgb (11.2-15.7) g/dL Hct (34.1-44.9) % MCV (79.4-94.8) fL MCH (25.6-32.2) pg MCHC (32.2-35.5) g/dL RDW (11.7-14.4) % Plt Count (182-369) x10^3/uL MPV (9.4-12.3) fL Gran % (34.0-71.1) % Immature Gran % (Auto) (0.001-0.429) % Nucleat RBC Rel Count (0.00-0.2) % Eos # (Auto) (0.04-0.36) x10^3/uL Immature Gran # (Auto) (0.001-0.031) x10^3u/L Absolute Lymphs (auto) (1.18-3.74) x10^3/uL Absolute Monos (auto) (0.24-0.86) x10^3/uL Absolute Nucleated RBC (0.00-0.012) x10^3u/L Lymphocytes % (19.3-51.7) % Monocytes % (4.7-12.5) % Eosinophils % (0.7-5.8) % Basophils % (0.1-1.2) % Absolute Granulocytes (1.56-6.13) x10^3/uL Basophils # (0.01-0.08) x10^3/uL Sodium (135-145) mmol/L Potassium (3.5-5.1) mmol/L Chloride (98-107) mmol/L Carbon Dioxide (22-30) mmol/L Anion Gap (5-15) MEQ/L BUN (7-17) mg/dL Creatinine (0.52-1.04) mg/dL Estimated GFR ML/MIN Glucose (74-106) mg/dL POC Glucometer (74 to 106) mg/dL Calcium (8.4-10.2) mg/dL Magnesium (1.6-2.3) mg/dL Total Bilirubin (0.2-1.3) mg/dL AST (14-36) U/L ALT (0-35) U/L Alkaline Phosphatase (38-126) U/L Troponin I 0.029 (0.000-0.033) ng/mL NT-Pro-B Natriuret Pep (<300) pg/mL Serum Total Protein (6.3-8.2) g/dL Albumin (3.5-5.0) g/dL Free T4 (0.78-2.19) ng/dL TSH 3rd Generation (0.470-4.680) mIU/L Urine Color (Yellow) Urine Appearance (Clear) Urine pH (4.6-8.0) Ur Specific [place] (1.005-1.030) Urine Protein (Negative) Urine Glucose (UA) (Negative) mg/dL Urine Ketones (Negative) Urine Blood (Negative) Urine Nitrite (Negative) Urine Bilirubin (Negative) Urine Urobilinogen (0.2) mg/dL Ur Leukocyte Esterase (Negative) U Hyaline Cast (Auto) (0-2) /LPF Urine Microscopic RBC (0-5) /HPF Urine Microscopic WBC (0-5) /HPF Ur Epithelial Cells (None Seen) /HPF Urine Bacteria (None Seen) /HPF Urine Culture Reflexed (NO) Monoscreen NEGATIVE (NEGATIVE) Influenza Type A Ag (NEGATIVE) Influenza Type B Ag (NEGATIVE) RSV (PCR) (NEGATIVE) SARS-CoV-2 (PCR) (NEGATIVE) Group A Strep Antibody NOT DETECTED (NEGATIVE) 01/26/24 01/26/24 01/26/24 Range/Units 13:05 13:05 14:00 WBC (3.98-10.04) x10^3/uL RBC (3.93-5.22) x10^6/uL Hgb (11.2-15.7) g/dL Hct (34.1-44.9) % MCV (79.4-94.8) fL MCH (25.6-32.2) pg MCHC (32.2-35.5) g/dL RDW (11.7-14.4) % Plt Count (182-369) x10^3/uL MPV (9.4-12.3) fL Gran % (34.0-71.1) % Immature Gran % (Auto) (0.001-0.429) % Nucleat RBC Rel Count (0.00-0.2) % Eos # (Auto) (0.04-0.36) x10^3/uL Immature Gran # (Auto) (0.001-0.031) x10^3u/L Absolute Lymphs (auto) (1.18-3.74) x10^3/uL Absolute Monos (auto) (0.24-0.86) x10^3/uL Absolute Nucleated RBC (0.00-0.012) x10^3u/L Lymphocytes % (19.3-51.7) % Monocytes % (4.7-12.5) % Eosinophils % (0.7-5.8) % Basophils % (0.1-1.2) % Absolute Granulocytes (1.56-6.13) x10^3/uL Basophils # (0.01-0.08) x10^3/uL Sodium (135-145) mmol/L Potassium (3.5-5.1) mmol/L Chloride (98-107) mmol/L Carbon Dioxide (22-30) mmol/L Anion Gap (5-15) MEQ/L BUN (7-17) mg/dL Creatinine (0.52-1.04) mg/dL Estimated GFR ML/MIN Glucose (74-106) mg/dL POC Glucometer (74 to 106) mg/dL Calcium (8.4-10.2) mg/dL Magnesium (1.6-2.3) mg/dL Total Bilirubin (0.2-1.3) mg/dL AST (14-36) U/L ALT (0-35) U/L Alkaline Phosphatase (38-126) U/L Troponin I (0.000-0.033) ng/mL NT-Pro-B Natriuret Pep (<300) pg/mL Serum Total Protein (6.3-8.2) g/dL Albumin (3.5-5.0) g/dL Free T4 1.05 (0.78-2.19) ng/dL TSH 3rd Generation (0.470-4.680) mIU/L Urine Color Yellow (Yellow) Urine Appearance Clear (Clear) Urine pH 7.5 (4.6-8.0) Ur Specific [place] <=1.005 (1.005-1.030) Urine Protein 30 (Negative) Urine Glucose (UA) Negative (Negative) mg/dL Urine Ketones Negative (Negative) Urine Blood Moderate A (Negative) Urine Nitrite Negative (Negative) Urine Bilirubin Negative (Negative) Urine Urobilinogen 0.2 (0.2) mg/dL Ur Leukocyte Esterase Small A (Negative) U Hyaline Cast (Auto) NONE SEEN (0-2) /LPF Urine Microscopic RBC 6-10 A (0-5) /HPF Urine Microscopic WBC 6-10 A (0-5) /HPF Ur Epithelial Cells None Seen (None Seen) /HPF Urine Bacteria None Seen (None Seen) /HPF Urine Culture Reflexed ORDERED SEPARATELY (NO) Monoscreen (NEGATIVE) Influenza Type A Ag NEGATIVE (NEGATIVE) Influenza Type B Ag NEGATIVE (NEGATIVE) RSV (PCR) NEGATIVE (NEGATIVE) SARS-CoV-2 (PCR) NEGATIVE (NEGATIVE) Group A Strep Antibody (NEGATIVE) 01/26/24 01/26/24 Range/Units 14:53 15:30 WBC (3.98-10.04) x10^3/uL RBC (3.93-5.22) x10^6/uL Hgb (11.2-15.7) g/dL Hct (34.1-44.9) % MCV (79.4-94.8) fL MCH (25.6-32.2) pg MCHC (32.2-35.5) g/dL RDW (11.7-14.4) % Plt Count (182-369) x10^3/uL MPV (9.4-12.3) fL Gran % (34.0-71.1) % Immature Gran % (Auto) (0.001-0.429) % Nucleat RBC Rel Count (0.00-0.2) % Eos # (Auto) (0.04-0.36) x10^3/uL Immature Gran # (Auto) (0.001-0.031) x10^3u/L Absolute Lymphs (auto) (1.18-3.74) x10^3/uL Absolute Monos (auto) (0.24-0.86) x10^3/uL Absolute Nucleated RBC (0.00-0.012) x10^3u/L Lymphocytes % (19.3-51.7) % Monocytes % (4.7-12.5) % Eosinophils % (0.7-5.8) % Basophils % (0.1-1.2) % Absolute Granulocytes (1.56-6.13) x10^3/uL Basophils # (0.01-0.08) x10^3/uL Sodium (135-145) mmol/L Potassium (3.5-5.1) mmol/L Chloride (98-107) mmol/L Carbon Dioxide (22-30) mmol/L Anion Gap (5-15) MEQ/L BUN (7-17) mg/dL Creatinine (0.52-1.04) mg/dL Estimated GFR ML/MIN Glucose (74-106) mg/dL POC Glucometer 150 H (74 to 106) mg/dL Calcium (8.4-10.2) mg/dL Magnesium (1.6-2.3) mg/dL Total Bilirubin (0.2-1.3) mg/dL AST (14-36) U/L ALT (0-35) U/L Alkaline Phosphatase (38-126) U/L Troponin I 0.025 (0.000-0.033) ng/mL NT-Pro-B Natriuret Pep (<300) pg/mL Serum Total Protein (6.3-8.2) g/dL Albumin (3.5-5.0) g/dL Free T4 (0.78-2.19) ng/dL TSH 3rd Generation (0.470-4.680) mIU/L Urine Color (Yellow) Urine Appearance (Clear) Urine pH (4.6-8.0) Ur Specific [place] (1.005-1.030) Urine Protein (Negative) Urine Glucose (UA) (Negative) mg/dL Urine Ketones (Negative) Urine Blood (Negative) Urine Nitrite (Negative) Urine Bilirubin (Negative) Urine Urobilinogen (0.2) mg/dL Ur Leukocyte Esterase (Negative) U Hyaline Cast (Auto) (0-2) /LPF Urine Microscopic RBC (0-5) /HPF Urine Microscopic WBC (0-5) /HPF Ur Epithelial Cells (None Seen) /HPF Urine Bacteria (None Seen) /HPF Urine Culture Reflexed (NO) Monoscreen (NEGATIVE) Influenza Type A Ag (NEGATIVE) Influenza Type B Ag (NEGATIVE) RSV (PCR) (NEGATIVE) SARS-CoV-2 (PCR) (NEGATIVE) Group A Strep Antibody (NEGATIVE) Accuchecks Date 01/26/24 Time 12:48 - Radiology Impressions Radiology Exams & Impressions: Radiology Procedures Category Date Time Status CHEST 1 VIEW (PORTABLE) Stat Exams 01/26/24 12:40 Completed - Other Procedures and Tests Respiratory Therapy 01/26/24 17:16 EKG REPEAT IN AM Oxygen Nasal Cannula 2 lpm Respiratory Therapy Consult ONCE Assessment/Plan (1) UTI (urinary tract infection) Current Visit: Yes Status: Acute Assessment & Plan: - IV antibiotics - UC pending - D/C brown - place purewick Code(s): N39.0 - URINARY TRACT INFECTION, SITE NOT SPECIFIED (2) Oral candidiasis Current Visit: Yes Status: Acute Assessment & Plan: - From + type II DM and sent home last visit on steroids - steroids discontinued. - Cassie's magic mouthwash QID - Fluconazole gave in ER IV x1 Code(s): B37.0 - CANDIDAL STOMATITIS (3) COPD exacerbation Current Visit: No Status: Acute Assessment & Plan: - Baseline 2lNC at night- pt feels she needs it all the time - RT eval and treat keep O2 > 92% - IV antibitics. - Steroids not needed at this time. Code(s): J44.1 - CHRONIC OBSTRUCTIVE PULMONARY DISEASE W (ACUTE) EXACERBATION (4) Hip pain, left Current Visit: Yes Status: Acute Assessment & Plan: - acute on chronic - XR left hip - PT/OT Code(s): M25.552 - PAIN IN LEFT HIP (5) CHF (congestive heart failure) Current Visit: Yes Status: Chronic Assessment & Plan: - not in acute exacerbation - Continue home meds Code(s): I50.9 - HEART FAILURE, UNSPECIFIED (6) Hyponatremia Current Visit: Yes Status: Acute Assessment & Plan: - Na+ 129 - fluid restriction 1 L Code(s): E87.1 - HYPO-OSMOLALITY AND HYPONATREMIA (7) Vitamin D deficiency Current Visit: No Status: Chronic Assessment & Plan: - Continue Vitamin D Code(s): E55.9 - VITAMIN D DEFICIENCY, UNSPECIFIED (8) Weakness Current Visit: No Status: Acute Assessment & Plan: - PT/ OT eval and treat - consider rehab at D/C Code(s): R53.1 - WEAKNESS (9) Hypertension Current Visit: No Status: Chronic Assessment & Plan: - BP elevated- monitor - Continue home meds Code(s): I10 - ESSENTIAL (PRIMARY) HYPERTENSION (10) Hypothyroidism Current Visit: No Status: Chronic Assessment & Plan: - Continue Synthroid Code(s): E03.9 - HYPOTHYROIDISM, UNSPECIFIED (11) Type II diabetes mellitus Current Visit: No Status: Chronic Qualifiers: Diabetes mellitus watermaster insulin use: with watermaster use Diabetes mellitus complication status: with circulatory complication Diabetes mellitus complication detail: with peripheral angiopathy without gangrene Qualified Code(s): E11.51 - Type 2 diabetes mellitus with diabetic peripheral angiopathy without gangrene; Z79.4 - intermediate designer (current) use of insulin Assessment & Plan: - A1C 7.44-01/13/24 -Controlled - Continue home meds - accuchecks Ac/HS - Pt historically noncompliant with insulin VTE: Plavix Next of KIN: daughter D/C plan: 1-2 days Code status: Full Telemedicine Encounter - Telemedicine Encounter Telemedicine Encounter: "The entirety of this encounter was performed via Telemedicine" This visit was performed using real-time audio and video connection between my location and thepatients locationwith the assistance of a surrogateat the patients location. Written or verbal consent was obtained from the patient/guardian to perform this visit [email or web address] Internationaltelemedicine [email or web address]. Any patient questions regarding the telemedicine interaction were answered.
[2024-01-26] MEDS: COREG 12.5 MG PO SCH (18:49)
[2024-01-26] MEDS: DUONEB 0.5-3 MG/3 ml Neb IH PRN (20:20)
[2024-01-26] MEDS ORDERED: HEPARIN 5000 UNITS/0.5 ML (HIGH RISK MED) SQ SCH (22:00)
[2024-01-26] MEDS ORDERED: ZOCOR 20MG ONE (23:21)
[2024-01-26] MEDS: Mucinex 600MG ER Tabs PO SCH (23:22)
[2024-01-26] MEDS: Imdur 30 MG PO SCH (23:22)
[2024-01-26] MEDS: ZOCOR 20MG PO SCH (23:22)
[2024-01-26] MEDS: Unasyn 1.5GM Vial*** 1.5 G in Sodium Chloride 100ML MINI-BAG PLUS 100 ML IV SCH (23:24)
[2024-01-27] MEDS: NON-FORMULARY ITEM (Insulin Aspart** [Novolog Insulin**] 1 UNIT Unit) SQ SCH (03:35)
[2024-01-27] MEDS: NON-FORMULARY ITEM (Insulin Glargine,Hum.Rec.Anlog [Toujeo Solostar] 300 UNIT/ML Insuln.Pe SQ SCH (03:36)
[2024-01-27] MEDS: MARY'S MOUTHWASH PO SCH (03:41)
[2024-01-27 05:13] LABS: Absolute Neutrophil Ct (ANC) 7.77 x10^3/uL (1.56-6.13); BASOPHIL % 0.2 % (0.1-1.2); Basophil (Absolute #) 0.02 x10^3/uL (0.01-0.08); Eosinophil % 0.8 % (0.7-5.8); Eosinophil (Absolute #) 0.09 x10^3/uL (0.04-0.36); Hematocrit 26.4 % (34.1-44.9); Hemoglobin 8.6 g/dL (11.2-15.7); IMMATURE GRAN # 0.41 x10^3u/L (0.001-0.031); IMMATURE GRAN % 3.7 % (0.001-0.429); Lymphocyte (Absolute #) 1.81 x10^3/uL (1.18-3.74); Lymphocytes % 16.3 % (19.3-51.7); Mean Cell Volume 87.7 fL (79.4-94.8); Mean Corpuscular Hemoglobin 28.6 pg (25.6-32.2); Mean Corpuscular Hgb Concent. 32.6 g/dL (32.2-35.5); Mean Platelet Volume 9.5 fL (9.4-12.3); Monocyte (Absolute #) 0.98 x10^3/uL (0.24-0.86); Monocytes % 8.8 % (4.7-12.5); Neutrophil % 70.2 % (34.0-71.1); Platelet Count 428 x10^3/uL (182-369); Red Blood Count 3.01 x10^6/uL (3.93-5.22); Red Cell Distribution Width 15.4 % (11.7-14.4); White Blood Count 11.1 x10^3/uL (3.98-10.04)
[2024-01-27 06:07] LABS: ALBUMIN 2.5 g/dL (3.5-5.0); ANION GAP 8.5 MEQ/L (5-15); BILIRUBIN,TOTAL 0.4 mg/dL (0.2-1.3); Calcium 7.7 mg/dL (8.4-10.2); Creatinine 1 1.09 mg/dL (0.52-1.04); EST GLOMERULAR FILTRATION RATE 49.5 ML/MIN; Potassium 4.6 mmol/L (3.5-5.1)
[2024-01-27] MEDS ORDERED: DUONEB 0.5-3 MG/3 ml Neb IH ONE (06:43)
[2024-01-27] MEDS: DUONEB 0.5-3 MG/3 ml Neb IH SCH (06:58)
[2024-01-27] MEDS: Advair Hfa 230/21 Mcg COMMON CANISTER IH SCH (06:59)
[2024-01-27] MEDS ORDERED: Artificial Tears 15 ML OP PRN (07:16)
[2024-01-27] MEDS: SYNTHROID 25 MCG PO SCH (07:46)
[2024-01-27] MEDS: Senokot-S Tablet PO SCH (07:49)
[2024-01-27] MEDS: LIPITOR 40MG PO SCH (07:49)
[2024-01-27] MEDS: ECOTRIN 81 MG PO SCH (09:28)
[2024-01-27] MEDS: NORVASC 5 MG PO SCH (09:28)
[2024-01-27] MEDS: Aldactone 25 MG PO SCH (09:28)
[2024-01-27] MEDS: DIOVAN 80 MG PO SCH (09:28)
[2024-01-27] MEDS: Protonix 40MG Tablet PO SCH (09:28)
[2024-01-27] MEDS: PLAVIX Tablet PO SCH (09:28)
[2024-01-27] MEDS: COREG 12.5 MG PO SCH (09:28)
[2024-01-27] MEDS: VITAMIN D PO SCH (09:28)
[2024-01-27] MEDS: Tums EX 750 MG PO SCH (09:29)
[2024-01-27] MEDS: Lantus Insulin SQ SCH ×2 (09:29→22:28)
--- NOTE | 2024-01-27 12:00 | PCM.NOTE ---
Date and Time: 01/27/24 1150 Subjective Assessment: 01/26/24 is a 88 year old female with PMHX of gastroesophageal reflux disease, hypothyroidism, insulin-dependent diabetes, hypertension, hyperlipidemia, asthma, coronary artery disease (cardiac stent) on Plavix, CHF and chronic bilateral lower extremity cellulitis. She presented to the emergency department with symptoms of worsening weakness, shortness of breath, cough and painful sores in her mouth since yesterday. Patient was admitted into the hospital here at [facility] on 01/12 and remained inpatient until 01/22/2024. She was discharged at that time. Her clinical impressions at the time of discharge include COPD, bilateral lower extremity cellulitis, hyponatremia, shortness of breath and hypertension. At the time of discharge she was placed on 2 L of oxygen via nasal cannula to wear at night. However in the last day or so she has been wearing it at all times. She has had decreased oral intake secondary to painful sores in her mouth. Overall, she does not feel well. She has been on antibiotics and steroids since her d/c. UA shows possible UTI and IV antibiotics started- will continue until UC is back. Lung sounds are clear after duoneb gave in ER. She was also gave zofran in ER but she reports she has no current nausea. She admits to chronic left hip pain and feels like the pins are poking out. Will order left hip XR. She denies any recent fall. A brown was placed in ER and this will be discontinued. Discussed with nurse and purewick can be used. She states she does not feel well but denies dysuria. She lives in [facility] living and may need rehab or ECF placement at D/C. She deneis CP, SOB, abd pain, N/V/D at this time. 01/27/24 Pt resting in bed. She states she continues to feel weak but better than yesterday. Na+ has improved but continues to have mild hyponatremia. CXR reviewed and Procal negative. Pt does not have pneumonia. UC negative. Will con tinue antibiotics for COPD exacerbation. She continues to require 2lNC- 94%. PT to eval for rehab vs ECF placement. Pt feels she is too weak to go back to assisted living. She refused hip XR yesterday. Brown was not removed as ordered yesterday. Pt has some vaginal redness and barrier cream can be applied but no wounds to skin in mathieu-area. Therefore does not meet criteria for Brown. Discussed pt case with infection control regarding brown. Asked again today for brown to be removed per orders and purewick placed. Pt was able to get up to chair with staff today. Pt does not have cellulitis and has chronic PAD. She needs to f/u with vascular surgery OP. Pt reports her mouth sores are improving and will continue Cassie's magic mouthwash. She was able to eat all her breakfast without concern today. BP improved after morning meds. She denies CP, abd. pain, N/V/D. - Review of Systems Constitutional: Weakness, No Fever, No Chills Eyes: No Symptoms Ears, Nose, & Throat: No Symptoms Respiratory: Short Of Breath, No Cough Cardiac: No Chest Pain, No Edema, No Syncope Abdominal/Gastrointestinal: No Abdominal Pain, No Nausea, No Vomiting, No Diarrhea Genitourinary Symptoms: No Dysuria Musculoskeletal: No Back Pain, No Neck Pain Skin: Other (vaginal redness), No Rash Neurological: No Dizziness, No Focal Weakness, No Sensory Changes Psychological: No Symptoms Endocrine: No Symptoms Hematologic/Lymphatic: No Symptoms Immunological/Allergic: No Symptoms Objective Exam General Appearance: no apparent distress, alert Neurologic Exam: alert, oriented x 3, cooperative, normal mood/affect, nml cerebellar function, sensation nml, motor weakness, No motor deficits Skin Exam: warm, dry, pale, other (skin redness mathieu-area) Wound Assessment: Skin/Wound Assessment Wound/Incision Assessment Start: 01/26/24 18:39 Text: Status: Active Freq: Q6H Protocol: Document 01/27/24 02:00 MP (Rec: 01/27/24 05:39 MP [id number]) Wound Photo Photo Taken No Eye Exam: PERRL, EOMI, eyes nml inspection Ears, Nose, Throat Exam: normal ENT inspection, pharynx normal, moist mucous membranes Neck Exam: normal inspection, non-tender, supple, full range of motion Respiratory Exam: normal breath sounds, lungs clear, No respiratory distress Cardiovascular Exam: regular rate/rhythm, normal heart sounds Gastrointestinal/Abdomen Exam: soft, No tenderness, No mass Extremity Exam: normal inspection, normal range of motion Back Exam: normal inspection, normal range of motion, No CVA tenderness, No vertebral tenderness Pelvic Exam: deferred Rectal Exam: deferred Objective Data Vital Signs: Vital Signs - 24 hr Temp Pulse Resp BP BP Pulse Ox 01/27/24 11:22 97.5 F 65 20 121/56 94 L 01/27/24 07:00 97.3 F 59 L 18 160/70 99 01/27/24 04:00 57 L 16 154/70 97 01/27/24 00:00 67 95 01/26/24 20:20 73 18 97 01/26/24 20:00 99.1 F 61 16 164/73 95 01/26/24 18:28 98.8 F 62 139/63 97 01/26/24 16:10 65 26 H 187/73 98 01/26/24 16:00 173/66 99 01/26/24 15:50 61 22 173/63 100 01/26/24 15:40 62 24 176/64 100 01/26/24 15:35 61 17 170/71 98 01/26/24 15:20 61 17 172/69 99 01/26/24 15:10 62 17 162/66 100 01/26/24 15:00 60 15 184/66 99 01/26/24 14:50 57 L 14 159/60 99 01/26/24 14:40 61 13 169/65 99 01/26/24 14:30 59 L 16 156/60 99 01/26/24 14:20 56 L 14 153/66 100 01/26/24 14:10 59 L 13 163/65 99 01/26/24 14:00 59 L 15 174/67 99 01/26/24 13:50 66 19 193/72 99 01/26/24 13:40 60 14 170/63 97 01/26/24 13:31 63 16 156/62 99 01/26/24 13:20 57 L 13 173/71 99 01/26/24 12:59 60 15 98 01/26/24 12:04 97.8 F 68 28 H 179/74 94 L Pain Assessment - Last Documented Pain Intensity 0 Intake and Output: Intake & Output 01/24/24 01/25/24 01/26/24 01/27/24 11:59 11:59 11:59 11:59 Intake Total 600 Output Total 4100 Balance -3500 Weight 73.9 kg Lab Results: Lab Results-Last 24 Hours 01/26/24 01/26/24 01/26/24 Range/Units 12:48 13:05 13:05 WBC 15.4 H (3.98-10.04) x10^3/uL RBC 3.62 L (3.93-5.22) x10^6/uL Hgb 10.2 L (11.2-15.7) g/dL Hct 31.2 L (34.1-44.9) % MCV 86.2 (79.4-94.8) fL MCH 28.2 (25.6-32.2) pg MCHC 32.7 (32.2-35.5) g/dL RDW 15.1 H (11.7-14.4) % Plt Count 516 H (182-369) x10^3/uL MPV 9.3 L (9.4-12.3) fL Gran % 86.2 H (34.0-71.1) % Immature Gran % (Auto) 4.3 H (0.001-0.429) % Nucleat RBC Rel Count 0.0 (0.00-0.2) % Eos # (Auto) 0.04 (0.04-0.36) x10^3/uL Immature Gran # (Auto) 0.66 H (0.001-0.031) x10^3u/L Absolute Lymphs (auto) 0.93 L (1.18-3.74) x10^3/uL Absolute Monos (auto) 0.45 (0.24-0.86) x10^3/uL Absolute Nucleated RBC 0.00 (0.00-0.012) x10^3u/L Lymphocytes % 6.0 L (19.3-51.7) % Monocytes % 2.9 L (4.7-12.5) % Eosinophils % 0.3 L (0.7-5.8) % Basophils % 0.3 (0.1-1.2) % Absolute Granulocytes 13.28 H (1.56-6.13) x10^3/uL Basophils # 0.04 (0.01-0.08) x10^3/uL Sodium 129 L (135-145) mmol/L Potassium 5.0 (3.5-5.1) mmol/L Chloride 95 L (98-107) mmol/L Carbon Dioxide 28 (22-30) mmol/L Anion Gap 10.9 (5-15) MEQ/L BUN 24 H (7-17) mg/dL Creatinine 1.04 (0.52-1.04) mg/dL Estimated GFR 52.3 ML/MIN Glucose 149 H (74-106) mg/dL POC Glucometer 154 H (74 to 106) mg/dL Calcium 8.7 (8.4-10.2) mg/dL Magnesium 2.1 (1.6-2.3) mg/dL Total Bilirubin 0.50 (0.2-1.3) mg/dL AST 32 (14-36) U/L ALT 42 H (0-35) U/L Alkaline Phosphatase 68 (38-126) U/L Troponin I (0.000-0.033) ng/mL NT-Pro-B Natriuret Pep 2470 (<300) pg/mL Serum Total Protein 5.8 L (6.3-8.2) g/dL Albumin 3.2 L (3.5-5.0) g/dL Prealbumin (17.6-36.0) mg/dL Procalcitonin (0.030-0.080) ng/mL Free T4 (0.78-2.19) ng/dL TSH 3rd Generation 4.327 (0.470-4.680) mIU/L Urine Color (Yellow) Urine Appearance (Clear) Urine pH (4.6-8.0) Ur Specific Dr[place]gs (1.005-1.030) Urine Protein (Negative) Urine Glucose (UA) (Negative) mg/dL Urine Ketones (Negative) Urine Blood (Negative) Urine Nitrite (Negative) Urine Bilirubin (Negative) Urine Urobilinogen (0.2) mg/dL Ur Leukocyte Esterase (Negative) U Hyaline Cast (Auto) (0-2) /LPF Urine Microscopic RBC (0-5) /HPF Urine Microscopic WBC (0-5) /HPF Ur Epithelial Cells (None Seen) /HPF Urine Bacteria (None Seen) /HPF Urine Culture Reflexed (NO) Monoscreen (NEGATIVE) Influenza Type A Ag (NEGATIVE) Influenza Type B Ag (NEGATIVE) RSV (PCR) (NEGATIVE) SARS-CoV-2 (PCR) (NEGATIVE) Group A Strep Antibody (NEGATIVE) 01/26/24 01/26/24 01/26/24 Range/Units 13:05 13:05 13:05 WBC (3.98-10.04) x10^3/uL RBC (3.93-5.22) x10^6/uL Hgb (11.2-15.7) g/dL Hct (34.1-44.9) % MCV (79.4-94.8) fL MCH (25.6-32.2) pg MCHC (32.2-35.5) g/dL RDW (11.7-14.4) % Plt Count (182-369) x10^3/uL MPV (9.4-12.3) fL Gran % (34.0-71.1) % Immature Gran % (Auto) (0.001-0.429) % Nucleat RBC Rel Count (0.00-0.2) % Eos # (Auto) (0.04-0.36) x10^3/uL Immature Gran # (Auto) (0.001-0.031) x10^3u/L Absolute Lymphs (auto) (1.18-3.74) x10^3/uL Absolute Monos (auto) (0.24-0.86) x10^3/uL Absolute Nucleated RBC (0.00-0.012) x10^3u/L Lymphocytes % (19.3-51.7) % Monocytes % (4.7-12.5) % Eosinophils % (0.7-5.8) % Basophils % (0.1-1.2) % Absolute Granulocytes (1.56-6.13) x10^3/uL Basophils # (0.01-0.08) x10^3/uL Sodium (135-145) mmol/L Potassium (3.5-5.1) mmol/L Chloride (98-107) mmol/L Carbon Dioxide (22-30) mmol/L Anion Gap (5-15) MEQ/L BUN (7-17) mg/dL Creatinine (0.52-1.04) mg/dL Estimated GFR ML/MIN Glucose (74-106) mg/dL POC Glucometer (74 to 106) mg/dL Calcium (8.4-10.2) mg/dL Magnesium (1.6-2.3) mg/dL Total Bilirubin (0.2-1.3) mg/dL AST (14-36) U/L ALT (0-35) U/L Alkaline Phosphatase (38-126) U/L Troponin I 0.029 (0.000-0.033) ng/mL NT-Pro-B Natriuret Pep (<300) pg/mL Serum Total Protein (6.3-8.2) g/dL Albumin (3.5-5.0) g/dL Prealbumin (17.6-36.0) mg/dL Procalcitonin (0.030-0.080) ng/mL Free T4 (0.78-2.19) ng/dL TSH 3rd Generation (0.470-4.680) mIU/L Urine Color (Yellow) Urine Appearance (Clear) Urine pH (4.6-8.0) Ur Specific Driggs (1.005-1.030) Urine Protein (Negative) Urine Glucose (UA) (Negative) mg/dL Urine Ketones (Negative) Urine Blood (Negative) Urine Nitrite (Negative) Urine Bilirubin (Negative) Urine Urobilinogen (0.2) mg/dL Ur Leukocyte Esterase (Negative) U Hyaline Cast (Auto) (0-2) /LPF Urine Microscopic RBC (0-5) /HPF Urine Microscopic WBC (0-5) /HPF Ur Epithelial Cells (None Seen) /HPF Urine Bacteria (None Seen) /HPF Urine Culture Reflexed (NO) Monoscreen NEGATIVE (NEGATIVE) Influenza Type A Ag (NEGATIVE) Influenza Type B Ag (NEGATIVE) RSV (PCR) (NEGATIVE) SARS-CoV-2 (PCR) (NEGATIVE) Group A Strep Antibody NOT DETECTED (NEGATIVE) 01/26/24 01/26/24 01/26/24 Range/Units 13:05 13:05 14:00 WBC (3.98-10.04) x10^3/uL RBC (3.93-5.22) x10^6/uL Hgb (11.2-15.7) g/dL Hct (34.1-44.9) % MCV (79.4-94.8) fL MCH (25.6-32.2) pg MCHC (32.2-35.5) g/dL RDW (11.7-14.4) % Plt Count (182-369) x10^3/uL MPV (9.4-12.3) fL Gran % (34.0-71.1) % Immature Gran % (Auto) (0.001-0.429) % Nucleat RBC Rel Count (0.00-0.2) % Eos # (Auto) (0.04-0.36) x10^3/uL Immature Gran # (Auto) (0.001-0.031) x10^3u/L Absolute Lymphs (auto) (1.18-3.74) x10^3/uL Absolute Monos (auto) (0.24-0.86) x10^3/uL Absolute Nucleated RBC (0.00-0.012) x10^3u/L Lymphocytes % (19.3-51.7) % Monocytes % (4.7-12.5) % Eosinophils % (0.7-5.8) % Basophils % (0.1-1.2) % Absolute Granulocytes (1.56-6.13) x10^3/uL Basophils # (0.01-0.08) x10^3/uL Sodium (135-145) mmol/L Potassium (3.5-5.1) mmol/L Chloride (98-107) mmol/L Carbon Dioxide (22-30) mmol/L Anion Gap (5-15) MEQ/L BUN (7-17) mg/dL Creatinine (0.52-1.04) mg/dL Estimated GFR ML/MIN Glucose (74-106) mg/dL POC Glucometer (74 to 106) mg/dL Calcium (8.4-10.2) mg/dL Magnesium (1.6-2.3) mg/dL Total Bilirubin (0.2-1.3) mg/dL AST (14-36) U/L ALT (0-35) U/L Alkaline Phosphatase (38-126) U/L Troponin I (0.000-0.033) ng/mL NT-Pro-B Natriuret Pep (<300) pg/mL Serum Total Protein (6.3-8.2) g/dL Albumin (3.5-5.0) g/dL Prealbumin (17.6-36.0) mg/dL Procalcitonin (0.030-0.080) ng/mL Free T4 1.05 (0.78-2.19) ng/dL TSH 3rd Generation (0.470-4.680) mIU/L Urine Color Yellow (Yellow) Urine Appearance Clear (Clear) Urine pH 7.5 (4.6-8.0) Ur Specific Driggs <=1.005 (1.005-1.030) Urine Protein 30 (Negative) Urine Glucose (UA) Negative (Negative) mg/dL Urine Ketones Negative (Negative) Urine Blood Moderate A (Negative) Urine Nitrite Negative (Negative) Urine Bilirubin Negative (Negative) Urine Urobilinogen 0.2 (0.2) mg/dL Ur Leukocyte Esterase Small A (Negative) U Hyaline Cast (Auto) NONE SEEN (0-2) /LPF Urine Microscopic RBC 6-10 A (0-5) /HPF Urine Microscopic WBC 6-10 A (0-5) /HPF Ur Epithelial Cells None Seen (None Seen) /HPF Urine Bacteria None Seen (None Seen) /HPF Urine Culture Reflexed ORDERED SEPARATELY (NO) Monoscreen (NEGATIVE) Influenza Type A Ag NEGATIVE (NEGATIVE) Influenza Type B Ag NEGATIVE (NEGATIVE) RSV (PCR) NEGATIVE (NEGATIVE) SARS-CoV-2 (PCR) NEGATIVE (NEGATIVE) Group A Strep Antibody (NEGATIVE) 01/26/24 01/26/24 01/26/24 Range/Units 14:53 15:30 20:41 WBC (3.98-10.04) x10^3/uL RBC (3.93-5.22) x10^6/uL Hgb (11.2-15.7) g/dL Hct (34.1-44.9) % MCV (79.4-94.8) fL MCH (25.6-32.2) pg MCHC (32.2-35.5) g/dL RDW (11.7-14.4) % Plt Count (182-369) x10^3/uL MPV (9.4-12.3) fL Gran % (34.0-71.1) % Immature Gran % (Auto) (0.001-0.429) % Nucleat RBC Rel Count (0.00-0.2) % Eos # (Auto) (0.04-0.36) x10^3/uL Immature Gran # (Auto) (0.001-0.031) x10^3u/L Absolute Lymphs (auto) (1.18-3.74) x10^3/uL Absolute Monos (auto) (0.24-0.86) x10^3/uL Absolute Nucleated RBC (0.00-0.012) x10^3u/L Lymphocytes % (19.3-51.7) % Monocytes % (4.7-12.5) % Eosinophils % (0.7-5.8) % Basophils % (0.1-1.2) % Absolute Granulocytes (1.56-6.13) x10^3/uL Basophils # (0.01-0.08) x10^3/uL Sodium (135-145) mmol/L Potassium (3.5-5.1) mmol/L Chloride (98-107) mmol/L Carbon Dioxide (22-30) mmol/L Anion Gap (5-15) MEQ/L BUN (7-17) mg/dL Creatinine (0.52-1.04) mg/dL Estimated GFR ML/MIN Glucose (74-106) mg/dL POC Glucometer 150 H (74 to 106) mg/dL Calcium (8.4-10.2) mg/dL Magnesium (1.6-2.3) mg/dL Total Bilirubin (0.2-1.3) mg/dL AST (14-36) U/L ALT (0-35) U/L Alkaline Phosphatase (38-126) U/L Troponin I 0.025 0.023 (0.000-0.033) ng/mL NT-Pro-B Natriuret Pep (<300) pg/mL Serum Total Protein (6.3-8.2) g/dL Albumin (3.5-5.0) g/dL Prealbumin (17.6-36.0) mg/dL Procalcitonin (0.030-0.080) ng/mL Free T4 (0.78-2.19) ng/dL TSH 3rd Generation (0.470-4.680) mIU/L Urine Color (Yellow) Urine Appearance (Clear) Urine pH (4.6-8.0) Ur Specific Dr[place] (1.005-1.030) Urine Protein (Negative) Urine Glucose (UA) (Negative) mg/dL Urine Ketones (Negative) Urine Blood (Negative) Urine Nitrite (Negative) Urine Bilirubin (Negative) Urine Urobilinogen (0.2) mg/dL Ur Leukocyte Esterase (Negative) U Hyaline Cast (Auto) (0-2) /LPF Urine Microscopic RBC (0-5) /HPF Urine Microscopic WBC (0-5) /HPF Ur Epithelial Cells (None Seen) /HPF Urine Bacteria (None Seen) /HPF Urine Culture Reflexed (NO) Monoscreen (NEGATIVE) Influenza Type A Ag (NEGATIVE) Influenza Type B Ag (NEGATIVE) RSV (PCR) (NEGATIVE) SARS-CoV-2 (PCR) (NEGATIVE) Group A Strep Antibody (NEGATIVE) 01/26/24 01/26/24 01/27/24 Range/Units 20:41 23:05 04:27 WBC (3.98-10.04) x10^3/uL RBC (3.93-5.22) x10^6/uL Hgb (11.2-15.7) g/dL Hct (34.1-44.9) % MCV (79.4-94.8) fL MCH (25.6-32.2) pg MCHC (32.2-35.5) g/dL RDW (11.7-14.4) % Plt Count (182-369) x10^3/uL MPV (9.4-12.3) fL Gran % (34.0-71.1) % Immature Gran % (Auto) (0.001-0.429) % Nucleat RBC Rel Count (0.00-0.2) % Eos # (Auto) (0.04-0.36) x10^3/uL Immature Gran # (Auto) (0.001-0.031) x10^3u/L Absolute Lymphs (auto) (1.18-3.74) x10^3/uL Absolute Monos (auto) (0.24-0.86) x10^3/uL Absolute Nucleated RBC (0.00-0.012) x10^3u/L Lymphocytes % (19.3-51.7) % Monocytes % (4.7-12.5) % Eosinophils % (0.7-5.8) % Basophils % (0.1-1.2) % Absolute Granulocytes (1.56-6.13) x10^3/uL Basophils # (0.01-0.08) x10^3/uL Sodium (135-145) mmol/L Potassium (3.5-5.1) mmol/L Chloride (98-107) mmol/L Carbon Dioxide (22-30) mmol/L Anion Gap (5-15) MEQ/L BUN (7-17) mg/dL Creatinine (0.52-1.04) mg/dL Estimated GFR ML/MIN Glucose (74-106) mg/dL POC Glucometer 180 H 133 H (74 to 106) mg/dL Calcium (8.4-10.2) mg/dL Magnesium (1.6-2.3) mg/dL Total Bilirubin (0.2-1.3) mg/dL AST (14-36) U/L ALT (0-35) U/L Alkaline Phosphatase (38-126) U/L Troponin I (0.000-0.033) ng/mL NT-Pro-B Natriuret Pep (<300) pg/mL Serum Total Protein (6.3-8.2) g/dL Albumin (3.5-5.0) g/dL Prealbumin 28.74 (17.6-36.0) mg/dL Procalcitonin (0.030-0.080) ng/mL Free T4 (0.78-2.19) ng/dL TSH 3rd Generation (0.470-4.680) mIU/L Urine Color (Yellow) Urine Appearance (Clear) Urine pH (4.6-8.0) Ur Specific [place] (1.005-1.030) Urine Protein (Negative) Urine Glucose (UA) (Negative) mg/dL Urine Ketones (Negative) Urine Blood (Negative) Urine Nitrite (Negative) Urine Bilirubin (Negative) Urine Urobilinogen (0.2) mg/dL Ur Leukocyte Esterase (Negative) U Hyaline Cast (Auto) (0-2) /LPF Urine Microscopic RBC (0-5) /HPF Urine Microscopic WBC (0-5) /HPF Ur Epithelial Cells (None Seen) /HPF Urine Bacteria (None Seen) /HPF Urine Culture Reflexed (NO) Monoscreen (NEGATIVE) Influenza Type A Ag (NEGATIVE) Influenza Type B Ag (NEGATIVE) RSV (PCR) (NEGATIVE) SARS-CoV-2 (PCR) (NEGATIVE) Group A Strep Antibody (NEGATIVE) 01/27/24 01/27/24 01/27/24 Range/Units 04:30 05:00 05:00 WBC 11.1 H (3.98-10.04) x10^3/uL RBC 3.01 L (3.93-5.22) x10^6/uL Hgb 8.6 L (11.2-15.7) g/dL Hct 26.4 L (34.1-44.9) % MCV 87.7 (79.4-94.8) fL MCH 28.6 (25.6-32.2) pg MCHC 32.6 (32.2-35.5) g/dL RDW 15.4 H (11.7-14.4) % Plt Count 428 H (182-369) x10^3/uL MPV 9.5 (9.4-12.3) fL Gran % 70.2 (34.0-71.1) % Immature Gran % (Auto) 3.7 H (0.001-0.429) % Nucleat RBC Rel Count 0.0 (0.00-0.2) % Eos # (Auto) 0.09 (0.04-0.36) x10^3/uL Immature Gran # (Auto) 0.41 H (0.001-0.031) x10^3u/L Absolute Lymphs (auto) 1.81 (1.18-3.74) x10^3/uL Absolute Monos (auto) 0.98 H (0.24-0.86) x10^3/uL Absolute Nucleated RBC 0.00 (0.00-0.012) x10^3u/L Lymphocytes % 16.3 L (19.3-51.7) % Monocytes % 8.8 (4.7-12.5) % Eosinophils % 0.8 (0.7-5.8) % Basophils % 0.2 (0.1-1.2) % Absolute Granulocytes 7.77 H (1.56-6.13) x10^3/uL Basophils # 0.02 (0.01-0.08) x10^3/uL Sodium 131 L (135-145) mmol/L Potassium 4.6 (3.5-5.1) mmol/L Chloride 97 L (98-107) mmol/L Carbon Dioxide 29 (22-30) mmol/L Anion Gap 8.5 (5-15) MEQ/L BUN 26 H (7-17) mg/dL Creatinine 1.09 H (0.52-1.04) mg/dL Estimated GFR 49.5 ML/MIN Glucose 158 H (74-106) mg/dL POC Glucometer (74 to 106) mg/dL Calcium 7.7 L (8.4-10.2) mg/dL Magnesium (1.6-2.3) mg/dL Total Bilirubin 0.40 (0.2-1.3) mg/dL AST 27 (14-36) U/L ALT 35 (0-35) U/L Alkaline Phosphatase 53 (38-126) U/L Troponin I (0.000-0.033) ng/mL NT-Pro-B Natriuret Pep 2410 (<300) pg/mL Serum Total Protein 5.0 L (6.3-8.2) g/dL Albumin 2.5 L (3.5-5.0) g/dL Prealbumin (17.6-36.0) mg/dL Procalcitonin 0.064 (0.030-0.080) ng/mL Free T4 (0.78-2.19) ng/dL TSH 3rd Generation (0.470-4.680) mIU/L Urine Color (Yellow) Urine Appearance (Clear) Urine pH (4.6-8.0) Ur Specific [place] (1.005-1.030) Urine Protein (Negative) Urine Glucose (UA) (Negative) mg/dL Urine Ketones (Negative) Urine Blood (Negative) Urine Nitrite (Negative) Urine Bilirubin (Negative) Urine Urobilinogen (0.2) mg/dL Ur Leukocyte Esterase (Negative) U Hyaline Cast (Auto) (0-2) /LPF Urine Microscopic RBC (0-5) /HPF Urine Microscopic WBC (0-5) /HPF Ur Epithelial Cells (None Seen) /HPF Urine Bacteria (None Seen) /HPF Urine Culture Reflexed (NO) Monoscreen (NEGATIVE) Influenza Type A Ag (NEGATIVE) Influenza Type B Ag (NEGATIVE) RSV (PCR) (NEGATIVE) SARS-CoV-2 (PCR) (NEGATIVE) Group A Strep Antibody (NEGATIVE) 01/27/24 01/27/24 Range/Units 07:02 11:14 WBC (3.98-10.04) x10^3/uL RBC (3.93-5.22) x10^6/uL Hgb (11.2-15.7) g/dL Hct (34.1-44.9) % MCV (79.4-94.8) fL MCH (25.6-32.2) pg MCHC (32.2-35.5) g/dL RDW (11.7-14.4) % Plt Count (182-369) x10^3/uL MPV (9.4-12.3) fL Gran % (34.0-71.1) % Immature Gran % (Auto) (0.001-0.429) % Nucleat RBC Rel Count (0.00-0.2) % Eos # (Auto) (0.04-0.36) x10^3/uL Immature Gran # (Auto) (0.001-0.031) x10^3u/L Absolute Lymphs (auto) (1.18-3.74) x10^3/uL Absolute Monos (auto) (0.24-0.86) x10^3/uL Absolute Nucleated RBC (0.00-0.012) x10^3u/L Lymphocytes % (19.3-51.7) % Monocytes % (4.7-12.5) % Eosinophils % (0.7-5.8) % Basophils % (0.1-1.2) % Absolute Granulocytes (1.56-6.13) x10^3/uL Basophils # (0.01-0.08) x10^3/uL Sodium (135-145) mmol/L Potassium (3.5-5.1) mmol/L Chloride (98-107) mmol/L Carbon Dioxide (22-30) mmol/L Anion Gap (5-15) MEQ/L BUN (7-17) mg/dL Creatinine (0.52-1.04) mg/dL Estimated GFR ML/MIN Glucose (74-106) mg/dL POC Glucometer 123 H 181 H (74 to 106) mg/dL Calcium (8.4-10.2) mg/dL Magnesium (1.6-2.3) mg/dL Total Bilirubin (0.2-1.3) mg/dL AST (14-36) U/L ALT (0-35) U/L Alkaline Phosphatase (38-126) U/L Troponin I (0.000-0.033) ng/mL NT-Pro-B Natriuret Pep (<300) pg/mL Serum Total Protein (6.3-8.2) g/dL Albumin (3.5-5.0) g/dL Prealbumin (17.6-36.0) mg/dL Procalcitonin (0.030-0.080) ng/mL Free T4 (0.78-2.19) ng/dL TSH 3rd Generation (0.470-4.680) mIU/L Urine Color (Yellow) Urine Appearance (Clear) Urine pH (4.6-8.0) Ur Specific [place] (1.005-1.030) Urine Protein (Negative) Urine Glucose (UA) (Negative) mg/dL Urine Ketones (Negative) Urine Blood (Negative) Urine Nitrite (Negative) Urine Bilirubin (Negative) Urine Urobilinogen (0.2) mg/dL Ur Leukocyte Esterase (Negative) U Hyaline Cast (Auto) (0-2) /LPF Urine Microscopic RBC (0-5) /HPF Urine Microscopic WBC (0-5) /HPF Ur Epithelial Cells (None Seen) /HPF Urine Bacteria (None Seen) /HPF Urine Culture Reflexed (NO) Monoscreen (NEGATIVE) Influenza Type A Ag (NEGATIVE) Influenza Type B Ag (NEGATIVE) RSV (PCR) (NEGATIVE) SARS-CoV-2 (PCR) (NEGATIVE) Group A Strep Antibody (NEGATIVE) Radiology Exams: Radiology Procedures Category Date Time Status CHEST 1 VIEW (PORTABLE) Stat Exams 01/26/24 12:40 Completed Multi-Disciplinary Progress Notes: Multi-Disciplinary Progress Notes 01/27/24 11:33 Case Management Note by Elsa Marlow PASRR INITIATED, NO LEVEL II REQUIRED. LEVEL OF CARE INITIATED Initialized on 01/27/24 11:33 - END OF NOTE 01/27/24 11:08 Case Management Note by Elsa Marlow PATIENT HAS [facility]. THEY WERE NOTIFIED PATIENT HERE OBS. THEY WILL NEED NOTIFIED AT TIME OF DC AT [phone]. THEY WILL NEED FAXED THE DC INSTRUCTIONS, DC MED LIST AND DC SUMMARY TO [phone] Initialized on 01/27/24 11:08 - END OF NOTE 01/27/24 10:55 Case Management Note by Elsa Marlow S/W SON ANDREA- HE WOULD LIKE PATIENT TO GO [facility] FOR REHAB STAY. REFERRAL FAXED Initialized on 01/27/24 10:55 - END OF NOTE Assessment/Plan (1) UTI (urinary tract infection) Current Visit: Yes Status: Acute Code(s): N39.0 - URINARY TRACT INFECTION, SITE NOT SPECIFIED (2) Oral candidiasis Current Visit: Yes Status: Acute Code(s): B37.0 - CANDIDAL STOMATITIS (3) COPD exacerbation Current Visit: No Status: Acute Code(s): J44.1 - CHRONIC OBSTRUCTIVE PULMONARY DISEASE W (ACUTE) EXACERBATION (4) Hip pain, left Current Visit: Yes Status: Acute Code(s): M25.552 - PAIN IN LEFT HIP (5) CHF (congestive heart failure) Current Visit: Yes Status: Chronic Code(s): I50.9 - HEART FAILURE, UNSPECIFIED (6) Hyponatremia Current Visit: Yes Status: Acute Code(s): E87.1 - HYPO-OSMOLALITY AND HYPONATREMIA (7) Vitamin D deficiency Current Visit: No Status: Chronic Code(s): E55.9 - VITAMIN D DEFICIENCY, UNSPECIFIED (8) Weakness Current Visit: No Status: Acute Code(s): R53.1 - WEAKNESS (9) Hypertension Current Visit: No Status: Chronic Code(s): I10 - ESSENTIAL (PRIMARY) HYPERTENSION (10) Hypothyroidism Current Visit: No Status: Chronic Code(s): E03.9 - HYPOTHYROIDISM, UNSPECIFIED (11) Type II diabetes mellitus Current Visit: No Status: Chronic Qualifiers: Diabetes mellitus long term care social worker insulin use: with long term care social worker use Diabetes mellitus complication status: with circulatory complication Diabetes mellitus complication detail: with peripheral angiopathy without gangrene Qualified Code(s): E11.51 - Type 2 diabetes mellitus with diabetic peripheral angiopathy without gangrene; Z79.4 - long term care social worker (current) use of insulin Assessment & Plan: (1) UTI (urinary tract infection) Current Visit: Yes Status: Acute Assessment & Plan: - UC negative - D/C brown - place purewick Code(s): N39.0 - URINARY TRACT INFECTION, SITE NOT SPECIFIED (2) Oral candidiasis Current Visit: Yes Status: Acute Assessment & Plan: - From + type II DM and sent home last visit on steroids - steroids discontinued. - Cassie's magic mouthwash QID - Fluconazole gave in ER IV x1 Code(s): B37.0 - CANDIDAL STOMATITIS (3) COPD exacerbation Current Visit: No Status: Acute Assessment & Plan: - Baseline 2lNC at night- pt feels she needs it all the time - RT eval and treat keep O2 > 92% - IV antibiotics. - Steroids not needed at this time. - CXR reviewed - procal negative - CBC, AMP reviewed Code(s): J44.1 - CHRONIC OBSTRUCTIVE PULMONARY DISEASE W (ACUTE) EXACERBATION (4) Hip pain, left Current Visit: Yes Status: Acute Assessment & Plan: - acute on chronic - XR left hip- pt refused - PT/OT eval Code(s): M25.552 - PAIN IN LEFT HIP (5) CHF (congestive heart failure) Current Visit: Yes Status: Chronic Assessment & Plan: - not in acute exacerbation - Continue home meds Code(s): I50.9 - HEART FAILURE, UNSPECIFIED (6) Hyponatremia Current Visit: Yes Status: Acute Assessment & Plan: - Na+ 129 - fluid restriction 1 L 01/26 - Na+ 131- improving Code(s): E87.1 - HYPO-OSMOLALITY AND HYPONATREMIA (7) Vitamin D deficiency Current Visit: No Status: Chronic Assessment & Plan: - Continue Vitamin D Code(s): E55.9 - VITAMIN D DEFICIENCY, UNSPECIFIED (8) Weakness Current Visit: No Status: Acute Assessment & Plan: - PT/ OT eval and treat - consider rehab at D/C vs ECF placement Code(s): R53.1 - WEAKNESS (9) Hypertension Current Visit: No Status: Chronic Assessment & Plan: - BP elevated- monitor - Continue home meds Code(s): I10 - ESSENTIAL (PRIMARY) HYPERTENSION (10) Hypothyroidism Current Visit: No Status: Chronic Assessment & Plan: - Continue Synthroid Code(s): E03.9 - HYPOTHYROIDISM, UNSPECIFIED (11) Type II diabetes mellitus Current Visit: No Status: Chronic Qualifiers: Diabetes mellitus long term care social worker insulin use: with snf use Diabetes mellitus complication status: with circulatory complication Diabetes mellitus complication detail: with peripheral angiopathy without gangrene Qualified Code(s): E11.51 - Type 2 diabetes mellitus with diabetic peripheral angiopathy without gangrene; Z79.4 - [facility] (current) use of insulin Assessment & Plan: - A1C 7.44-01/13/24 -Controlled - Continue home meds - accuchecks Ac/HS - Pt historically noncompliant with insulin VTE: Plavix Next of KIN: daughter D/C plan: tomorrow? Code status: Full
[2024-01-27] MEDS: HUMULIN R SQ PRN (12:21)
[2024-01-28 04:54] LABS: Hematocrit 24.3 % (34.1-44.9); Hemoglobin 7.7 g/dL (11.2-15.7); Mean Cell Volume 88.4 fL (79.4-94.8); Mean Corpuscular Hgb Concent. 31.7 g/dL (32.2-35.5); Mean Platelet Volume 9.2 fL (9.4-12.3); Platelet Count 320 x10^3/uL (182-369); Red Blood Count 2.75 x10^6/uL (3.93-5.22); Red Cell Distribution Width 15.7 % (11.7-14.4)
[2024-01-28 05:09] LABS: ALBUMIN 2.3 g/dL (3.5-5.0); ANION GAP 6.5 MEQ/L (5-15); BILIRUBIN,TOTAL 0.4 mg/dL (0.2-1.3); Calcium 7.3 mg/dL (8.4-10.2); Creatinine 1 1.06 mg/dL (0.52-1.04); EST GLOMERULAR FILTRATION RATE 51.2 ML/MIN; Potassium 4.5 mmol/L (3.5-5.1); Total Protein 4.4 g/dL (6.3-8.2)
[2024-01-28] MEDS: Lasix 20 MG/2 ML IV ONE (09:25)
--- NOTE | 2024-01-28 09:40 | XRAY ---
Indication: Short of breath. Comparison: January 26, 2024 Portable chest again hyperinflated with grossly stable mild left base infiltrates/atelectasis/effusion. New minimal right base infiltrate versus atelectasis. Remaining heart and upper lungs unremarkable.
--- NOTE | 2024-01-28 13:19 | PCM.NOTE ---
Date and Time: 01/28/24 1313 Subjective Assessment: 01/26/24 is a 88 year old female with PMHX of gastroesophageal reflux disease, hypothyroidism, insulin-dependent diabetes, hypertension, hyperlipidemia, asthma, coronary artery disease (cardiac stent) on Plavix, CHF and chronic bilateral lower extremity cellulitis. She presented to the emergency department with symptoms of worsening weakness, shortness of breath, cough and painful sores in her mouth since yesterday. Patient was admitted into the hospital here at [facility] on 01/12 and remained inpatient until 01/22/2024. She was discharged at that time. Her clinical impressions at the time of discharge include COPD, bilateral lower extremity cellulitis, hyponatremia, shortness of breath and hypertension. At the time of discharge she was placed on 2 L of oxygen via nasal cannula to wear at night. However in the last day or so she has been wearing it at all times. She has had decreased oral intake secondary to painful sores in her mouth. Overall, she does not feel well. She has been on antibiotics and steroids since her d/c. UA shows possible UTI and IV antibiotics started- will continue until UC is back. Lung sounds are clear after duoneb gave in ER. She was also gave zofran in ER but she reports she has no current nausea. She admits to chronic left hip pain and feels like the pins are poking out. Will order left hip XR. She denies any recent fall. A brown was placed in ER and this will be discontinued. Discussed with nurse and purewick can be used. She states she does not feel well but denies dysuria. She lives in [facility] and may need rehab or ECF placement at D/C. She deneis CP, SOB, abd pain, N/V/D at this time. 01/27/24 Pt resting in bed. She states she continues to feel weak but better than yesterday. Na+ has improved but continues to have mild hyponatremia. CXR reviewed and Procal negative. Pt does not have pneumonia. UC negative. Will co ntinue antibiotics for COPD exacerbation. She continues to require 2lNC- 94%. PT to eval for rehab vs ECF placement. Pt feels she is too weak to go back to assisted living. She refused hip XR yesterday. Brown was not removed as ordered yesterday. Pt has some vaginal redness and barrier cream can be applied but no wounds to skin in mathieu-area. Therefore does not meet criteria for Brown. Discussed pt case with infection control regarding borwn. Asked again today for brown to be removed per orders and purewick placed. Pt was able to get up to chair with staff today. Pt does not have cellulitis and has chronic PAD. She needs to f/u with vascular surgery OP. Pt reports her mouth sores are improving and will continue Cassie's magic mouthwash. She was able to eat all her breakfast without concern today. BP improved after morning meds. She denies CP, abd. pain, N/V/D. 01/28/24 Pt resting in bed. Her face appears swollen and she has crackles of lungs this AM. IV lasix x1 ordered and CXR. She states she had several epidsodes last night where she has impending doom and feels she will pass away today. Reassured her that her labs are looking much better. Podiatry explained pt had an appointment with him today and he would like to see pt and rewrap BLLE. He also wants to order further testing of BLLE- clarification of this order is pending. Hgb 7.7 and occult stool pending. She again refused insulin this AM and has a hx of non- compliance with meds. She is pending rehab placement. Corrected Ca+ 8.3 today. UC and BC x2 negative. She denies CP, abd. pain, N/V/D. - Review of Systems Constitutional: Fatigue, Weakness, No Fever, No Chills Eyes: No Symptoms Ears, Nose, & Throat: No Symptoms Respiratory: Short Of Breath, No Cough Cardiac: No Chest Pain, No Edema, No Syncope Abdominal/Gastrointestinal: No Abdominal Pain, No Nausea, No Vomiting, No Diarrhea Genitourinary Symptoms: No Dysuria Musculoskeletal: No Back Pain, No Neck Pain Skin: No Rash Neurological: No Dizziness, No Focal Weakness, No Sensory Changes Psychological: No Symptoms, Anxiety, Emotional Lability Endocrine: No Symptoms Hematologic/Lymphatic: No Symptoms Immunological/Allergic: No Symptoms Objective Exam General Appearance: no apparent distress, alert Neurologic Exam: alert, oriented x 3, cooperative, nml cerebellar function, sensation nml, motor weakness, No motor deficits Skin Exam: warm, dry, pale Eye Exam: PERRL, EOMI, eyes nml inspection Ears, Nose, Throat Exam: normal ENT inspection, pharynx normal, moist mucous membranes Neck Exam: normal inspection, non-tender, supple, full range of motion Respiratory Exam: crackles/rales (BLLL), No respiratory distress Cardiovascular Exam: regular rate/rhythm, normal heart sounds Gastrointestinal/Abdomen Exam: soft, No tenderness, No mass Extremity Exam: normal inspection, normal range of motion Back Exam: normal inspection, normal range of motion, No CVA tenderness, No vertebral tenderness Pelvic Exam: deferred Rectal Exam: deferred Objective Data Vital Signs: Vital Signs - 24 hr Temp Pulse Resp BP Pulse Ox 01/28/24 13:05 62 16 98 01/28/24 07:52 97.7 F 72 18 174/78 98 01/28/24 05:35 63 16 97 01/28/24 04:00 97.3 F 58 L 20 147/67 97 01/28/24 00:00 97.3 F 57 L 19 138/67 98 01/27/24 20:00 97.5 F 59 L 20 118/58 96 01/27/24 19:25 66 18 98 01/27/24 16:00 97.3 F 62 16 152/68 95 01/27/24 13:53 66 18 95 Pain Assessment - Last Documented Pain Intensity 0 Intake and Output: Intake & Output 01/26/24 01/27/24 01/28/24 01/29/24 11:59 11:59 11:59 11:59 Intake Total 600 860 Output Total 4100 450 Balance -3500 410 Weight 73.9 kg 73 kg Lab Results: Lab Results-Last 24 Hours 01/27/24 01/27/24 01/27/24 Range/Units 16:20 19:31 22:16 WBC (3.98-10.04) x10^3/uL RBC (3.93-5.22) x10^6/uL Hgb (11.2-15.7) g/dL Hct (34.1-44.9) % MCV (79.4-94.8) fL MCH (25.6-32.2) pg MCHC (32.2-35.5) g/dL RDW (11.7-14.4) % Plt Count (182-369) x10^3/uL MPV (9.4-12.3) fL Sodium (135-145) mmol/L Potassium (3.5-5.1) mmol/L Chloride (98-107) mmol/L Carbon Dioxide (22-30) mmol/L Anion Gap (5-15) MEQ/L BUN (7-17) mg/dL Creatinine (0.52-1.04) mg/dL Estimated GFR ML/MIN Glucose (74-106) mg/dL POC Glucometer 181 H 176 H 181 H (74 to 106) mg/dL Calcium (8.4-10.2) mg/dL Total Bilirubin (0.2-1.3) mg/dL AST (14-36) U/L ALT (0-35) U/L Alkaline Phosphatase (38-126) U/L Serum Total Protein (6.3-8.2) g/dL Albumin (3.5-5.0) g/dL 01/28/24 01/28/24 01/28/24 Range/Units 03:04 04:35 04:35 WBC 9.0 (3.98-10.04) x10^3/uL RBC 2.75 L (3.93-5.22) x10^6/uL Hgb 7.7 L (11.2-15.7) g/dL Hct 24.3 L (34.1-44.9) % MCV 88.4 (79.4-94.8) fL MCH 28.0 (25.6-32.2) pg MCHC 31.7 L (32.2-35.5) g/dL RDW 15.7 H (11.7-14.4) % Plt Count 320 (182-369) x10^3/uL MPV 9.2 L (9.4-12.3) fL Sodium 130 L (135-145) mmol/L Potassium 4.5 (3.5-5.1) mmol/L Chloride 98 (98-107) mmol/L Carbon Dioxide 30 (22-30) mmol/L Anion Gap 6.5 (5-15) MEQ/L BUN 23 H (7-17) mg/dL Creatinine 1.06 H (0.52-1.04) mg/dL Estimated GFR 51.2 ML/MIN Glucose 184 H (74-106) mg/dL POC Glucometer 191 H (74 to 106) mg/dL Calcium 7.3 L (8.4-10.2) mg/dL Total Bilirubin 0.40 (0.2-1.3) mg/dL AST 21 (14-36) U/L ALT 26 (0-35) U/L Alkaline Phosphatase 51 (38-126) U/L Serum Total Protein 4.4 L (6.3-8.2) g/dL Albumin 2.3 L (3.5-5.0) g/dL 01/28/24 01/28/24 Range/Units 07:10 11:55 WBC (3.98-10.04) x10^3/uL RBC (3.93-5.22) x10^6/uL Hgb (11.2-15.7) g/dL Hct (34.1-44.9) % MCV (79.4-94.8) fL MCH (25.6-32.2) pg MCHC (32.2-35.5) g/dL RDW (11.7-14.4) % Plt Count (182-369) x10^3/uL MPV (9.4-12.3) fL Sodium (135-145) mmol/L Potassium (3.5-5.1) mmol/L Chloride (98-107) mmol/L Carbon Dioxide (22-30) mmol/L Anion Gap (5-15) MEQ/L BUN (7-17) mg/dL Creatinine (0.52-1.04) mg/dL Estimated GFR ML/MIN Glucose (74-106) mg/dL POC Glucometer 156 H 325 H (74 to 106) mg/dL Calcium (8.4-10.2) mg/dL Total Bilirubin (0.2-1.3) mg/dL AST (14-36) U/L ALT (0-35) U/L Alkaline Phosphatase (38-126) U/L Serum Total Protein (6.3-8.2) g/dL Albumin (3.5-5.0) g/dL Radiology Exams: Radiology Procedures Category Date Time Status CHEST 1 VIEW (PORTABLE) Stat Exams 01/26/24 12:40 Completed CHEST 1 VIEW (PORTABLE) Stat Exams 01/28/24 09:09 Completed Assessment/Plan (1) UTI (urinary tract infection) Current Visit: Yes Status: Acute Code(s): N39.0 - URINARY TRACT INFECTION, SITE NOT SPECIFIED (2) Oral candidiasis Current Visit: Yes Status: Acute Code(s): B37.0 - CANDIDAL STOMATITIS (3) COPD exacerbation Current Visit: No Status: Acute Code(s): J44.1 - CHRONIC OBSTRUCTIVE PULMONARY DISEASE W (ACUTE) EXACERBATION (4) Hip pain, left Current Visit: Yes Status: Acute Code(s): M25.552 - PAIN IN LEFT HIP (5) CHF (congestive heart failure) Current Visit: Yes Status: Chronic Code(s): I50.9 - HEART FAILURE, UNSPECIFIED (6) Hyponatremia Current Visit: Yes Status: Acute Code(s): E87.1 - HYPO-OSMOLALITY AND HYPONATREMIA (7) Vitamin D deficiency Current Visit: No Status: Chronic Code(s): E55.9 - VITAMIN D DEFICIENCY, UNSPECIFIED (8) Weakness Current Visit: No Status: Acute Code(s): R53.1 - WEAKNESS (9) Hypertension Current Visit: No Status: Chronic Code(s): I10 - ESSENTIAL (PRIMARY) HYPERTENSION (10) Hypothyroidism Current Visit: No Status: Chronic Code(s): E03.9 - HYPOTHYROIDISM, UNSPECIFIED (11) Type II diabetes mellitus Current Visit: No Status: Chronic Qualifiers: Diabetes mellitus care home insulin use: with care home use Diabetes mellitus complication status: with circulatory complication Diabetes mellitus complication detail: with peripheral angiopathy without gangrene Qualified Code(s): E11.51 - Type 2 diabetes mellitus with diabetic peripheral angiopathy without gangrene; Z79.4 - nursing home (current) use of insulin Assessment & Plan: (1) UTI (urinary tract infection) Current Visit: Yes Status: Acute Assessment & Plan: - UC negative - D/C brown - place purewick Code(s): N39.0 - URINARY TRACT INFECTION, SITE NOT SPECIFIED (2) Oral candidiasis Current Visit: Yes Status: Acute Assessment & Plan: - From + type II DM and sent home last visit on steroids - steroids discontinued. - Cassie's magic mouthwash QID - Fluconazole gave in ER IV x1 Code(s): B37.0 - CANDIDAL STOMATITIS (3) COPD exacerbation Current Visit: No Status: Acute Assessment & Plan: - Baseline 2lNC at night- pt feels she needs it all the time - RT eval and treat keep O2 > 92% - IV antibiotics. - Steroids not needed at this time. - CXR reviewed - procal negative - CBC, CMP reviewed Code(s): J44.1 - CHRONIC OBSTRUCTIVE PULMONARY DISEASE W (ACUTE) EXACERBATION (4) Hip pain, left Current Visit: Yes Status: Acute Assessment & Plan: - acute on chronic - XR left hip- pt refused - PT/OT eval Code(s): M25.552 - PAIN IN LEFT HIP (5) CHF (congestive heart failure) Current Visit: Yes Status: Chronic Assessment & Plan: - not in acute exacerbation - Continue home meds 01/27 - Lasix IV X1 - CXR reviewed Code(s): I50.9 - HEART FAILURE, UNSPECIFIED (6) Hyponatremia Current Visit: Yes Status: Acute Assessment & Plan: - Na+ 129 - fluid restriction 1 L 01/26 - Na+ 131- improving 01/27 - Na+ 130 Code(s): E87.1 - HYPO-OSMOLALITY AND HYPONATREMIA (7) Vitamin D deficiency Current Visit: No Status: Chronic Assessment & Plan: - Continue Vitamin D Code(s): E55.9 - VITAMIN D DEFICIENCY, UNSPECIFIED (8) Weakness Current Visit: No Status: Acute Assessment & Plan: - PT/ OT eval and treat -pending rehab placement Code(s): R53.1 - WEAKNESS (9) Hypertension Current Visit: No Status: Chronic Assessment & Plan: - BP elevated- monitor - Continue home meds Code(s): I10 - ESSENTIAL (PRIMARY) HYPERTENSION (10) Hypothyroidism Current Visit: No Status: Chronic Assessment & Plan: - Continue Synthroid Code(s): E03.9 - HYPOTHYROIDISM, UNSPECIFIED (11) Type II diabetes mellitus Current Visit: No Status: Chronic Qualifiers: Diabetes mellitus termite exterminator helper insulin use: with termite exterminator helper use Diabetes mellitus complication status: with circulatory complication Diabetes mellitus complication detail: with peripheral angiopathy without gangrene Qualified Code(s): E11.51 - Type 2 diabetes mellitus with diabetic peripheral angiopathy without gangrene; Z79.4 - nursing home (current) use of insulin Assessment & Plan: - A1C 7.44-01/13/24 -Controlled - Continue home meds - accuchecks Ac/HS - Pt historically noncompliant with insulin 01/27 - refused insulin again today (12) Anemia Current Visit: Yes Status: Acute Assessment & Plan: - occult stool pending - Hgb 7.7- trend - iron panel VTE: Plavix Next of KIN: daughter D/C plan: tomorrow? Code status: Full Code(s): D64.9 - ANEMIA, UNSPECIFIED
--- NOTE | 2024-01-28 13:40 | PCM.CONS ---
Podiatry HPI - Consult Date of Consultation Date: 01/28/24 Consulting Provider: YUSUF ARMENDARIZ DPM - [facility] History of Present Illness: is a 88 year old female with CHF, COPD presents with SOB, leg swelling. No chest pain. O2 sat was 89% on room air. Patient normally does not require home oxygen. Patient placed on oxygen. Oxygenation improved to 97% on 3 L. Patient currently resting no active shortness of breath at this time and had improvement with nebs in the ED. Medications & Allergies Home Medications: Home Medication List Acetaminophen 325 mg [Tylenol 325 mg] 650 mg PO Q6H PRN PRN 08/12/23 [History Confirmed 01/26/24] Amlodipine Besylate [Norvasc] 10 mg PO DAILY 08/12/23 [History Confirmed 01/26/24] Aspirin EC 81 mg [Ecotrin 81 mg] 81 mg PO DAILY 08/12/23 [History Confirmed 01/26/24] Atorvastatin Calcium 40 mg PO HS 08/12/23 [History Confirmed 01/26/24] Calcium Carbonate [Tums] 1 tab PO DAILY 08/12/23 [History Confirmed 01/26/24] Carboxymethylcellulose Sodium [Refresh Plus] 1 drop OP TID PRN PRN 08/12/23 [History Confirmed 01/26/24] Carvedilol 12.5 mg [Coreg 12.5 mg] 12.5 mg PO BID 08/12/23 [History Confirmed 01/26/24] Clonidine HCl 0.1 mg [Clonidine 0.1 mg Tablet] 0.1 mg PO BID PRN 08/12/23 [History Confirmed 01/26/24] Clopidogrel Bisulfate [PLAVIX Tablet] 75 mg PO DAILY 08/12/23 [History Confirmed 01/26/24] Insulin Aspart [NovoLOG Insulin] 0 units SQ ACHS 08/12/23 [History Confirmed 01/26/24] Insulin Glargine,Hum.rec.anlog [Toujeo Solostar] 10 unit SQ HS 08/12/23 [History Confirmed 01/26/24] Insulin Glargine,Hum.rec.anlog [Toujeo Solostar] 15 unit SQ DAILY 08/12/23 [History Confirmed 01/26/24] Isosorbide Mononitrate 30 mg [Imdur 30 MG] 30 mg PO HS 08/12/23 [History Confirmed 01/26/24] Levothyroxine Sodium 25 Mcg [Synthroid 25 Mcg] 25 mcg PO 0700 08/12/23 [History Confirmed 01/26/24] Nitroglycerin 0.4 mg PO Q5MIN PRN MR X 3 PRN 08/12/23 [History Confirmed 01/26/24] Omeprazole 40 mg PO DAILY 08/12/23 [History Confirmed 01/26/24] Sennosides/Docusate Sodium [Senna-S Tablet] 1 tab PO BID 08/12/23 [History Confirmed 01/26/24] Tramadol HCl 50 mg [Ultram 50 mg] 50 mg PO Q6H PRN PRN 08/12/23 [History Confirmed 01/26/24] Valsartan [Diovan] 320 mg PO DAILY 08/12/23 [History Confirmed 01/26/24] Cholecalciferol (Vitamin D3) [Vitamin D] 2,000 unit PO DAILY 30 Days #60 tablet 01/22/24 [Rx Confirmed 01/26/24] Guaifenesin 600 mg ER [Mucinex 600MG ER Tabs] 600 mg PO BID 7 Days #14 tablet 01/22/24 [Rx Confirmed 01/26/24] Prednisone 20 mg [Deltasone 20 mg] 20 mg PO BID 5 Days #10 tablet 01/22/24 [Rx Confirmed 01/26/24] levoFLOXacin [Levofloxacin] 750 mg PO DAILY 10 Days #10 tablet 01/22/24 [Rx Confirmed 01/26/24] Spironolactone 50 mg PO DAILY 01/26/24 [History Confirmed 01/26/24] Allergies/Adverse Reactions: Allergies Allergy/AdvReac Type Severity Reaction Status Date / Time clindamycin Allergy Verified 01/26/24 12:26 hydralazine Allergy Verified 01/26/24 12:26 oxytetracycline Allergy Verified 01/26/24 12:26 [From Terramycin] sulfamethoxazole Allergy Verified 01/26/24 12:26 [From Bactrim] trimethoprim [From Bactrim] Allergy Verified 01/26/24 12:26 - Past Medical History Past Medical History: Yes Neurological History: No Pertinent History ENT History: Cataracts, Other Cardiac History: Coronary Artery Disease, High Cholesterol, Hypertension Respiratory History: Asthma Endocrine Medical History: Diabetes Type II, Hypothyroidism Musculoskelatal History: Arthritis GI Medical History: GERD, Gallbladder Disease History: No Pertinent History Pyscho-Social History: No Pertinent History Reproductive Disorders: No Pertinent History Comment: dry eyes, BLE wounds and cellulitis - Past Surgical History Past Surgical History: Yes Neuro Surgical History: No Pertinent History Cardiac History: Cardiac Catheterization, Cardiac Stent Respiratory Surgery: No Pertinent History GI Surgical History: Cholecystectomy Genitourinary Surgical Hx: No Pertinent History Musculskeletal Surgical Hx: Orthopedic Surgery Female Surgical History: Other Other Surgical History: breast abcess removed, hip surgery, 2 stents - Social History Smoking Status: Never smoker Exposure to second hand smoke: Yes Alcohol: None Drug Use: none - Social Determinants of Health Will the patient participate in the screening: Yes Do you worry about a steady place to live?: No Do you have any problems with any of the following?: No known problems In the past 12 months,have you had to go without utilities?: No Have you or anyone in your house had to go without enough: No Transportation Issues: No Has anyone in your support network made you feel unsafe?: No Does the patient want assistance with any of the above?: No Comment: Lives at [facility] Physical Exam - Narrative Narrative Physical Exam: Podiatry Physical Exam Results - Labs Lab/Micro Results: Lab Results-Last 24 Hours 01/27/24 01/27/24 01/27/24 Range/Units 16:20 19:31 22:16 WBC (3.98-10.04) x10^3/uL RBC (3.93-5.22) x10^6/uL Hgb (11.2-15.7) g/dL Hct (34.1-44.9) % MCV (79.4-94.8) fL MCH (25.6-32.2) pg MCHC (32.2-35.5) g/dL RDW (11.7-14.4) % Plt Count (182-369) x10^3/uL MPV (9.4-12.3) fL Sodium (135-145) mmol/L Potassium (3.5-5.1) mmol/L Chloride (98-107) mmol/L Carbon Dioxide (22-30) mmol/L Anion Gap (5-15) MEQ/L BUN (7-17) mg/dL Creatinine (0.52-1.04) mg/dL Estimated GFR ML/MIN Glucose (74-106) mg/dL POC Glucometer 181 H 176 H 181 H (74 to 106) mg/dL Calcium (8.4-10.2) mg/dL Total Bilirubin (0.2-1.3) mg/dL AST (14-36) U/L ALT (0-35) U/L Alkaline Phosphatase (38-126) U/L Serum Total Protein (6.3-8.2) g/dL Albumin (3.5-5.0) g/dL 01/28/24 01/28/24 01/28/24 Range/Units 03:04 04:35 04:35 WBC 9.0 (3.98-10.04) x10^3/uL RBC 2.75 L (3.93-5.22) x10^6/uL Hgb 7.7 L (11.2-15.7) g/dL Hct 24.3 L (34.1-44.9) % MCV 88.4 (79.4-94.8) fL MCH 28.0 (25.6-32.2) pg MCHC 31.7 L (32.2-35.5) g/dL RDW 15.7 H (11.7-14.4) % Plt Count 320 (182-369) x10^3/uL MPV 9.2 L (9.4-12.3) fL Sodium 130 L (135-145) mmol/L Potassium 4.5 (3.5-5.1) mmol/L Chloride 98 (98-107) mmol/L Carbon Dioxide 30 (22-30) mmol/L Anion Gap 6.5 (5-15) MEQ/L BUN 23 H (7-17) mg/dL Creatinine 1.06 H (0.52-1.04) mg/dL Estimated GFR 51.2 ML/MIN Glucose 184 H (74-106) mg/dL POC Glucometer 191 H (74 to 106) mg/dL Calcium 7.3 L (8.4-10.2) mg/dL Total Bilirubin 0.40 (0.2-1.3) mg/dL AST 21 (14-36) U/L ALT 26 (0-35) U/L Alkaline Phosphatase 51 (38-126) U/L Serum Total Protein 4.4 L (6.3-8.2) g/dL Albumin 2.3 L (3.5-5.0) g/dL 01/28/24 01/28/24 Range/Units 07:10 11:55 WBC (3.98-10.04) x10^3/uL RBC (3.93-5.22) x10^6/uL Hgb (11.2-15.7) g/dL Hct (34.1-44.9) % MCV (79.4-94.8) fL MCH (25.6-32.2) pg MCHC (32.2-35.5) g/dL RDW (11.7-14.4) % Plt Count (182-369) x10^3/uL MPV (9.4-12.3) fL Sodium (135-145) mmol/L Potassium (3.5-5.1) mmol/L Chloride (98-107) mmol/L Carbon Dioxide (22-30) mmol/L Anion Gap (5-15) MEQ/L BUN (7-17) mg/dL Creatinine (0.52-1.04) mg/dL Estimated GFR ML/MIN Glucose (74-106) mg/dL POC Glucometer 156 H 325 H (74 to 106) mg/dL Calcium (8.4-10.2) mg/dL Total Bilirubin (0.2-1.3) mg/dL AST (14-36) U/L ALT (0-35) U/L Alkaline Phosphatase (38-126) U/L Serum Total Protein (6.3-8.2) g/dL Albumin (3.5-5.0) g/dL Microbiology 01/26/24 12:35 Urine Culture - Final Catherized NO GROWTH 01/26/24 13:05 Blood Culture - Preliminary Blood 01/26/24 12:30 Blood Culture - Preliminary Blood Accuchecks Date 01/28/24 Date 01/28/24 Date 01/27/24 - Radiology Impressions Radiology Exams & Impressions: Radiology Procedures Category Date Time Status CHEST 1 VIEW (PORTABLE) Stat Exams 01/26/24 12:40 Completed CHEST 1 VIEW (PORTABLE) Stat Exams 01/28/24 09:09 Completed Assessment/Plan (1) Peripheral vascular disease Current Visit: Yes Status: Acute Assessment & Plan: vascular studies obtained NIVS demonstrating moderate arteriorsclerosis with obstruction CTA with abdominal runoff ordered for better assessment Will consult with [facility] outpatient on d/c Awaiting placement Code(s): I73.9 - PERIPHERAL VASCULAR DISEASE, UNSPECIFIED (2) CHF (congestive heart failure) Current Visit: Yes Status: Chronic Code(s): I50.9 - HEART FAILURE, UNSPECIFIED (3) COPD exacerbation Current Visit: No Status: Acute Code(s): J44.1 - CHRONIC OBSTRUCTIVE PULMONARY DISEASE W (ACUTE) EXACERBATION (4) Venous insufficiency of both lower extremities Current Visit: No Status: Acute Assessment & Plan: Unna boots removed wounds assessed. Unna boots reapplied due to chronic brawny edema and cellulitis. Patient progressing with current care. moderate compression applied. Code(s): I87.2 - VENOUS INSUFFICIENCY (CHRONIC) (PERIPHERAL) (5) Type II diabetes mellitus Current Visit: No Status: Chronic Qualifiers: Diabetes mellitus fci insulin use: with fci use Diabetes mellitus complication status: with circulatory complication Diabetes mellitus complication detail: with peripheral angiopathy without gangrene Qualified Code(s): E11.51 - Type 2 diabetes mellitus with diabetic peripheral angiopathy without gangrene; Z79.4 - exterminator termite (current) use of insulin
[2024-01-28 14:54] LABS: Iron 33 ug/dL (37-170); Iron Saturation 15 % (20-39); TIBC 217 ug/dL (265-462)
[2024-01-28 16:15] LABS: Folate (Folic Acid) 7.97 ng/mL (2.76 - >20)
[2024-01-29 05:17] LABS: Hematocrit 22.8 % (34.1-44.9); Hemoglobin 7.3 g/dL (11.2-15.7); Mean Cell Volume 88.4 fL (79.4-94.8); Mean Corpuscular Hemoglobin 28.3 pg (25.6-32.2); Mean Platelet Volume 9.3 fL (9.4-12.3); Platelet Count 289 x10^3/uL (182-369); Red Blood Count 2.58 x10^6/uL (3.93-5.22); Red Cell Distribution Width 15.7 % (11.7-14.4); White Blood Count 8.8 x10^3/uL (3.98-10.04)
[2024-01-29 05:41] LABS: ALBUMIN 2.3 g/dL (3.5-5.0); BILIRUBIN,TOTAL 0.3 mg/dL (0.2-1.3); Calcium 7.4 mg/dL (8.4-10.2); Creatinine 1 0.9 mg/dL (0.52-1.04); EST GLOMERULAR FILTRATION RATE 62.3 ML/MIN; Potassium 4.3 mmol/L (3.5-5.1); Total Protein 4.5 g/dL (6.3-8.2)
--- NOTE | 2024-01-29 09:26 | XRAY ---
Indication: Vascular insufficiency. Conventional contrast enhanced CTA abdominal aorta with bilateral runoff performed using 125 cc Isovue 370 contrast. 2-D sagittal and coronal reformatted images obtained. Additional 3-D reformatted images obtained using separate workstation. Comparison: None Abdominal aorta is mildly arteriosclerotic without aneurysm/dissection. Normal branching celiac, superior mesenteric, and inferior mesenteric arteries with minimal calcifications seen origins of superior mesenteric and inferior mesenteric arteries. A single renal artery supplies each kidney with minimal right and mild left calcifications at their origins. No critical stenosis, obstruction, or poststenotic dilatation. Left leg runoff demonstrates mild scattered arteriosclerotic calcifications in the common iliac and internal iliac arteries without critical stenosis/obstruction. Widely patent external iliac artery. Very minimal calcifications distal common femoral and deep femoral arteries. Mild/moderate diffuse scattered calcifications in the superficial femoral artery, popliteal artery, and tibioperoneal trunk without critical stenosis/obstruction. Trifurcation vessels demonstrates occlusion entire posterior tibial artery. Scattered arteriosclerotic disease throughout peroneal artery tapering off by lower leg. Only patent anterior tibial artery crosses the ankle joint to supply the left foot. Right leg runoff demonstrates mild scattered calcifications in the common iliac and internal iliac arteries. Widely patent external iliac artery. Very minimal calcifications of the common femoral and deep femoral arteries. Mild/moderate scattered calcifications throughout superficial femoral artery, popliteal artery, and tibioperoneal trunk. Trifurcation vessels demonstrates occlusion mid to distal posterior tibial artery and scattered calcifications throughout anterior tibial artery. Only anterior tibial and peroneal arteries crosses ankle joint to supply the right foot. Incidental CT findings includes borderline cardiomegaly, small bibasilar effusions with compressive atelectasis, and diffuse anasarca favoring cardiac decompensation/CHF. Also mild diffuse colonic fecal stasis and colonic diverticulosis. Small umbilical hernia with herniated knuckle of bowel loop without incarceration/obstruction. Pelvic floor demonstrates incidental pessary ring. Distended urinary bladder with intraluminal air bubble either iatrogenic from recent catheterization versus gas-forming infection. Osseous structures intact with osteopenia, mild/moderate multilevel lumbar degenerative spondylosis, 1 cm anterolisthesis L4 on L5, old proximal left femur fracture with 3 intact orthopedic screws, and mild degenerative changes both hips. Impression: 1. Mildly arteriosclerotic abdominal aorta including origins of great vessels as detailed. No critical stenosis, dissection, or aneurysm. 2. Left leg runoff demonstrates mild/moderate scattered arteriosclerotic disease as detailed. One vessel runoff left foot. 3. Right leg runoff also demonstrates mild/moderate scattered disease with two vessel runoff right foot. 4. Borderline cardiomegaly, bibasilar effusions, and diffuse anasarca. Rule out cardiac decompensation/CHF. 5. Urinary bladder intraluminal air bubble either iatrogenic versus gas-forming infection. 6. Small umbilical hernia with herniated bowel loop. No complications. 7. Incidental mild diffuse fecal stasis, colonic diverticulosis, and chronic bony findings.
[2024-01-29] MEDS: FEOSOL 325 MG PO SCH (10:58)
[2024-01-29] MEDS: Docusate Sodium 100 MG PO PRN (10:58)
[2024-01-29] MEDS: SODIUM CHLORIDE PO SCH (10:59)
[2024-01-29] MEDS: Miralax Powder 17GM PACKET PO SCH (11:07)
[2024-01-29 12:52] VITALS: BP 169/70; TEMP 97.7; O2SAT 97
[2024-01-29 13:21] VITALS: PULSE 64; RESP 16
[2024-01-29 13:56] LABS: ALBUMIN 2.5 g/dL (3.5-5.0); ANION GAP 8.9 MEQ/L (5-15); BILIRUBIN,TOTAL 0.3 mg/dL (0.2-1.3); Calcium 7.4 mg/dL (8.4-10.2); Creatinine 1 0.92 mg/dL (0.52-1.04); EST GLOMERULAR FILTRATION RATE 60.6 ML/MIN; Potassium 4.1 mmol/L (3.5-5.1); Total Protein 4.9 g/dL (6.3-8.2)
--- NOTE | 2024-01-29 14:31 | PCM.DS ---
Discharge Summary Date of Admission: 01/26/24 16:52 Date of Discharge: 01/29/24 Admitting Physician: CLAU ESPINAL MD Consults: Consults on Case 01/28/24 12:29 Consult Podiatry ROUTINE Primary Care Provider: KATHIE ESPINOZA Allergies Allergies clindamycin Allergy (Verified 01/26/24 12:26) hydralazine Allergy (Verified 01/26/24 12:26) oxytetracycline [From Terramycin] Allergy (Verified 01/26/24 12:26) sulfamethoxazole [From Bactrim] Allergy (Verified 01/26/24 12:26) trimethoprim [From Bactrim] Allergy (Verified 01/26/24 12:26) Hospital Summary - Hospital Course Hospital Course: 01/26/24 is a 88 year old female with PMHX of gastroesophageal reflux disease, hypothyroidism, insulin-dependent diabetes, hypertension, hyperlipidemia, asthma, coronary artery disease (cardiac stent) on Plavix, CHF and chronic bilateral lower extremity cellulitis. She presented to the emergency department with symptoms of worsening weakness, shortness of breath, cough and painful sores in her mouth since yesterday. Patient was admitted into the hospital here at [facility] on 01/12 and remained inpatient until 01/22/2024. She was discharged at that time. Her clinical impressions at the time of discharge include COPD, bilateral lower extremity cellulitis, hyponatremia, shortness of breath and hypertension. At the time of discharge she was placed on 2 L of oxygen via nasal cannula to wear at night. However in the last day or so she has been wearing it at all times. She has had decreased oral intake secondary to painful sores in her mouth. Overall, she does not feel well. She has been on antibiotics and steroids since her d/c. UA shows possible UTI and IV antibiot ics started- will continue until UC is back. Lung sounds are clear after duoneb gave in ER. She was also gave zofran in ER but she reports she has no current nausea. She admits to chronic left hip pain and feels like the pins are poking out. Will order left hip XR. She denies any recent fall. A brown was placed in ER and this will be discontinued. Discussed with nurse and purewick can be used. She states she does not feel well but denies dysuria. She [facility] in [facility] and may need rehab or ECF placement at D/C. She deneis CP, SOB, abd pain, N/V/D at this time. 01/27/24 Pt resting in bed. She states she continues to feel weak but better than yesterday. Na+ has improved but continues to have mild hyponatremia. CXR reviewed and Procal negative. Pt does not have pneumonia. UC negative. Will continue antibiotics for COPD exacerbation. She continues to require 2lNC- 94%. PT to eval for rehab vs ECF placement. Pt feels she is too weak to go back to assisted living. She refused hip XR yesterday. Brown was not removed as ordered yesterday. Pt has some vaginal redness and barrier cream can be applied but no wounds to skin in mathieu-area. Therefore does not meet criteria for Brown. Discu ssed pt case with infection control regarding brown. Asked again today for brown to be removed per orders and purewick placed. Pt was able to get up to chair with staff today. Pt does not have cellulitis and has chronic PAD. She needs to f/u with vascular surgery OP. Pt reports her mouth sores are improving and will continue Cassie's magic mouthwash. She was able to eat all her breakfast without concern today. BP improved after morning meds. She denies CP, abd. pain, N/V/D. 01/28/24 Pt resting in bed. Her face appears swollen and she has crackles of lungs this AM. IV lasix x1 ordered and CXR. She states she had several epidsodes last night where she has impending doom and feels she will pass away today. Reassured her that her labs are looking much better. Podiatry explained pt had an appointment with him today and he would like to see pt and rewrap BLLE. He also wants to order further testing of BLLE- clarification of this order is pending. Hgb 7.7 and occult stool pending. She again refused insulin this AM and has a hx of non- compliance with meds. She is pending rehab placement. Corrected Ca+ 8.3 today. UC and BC x2 negative. She denies CP, abd. pain, N/V/D. 01/29/24 Pt resting in bed. She is feeling better today but feels she needs to have a BM. Stool softener ordered. Na+ 129 and salt tab ordered- repeat Na+ 131. This will need to be closely monitored OP as when her sodium gets low she becomes weak. She easily gets fluid overloaded as well d/t her heart hx. She is planned to d/c today to rehab. Podiatry will set up OP f/u with vascular surgery for chronic severe PAD. She denies CP, SOB, N/V/D. - Vitals & Intake/Output Vital Signs: Vital Signs Temperature 97.7 F 01/29/24 12:00 Pulse Rate 64 01/29/24 13:20 Respiratory Rate 16 01/29/24 13:20 Blood Pressure 169/70 01/29/24 12:00 O2 Sat by Pulse Oximetry 97 01/29/24 13:20 Intake & Output: Intake & Output 01/27/24 01/28/24 01/29/24 01/30/24 11:59 11:59 11:59 11:59 Intake Total 600 860 780 Output Total 4100 450 3400 Balance -3500 410 -2620 Weight 73.9 kg 73 kg - Lab Result Diagrams: 01/29/24 05:05 01/29/24 13:40 Lab Results-Last 24 Hrs: Lab Results-Last 24 Hours 01/28/24 01/28/24 01/28/24 Range/Units 04:35 04:35 16:27 WBC (3.98-10.04) x10^3/uL RBC (3.93-5.22) x10^6/uL Hgb (11.2-15.7) g/dL Hct (34.1-44.9) % MCV (79.4-94.8) fL MCH (25.6-32.2) pg MCHC (32.2-35.5) g/dL RDW (11.7-14.4) % Plt Count (182-369) x10^3/uL MPV (9.4-12.3) fL Sodium (135-145) mmol/L Potassium (3.5-5.1) mmol/L Chloride (98-107) mmol/L Carbon Dioxide (22-30) mmol/L Anion Gap (5-15) MEQ/L BUN (7-17) mg/dL Creatinine (0.52-1.04) mg/dL Estimated GFR ML/MIN Glucose (74-106) mg/dL POC Glucometer 183 H (74 to 106) mg/dL Calcium (8.4-10.2) mg/dL Iron 33 L (37-170) ug/dL TIBC 217 L (265-462) ug/dL Iron Saturation 15 L (20-39) % Ferritin 35.0 (11.1-264) ng/mL Total Bilirubin (0.2-1.3) mg/dL AST (14-36) U/L ALT (0-35) U/L Alkaline Phosphatase (38-126) U/L Serum Total Protein (6.3-8.2) g/dL Albumin (3.5-5.0) g/dL Vitamin B12 304 (239-931) pg/mL Folic Acid 7.97 (2.76 - >20) ng/mL 01/28/24 01/29/24 01/29/24 Range/Units 21:40 05:05 05:05 WBC 8.8 (3.98-10.04) x10^3/uL RBC 2.58 L (3.93-5.22) x10^6/uL Hgb 7.3 L (11.2-15.7) g/dL Hct 22.8 L (34.1-44.9) % MCV 88.4 (79.4-94.8) fL MCH 28.3 (25.6-32.2) pg MCHC 32.0 L (32.2-35.5) g/dL RDW 15.7 H (11.7-14.4) % Plt Count 289 (182-369) x10^3/uL MPV 9.3 L (9.4-12.3) fL Sodium 129 L (135-145) mmol/L Potassium 4.3 (3.5-5.1) mmol/L Chloride 98 (98-107) mmol/L Carbon Dioxide 32 H (22-30) mmol/L Anion Gap 4.0 L (5-15) MEQ/L BUN 20 H (7-17) mg/dL Creatinine 0.90 (0.52-1.04) mg/dL Estimated GFR 62.3 ML/MIN Glucose 206 H (74-106) mg/dL POC Glucometer 171 H (74 to 106) mg/dL Calcium 7.4 L (8.4-10.2) mg/dL Iron (37-170) ug/dL TIBC (265-462) ug/dL Iron Saturation (20-39) % Ferritin (11.1-264) ng/mL Total Bilirubin 0.30 (0.2-1.3) mg/dL AST 20 (14-36) U/L ALT 25 (0-35) U/L Alkaline Phosphatase 51 (38-126) U/L Serum Total Protein 4.5 L (6.3-8.2) g/dL Albumin 2.3 L (3.5-5.0) g/dL Vitamin B12 (239-931) pg/mL Folic Acid (2.76 - >20) ng/mL 01/29/24 01/29/24 01/29/24 Range/Units 07:36 12:31 13:40 WBC (3.98-10.04) x10^3/uL RBC (3.93-5.22) x10^6/uL Hgb (11.2-15.7) g/dL Hct (34.1-44.9) % MCV (79.4-94.8) fL MCH (25.6-32.2) pg MCHC (32.2-35.5) g/dL RDW (11.7-14.4) % Plt Count (182-369) x10^3/uL MPV (9.4-12.3) fL Sodium 131 L (135-145) mmol/L Potassium 4.1 (3.5-5.1) mmol/L Chloride 98 (98-107) mmol/L Carbon Dioxide 28 (22-30) mmol/L Anion Gap 8.9 (5-15) MEQ/L BUN 20 H (7-17) mg/dL Creatinine 0.92 (0.52-1.04) mg/dL Estimated GFR 60.6 ML/MIN Glucose 229 H (74-106) mg/dL POC Glucometer 173 H 222 H (74 to 106) mg/dL Calcium 7.4 L (8.4-10.2) mg/dL Iron (37-170) ug/dL TIBC (265-462) ug/dL Iron Saturation (20-39) % Ferritin (11.1-264) ng/mL Total Bilirubin 0.30 (0.2-1.3) mg/dL AST 23 (14-36) U/L ALT 28 (0-35) U/L Alkaline Phosphatase 51 (38-126) U/L Serum Total Protein 4.9 L (6.3-8.2) g/dL Albumin 2.5 L (3.5-5.0) g/dL Vitamin B12 (239-931) pg/mL Folic Acid (2.76 - >20) ng/mL Micro Results-Entire Visit: Microbiology 01/26/24 12:35 Urine Culture - Final Catherized NO GROWTH 01/26/24 13:05 Blood Culture - Preliminary Blood 01/26/24 12:30 Blood Culture - Preliminary Blood Accuchecks Date 01/29/24 Date 01/29/24 Date 01/28/24 Time 12:50 Time 07:49 - Radiology Exams Ordered Rad Exams-Entire Visit: Radiology Procedures Category Date Time Status CHEST 1 VIEW (PORTABLE) Stat Exams 01/28/24 09:09 Completed CTA ABD/PEL W FEM RUNOFF [CT] Urgent Exams 01/28/24 14:23 Completed - Procedures and Test Procedures and Tests throughout Hospitalization: Therapy Orders & Screens 01/26/24 12:59 Respiratory Therapy Assessment DAILY Comment: 01/26/24 17:16 EKG REPEAT IN AM Comment: Oxygen Nasal Cannula 2 lpm Comment: Respiratory Therapy Consult ONCE Comment: Reason For Exam: 01/26/24 17:21 Respiratory Therapy Assessment DAILY Comment: 01/26/24 18:09 PT Eval & Treat (MD Order) ONCE Reason for Eval:: weakness, Left hip pain, possible placement Diagnosis: COPD exacerbation OT Eval and Treat (MD Order) ONCE Comment: Physician Instructions: Reason For Exam: Diagnosis: COPD exacerbation 01/26/24 18:19 RT Miscellaneous Order ROUTINE Comment: She left recently with O2 2lNC at night. Physician Instructions: Pt feels she needs Home O2 at all times Reason For Exam: Eval and treat, Keep O2 > 2LNC Diagnosis: COPD exacerbation 01/26/24 18:39 OT Screen per Nursing Assess ONCE Comment: Protocol Order Physician Instructions: Greater than 3 points order OT Admission Screening Reason For Exam: Triggered on Admission Diagnosis: COPD exacerbation Open Wound/Cellutlitis/Pressure Ulcers: Yes Acute Fx/ORIF/Change in wt bearing status: Yes Severe MUSCULOSKELETAL pain: No ADL Dysfunction: Yes Acute CVA w/Hemiparesis/Hemiplegia: No Decreased Functional Mobility/Strength: Yes Sprain/Strain: No Acute Post-op Mobility Dysfunction: No Total Points: 14 PT Screen per Nursing Assess ONCE Comment: Protocol Order Physician Instructions: Greater than 3 points order PT Admission Screenin Reason For Exam: Triggered on Admission Diagnosis: COPD exacerbation Open Wound/Cellutlitis/Pressure Ulcers: Yes Acute Fx/ORIF/Change in wt bearing status: Yes Severe MUSCULOSKELETAL pain: No ADL Dysfunction: Yes Acute CVA w/Hemiparesis/Hemiplegia: No Decreased Functional Mobility/Strength: Yes Sprain/Strain: No Acute Post-op Mobility Dysfunction: No Total Points: 14 RT Screen per Nursing Assess ONCE Comment: Protocol Order Physician Instructions: Greater than 3 points order RT Admission Screen Reason For Exam: Triggered on Admission Diagnosis: COPD exacerbation Diagnosis: COPD exacerbation Pneumonia: Yes Home O2: Yes Asthma: No CHF: Yes Home CPAP/BIPAP: No Home Nebs/MDI: No Total Points: 11 01/26/24 20:30 Flutter Therapy UD Comment: Diagnosis: COPD exacerbation Discharge Exam General Appearance: no apparent distress, alert Neurologic Exam: alert, oriented x 3, cooperative, normal mood/affect, nml cerebellar function, sensation nml, No motor deficits Eye Exam: PERRL, EOMI, eyes nml inspection Ears, Nose, Throat Exam: normal ENT inspection, pharynx normal, moist mucous membranes Neck Exam: normal inspection, non-tender, supple, full range of motion Respiratory Exam: normal breath sounds, lungs clear, No respiratory distress Cardiovascular Exam: regular rate/rhythm, normal heart sounds Gastrointestinal/Abdomen Exam: soft, distention, No tenderness, No mass Pelvic Exam: deferred Rectal Exam: deferred Back Exam: normal inspection, normal range of motion, No CVA tenderness, No vertebral tenderness Extremity Exam: normal inspection, normal range of motion Skin Exam: normal color, warm, dry Final Diagnosis/Problem List - Final Discharge Diagnosis/Problem (1) UTI (urinary tract infection) Current Visit: Yes Status: Acute Code(s): N39.0 - URINARY TRACT INFECTION, SITE NOT SPECIFIED (2) Oral candidiasis Current Visit: Yes Status: Acute Code(s): B37.0 - CANDIDAL STOMATITIS (3) COPD exacerbation Current Visit: No Status: Acute Code(s): J44.1 - CHRONIC OBSTRUCTIVE PULMONARY DISEASE W (ACUTE) EXACERBATION (4) Hip pain, left Current Visit: Yes Status: Acute Code(s): M25.552 - PAIN IN LEFT HIP (5) CHF (congestive heart failure) Current Visit: Yes Status: Chronic Code(s): I50.9 - HEART FAILURE, UNSPECIFIED (6) Hyponatremia Current Visit: Yes Status: Acute Code(s): E87.1 - HYPO-OSMOLALITY AND HYPONATREMIA (7) Vitamin D deficiency Current Visit: No Status: Chronic Code(s): E55.9 - VITAMIN D DEFICIENCY, UNSPECIFIED (8) Weakness Current Visit: No Status: Acute Code(s): R53.1 - WEAKNESS (9) Hypertension Current Visit: No Status: Chronic Code(s): I10 - ESSENTIAL (PRIMARY) HYPERTENSION (10) Hypothyroidism Current Visit: No Status: Chronic Code(s): E03.9 - HYPOTHYROIDISM, UNSPECIFIED (11) Type II diabetes mellitus Current Visit: No Status: Chronic (12) Anemia Current Visit: Yes Status: Acute Assessment & Plan: (1) UTI (urinary tract infection) Current Visit: Yes Status: Acute Assessment & Plan: - UC negative - D/C brown - place purewick Code(s): N39.0 - URINARY TRACT INFECTION, SITE NOT SPECIFIED (2) Oral candidiasis Current Visit: Yes Status: Acute Assessment & Plan: - From + type II DM and sent home last visit on steroids - steroids discontinued. - Cassie's magic mouthwash QID - Fluconazole gave in ER IV x1 01/28 - improved Code(s): B37.0 - CANDIDAL STOMATITIS (3) COPD exacerbation Current Visit: No Status: Acute Assessment & Plan: - Baseline 2lNC at night- pt feels she needs it all the time - RT eval and treat keep O2 > 92% - IV antibiotics. - Steroids not needed at this time. - CXR reviewed - procal negative - CBC, CMP reviewed Code(s): J44.1 - CHRONIC OBSTRUCTIVE PULMONARY DISEASE W (ACUTE) EXACERBATION (4) Hip pain, left Current Visit: Yes Status: Acute Assessment & Plan: - acute on chronic - XR left hip- pt refused - PT/OT eval Code(s): M25.552 - PAIN IN LEFT HIP (5) CHF (congestive heart failure) Current Visit: Yes Status: Chronic Assessment & Plan: - not in acute exacerbation - Continue home meds 01/27 - Lasix IV X1 - CXR reviewed 01/28 - Sxs improved - Continue OP O2 Code(s): I50.9 - HEART FAILURE, UNSPECIFIED (6) Hyponatremia Current Visit: Yes Status: Acute Assessment & Plan: - Na+ 129 - fluid restriction 1 L 01/26 - Na+ 131- improving 01/27 - Na+ 130 01/28 - NA+ 129- sodium tab and then recheck 131 - will nee close monitoring OP Code(s): E87.1 - HYPO-OSMOLALITY AND HYPONATREMIA (7) Vitamin D deficiency Current Visit: No Status: Chronic Assessment & Plan: - Continue Vitamin D Code(s): E55.9 - VITAMIN D DEFICIENCY, UNSPECIFIED (8) Weakness Current Visit: No Status: Acute Assessment & Plan: - PT/ OT eval and treat -pending rehab placement 01/28 - D/C to rehab at the [facility] today Code(s): R53.1 - WEAKNESS (9) Hypertension Current Visit: No Status: Chronic Assessment & Plan: - BP elevated- monitor - Continue home meds Code(s): I10 - ESSENTIAL (PRIMARY) HYPERTENSION (10) Hypothyroidism Current Visit: No Status: Chronic Assessment & Plan: - Continue Synthroid Code(s): E03.9 - HYPOTHYROIDISM, UNSPECIFIED (11) Type II diabetes mellitus Current Visit: No Status: Chronic Qualifiers: Diabetes mellitus long term care administrator insulin use: with long term care administrator use Diabetes mellitus complication status: with circulatory complication Diabetes mellitus complication detail: with peripheral angiopathy without gangrene Qualified Code(s): E11.51 - Type 2 diabetes mellitus with diabetic peripheral angiopathy without gangrene; Z79.4 - terminal supervisor (current) use of insulin Assessment & Plan: - A1C 7.44-01/13/24 -Controlled - Continue home meds - accuchecks Ac/HS - Pt historically noncompliant with insulin 01/27 - refused insulin again today (12) Anemia Current Visit: Yes Status: Acute Assessment & Plan: - occult stool pending - Hgb 7.7- trend - iron panel 01/28 - + iron def. anemia per labs - Ferrous sulfate daily ordered - Hgb 7.3 Code(s): D64.9 - ANEMIA, UNSPECIFIED (13) Peripheral vascular disease Current Visit: Yes Status: Chronic Assessment & Plan: - Severe - podiatry consult- will make OP f/u appointment with vascular surgery - Dressing changes by podiatry 01/27 - CT abd/ emiliana reviewed - Continue plavix Code(s): I73.9 - PERIPHERAL VASCULAR DISEASE, UNSPECIFIED - Discharge Discharge Date: 01/29/24 (rehab) Disposition: DC TO ANY "OTHER" [facility] Condition: Fair Prescriptions: New Ferrous Sulfate 325 mg [Feosol 325 mg] 325 mg PO DAILY 30 Days #30 tablet Nystatin/TCN/Hc/Diphenhydramin [Cassie's Mouthwash] 5 ml PO QID #0 Polyethylene Glycol 3350 17 gm [Miralax Powder 17GM PACKET] 17 gm PO DAILY PRN PRN 30 Days #30 pkt PRN Reason: Constipation Continue Insulin Glargine,Hum.rec.anlog [Touhumphreyo Solbeena] 10 unit SQ HS Insulin Glargine,Hum.rec.anlog [Toujeo Solostar] 15 unit SQ DAILY Calcium Carbonate [Tums] 1 tab PO HS Carvedilol 12.5 mg [Coreg 12.5 mg] 12.5 mg PO BID Tramadol HCl 50 mg [Ultram 50 mg] 50 mg PO Q6H PRN PRN PRN Reason: Pain Carboxymethylcellulose Sodium [Refresh Plus] 1 drop OP TID PRN PRN PRN Reason: dry eyes Valsartan [Diovan] 320 mg PO DAILY Acetaminophen 325 mg [Tylenol 325 mg] 650 mg PO Q6H PRN PRN PRN Reason: Pain Sennosides/Docusate Sodium [Senna-S Tablet] 1 tab PO BID Nitroglycerin 0.4 mg PO Q5MIN PRN MR X 3 PRN PRN Reason: Chest Pain Aspirin EC 81 mg [Ecotrin 81 mg] 81 mg PO DAILY Omeprazole 40 mg PO DAILY Levothyroxine Sodium 25 Mcg [Synthroid 25 Mcg] 25 mcg PO 0700 Isosorbide Mononitrate 30 mg [Imdur 30 MG] 30 mg PO HS Clopidogrel Bisulfate [PLAVIX Tablet] 75 mg PO DAILY Clonidine HCl 0.1 mg [Clonidine 0.1 mg Tablet] 0.1 mg PO BID PRN PRN Reason: HYPERTENSION Atorvastatin Calcium 40 mg PO HS Amlodipine Besylate [Norvasc] 10 mg PO DAILY Insulin Aspart [NovoLOG Insulin] 0 units SQ ACHS Prednisone 20 mg [Deltasone 20 mg] 20 mg PO BID 5 Days #10 tablet levoFLOXacin [Levofloxacin] 750 mg PO DAILY 10 Days #10 tablet Guaifenesin 600 mg ER [Mucinex 600MG ER Tabs] 600 mg PO BID 7 Days #14 tablet Cholecalciferol (Vitamin D3) [Vitamin D] 2,000 unit PO DAILY 30 Days #60 tablet Spironolactone 50 mg PO DAILY Additional Instructions: Check CBC, BMP Q 3 days Follow up with: YUSUF ARMENDARIZ DPM [ACTIVE STAFF] - 02/04/24 10:00 am KATHIE ESPINOZA MD [Primary Care Provider] - KIKE CARNEY [CONSULTING PHYSICIAN] - 02/17/24 9:15 am ()
[2024-01-29] MEDS ORDERED: Tums EX 750 MG PO SCH (22:00)
== END 2024-01-29 16:27 ==
LOC: ED 12:02 → MED SURG 16:52
PROVIDERS: ADMIT Internal Medicine; ATTEND Internal Medicine
DX: N39.0 Urinary tract infection, site not specified (principal); B37.0 Candidal stomatitis; M25.552 Pain in left hip; I11.0 Hypertensive heart disease with heart failure; I50.9 Heart failure, unspecified; E87.1 Hypo-osmolality and hyponatremia; E55.9 Vitamin D deficiency, unspecified; R53.1 Weakness; E03.9 Hypothyroidism, unspecified; E11.9 Type 2 diabetes mellitus without complications; D64.9 Anemia, unspecified; J44.1 Chronic obstructive pulmonary disease with (acute) exacerbation; E11.51 Type 2 diabetes mellitus with diabetic peripheral angiopathy without gangrene; I73.9 Peripheral vascular disease, unspecified; K21.9 Gastro-esophageal reflux disease without esophagitis; E78.5 Hyperlipidemia, unspecified; I25.10 Atherosclerotic heart disease of native coronary artery without angina pectoris; L03.116 Cellulitis of left lower limb; L03.115 Cellulitis of right lower limb; Z79.4 Long term (current) use of insulin; Z79.899 Other long term (current) drug therapy; Z79.01 Long term (current) use of anticoagulants
CPT/HCPCS: 0241U; 29580; 36000; 36415; 51702; 71045; 75635; 80053; 81001; 82607; 82728; 82746; 82947; 83540; 83550; 83735; 83880; 84134; 84145; 84439; 84443; 84484; 85025; 85027; 86308; 87040; 87086; 87651; 93005; 93041; 94640; 94667; 94668; 94760; 96374; 96375; 99223; 99285; 99291; G0378; J0295; J1450; J1815; J1940; J2270; J2405; Q3014; 97110-GP; A9270-GY

== ENCOUNTER 2024-03-20 08:48 | Observation (INO) | payer MEDICARE, OTHER ==
--- NOTE | 2024-03-20 09:08 | ERPHSYRPT ---
- History of Present Illness Time Seen by Provider: 03/20/24 09:03 Source: patient, EMS Exam Limitations: no limitations Patient Subjective Stated Complaint: Pt states "I have been short of breath and I took a treatment this morning and it didnt help." Triage Nursing Assessment: Pt presented alert and oriented X 3, skin pwd. PT able to speak in clear full sentences. Pt resting comfortably on the bed. PT has audible rhales noted with occasional productive cough. Physician History: The patient, with a history of pneumonia, presents with shortness of breath. Shortness of breath began around 4:30 AM today, with a sensation of lungs filling up and difficulty taking a deep breath. Oxygen levels have remained around 95%. A treatment referred to as 'five' provided some relief. They have a history of pneumonia and completed a course of antibiotics about five or six days ago. There is no history of recent illness, fever, or congestion. They have a persistent cough, usually non-productive, and experience burning in the chest. No chest pain or abdominal pain is reported. They confirm a history of leg swelling. Timing/Duration: week(s) (2), worse Activities at Onset: sleep Severity of Dyspnea-Max: severe Severity of Dyspnea-Current: mild Possible Cause: occasional episodes Modifying Factors: Improves With: albuterol nebulizer, oxygen. Worsens With: coughing, deep breath Associated Symptoms: constant, cough, edema, wheezing, leg swelling, productive cough, No chest pain/discomfort, No fever, No hemoptysis Allergies/Adverse Reactions: clindamycin Allergy (Verified 01/26/24 12:26) hydralazine Allergy (Verified 01/26/24 12:26) oxytetracycline [From Terramycin] Allergy (Verified 01/26/24 12:26) sulfamethoxazole [From Bactrim] Allergy (Verified 01/26/24 12:26) trimethoprim [From Bactrim] Allergy (Verified 01/26/24 12:26) Home Medications: Acetaminophen 325 mg [Tylenol 325 mg] 650 mg PO Q6H PRN PRN 08/12/23 [History] Amlodipine Besylate [Norvasc] 10 mg PO DAILY 08/12/23 [History] Aspirin EC 81 mg [Ecotrin 81 mg] 81 mg PO DAILY 08/12/23 [History] Atorvastatin Calcium 40 mg PO HS 08/12/23 [History] Carboxymethylcellulose Sodium [Refresh Plus] 1 drop OP TID PRN PRN 08/12/23 [History] Carvedilol 12.5 mg [Coreg 12.5 mg] 12.5 mg PO BID 08/12/23 [History] Clonidine HCl 0.1 mg [Clonidine 0.1 mg Tablet] 0.1 mg PO BID 08/12/23 [History] Clopidogrel Bisulfate [PLAVIX Tablet] 75 mg PO DAILY 08/12/23 [History] Insulin Glargine,Hum.rec.anlog [Toujeo Solostar] 10 unit SQ HS 08/12/23 [History] Insulin Glargine,Hum.rec.anlog [Toujeo Solostar] 15 unit SQ BREAKFAST 08/12/23 [History] Isosorbide Mononitrate 30 mg [Imdur 30 MG] 30 mg PO HS 08/12/23 [History] Levothyroxine Sodium 25 Mcg [Synthroid 25 Mcg] 25 mcg PO 0700 08/12/23 [History] Nitroglycerin 0.4 mg PO Q5MIN PRN MR X 3 PRN 08/12/23 [History] Omeprazole 40 mg PO DAILY 08/12/23 [History] Sennosides/Docusate Sodium [Senna-S Tablet] 1 tab PO BID 08/12/23 [History] Tramadol HCl 50 mg [Ultram 50 mg] 50 mg PO Q6H PRN PRN 08/12/23 [History] Valsartan [Diovan] 320 mg PO DAILY 08/12/23 [History] Spironolactone 50 mg PO DAILY 01/26/24 [History] Fluticasone Propion/Salmeterol [Fluticasone-Salmeterol 500-50] 1 each IH BID 03/20/24 [History] Gabapentin 100 mg PO TID 03/20/24 [History] Insulin Aspart [Novolog] 100 unit SQ UD 03/20/24 [History] Ipratropium/Albuterol Sulfate [Iprat-Albut 0.5-3(2.5) mg/3 ml] 3 ml IH TID 03/20/24 [History] Hx Tetanus, Diphtheria Vaccination/Date Given: No Hx Influenza Vaccination/Date Given: Yes Hx Pneumococcal Vaccination/Date Given: Yes Immunizations Up to Date: No Travel Risk - International Travel Have you traveled outside of the country in past 3 weeks: No - Emerging Infectious Disease Are you exhibiting symptoms associated with any current EIDs: Yes Symptoms: Cough: New Onset - Review of Systems All Other Systems: Reviewed and Negative - Past Medical History Pertinent Past Medical History: Yes Neurological History: No Pertinent History ENT History: Cataracts, Other Cardiac History: Coronary Artery Disease, High Cholesterol, Hypertension Respiratory History: Asthma Endocrine Medical History: Diabetes Type II, Hypothyroidism Musculoskeletal History: Arthritis GI Medical History: GERD, Gallbladder Disease History: No Pertinent History Psycho-Social History: No Pertinent History Female Reproductive Disorders: No Pertinent History Other Medical History: dry eyes, BLE wounds and cellulitis - Past Surgical History Past Surgical History: Yes Neuro Surgical History: No Pertinent History Cardiac: Cardiac Catheterization, Cardiac Stent Respiratory: No Pertinent History Gastrointestinal: Cholecystectomy Genitourinary: No Pertinent History Musculoskeletal: Orthopedic Surgery Female Surgical History: Other Other Surgical History: breast abcess removed, hip surgery, 2 stents - Social History Smoking Status: Never smoker Exposure to second hand smoke: Yes Drug Use: none - Social Determinants of Health Will the patient participate in the screening: Yes Do you worry about a steady place to live?: No Do you have any problems with any of the following?: No known problems In the past 12 months,have you had to go without utilities?: No Transportation Issues: No Has anyone in your support network made you feel unsafe?: No Have you or anyone in your house had to go without enough: No Comment: Lives at [facility] - Nursing Vital Signs Nursing Vital Signs: Initial Vital Signs Temperature 97.7 F 03/20/24 08:49 Pulse Rate 81 03/20/24 08:49 Respiratory Rate 22 03/20/24 08:49 Blood Pressure 166/75 03/20/24 08:49 O2 Sat by Pulse Oximetry 95 03/20/24 08:49 Pain Scale Pain Intensity 2 - Physical Exam General Appearance: no apparent distress Eye Exam: eyes nml inspection Ears, Nose, Throat Exam: hearing grossly normal Neck Exam: normal inspection, supple, full range of motion Respiratory Exam: airway intact, crackles/rales, rhonchi, No respiratory distress Cardiovascular/Chest Exam: normal heart sounds, regular rate/rhythm Abdominal/Gastrointestinal Exam: soft, No tenderness, No distention, No mass, No guarding, No rebound Extremity Exam: swelling (leg wraps to below knee) Neurologic Exam: alert, oriented x 3, cooperative Skin Exam: warm, dry, pale, No rash SpO2 Interpretation: normal SpO2: 95 O2 Delivery: Nasal Cannula - Course Nursing assessment & vital signs reviewed: Yes EKG Interpreted by Me: RATE (76), LAFB, NORMAL INTERVALS, Right Bundle Branch Block, Other (ST depression lead II and V5) - Radiology Exams Chest X-ray Interpretation: Interpreted by me, Pneumonia (b/l groundglass) Ordered Tests: Active Orders 24 hr Category Date Time Status EKG-ER Only STAT Care 03/20/24 09:08 Active IV Insertion STAT Care 03/20/24 09:08 Active CHEST 1 VIEW (PORTABLE) Stat Exams 03/20/24 09:09 Taken BLOOD CULTURE Stat Lab 03/20/24 10:14 Received CBC W DIFF Stat Lab 03/20/24 10:05 Completed CMP Stat Lab 03/20/24 10:05 Completed Ferritin Stat Lab 03/20/24 10:05 Received Folate (Folic Acid) Stat Lab 03/20/24 10:05 Received Lactic Acid Stat Lab 03/20/24 09:08 Ordered MAGNESIUM Stat Lab 03/20/24 10:05 Completed NT PRO BNPII Stat Lab 03/20/24 10:05 Completed Occult Blood-Fecal Screen (Diagnostic) [OB-FECAL SCREEN Lab 03/20/24 Ordered ] Stat PROCALCITONIN Stat Lab 03/20/24 10:05 Completed TROPONIN Q4H Lab 03/20/24 10:05 Completed TROPONIN Q4H Lab 03/20/24 13:15 Ordered TROPONIN Q4H Lab 03/20/24 17:15 Ordered Vitamin B12 Stat Lab 03/20/24 10:05 Received Respiratory Therapy Assessment DAILY RT 03/20/24 09:26 Active Medication Summary Generic Name Dose Route Start Last Admin Trade Name Freq PRN Reason Stop Dose Admin Magnesium Sulfate/Dextrose 100 mls @ 100 mls/hr 03/20/24 11:00 03/20/24 11:37 Magnesium 1 Gm / 100 Ml D5w IV 03/20/24 12:59 100 mls/hr Q1H JOSE Administration Discontinued Medications Generic Name Dose Route Start Last Admin Trade Name Alyssa PRN Reason Stop Dose Admin Albuterol/Ipratropium 3 ml 03/20/24 09:08 03/20/24 09:23 Ipratropium/Albuterol Sulfate 3 Ml Ampul.Neb IH 03/20/24 09:09 3 ml STAT ONE Administration Methylprednisolone Sodium 0 mg 03/20/24 09:08 03/20/24 09:45 Succinate 125 mg/ Sterile IV 03/20/24 09:09 125 mg Water 2 ml STAT ONE Administration Furosemide 40 mg 03/20/24 11:00 Furosemide 40 Mg/4 Ml Vial IV 03/20/24 11:01 STAT ONE Sodium Chloride 1,000 mls @ 999 mls/hr 03/20/24 09:08 03/20/24 11:22 Sodium Chloride 0.9% 1000 Ml IV 03/20/24 10:08 Infused .Q1H1M STA Infusion Ceftriaxone Sodium 2 gm in 100 mls @ 200 mls/hr 03/20/24 09:08 03/20/24 10:23 Rocephin 2 Gm/100 Ml Nacl IV 03/20/24 09:37 Infused STAT ONE Infusion Azithromycin 500 mg in 250 mls @ 250 mls/hr 03/20/24 09:08 03/20/24 11:23 Zithromax 500 Mg/ 250 Ml Nacl Premix IV 03/20/24 10:07 Infused STAT STA Infusion Azithromycin Confirm 03/20/24 09:43 Zithromax 500 Mg/ 250 Ml Nacl Premix Administered 03/20/24 09:44 Dose 500 mg in 250 mls @ ud IV .STK-MED ONE Sodium Chloride Confirm 03/20/24 09:43 Sodium Chloride 0.9% 1000 Ml Administered 03/20/24 09:44 Dose 1,000 mls @ ud .ROUTE .STK-MED ONE Ceftriaxone Sodium Confirm 03/20/24 09:43 Rocephin 2 Gm/100 Ml Nacl Administered 03/20/24 09:44 Dose 2 gm in 100 mls @ ud IV .STK-MED ONE Methylprednisolone Sodium Succinate Confirm 03/20/24 09:43 Methylprednis Sod Succ 125 Mg/2 Ml Vial Administered 03/20/24 09:44 Dose 125 mg .ROUTE .STK-MED ONE Sterile Water Confirm 03/20/24 09:43 Water For Injection,Sterile 10 Ml Vial Administered 03/20/24 09:44 Dose 10 ml IJ .[facility] ONE Lab/Rad Data: Laboratory Result Diagrams 03/20/24 10:05 03/20/24 10:05 Laboratory Results 03/20/24 03/20/24 03/20/24 Range/Units 10:05 10:05 10:05 WBC (3.98-10.04) x10^3/uL RBC (3.93-5.22) x10^6/uL Hgb (11.2-15.7) g/dL Hct (34.1-44.9) % MCV (79.4-94.8) fL MCH (25.6-32.2) pg MCHC (32.2-35.5) g/dL RDW (11.7-14.4) % Plt Count (182-369) x10^3/uL MPV (9.4-12.3) fL Gran % (34.0-71.1) % Immature Gran % (Auto) (0.001-0.429) % Nucleat RBC Rel Count (0.00-0.2) % Eos # (Auto) (0.04-0.36) x10^3/uL Immature Gran # (Auto) (0.001-0.031) x10^3u/L Absolute Lymphs (auto) (1.18-3.74) x10^3/uL Absolute Monos (auto) (0.24-0.86) x10^3/uL Absolute Nucleated RBC (0.00-0.012) x10^3u/L Lymphocytes % (19.3-51.7) % Monocytes % (4.7-12.5) % Eosinophils % (0.7-5.8) % Basophils % (0.1-1.2) % Absolute Granulocytes (1.56-6.13) x10^3/uL Basophils # (0.01-0.08) x10^3/uL Sodium (135-145) mmol/L Potassium (3.5-5.1) mmol/L Chloride (98-107) mmol/L Carbon Dioxide (22-30) mmol/L Anion Gap (5-15) MEQ/L BUN (7-17) mg/dL Creatinine (0.52-1.04) mg/dL Estimated GFR ML/MIN Glucose (74-106) mg/dL Calcium (8.4-10.2) mg/dL Magnesium (1.6-2.3) mg/dL Iron 32 L (37-170) ug/dL TIBC 236 L (265-462) ug/dL Iron Saturation 13 L (20-39) % Total Bilirubin (0.2-1.3) mg/dL AST (14-36) U/L ALT (0-35) U/L Alkaline Phosphatase (38-126) U/L Troponin I 0.015 (0.000-0.033) ng/mL NT-Pro-B Natriuret Pep 1510 (<300) pg/mL Serum Total Protein (6.3-8.2) g/dL Albumin (3.5-5.0) g/dL Procalcitonin 0.062 (0.030-0.080) ng/mL Influenza Type A Ag (NEGATIVE) Influenza Type B Ag (NEGATIVE) RSV (PCR) (NEGATIVE) SARS-CoV-2 (PCR) (NEGATIVE) 03/20/24 03/20/24 03/20/24 Range/Units 10:05 10:05 09:38 WBC 9.7 (3.98-10.04) x10^3/uL RBC 2.50 L (3.93-5.22) x10^6/uL Hgb 6.7 L* (11.2-15.7) g/dL Hct 22.0 L (34.1-44.9) % MCV 88.0 (79.4-94.8) fL MCH 26.8 (25.6-32.2) pg MCHC 30.5 L (32.2-35.5) g/dL RDW 16.4 H (11.7-14.4) % Plt Count 442 H (182-369) x10^3/uL MPV 9.8 (9.4-12.3) fL Gran % 71.2 H (34.0-71.1) % Immature Gran % (Auto) 0.4 (0.001-0.429) % Nucleat RBC Rel Count 0.0 (0.00-0.2) % Eos # (Auto) 0.69 H (0.04-0.36) x10^3/uL Immature Gran # (Auto) 0.04 H (0.001-0.031) x10^3u/L Absolute Lymphs (auto) 1.61 (1.18-3.74) x10^3/uL Absolute Monos (auto) 0.43 (0.24-0.86) x10^3/uL Absolute Nucleated RBC 0.00 (0.00-0.012) x10^3u/L Lymphocytes % 16.5 L (19.3-51.7) % Monocytes % 4.4 L (4.7-12.5) % Eosinophils % 7.1 H (0.7-5.8) % Basophils % 0.4 (0.1-1.2) % Absolute Granulocytes 6.92 H (1.56-6.13) x10^3/uL Basophils # 0.04 (0.01-0.08) x10^3/uL Sodium 137 (135-145) mmol/L Potassium 3.8 (3.5-5.1) mmol/L Chloride 105 (98-107) mmol/L Carbon Dioxide 27 (22-30) mmol/L Anion Gap 8.9 (5-15) MEQ/L BUN 17 (7-17) mg/dL Creatinine 0.81 (0.52-1.04) mg/dL Estimated GFR 70.7 ML/MIN Glucose 145 H (74-106) mg/dL Calcium 8.3 L (8.4-10.2) mg/dL Magnesium 1.5 L (1.6-2.3) mg/dL Iron (37-170) ug/dL TIBC (265-462) ug/dL Iron Saturation (20-39) % Total Bilirubin 0.20 (0.2-1.3) mg/dL AST 23 (14-36) U/L ALT 17 (0-35) U/L Alkaline Phosphatase 59 (38-126) U/L Troponin I (0.000-0.033) ng/mL NT-Pro-B Natriuret Pep (<300) pg/mL Serum Total Protein 5.6 L (6.3-8.2) g/dL Albumin 2.7 L (3.5-5.0) g/dL Procalcitonin (0.030-0.080) ng/mL Influenza Type A Ag NEGATIVE (NEGATIVE) Influenza Type B Ag NEGATIVE (NEGATIVE) RSV (PCR) NEGATIVE (NEGATIVE) SARS-CoV-2 (PCR) NEGATIVE (NEGATIVE) - Progress Progress: improved Air Movement: fair Progress Note: Pneumonia Presents with shortness of breath and a burning chest sensation since information operator. Recent antibiotic treatment for pneumonia ended five to six days ago. Physical exam reveals abnormal lung sounds, suggesting unresolved pneumonia. Ox ygen saturation at 95% indicates mild hypoxemia. - Order chest scan to evaluate the extent of pneumonia. - labs ordered - Abx and NS bolus given - Duoneb and SoluMedrol given Hb 6.7, type and screen with 1u pRBCs ordered. Iron panel, B12 and Folate ordered. Mg 1.5, 2g MgSO4 given. Procal wnl, BNP 1500 so 40mg IV Lasix given. Discussed admission with Dr. Amor who accepts at 1140. Blood Culture(s) Obtained: Yes Antibiotics given: Yes Discussed with Dr.: Other (Dr. Amor) Counseled pt/family regarding: lab results, diagnosis, need for follow-up, rad results Medical Desision Making - Discussion of managment Care discussed with:: hospitalist Reviewed:: Test results Agreed on:: Treatment plan, place in obs Will see patient: in hospital - Diagnostic Testing Diagnostic test were ordered, analyzed, and reviewed by me: Yes Radiological Interpretation: Interpreted by me - Risk of complications The pt has a mod risk of morbidity or mortality based on: Need for prescription drug management The pt has a high risk of morbidity or mortality based on: Decision regarding hospitilization or escalation of hosp level of care - Departure Departure Disposition: Observation Clinical Impression: Pneumonia, Acute on chronic hypoxic respiratory failure, COPD exacerbation, Anemia Condition: Stable Critical Care Time: No Referrals: KATHIE ESPINOZA MD [Primary Care Provider] - Follow up/PCP as directed Instructions: Chronic Obstructive Pulmonary Disease, Pneumonia, Adult (DC)
[2024-03-20] MEDS: DUONEB 0.5-3 MG/3 ml Neb IH ONE (09:23)
[2024-03-20] MEDS ORDERED: ROCEPHIN 2 GM/100 ML NACL 2 GM/100 ML IVPB IV ONE (09:43)
[2024-03-20] MEDS ORDERED: Sterile H2O 10 ml IJ ONE (09:43)
[2024-03-20] MEDS ORDERED: Zithromax 500 MG/ 250 ML NaCl Premix 500 MG/250 ML IVPB IV ONE (09:43)
[2024-03-20] MEDS ORDERED: solu-MEDROL ONE (09:43)
[2024-03-20] MEDS ORDERED: Sodium Chloride 0.9% 1000 ML 1,000 ML ONE (09:43)
[2024-03-20] MEDS: solu-MEDROL 125 MG, Sterile H2O 10 ml 2 ML IV ONE (09:45)
[2024-03-20] MEDS: Sodium Chloride 0.9% 1000 ML 1,000 ML IV STA (09:45)
[2024-03-20] MEDS: ROCEPHIN 2 GM/100 ML NACL 2 GM/100 ML IVPB IV ONE (09:46)
[2024-03-20] MEDS: Zithromax 500 MG/ 250 ML NaCl Premix 500 MG/250 ML IVPB IV STA (09:46)
[2024-03-20 10:37] LABS: Absolute Neutrophil Ct (ANC) 6.92 x10^3/uL (1.56-6.13); BASOPHIL % 0.4 % (0.1-1.2); Basophil (Absolute #) 0.04 x10^3/uL (0.01-0.08); Eosinophil % 7.1 % (0.7-5.8); Eosinophil (Absolute #) 0.69 x10^3/uL (0.04-0.36); IMMATURE GRAN # 0.04 x10^3u/L (0.001-0.031); IMMATURE GRAN % 0.4 % (0.001-0.429); Lymphocyte (Absolute #) 1.61 x10^3/uL (1.18-3.74); Lymphocytes % 16.5 % (19.3-51.7); Mean Corpuscular Hemoglobin 26.8 pg (25.6-32.2); Mean Corpuscular Hgb Concent. 30.5 g/dL (32.2-35.5); Mean Platelet Volume 9.8 fL (9.4-12.3); Monocyte (Absolute #) 0.43 x10^3/uL (0.24-0.86); Monocytes % 4.4 % (4.7-12.5); Neutrophil % 71.2 % (34.0-71.1); Platelet Count 442 x10^3/uL (182-369); Red Cell Distribution Width 16.4 % (11.7-14.4); White Blood Count 9.7 x10^3/uL (3.98-10.04)
[2024-03-20 10:38] LABS: Hemoglobin 6.7 g/dL (11.2-15.7)
[2024-03-20 10:39] LABS: INFLUENZA A NEGATIVE (NEGATIVE); INFLUENZA B NEGATIVE (NEGATIVE); RESPIRATORY SYNCTIAL VIRUS NEGATIVE (NEGATIVE); SARS-CoV-2 Xpert Express NEGATIVE (NEGATIVE)
[2024-03-20 10:41] LABS: ALBUMIN 2.7 g/dL (3.5-5.0); ANION GAP 8.9 MEQ/L (5-15); BILIRUBIN,TOTAL 0.2 mg/dL (0.2-1.3); Calcium 8.3 mg/dL (8.4-10.2); Creatinine 1 0.81 mg/dL (0.52-1.04); EST GLOMERULAR FILTRATION RATE 70.7 ML/MIN; MAGNESIUM 1.5 mg/dL (1.6-2.3); Potassium 3.8 mmol/L (3.5-5.1); Total Protein 5.6 g/dL (6.3-8.2)
[2024-03-20 10:58] LABS: PROCALCITONIN 0.062 ng/mL (0.030-0.080)
[2024-03-20 11:11] LABS: Iron 32 ug/dL (37-170); Iron Saturation 13 % (20-39); TIBC 236 ug/dL (265-462)
[2024-03-20] MEDS ORDERED: Magnesium 1 Gm / 100 Ml D5W*** 100 ML IV ONE ×2 (11:35→12:40)
[2024-03-20] MEDS: Magnesium 1 Gm / 100 Ml D5W*** 100 ML IV SCH (11:37)
[2024-03-20 11:39] LABS: Ferritin 30.3 ng/mL (11.1-264)
[2024-03-20 11:55] LABS: ABO TYPING O; Antibody Screen NEGATIVE (NEGATIVE); RH TYPING POSITIVE
[2024-03-20 12:20] LABS: CROSS MATCH (PRBC) COMPATIBLE (COMPATIBLE)
[2024-03-20 12:27] LABS: Folate (Folic Acid) 5.25 ng/mL (2.76 - >20)
[2024-03-20] MEDS: Lasix 40 MG/4 ML IV ONE (12:36)
[2024-03-20] MEDS ORDERED: Lasix 40 MG/4 ML ONE (12:36)
--- NOTE | 2024-03-20 13:26 | PCM.HP ---
History of Present Illness - Chief Complaint Chief Complaint: sob Date: 03/20/24 History of Present Illness: is a 88 year old female with PMHX of CHF, CAD, hyperlipidemia, HTN, Type II DM, GERD, hypothyroidism, and COPD who presented to ED 03/20/24 with complaints of shortness of breath. Patient reports symptoms started around 4 a.m. this morning and got progressively worse. Patient states she had pneumonia several times since December and recently finished a course of Levaquin that her PCP prescribed. She denies fever, cough, or recent sick contacts. She is at her baseline oxygen of 3L. Patient denies hematuria, dark or tarry stools. Denies fever,cough, cp, abdominal pain, ELIZONDO, dizziness, N/V/D. Upon arrival to ED vitals stable. CXR pre-choi read showing bilateral ground glass opacities. Lab findings remarkable for normocytic anemia with hgb at 6.7, hypomagnesemia at 1.5, and iron sat at 13%. BNP at 1510. Respiratory viral panel negative. Patient given ceftriaxone, azithromycin, 1 unit LPRBC, lasix and mag sulfate in ED. - Review of Systems Constitutional: No Symptoms Eyes: No Symptoms Ears, Nose, & Throat: No Symptoms Respiratory: Short Of Breath Cardiac: No Symptoms Abdominal/Gastrointestinal: No Symptoms Genitourinary Symptoms: No Symptoms Musculoskeletal: No Symptoms Skin: No Symptoms Neurological: No Symptoms Psychological: No Symptoms Endocrine: No Symptoms Hematologic/Lymphatic: Anemia Immunological/Allergic: No Symptoms Medications & Allergies Home Medications: Home Medication List Acetaminophen 325 mg [Tylenol 325 mg] 650 mg PO Q6H PRN PRN 08/12/23 [History Confirmed 03/20/24] Amlodipine Besylate [Norvasc] 10 mg PO DAILY 08/12/23 [History Confirmed 03/20/24] Aspirin EC 81 mg [Ecotrin 81 mg] 81 mg PO DAILY 08/12/23 [History Confirmed 03/20/24] Atorvastatin Calcium 40 mg PO HS 08/12/23 [History Confirmed 03/20/24] Carboxymethylcellulose Sodium [Refresh Plus] 1 drop OP TID PRN PRN 08/12/23 [History Confirmed 03/20/24] Carvedilol 12.5 mg [Coreg 12.5 mg] 12.5 mg PO BID 08/12/23 [History Confirmed 03/20/24] Clonidine HCl 0.1 mg [Clonidine 0.1 mg Tablet] 0.1 mg PO BID 08/12/23 [History Confirmed 03/20/24] Clopidogrel Bisulfate [PLAVIX Tablet] 75 mg PO DAILY 08/12/23 [History Confirmed 03/20/24] Insulin Glargine,Hum.rec.anlog [Woodrow Solostar] 10 unit SQ HS 08/12/23 [History Confirmed 03/20/24] Insulin Glargine,Hum.rec.anlog [Toujeo Solostar] 15 unit SQ BREAKFAST 08/12/23 [History Confirmed 03/20/24] Isosorbide Mononitrate 30 mg [Imdur 30 MG] 30 mg PO HS 08/12/23 [History Confirmed 03/20/24] Levothyroxine Sodium 25 Mcg [Synthroid 25 Mcg] 25 mcg PO 0700 08/12/23 [History Confirmed 03/20/24] Nitroglycerin 0.4 mg PO Q5MIN PRN MR X 3 PRN 08/12/23 [History Confirmed 03/20/24] Omeprazole 40 mg PO DAILY 08/12/23 [History Confirmed 03/20/24] Sennosides/Docusate Sodium [Senna-S Tablet] 1 tab PO BID 08/12/23 [History Confirmed 03/20/24] Tramadol HCl 50 mg [Ultram 50 mg] 50 mg PO Q6H PRN PRN 08/12/23 [History Confirmed 03/20/24] Valsartan [Diovan] 320 mg PO DAILY 08/12/23 [History Confirmed 03/20/24] Cholecalciferol (Vitamin D3) [Vitamin D] 2,000 unit PO DAILY 30 Days #60 tablet 01/22/24 [Rx Confirmed 03/20/24] Spironolactone 50 mg PO DAILY 01/26/24 [History Confirmed 03/20/24] Ferrous Sulfate 325 mg [Feosol 325 mg] 325 mg PO DAILY 30 Days #30 tablet 01/29/24 [Rx Confirmed 03/20/24] Fluticasone Propion/Salmeterol [Fluticasone-Salmeterol 500-50] 1 each IH BID 03/20/24 [History Confirmed 03/20/24] Gabapentin 100 mg PO TID 03/20/24 [History Confirmed 03/20/24] Insulin Aspart [Novolog] 100 unit SQ UD 03/20/24 [History Confirmed 03/20/24] Ipratropium/Albuterol Sulfate [Iprat-Albut 0.5-3(2.5) mg/3 ml] 3 ml IH TID 03/20/24 [History Confirmed 03/20/24] Allergies/Adverse Reactions: Allergies Allergy/AdvReac Type Severity Reaction Status Date / Time clindamycin Allergy Verified 01/26/24 12:26 hydralazine Allergy Verified 01/26/24 12:26 oxytetracycline Allergy Verified 01/26/24 12:26 [From Terramycin] sulfamethoxazole Allergy Verified 01/26/24 12:26 [From Bactrim] trimethoprim [From Bactrim] Allergy Verified 01/26/24 12:26 - Past Medical History Past Medical History: Yes Neurological History: No Pertinent History ENT History: Cataracts, Other Cardiac History: Congestive Heart Failure, Coronary Artery Disease, High Cholesterol, Hypertension Respiratory History: Asthma Endocrine Medical History: Diabetes Type II, Hypothyroidism Musculoskelatal History: Arthritis GI Medical History: GERD, Gallbladder Disease History: No Pertinent History Pyscho-Social History: No Pertinent History Reproductive Disorders: No Pertinent History Comment: dry eyes, BLE wounds and cellulitis - Past Surgical History Past Surgical History: Yes Neuro Surgical History: No Pertinent History Cardiac History: Cardiac Catheterization, Cardiac Stent Respiratory Surgery: No Pertinent History GI Surgical History: Cholecystectomy Genitourinary Surgical Hx: No Pertinent History Musculskeletal Surgical Hx: Orthopedic Surgery Female Surgical History: Other Other Surgical History: breast abcess removed, hip surgery, 2 stents - Social History Smoking Status: Never smoker Exposure to second hand smoke: Yes Alcohol: None Drug Use: none - Social Determinants of Health Will the patient participate in the screening: Yes Do you worry about a steady place to live?: No Do you have any problems with any of the following?: No known problems In the past 12 months,have you had to go without utilities?: No Have you or anyone in your house had to go without enough: No Transportation Issues: No Has anyone in your support network made you feel unsafe?: No Does the patient want assistance with any of the above?: No Comment: Lives at [facility] - Physical Exam Vital Signs: Vital Signs - 24 hr Temp Pulse Resp BP BP Pulse Ox 03/20/24 12:30 59 L 15 136/63 98 03/20/24 12:15 60 15 150/65 98 03/20/24 12:00 61 15 140/70 97 03/20/24 11:45 61 14 150/74 98 03/20/24 11:42 95 03/20/24 11:30 63 16 140/68 93 L 03/20/24 11:15 64 16 160/74 95 03/20/24 11:00 68 14 156/79 96 03/20/24 10:49 68 18 170/82 96 03/20/24 10:48 75 20 95 03/20/24 10:46 76 19 96 03/20/24 10:30 72 18 146/63 96 03/20/24 10:15 61 15 163/73 97 03/20/24 10:00 68 20 135/59 96 03/20/24 09:45 64 15 114/54 94 L 03/20/24 09:30 65 16 130/62 94 L 03/20/24 09:23 75 25 H 96 03/20/24 09:15 67 17 138/72 99 03/20/24 09:00 74 16 152/73 96 03/20/24 08:53 76 19 166/75 95 03/20/24 08:49 97.7 F 81 22 166/75 95 General Appearance: no apparent distress Neurologic Exam: alert, oriented x 3, cooperative Eye Exam: PERRL/EOMI Ears, Nose, Throat Exam: normal ENT inspection Neck Exam: normal inspection Respiratory Exam: crackles/rales Cardiovascular Exam: regular rate/rhythm, normal heart sounds Gastrointestinal/Abdomen Exam: soft, normal bowel sounds Pelvic Exam: not done Rectal Exam: deferred Back Exam: normal inspection Extremity Exam: other (BLE wrapped with compression dressings) Skin Exam: pale Results - Labs Lab/Micro Results: Lab Results-Last 24 Hours 03/20/24 03/20/24 03/20/24 Range/Units 09:38 10:05 10:05 WBC 9.7 (3.98-10.04) x10^3/uL RBC 2.50 L (3.93-5.22) x10^6/uL Hgb 6.7 L* (11.2-15.7) g/dL Hct 22.0 L (34.1-44.9) % MCV 88.0 (79.4-94.8) fL MCH 26.8 (25.6-32.2) pg MCHC 30.5 L (32.2-35.5) g/dL RDW 16.4 H (11.7-14.4) % Plt Count 442 H (182-369) x10^3/uL MPV 9.8 (9.4-12.3) fL Gran % 71.2 H (34.0-71.1) % Immature Gran % (Auto) 0.4 (0.001-0.429) % Nucleat RBC Rel Count 0.0 (0.00-0.2) % Eos # (Auto) 0.69 H (0.04-0.36) x10^3/uL Immature Gran # (Auto) 0.04 H (0.001-0.031) x10^3u/L Absolute Lymphs (auto) 1.61 (1.18-3.74) x10^3/uL Absolute Monos (auto) 0.43 (0.24-0.86) x10^3/uL Absolute Nucleated RBC 0.00 (0.00-0.012) x10^3u/L Lymphocytes % 16.5 L (19.3-51.7) % Monocytes % 4.4 L (4.7-12.5) % Eosinophils % 7.1 H (0.7-5.8) % Basophils % 0.4 (0.1-1.2) % Absolute Granulocytes 6.92 H (1.56-6.13) x10^3/uL Basophils # 0.04 (0.01-0.08) x10^3/uL Sodium 137 (135-145) mmol/L Potassium 3.8 (3.5-5.1) mmol/L Chloride 105 (98-107) mmol/L Carbon Dioxide 27 (22-30) mmol/L Anion Gap 8.9 (5-15) MEQ/L BUN 17 (7-17) mg/dL Creatinine 0.81 (0.52-1.04) mg/dL Estimated GFR 70.7 ML/MIN Glucose 145 H (74-106) mg/dL Calcium 8.3 L (8.4-10.2) mg/dL Magnesium 1.5 L (1.6-2.3) mg/dL Iron (37-170) ug/dL TIBC (265-462) ug/dL Iron Saturation (20-39) % Ferritin (11.1-264) ng/mL Total Bilirubin 0.20 (0.2-1.3) mg/dL AST 23 (14-36) U/L ALT 17 (0-35) U/L Alkaline Phosphatase 59 (38-126) U/L Troponin I (0.000-0.033) ng/mL NT-Pro-B Natriuret Pep (<300) pg/mL Serum Total Protein 5.6 L (6.3-8.2) g/dL Albumin 2.7 L (3.5-5.0) g/dL Vitamin B12 (239-931) pg/mL Folic Acid (2.76 - >20) ng/mL Procalcitonin (0.030-0.080) ng/mL Influenza Type A Ag NEGATIVE (NEGATIVE) Influenza Type B Ag NEGATIVE (NEGATIVE) RSV (PCR) NEGATIVE (NEGATIVE) SARS-CoV-2 (PCR) NEGATIVE (NEGATIVE) ABO Group Rh Factor Antibody Screen (NEGATIVE) Crossmatch (COMPATIBLE) 03/20/24 03/20/24 03/20/24 Range/Units 10:05 10:05 10:05 WBC (3.98-10.04) x10^3/uL RBC (3.93-5.22) x10^6/uL Hgb (11.2-15.7) g/dL Hct (34.1-44.9) % MCV (79.4-94.8) fL MCH (25.6-32.2) pg MCHC (32.2-35.5) g/dL RDW (11.7-14.4) % Plt Count (182-369) x10^3/uL MPV (9.4-12.3) fL Gran % (34.0-71.1) % Immature Gran % (Auto) (0.001-0.429) % Nucleat RBC Rel Count (0.00-0.2) % Eos # (Auto) (0.04-0.36) x10^3/uL Immature Gran # (Auto) (0.001-0.031) x10^3u/L Absolute Lymphs (auto) (1.18-3.74) x10^3/uL Absolute Monos (auto) (0.24-0.86) x10^3/uL Absolute Nucleated RBC (0.00-0.012) x10^3u/L Lymphocytes % (19.3-51.7) % Monocytes % (4.7-12.5) % Eosinophils % (0.7-5.8) % Basophils % (0.1-1.2) % Absolute Granulocytes (1.56-6.13) x10^3/uL Basophils # (0.01-0.08) x10^3/uL Sodium (135-145) mmol/L Potassium (3.5-5.1) mmol/L Chloride (98-107) mmol/L Carbon Dioxide (22-30) mmol/L Anion Gap (5-15) MEQ/L BUN (7-17) mg/dL Creatinine (0.52-1.04) mg/dL Estimated GFR ML/MIN Glucose (74-106) mg/dL Calcium (8.4-10.2) mg/dL Magnesium (1.6-2.3) mg/dL Iron (37-170) ug/dL TIBC (265-462) ug/dL Iron Saturation (20-39) % Ferritin 30.3 (11.1-264) ng/mL Total Bilirubin (0.2-1.3) mg/dL AST (14-36) U/L ALT (0-35) U/L Alkaline Phosphatase (38-126) U/L Troponin I 0.015 (0.000-0.033) ng/mL NT-Pro-B Natriuret Pep 1510 (<300) pg/mL Serum Total Protein (6.3-8.2) g/dL Albumin (3.5-5.0) g/dL Vitamin B12 310 (239-931) pg/mL Folic Acid 5.25 (2.76 - >20) ng/mL Procalcitonin 0.062 (0.030-0.080) ng/mL Influenza Type A Ag (NEGATIVE) Influenza Type B Ag (NEGATIVE) RSV (PCR) (NEGATIVE) SARS-CoV-2 (PCR) (NEGATIVE) ABO Group Rh Factor Antibody Screen (NEGATIVE) Crossmatch (COMPATIBLE) 03/20/24 03/20/24 03/20/24 Range/Units 10:05 10:45 10:45 WBC (3.98-10.04) x10^3/uL RBC (3.93-5.22) x10^6/uL Hgb (11.2-15.7) g/dL Hct (34.1-44.9) % MCV (79.4-94.8) fL MCH (25.6-32.2) pg MCHC (32.2-35.5) g/dL RDW (11.7-14.4) % Plt Count (182-369) x10^3/uL MPV (9.4-12.3) fL Gran % (34.0-71.1) % Immature Gran % (Auto) (0.001-0.429) % Nucleat RBC Rel Count (0.00-0.2) % Eos # (Auto) (0.04-0.36) x10^3/uL Immature Gran # (Auto) (0.001-0.031) x10^3u/L Absolute Lymphs (auto) (1.18-3.74) x10^3/uL Absolute Monos (auto) (0.24-0.86) x10^3/uL Absolute Nucleated RBC (0.00-0.012) x10^3u/L Lymphocytes % (19.3-51.7) % Monocytes % (4.7-12.5) % Eosinophils % (0.7-5.8) % Basophils % (0.1-1.2) % Absolute Granulocytes (1.56-6.13) x10^3/uL Basophils # (0.01-0.08) x10^3/uL Sodium (135-145) mmol/L Potassium (3.5-5.1) mmol/L Chloride (98-107) mmol/L Carbon Dioxide (22-30) mmol/L Anion Gap (5-15) MEQ/L BUN (7-17) mg/dL Creatinine (0.52-1.04) mg/dL Estimated GFR ML/MIN Glucose (74-106) mg/dL Calcium (8.4-10.2) mg/dL Magnesium (1.6-2.3) mg/dL Iron 32 L (37-170) ug/dL TIBC 236 L (265-462) ug/dL Iron Saturation 13 L (20-39) % Ferritin (11.1-264) ng/mL Total Bilirubin (0.2-1.3) mg/dL AST (14-36) U/L ALT (0-35) U/L Alkaline Phosphatase (38-126) U/L Troponin I (0.000-0.033) ng/mL NT-Pro-B Natriuret Pep (<300) pg/mL Serum Total Protein (6.3-8.2) g/dL Albumin (3.5-5.0) g/dL Vitamin B12 (239-931) pg/mL Folic Acid (2.76 - >20) ng/mL Procalcitonin (0.030-0.080) ng/mL Influenza Type A Ag (NEGATIVE) Influenza Type B Ag (NEGATIVE) RSV (PCR) (NEGATIVE) SARS-CoV-2 (PCR) (NEGATIVE) ABO Group O Rh Factor POSITIVE Antibody Screen NEGATIVE (NEGATIVE) Crossmatch COMPATIBLE (COMPATIBLE) - Radiology Impressions Radiology Exams & Impressions: Radiology Procedures Category Date Time Status CHEST 1 VIEW (PORTABLE) Stat Exams 03/20/24 09:09 Taken - Other Procedures and Tests Respiratory Therapy 03/20/24 12:55 Respiratory Therapy Consult ONCE Assessment/Plan (1) Pneumonia Current Visit: Yes Status: Acute Assessment & Plan: -CXR pre-choi report with bilateral ground glass opacities -pending radiology final read -supplemental oxygen with goal spo2 >91% - on baseline 3L currently -Ceftriaxone/azithromycin -Nebs -RT eval and follow -solumedrol 40mg q 12H Code(s): J18.9 - PNEUMONIA, UNSPECIFIED ORGANISM (2) Acute on chronic hypoxic respiratory failure Current Visit: Yes Status: Acute Assessment & Plan: -see pneumonia Code(s): J96.21 - ACUTE AND CHRONIC RESPIRATORY FAILURE WITH HYPOXIA (3) Symptomatic anemia Current Visit: Yes Status: Acute Assessment & Plan: -Hgb reviewed at 6.7 - will order 2 units LPRBC per hospital policy -Iron saturation at 13% -start venofer -monitor and replace if hgb < 7 -occult stools Code(s): D64.9 - ANEMIA, UNSPECIFIED (4) Hypomagnesemia Current Visit: Yes Status: Acute Assessment & Plan: - Mag level reviewed - replenish with 2gram mag sulfate - recheck in a.m. Code(s): E83.42 - HYPOMAGNESEMIA (5) COPD exacerbation Current Visit: Yes Status: Acute Assessment & Plan: -secondary to pneumonia -see above for plan Code(s): J44.1 - CHRONIC OBSTRUCTIVE PULMONARY DISEASE W (ACUTE) EXACERBATION (6) Diabetes mellitus Current Visit: Yes Status: Acute Assessment & Plan: -ADA diet -SSI -A1c Code(s): E11.9 - TYPE 2 DIABETES MELLITUS WITHOUT COMPLICATIONS (7) Hypothyroid Current Visit: Yes Status: Acute Assessment & Plan: -continue home meds Code(s): E03.9 - HYPOTHYROIDISM, UNSPECIFIED (8) GERD (gastroesophageal reflux disease) Current Visit: Yes Status: Acute Assessment & Plan: -protonix Code(s): K21.9 - GASTRO-ESOPHAGEAL REFLUX DISEASE WITHOUT ESOPHAGITIS
[2024-03-20] MEDS ORDERED: Zofran 4 MG/2 ML VIAL IV PRN (13:37)
[2024-03-20] MEDS ORDERED: TYLENOL 325 MG PO PRN (13:37)
[2024-03-20] MEDS: Sodium Chloride 0.9% 250 ML 250 ML IV SCH (13:47)
[2024-03-20 14:01] LABS: CROSS MATCH (PRBC) COMPATIBLE (COMPATIBLE)
[2024-03-20] MEDS ORDERED: ULTRAM 50 MG PO PRN (15:52)
[2024-03-20] MEDS ORDERED: CARBOXYMETHYLCELLULOSE SODIUM OP PRN (15:52)
[2024-03-20] MEDS ORDERED: DROPERETTE OP PRN (15:52)
[2024-03-20] MEDS: COREG 12.5 MG PO SCH (17:52)
[2024-03-20] MEDS: Artificial Tears 15 ML OP SCH (18:03)
--- NOTE | 2024-03-20 18:59 | XRAY ---
Indication: Short of breath. Comparison: March 08, 2024 Portable chest unchanged again demonstrating borderline cardiomegaly, bibasilar infiltrates/atelectasis and small left effusion. No new cardiopulmonary abnormalities.
[2024-03-20] MEDS: DUONEB 0.5-3 MG/3 ml Neb IH SCH ×2 (19:28→21:55)
--- NOTE | 2024-03-20 20:41 | XRAY ---
CLINICAL HISTORY: pneumonia COMPARISON: CT dated 01/17/2024. TECHNIQUE: Contiguous axial CT images of the chest were acquired without administration of intravenous contrast. Coronal and sagittal reconstructions were obtained. One of the following dose reduction techniques was utilized for this exam: Automated exposure control, adjustment of the mA and/or kV according to patient size, and use of iterative reconstruction. FINDINGS: Lungs: Mild mosaic attenuation noted. Redemonstration of previously seen bilateral multiple small confluent dense rounded nodules with a tree in bud configuration, with a new extension to right middle lobe, may suggest infection vs inflammatory condition. No evidence of interstitial lung disease or emphysema. Minimal bilateral pleural effusions are more evident on the left. Bibasal thick atelectatic plates. Mediastinum: The mediastinum is normal in size and contour. Few nonspecific enlarged mediastinal nodes No mediastinal mass or abnormal lymphadenopathy. The heart size is within normal limits. Hilar Structures: The hilar structures appear normal without enlargement or abnormality. Trachea and Main Bronchi: The trachea and main bronchi are patent without evidence of obstruction or abnormality. Chest Wall: The chest wall is unremarkable with no evidence of soft tissue or bony abnormalities. Upper Abdomen: Possible right adrenal lesions of about 2.7 cm. Colonic diverticulosis. Bones: Moderate Spinal spondylotic changes with osteophytes. IMPRESSION: 1. Redemonstration of previously seen bilateral multiple small confluent dense rounded nodules with a tree in bud configuration, with a new extension to right middle lobe, may suggest infection vs inflammatory condition. 2. Bilateral pleural effusions are more evident in the left. (stable). 3. Possible right adrenal lesion (Stable). Suggest further evaluation. Electronically Signed by: Benjamin Bateman MD. (03/20/2024 20:37:34 EST)
[2024-03-20] MEDS ORDERED: ZOCOR 20MG ONE (21:45)
[2024-03-20] MEDS: Advair Hfa 230/21 Mcg COMMON CANISTER IH SCH (21:48)
[2024-03-20] MEDS ORDERED: ADVAIR 500-50 DISKUS IH SCH (22:00)
[2024-03-20] MEDS: Imdur 30 MG PO SCH (22:09)
[2024-03-20] MEDS: CLONIDINE 0.1 MG TABLET PO SCH (22:09)
[2024-03-20] MEDS: FEOSOL 325 MG PO SCH (22:10)
[2024-03-20] MEDS: Neurontin PO SCH (22:10)
[2024-03-20] MEDS: ZOCOR 20MG PO SCH (22:12)
[2024-03-20] MEDS ORDERED: VALSARTAN 320 MG PO SCH (22:17)
[2024-03-20] MEDS: LIPITOR 40MG PO SCH (22:18)
[2024-03-20] MEDS ORDERED: DIOVAN 80 MG ONE (22:36)
[2024-03-20] MEDS: DIOVAN 80 MG PO SCH (22:40)
[2024-03-20] MEDS: HUMALOG SQ PRN (22:41)
[2024-03-21 06:07] LABS: ALBUMIN 2.9 g/dL (3.5-5.0); ANION GAP 8.2 MEQ/L (5-15); BILIRUBIN,TOTAL 0.5 mg/dL (0.2-1.3); Creatinine 1 0.83 mg/dL (0.52-1.04); EST GLOMERULAR FILTRATION RATE 68.6 ML/MIN; Potassium 3.9 mmol/L (3.5-5.1); Total Protein 6.2 g/dL (6.3-8.2)
[2024-03-21 06:08] LABS: Absolute Neutrophil Ct (ANC) 4.42 x10^3/uL (1.56-6.13); BASOPHIL % 0.2 % (0.1-1.2); Basophil (Absolute #) 0.01 x10^3/uL (0.01-0.08); Eosinophil % 0.8 % (0.7-5.8); Eosinophil (Absolute #) 0.05 x10^3/uL (0.04-0.36); Hemoglobin 9.7 g/dL (11.2-15.7); IMMATURE GRAN # 0.03 x10^3u/L (0.001-0.031); IMMATURE GRAN % 0.5 % (0.001-0.429); Lymphocyte (Absolute #) 1.23 x10^3/uL (1.18-3.74); Lymphocytes % 20.4 % (19.3-51.7); Mean Cell Volume 85.6 fL (79.4-94.8); Mean Corpuscular Hemoglobin 26.8 pg (25.6-32.2); Mean Corpuscular Hgb Concent. 31.3 g/dL (32.2-35.5); Mean Platelet Volume 9.9 fL (9.4-12.3); Monocyte (Absolute #) 0.29 x10^3/uL (0.24-0.86); Monocytes % 4.8 % (4.7-12.5); Neutrophil % 73.3 % (34.0-71.1); Platelet Count 488 x10^3/uL (182-369); Red Blood Count 3.62 x10^6/uL (3.93-5.22); Red Cell Distribution Width 15.5 % (11.7-14.4)
[2024-03-21] MEDS ORDERED: Artificial Tears 15 ML OP PRN (06:45)
[2024-03-21] MEDS: Senokot-S Tablet PO SCH (06:58)
[2024-03-21] MEDS: SYNTHROID 25 MCG PO SCH (08:53)
[2024-03-21] MEDS: ROCEPHIN 1 GM / 100 ML NaCl 1 GM/100 ML IVPB IV SCH (09:17)
[2024-03-21] MEDS: Aldactone 25 MG PO SCH (09:17)
[2024-03-21] MEDS: PLAVIX Tablet PO SCH (09:18)
[2024-03-21] MEDS: VITAMIN D PO SCH (09:18)
[2024-03-21] MEDS: NORVASC 5 MG PO SCH (09:18)
[2024-03-21] MEDS: Protonix 40MG Tablet PO SCH (09:18)
[2024-03-21] MEDS: Tums EX 750 MG PO SCH (09:18)
[2024-03-21] MEDS: Zithromax 500 MG/ 250 ML NaCl Premix 500 MG/250 ML IVPB IV SCH (09:23)
[2024-03-21] MEDS ORDERED: NON-FORMULARY ITEM (Amlodipine Besylate [Norvasc] 10 MG Tablet) PO SCH (10:00)
[2024-03-21] MEDS ORDERED: NON-FORMULARY ITEM (Valsartan [Diovan] 320 MG Tablet) PO SCH (10:00)
[2024-03-21] MEDS ORDERED: NON-FORMULARY ITEM (Spironolactone [Spironolactone] 50 MG Tablet) PO SCH (10:00)
[2024-03-21] MEDS ORDERED: NON-FORMULARY ITEM (Omeprazole [Omeprazole] 40 MG Capsule.Dr) PO SCH (10:00)
--- NOTE | 2024-03-21 14:41 | PCM.DS ---
Discharge Summary Date of Admission: 03/20/24 12:54 Date of Discharge: 03/21/24 Admitting Physician: ISMA SARAH MD Primary Care Provider: KATHIE ESPINOZA Allergies Allergies clindamycin Allergy (Verified 01/26/24 12:26) hydralazine Allergy (Verified 01/26/24 12:26) oxytetracycline [From Terramycin] Allergy (Verified 01/26/24 12:26) sulfamethoxazole [From Bactrim] Allergy (Verified 01/26/24 12:26) trimethoprim [From Bactrim] Allergy (Verified 01/26/24 12:26) Hospital Summary - Hospital Course Hospital Course: is a 88 year old female with PMHX of CHF, CAD, hyperlipidemia, HTN, Type II DM, GERD, hypothyroidism, and COPD. She presented to ED 03/20/24 with complaints of shortness of breath. Patient reports symptoms started around 4 a.m. this morning and got progressively worse. Patient states she had pneumonia several times since December and recently finished a course of Levaquin that her PCP prescribed. She denies fever, cough, or recent sick contacts. She is at her baseline oxygen of 3L. Patient denies hematuria, dark or tarry stools. Upon arrival to ED vitals stable. CXR showing bilateral ground glass opacities. Lab findings remarkable for normocytic anemia with hgb at 6.7, hypomagnesemia at 1.5, and iron sat at 13%. BNP at 1510. Respiratory viral panel negative. Patient given ceftriaxone, azithromycin, 2 unit PRBC, lasix and mag sulfate in ED. Today Mg+ WNL. Hgb 9.7. She remains on baseline O2 3lNC at 96%. OP F/U appointments made with GI and hematology for chronic anemia. She has been able to stand with staff in room with standby assist. Case management to set up home health care. Will continue outpatient antibiotics and steroids. She denies CP, SOB, abd pain, N/V/D. - Vitals & Intake/Output Vital Signs: Vital Signs Temperature 98.0 F 03/21/24 11:46 Pulse Rate 73 03/21/24 13:06 Respiratory Rate 20 03/21/24 13:06 Blood Pressure 133/62 03/21/24 11:46 O2 Sat by Pulse Oximetry 92 L 03/21/24 13:06 Intake & Output: Intake & Output 03/19/24 03/20/24 03/21/24 03/22/24 11:59 11:59 11:59 11:59 Intake Total 1183 240 Output Total 1650 Balance -467 240 Weight 68.2 kg 67.5 kg - Lab Result Diagrams: 03/21/24 05:40 03/21/24 05:40 Lab Results-Last 24 Hrs: Lab Results-Last 24 Hours 03/20/24 03/20/24 03/20/24 Range/Units 10:45 16:53 18:04 WBC (3.98-10.04) x10^3/uL RBC (3.93-5.22) x10^6/uL Hgb (11.2-15.7) g/dL Hct (34.1-44.9) % MCV (79.4-94.8) fL MCH (25.6-32.2) pg MCHC (32.2-35.5) g/dL RDW (11.7-14.4) % Plt Count (182-369) x10^3/uL MPV (9.4-12.3) fL Gran % (34.0-71.1) % Immature Gran % (Auto) (0.001-0.429) % Nucleat RBC Rel Count (0.00-0.2) % Eos # (Auto) (0.04-0.36) x10^3/uL Immature Gran # (Auto) (0.001-0.031) x10^3u/L Absolute Lymphs (auto) (1.18-3.74) x10^3/uL Absolute Monos (auto) (0.24-0.86) x10^3/uL Absolute Nucleated RBC (0.00-0.012) x10^3u/L Lymphocytes % (19.3-51.7) % Monocytes % (4.7-12.5) % Eosinophils % (0.7-5.8) % Basophils % (0.1-1.2) % Absolute Granulocytes (1.56-6.13) x10^3/uL Basophils # (0.01-0.08) x10^3/uL Sodium (135-145) mmol/L Potassium (3.5-5.1) mmol/L Chloride (98-107) mmol/L Carbon Dioxide (22-30) mmol/L Anion Gap (5-15) MEQ/L BUN (7-17) mg/dL Creatinine (0.52-1.04) mg/dL Estimated GFR ML/MIN Glucose (74-106) mg/dL POC Glucometer 188 H (74 to 106) mg/dL Calcium (8.4-10.2) mg/dL Magnesium (1.6-2.3) mg/dL Total Bilirubin (0.2-1.3) mg/dL AST (14-36) U/L ALT (0-35) U/L Alkaline Phosphatase (38-126) U/L Troponin I 0.019 (0.000-0.033) ng/mL Serum Total Protein (6.3-8.2) g/dL Albumin (3.5-5.0) g/dL Prealbumin 13.52 L (17.6-36.0) mg/dL 03/20/24 03/21/24 03/21/24 Range/Units 22:08 05:40 05:40 WBC 6.0 (3.98-10.04) x10^3/uL RBC 3.62 L (3.93-5.22) x10^6/uL Hgb 9.7 L D (11.2-15.7) g/dL Hct 31.0 L (34.1-44.9) % MCV 85.6 (79.4-94.8) fL MCH 26.8 (25.6-32.2) pg MCHC 31.3 L (32.2-35.5) g/dL RDW 15.5 H (11.7-14.4) % Plt Count 488 H (182-369) x10^3/uL MPV 9.9 (9.4-12.3) fL Gran % 73.3 H (34.0-71.1) % Immature Gran % (Auto) 0.5 H (0.001-0.429) % Nucleat RBC Rel Count 0.0 (0.00-0.2) % Eos # (Auto) 0.05 (0.04-0.36) x10^3/uL Immature Gran # (Auto) 0.03 (0.001-0.031) x10^3u/L Absolute Lymphs (auto) 1.23 (1.18-3.74) x10^3/uL Absolute Monos (auto) 0.29 (0.24-0.86) x10^3/uL Absolute Nucleated RBC 0.00 (0.00-0.012) x10^3u/L Lymphocytes % 20.4 (19.3-51.7) % Monocytes % 4.8 (4.7-12.5) % Eosinophils % 0.8 (0.7-5.8) % Basophils % 0.2 (0.1-1.2) % Absolute Granulocytes 4.42 (1.56-6.13) x10^3/uL Basophils # 0.01 (0.01-0.08) x10^3/uL Sodium 133 L (135-145) mmol/L Potassium 3.9 (3.5-5.1) mmol/L Chloride 102 (98-107) mmol/L Carbon Dioxide 26 (22-30) mmol/L Anion Gap 8.2 (5-15) MEQ/L BUN 21 H (7-17) mg/dL Creatinine 0.83 (0.52-1.04) mg/dL Estimated GFR 68.6 ML/MIN Glucose 204 H (74-106) mg/dL POC Glucometer 300 H (74 to 106) mg/dL Calcium 8.0 L (8.4-10.2) mg/dL Magnesium (1.6-2.3) mg/dL Total Bilirubin 0.50 (0.2-1.3) mg/dL AST 24 (14-36) U/L ALT 14 (0-35) U/L Alkaline Phosphatase 61 (38-126) U/L Troponin I (0.000-0.033) ng/mL Serum Total Protein 6.2 L (6.3-8.2) g/dL Albumin 2.9 L (3.5-5.0) g/dL Prealbumin (17.6-36.0) mg/dL 03/21/24 03/21/24 03/21/24 Range/Units 05:40 07:34 11:12 WBC (3.98-10.04) x10^3/uL RBC (3.93-5.22) x10^6/uL Hgb (11.2-15.7) g/dL Hct (34.1-44.9) % MCV (79.4-94.8) fL MCH (25.6-32.2) pg MCHC (32.2-35.5) g/dL RDW (11.7-14.4) % Plt Count (182-369) x10^3/uL MPV (9.4-12.3) fL Gran % (34.0-71.1) % Immature Gran % (Auto) (0.001-0.429) % Nucleat RBC Rel Count (0.00-0.2) % Eos # (Auto) (0.04-0.36) x10^3/uL Immature Gran # (Auto) (0.001-0.031) x10^3u/L Absolute Lymphs (auto) (1.18-3.74) x10^3/uL Absolute Monos (auto) (0.24-0.86) x10^3/uL Absolute Nucleated RBC (0.00-0.012) x10^3u/L Lymphocytes % (19.3-51.7) % Monocytes % (4.7-12.5) % Eosinophils % (0.7-5.8) % Basophils % (0.1-1.2) % Absolute Granulocytes (1.56-6.13) x10^3/uL Basophils # (0.01-0.08) x10^3/uL Sodium (135-145) mmol/L Potassium (3.5-5.1) mmol/L Chloride (98-107) mmol/L Carbon Dioxide (22-30) mmol/L Anion Gap (5-15) MEQ/L BUN (7-17) mg/dL Creatinine (0.52-1.04) mg/dL Estimated GFR ML/MIN Glucose (74-106) mg/dL POC Glucometer 194 H 267 H (74 to 106) mg/dL Calcium (8.4-10.2) mg/dL Magnesium 1.8 (1.6-2.3) mg/dL Total Bilirubin (0.2-1.3) mg/dL AST (14-36) U/L ALT (0-35) U/L Alkaline Phosphatase (38-126) U/L Troponin I (0.000-0.033) ng/mL Serum Total Protein (6.3-8.2) g/dL Albumin (3.5-5.0) g/dL Prealbumin (17.6-36.0) mg/dL Micro Results-Entire Visit: Accuchecks Date 03/21/24 Date 03/21/24 Date 03/20/24 Date 03/20/24 Time 22:00 Time 17:07 - Radiology Exams Ordered Rad Exams-Entire Visit: Radiology Procedures Category Date Time Status CHEST 1 VIEW (PORTABLE) Stat Exams 03/20/24 09:09 Completed CHEST WITHOUT CONTRAST [CT] Routine Exams 03/20/24 13:41 Completed - Procedures and Test Procedures and Tests throughout Hospitalization: Therapy Orders & Screens 03/20/24 09:26 Respiratory Therapy Assessment DAILY Comment: 03/20/24 12:55 Respiratory Therapy Consult ONCE Comment: Reason For Exam: 03/20/24 14:24 RT Screen per Nursing Assess ONCE Comment: Protocol Order Physician Instructions: Greater than 3 points order RT Admission Screen Reason For Exam: Triggered on Admission Diagnosis: SOB Diagnosis: SOB Pneumonia: Yes Home O2: Yes Asthma: No CHF: Yes Home CPAP/BIPAP: No Home Nebs/MDI: Yes Total Points: 16 03/21/24 06:25 Oxygen NASAL CANNULA 3 lpm Comment: Diagnosis: SOB Respiratory Therapy Assessment DAILY Comment: Diagnosis: SOB 03/21/24 08:00 OT Screen per Nursing Assess ONCE Comment: Protocol Order Physician Instructions: Greater than 3 points order OT Admission Screening Reason For Exam: Triggered on Admission Diagnosis: SOB Open Wound/Cellutlitis/Pressure Ulcers: Yes Acute Fx/ORIF/Change in wt bearing status: No Severe MUSCULOSKELETAL pain: No ADL Dysfunction: No Acute CVA w/Hemiparesis/Hemiplegia: No Decreased Functional Mobility/Strength: No Sprain/Strain: No Acute Post-op Mobility Dysfunction: No Total Points: 5 PT Screen per Nursing Assess ONCE Comment: Protocol Order Physician Instructions: Greater than 3 points order PT Admission Screenin Reason For Exam: Triggered on Admission Diagnosis: SOB Open Wound/Cellutlitis/Pressure Ulcers: Yes Acute Fx/ORIF/Change in wt bearing status: No Severe MUSCULOSKELETAL pain: No ADL Dysfunction: No Acute CVA w/Hemiparesis/Hemiplegia: No Decreased Functional Mobility/Strength: No Sprain/Strain: No Acute Post-op Mobility Dysfunction: No Total Points: 5 03/21/24 12:42 PT Eval & Treat (MD Order) ONCE Reason for Eval:: weakness Diagnosis: SOB Discharge Exam General Appearance: no apparent distress, alert Neurologic Exam: alert, oriented x 3, cooperative, normal mood/affect, nml cerebellar function, sensation nml, motor weakness, No motor deficits Eye Exam: PERRL, EOMI, eyes nml inspection Ears, Nose, Throat Exam: normal ENT inspection, pharynx normal, moist mucous membranes Neck Exam: normal inspection, non-tender, supple, full range of motion Respiratory Exam: normal breath sounds, lungs clear, No respiratory distress Cardiovascular Exam: regular rate/rhythm, normal heart sounds Gastrointestinal/Abdomen Exam: soft, No tenderness, No mass Pelvic Exam: deferred Rectal Exam: deferred Back Exam: normal inspection, normal range of motion, No CVA tenderness, No vertebral tenderness Extremity Exam: normal inspection, normal range of motion Skin Exam: normal color, warm, dry Final Diagnosis/Problem List - Final Discharge Diagnosis/Problem (1) Pneumonia Current Visit: Yes Status: Acute Code(s): J18.9 - PNEUMONIA, UNSPECIFIED ORGANISM (2) Acute on chronic hypoxic respiratory failure Current Visit: Yes Status: Acute Code(s): J96.21 - ACUTE AND CHRONIC RESPIRATORY FAILURE WITH HYPOXIA (3) Anemia Current Visit: Yes Status: Acute Code(s): D64.9 - ANEMIA, UNSPECIFIED (4) Hypomagnesemia Current Visit: Yes Status: Acute Code(s): E83.42 - HYPOMAGNESEMIA (5) COPD exacerbation Current Visit: Yes Status: Acute Code(s): J44.1 - CHRONIC OBSTRUCTIVE PULMONARY DISEASE W (ACUTE) EXACERBATION (6) Diabetes mellitus Current Visit: Yes Status: Acute Code(s): E11.9 - TYPE 2 DIABETES MELLITUS WITHOUT COMPLICATIONS (7) Hypothyroid Current Visit: Yes Status: Acute Code(s): E03.9 - HYPOTHYROIDISM, UNSPECIFIED (8) GERD (gastroesophageal reflux disease) Current Visit: Yes Status: Acute Assessment & Plan: (1) Pneumonia Current Visit: Yes Status: Acute Assessment & Plan: -CXR pre-choi report with bilateral ground glass opacities -pending radiology final read -supplemental oxygen with goal spo2 >91% - on baseline 3L currently -Ceftriaxone/azithromycin -Nebs -RT eval and follow -solumedrol 40mg q 12H Code(s): J18.9 - PNEUMONIA, UNSPECIFIED ORGANISM (2) Acute on chronic hypoxic respiratory failure Current Visit: Yes Status: Acute Assessment & Plan: -see pneumonia Code(s): J96.21 - ACUTE AND CHRONIC RESPIRATORY FAILURE WITH HYPOXIA (3) Symptomatic anemia Current Visit: Yes Status: Acute Assessment & Plan: -Hgb reviewed at 6.7 - will order 2 units LPRBC per hospital policy -Iron saturation at 13% -start venofer -monitor and replace if hgb < 7 -occult stools - today hgb 9.7 - OP appointments made with GI and hematology for chronic anemia - CBC, CMP reviewed - [facility] at assisted living Code(s): D64.9 - ANEMIA, UNSPECIFIED (4) Hypomagnesemia Current Visit: Yes Status: Acute Assessment & Plan: - resolved Code(s): E83.42 - HYPOMAGNESEMIA (5) COPD exacerbation Current Visit: Yes Status: Acute Assessment & Plan: -secondary to pneumonia -see above for plan Code(s): J44.1 - CHRONIC OBSTRUCTIVE PULMONARY DISEASE W (ACUTE) EXACERBATION (6) Diabetes mellitus Current Visit: Yes Status: Acute Assessment & Plan: -ADA diet -SSI - accuchecks ac/hs -A1c 7.44- 01/13/24- controlled Code(s): E11.9 - TYPE 2 DIABETES MELLITUS WITHOUT COMPLICATIONS (7) Hypothyroid Current Visit: Yes Status: Acute Assessment & Plan: -continue home meds Code(s): E03.9 - HYPOTHYROIDISM, UNSPECIFIED (8) GERD (gastroesophageal reflux disease) Current Visit: Yes Status: Acute Assessment & Plan: -protonix Code(s): K21.9 - GASTRO-ESOPHAGEAL REFLUX DISEASE WITHOUT ESOPHAGITIS This D/C plan took > 34 minutes to complete. Code(s): K21.9 - GASTRO-ESOPHAGEAL REFLUX DISEASE WITHOUT ESOPHAGITIS - Discharge Discharge Date: 03/21/24 (assisted living) Disposition: HOME HEALTH SERVICE Condition: Good Prescriptions: Continue Insulin Glargine,Hum.rec.anlog [Toujeo Solostar] 10 unit SQ HS Insulin Glargine,Hum.rec.anlog [Toujeo Solostar] 15 unit SQ BREAKFAST Carvedilol 12.5 mg [Coreg 12.5 mg] 12.5 mg PO BIDWMEALS Tramadol HCl 50 mg [Ultram 50 mg] 50 mg PO Q6H PRN PRN PRN Reason: Pain Carboxymethylcellulose Sodium [Refresh Plus] 1 drop OP TID PRN PRN PRN Reason: dry eyes Valsartan [Diovan] 320 mg PO DAILY Acetaminophen 325 mg [Tylenol 325 mg] 650 mg PO Q6H PRN PRN PRN Reason: Pain Sennosides/Docusate Sodium [Senna-S Tablet] 1 tab PO BID Nitroglycerin 0.4 mg PO Q5MIN PRN MR X 3 PRN PRN Reason: Chest Pain Aspirin EC 81 mg [Ecotrin 81 mg] 81 mg PO DAILY Omeprazole 40 mg PO DAILY Levothyroxine Sodium 25 Mcg [Synthroid 25 Mcg] 25 mcg PO 0700 Isosorbide Mononitrate 30 mg [Imdur 30 MG] 30 mg PO HS Clopidogrel Bisulfate [PLAVIX Tablet] 75 mg PO DAILY Clonidine HCl 0.1 mg [Clonidine 0.1 mg Tablet] 0.1 mg PO BID Atorvastatin Calcium 40 mg PO HS Amlodipine Besylate [Norvasc] 10 mg PO DAILY Cholecalciferol (Vitamin D3) [Vitamin D] 2,000 unit PO DAILY 30 Days #60 tablet Spironolactone 50 mg PO DAILY Ipratropium/Albuterol Sulfate [Iprat-Albut 0.5-3(2.5) mg/3 ml] 3 ml IH TID Fluticasone Propion/Salmeterol [Fluticasone-Salmeterol 500-50] 1 each IH BID Insulin Aspart [Novolog] 100 unit SQ UD Gabapentin 100 mg PO TID Ferrous Sulfate 325 mg [Feosol 325 mg] 325 mg PO BID Calcium Carbonate 750 mg [Tums EX 750 MG] 750 mg PO DAILY Follow up with: DEBORAH EDWARDS FNP [NON-STAFF PHY W/O PRIVILEGES] - 07/27/24 8:30 am KATHIE ESPINOZA MD [Primary Care Provider] - 03/25/24 3:30 pm ELPIDIO MENDOZA MD [NON-STAFF PHY W/O PRIVILEGES] - 03/29/24 2:00 pm
--- NOTE | 2024-03-21 16:36 | PCM.CONS ---
Podiatry HPI - Consult Date of Consultation Date: 03/21/24 Reason for Consult: venous insufficency ulcers leg swelling Consulting Provider: YUSUF ARMENDARIZ DPM - HPI History of Present Illness: is a 88 year old female with PMHX of CHF, CAD, hyperlipidemia, HTN, Type II DM, GERD, hypothyroidism, and COPD who presented to ED 03/20/24 with complaints of shortness of breath. Patient reports symptoms started around 4 a.m. this morning and got progressively worse. Patient states she had pneumonia several times since December and recently finished a course of Levaquin that her PCP prescribed. She denies fever, cough, or recent sick contacts. She is at her baseline oxygen of 3L. Patient denies hematuria, dark or tarry stools. Denies fever,cough, cp, abdominal pain, ELIZONDO, dizziness, N/V/D. Upon arrival to ED vitals stable. CXR pre-choi read showing bilateral ground glass opacities. Lab findings remarkable for normocytic anemia with hgb at 6.7, hypomagnesemia at 1.5, and iron sat at 13%. BNP at 1510. Respiratory viral panel negative. Patient given ceftriaxone, azithromycin, 1 unit LPRBC, lasix and mag sulfate in ED. Medications & Allergies Home Medications: Home Medication List Acetaminophen 325 mg [Tylenol 325 mg] 650 mg PO Q6H PRN PRN 08/12/23 [History Confirmed 03/20/24] Amlodipine Besylate [Norvasc] 10 mg PO DAILY 08/12/23 [History Confirmed 03/20/24] Aspirin EC 81 mg [Ecotrin 81 mg] 81 mg PO DAILY 08/12/23 [History Confirmed 03/20/24] Atorvastatin Calcium 40 mg PO HS 08/12/23 [History Confirmed 03/20/24] Carboxymethylcellulose Sodium [Refresh Plus] 1 drop OP TID PRN PRN 08/12/23 [History Confirmed 03/20/24] Carvedilol 12.5 mg [Coreg 12.5 mg] 12.5 mg PO BIDWMEALS 08/12/23 [History Confirmed 03/20/24] Clonidine HCl 0.1 mg [Clonidine 0.1 mg Tablet] 0.1 mg PO BID 08/12/23 [History Confirmed 03/20/24] Clopidogrel Bisulfate [PLAVIX Tablet] 75 mg PO DAILY 08/12/23 [History Confirmed 03/20/24] Insulin Glargine,Hum.rec.anlog [Devonuhumphreyo Solostar] 10 unit SQ HS 08/12/23 [History Confirmed 03/20/24] Insulin Glargine,Hum.rec.anlog [Toujeo Solostar] 15 unit SQ BREAKFAST 08/12/23 [History Confirmed 03/20/24] Isosorbide Mononitrate 30 mg [Imdur 30 MG] 30 mg PO HS 08/12/23 [History Confirmed 03/20/24] Levothyroxine Sodium 25 Mcg [Synthroid 25 Mcg] 25 mcg PO 0700 08/12/23 [History Confirmed 03/20/24] Nitroglycerin 0.4 mg PO Q5MIN PRN MR X 3 PRN 08/12/23 [History Confirmed 03/20/24] Omeprazole 40 mg PO DAILY 08/12/23 [History Confirmed 03/20/24] Sennosides/Docusate Sodium [Senna-S Tablet] 1 tab PO BID 08/12/23 [History Conf irmed 03/20/24] Tramadol HCl 50 mg [Ultram 50 mg] 50 mg PO Q6H PRN PRN 08/12/23 [History Confirmed 03/20/24] Valsartan [Diovan] 320 mg PO DAILY 08/12/23 [History Confirmed 03/20/24] Cholecalciferol (Vitamin D3) [Vitamin D] 2,000 unit PO DAILY 30 Days #60 tablet 01/22/24 [Rx Confirmed 03/20/24] Spironolactone 50 mg PO DAILY 01/26/24 [History Confirmed 03/20/24] Calcium Carbonate 750 mg [Tums EX 750 MG] 750 mg PO DAILY 03/20/24 [History Confirmed 03/20/24] Ferrous Sulfate 325 mg [Feosol 325 mg] 325 mg PO BID 03/20/24 [History Confirmed 03/20/24] Fluticasone Propion/Salmeterol [Fluticasone-Salmeterol 500-50] 1 each IH BID 03/20/24 [History Confirmed 03/20/24] Gabapentin 100 mg PO TID 03/20/24 [History Confirmed 03/20/24] Insulin Aspart [Novolog] 100 unit SQ UD 03/20/24 [History Confirmed 03/20/24] Ipratropium/Albuterol Sulfate [Iprat-Albut 0.5-3(2.5) mg/3 ml] 3 ml IH TID 03/20/24 [History Confirmed 03/20/24] Prednisone 20 mg [Deltasone 20 mg] 20 mg PO BID 5 Days #10 tablet 03/21/24 [Rx] levoFLOXacin [Levofloxacin] 750 mg PO DAILY 5 Days #5 tablet 03/21/24 [Rx] Allergies/Adverse Reactions: Allergies Allergy/AdvReac Type Severity Reaction Status Date / Time clindamycin Allergy Verified 01/26/24 12:26 hydralazine Allergy Verified 01/26/24 12:26 oxytetracycline Allergy Verified 01/26/24 12:26 [From Terramycin] sulfamethoxazole Allergy Verified 01/26/24 12:26 [From Bactrim] trimethoprim [From Bactrim] Allergy Verified 01/26/24 12:26 - Past Medical History Past Medical History: Yes Neurological History: No Pertinent History ENT History: Cataracts, Other Cardiac History: Congestive Heart Failure, Coronary Artery Disease, High Cholesterol, Hypertension Respiratory History: Asthma Endocrine Medical History: Diabetes Type II, Hypothyroidism Musculoskelatal History: Arthritis GI Medical History: GERD, Gallbladder Disease History: No Pertinent History Pyscho-Social History: No Pertinent History Reproductive Disorders: No Pertinent History Comment: dry eyes, BLE wounds and cellulitis - Past Surgical History Past Surgical History: Yes Neuro Surgical History: No Pertinent History Cardiac History: Cardiac Catheterization, Cardiac Stent Respiratory Surgery: No Pertinent History GI Surgical History: Cholecystectomy Genitourinary Surgical Hx: No Pertinent History Musculskeletal Surgical Hx: Orthopedic Surgery Female Surgical History: Other Other Surgical History: breast abcess removed, hip surgery, 2 stents - Social History Smoking Status: Never smoker Exposure to second hand smoke: Yes Alcohol: None Drug Use: none - Social Determinants of Health Will the patient participate in the screening: Yes Do you worry about a steady place to live?: No Do you have any problems with any of the following?: No known problems In the past 12 months,have you had to go without utilities?: No Have you or anyone in your house had to go without enough: No Transportation Issues: No Has anyone in your support network made you feel unsafe?: No Does the patient want assistance with any of the above?: No Comment: Lives at [facility] Physical Exam - Narrative Narrative Physical Exam: Podiatry Physical Exam Results - Labs Lab/Micro Results: Lab Results-Last 24 Hours 03/20/24 03/20/24 03/20/24 Range/Units 16:53 18:04 22:08 WBC (3.98-10.04) x10^3/uL RBC (3.93-5.22) x10^6/uL Hgb (11.2-15.7) g/dL Hct (34.1-44.9) % MCV (79.4-94.8) fL MCH (25.6-32.2) pg MCHC (32.2-35.5) g/dL RDW (11.7-14.4) % Plt Count (182-369) x10^3/uL MPV (9.4-12.3) fL Gran % (34.0-71.1) % Immature Gran % (Auto) (0.001-0.429) % Nucleat RBC Rel Count (0.00-0.2) % Eos # (Auto) (0.04-0.36) x10^3/uL Immature Gran # (Auto) (0.001-0.031) x10^3u/L Absolute Lymphs (auto) (1.18-3.74) x10^3/uL Absolute Monos (auto) (0.24-0.86) x10^3/uL Absolute Nucleated RBC (0.00-0.012) x10^3u/L Lymphocytes % (19.3-51.7) % Monocytes % (4.7-12.5) % Eosinophils % (0.7-5.8) % Basophils % (0.1-1.2) % Absolute Granulocytes (1.56-6.13) x10^3/uL Basophils # (0.01-0.08) x10^3/uL Sodium (135-145) mmol/L Potassium (3.5-5.1) mmol/L Chloride (98-107) mmol/L Carbon Dioxide (22-30) mmol/L Anion Gap (5-15) MEQ/L BUN (7-17) mg/dL Creatinine (0.52-1.04) mg/dL Estimated GFR ML/MIN Glucose (74-106) mg/dL POC Glucometer 188 H 300 H (74 to 106) mg/dL Calcium (8.4-10.2) mg/dL Magnesium (1.6-2.3) mg/dL Total Bilirubin (0.2-1.3) mg/dL AST (14-36) U/L ALT (0-35) U/L Alkaline Phosphatase (38-126) U/L Troponin I 0.019 (0.000-0.033) ng/mL Serum Total Protein (6.3-8.2) g/dL Albumin (3.5-5.0) g/dL 03/21/24 03/21/24 03/21/24 Range/Units 05:40 05:40 05:40 WBC 6.0 (3.98-10.04) x10^3/uL RBC 3.62 L (3.93-5.22) x10^6/uL Hgb 9.7 L D (11.2-15.7) g/dL Hct 31.0 L (34.1-44.9) % MCV 85.6 (79.4-94.8) fL MCH 26.8 (25.6-32.2) pg MCHC 31.3 L (32.2-35.5) g/dL RDW 15.5 H (11.7-14.4) % Plt Count 488 H (182-369) x10^3/uL MPV 9.9 (9.4-12.3) fL Gran % 73.3 H (34.0-71.1) % Immature Gran % (Auto) 0.5 H (0.001-0.429) % Nucleat RBC Rel Count 0.0 (0.00-0.2) % Eos # (Auto) 0.05 (0.04-0.36) x10^3/uL Immature Gran # (Auto) 0.03 (0.001-0.031) x10^3u/L Absolute Lymphs (auto) 1.23 (1.18-3.74) x10^3/uL Absolute Monos (auto) 0.29 (0.24-0.86) x10^3/uL Absolute Nucleated RBC 0.00 (0.00-0.012) x10^3u/L Lymphocytes % 20.4 (19.3-51.7) % Monocytes % 4.8 (4.7-12.5) % Eosinophils % 0.8 (0.7-5.8) % Basophils % 0.2 (0.1-1.2) % Absolute Granulocytes 4.42 (1.56-6.13) x10^3/uL Basophils # 0.01 (0.01-0.08) x10^3/uL Sodium 133 L (135-145) mmol/L Potassium 3.9 (3.5-5.1) mmol/L Chloride 102 (98-107) mmol/L Carbon Dioxide 26 (22-30) mmol/L Anion Gap 8.2 (5-15) MEQ/L BUN 21 H (7-17) mg/dL Creatinine 0.83 (0.52-1.04) mg/dL Estimated GFR 68.6 ML/MIN Glucose 204 H (74-106) mg/dL POC Glucometer (74 to 106) mg/dL Calcium 8.0 L (8.4-10.2) mg/dL Magnesium 1.8 (1.6-2.3) mg/dL Total Bilirubin 0.50 (0.2-1.3) mg/dL AST 24 (14-36) U/L ALT 14 (0-35) U/L Alkaline Phosphatase 61 (38-126) U/L Troponin I (0.000-0.033) ng/mL Serum Total Protein 6.2 L (6.3-8.2) g/dL Albumin 2.9 L (3.5-5.0) g/dL 03/21/24 03/21/24 03/21/24 Range/Units 07:34 11:12 16:25 WBC (3.98-10.04) x10^3/uL RBC (3.93-5.22) x10^6/uL Hgb (11.2-15.7) g/dL Hct (34.1-44.9) % MCV (79.4-94.8) fL MCH (25.6-32.2) pg MCHC (32.2-35.5) g/dL RDW (11.7-14.4) % Plt Count (182-369) x10^3/uL MPV (9.4-12.3) fL Gran % (34.0-71.1) % Immature Gran % (Auto) (0.001-0.429) % Nucleat RBC Rel Count (0.00-0.2) % Eos # (Auto) (0.04-0.36) x10^3/uL Immature Gran # (Auto) (0.001-0.031) x10^3u/L Absolute Lymphs (auto) (1.18-3.74) x10^3/uL Absolute Monos (auto) (0.24-0.86) x10^3/uL Absolute Nucleated RBC (0.00-0.012) x10^3u/L Lymphocytes % (19.3-51.7) % Monocytes % (4.7-12.5) % Eosinophils % (0.7-5.8) % Basophils % (0.1-1.2) % Absolute Granulocytes (1.56-6.13) x10^3/uL Basophils # (0.01-0.08) x10^3/uL Sodium (135-145) mmol/L Potassium (3.5-5.1) mmol/L Chloride (98-107) mmol/L Carbon Dioxide (22-30) mmol/L Anion Gap (5-15) MEQ/L BUN (7-17) mg/dL Creatinine (0.52-1.04) mg/dL Estimated GFR ML/MIN Glucose (74-106) mg/dL POC Glucometer 194 H 267 H 309 H (74 to 106) mg/dL Calcium (8.4-10.2) mg/dL Magnesium (1.6-2.3) mg/dL Total Bilirubin (0.2-1.3) mg/dL AST (14-36) U/L ALT (0-35) U/L Alkaline Phosphatase (38-126) U/L Troponin I (0.000-0.033) ng/mL Serum Total Protein (6.3-8.2) g/dL Albumin (3.5-5.0) g/dL Accuchecks Date 03/21/24 Date 03/21/24 Date 03/20/24 Time 22:00 - Radiology Impressions Radiology Exams & Impressions: Radiology Procedures Category Date Time Status CHEST 1 VIEW (PORTABLE) Stat Exams 03/20/24 09:09 Completed CHEST WITHOUT CONTRAST [CT] Routine Exams 03/20/24 13:41 Completed - Other Procedures and Tests Respiratory Therapy 03/21/24 06:25 Oxygen NASAL CANNULA 3 lpm Respiratory Therapy Assessment DAILY Assessment/Plan (1) Pneumonia Current Visit: Yes Status: Acute Code(s): J18.9 - PNEUMONIA, UNSPECIFIED ORGANISM (2) Bilateral lower leg cellulitis Current Visit: No Status: Acute Assessment & Plan: intial patient examination and evaluation Patient has responded very well to compression therapy Will continue at this time. Unna boots applied to the bilateral lower extremity Will follow outpatient. Code(s): L03.116 - CELLULITIS OF LEFT LOWER LIMB; L03.115 - CELLULITIS OF RIGHT LOWER LIMB (3) Leukocytosis, unspecified Current Visit: No Status: Acute Code(s): D72.829 - ELEVATED WHITE BLOOD CELL COUNT, UNSPECIFIED (4) Weakness Current Visit: No Status: Acute Code(s): R53.1 - WEAKNESS (5) CHF (congestive heart failure) Current Visit: No Status: Chronic Code(s): I50.9 - HEART FAILURE, UNSPECIFIED (6) Peripheral vascular disease Current Visit: No Status: Chronic Code(s): I73.9 - PERIPHERAL VASCULAR DISEASE, UNSPECIFIED (7) Type II diabetes mellitus Current Visit: No Status: Chronic Qualifiers: Diabetes mellitus prison insulin use: with ferry terminal agent use Diabetes mellitus complication status: with circulatory complication Diabetes mellitus complication detail: with peripheral angiopathy without gangrene Qualified Code(s): E11.51 - Type 2 diabetes mellitus with diabetic peripheral angiopathy without gangrene; Z79.4 - [facility] (current) use of insulin
[2024-03-21 17:02] VITALS: BP 132/62; PULSE 77; RESP 16; TEMP 98.1; O2SAT 97
--- NOTE | 2024-03-21 17:23 | PCM.DCORD ---
- Discharge Discharge Date: 03/21/24 Disposition: HOME HEALTH SERVICE Condition: Good Prescriptions: New levoFLOXacin [Levofloxacin] 750 mg PO DAILY 5 Days #5 tablet Prednisone 20 mg [Deltasone 20 mg] 20 mg PO BID 5 Days #10 tablet Continue Insulin Glargine,Hum.rec.anlog [[facility] Baileybeena] 10 unit SQ HS Insulin Glargine,Hum.rec.anlog [[facility] Lynnbeena] 15 unit SQ BREAKFAST Carvedilol 12.5 mg [Coreg 12.5 mg] 12.5 mg PO BIDWMEALS Tramadol HCl 50 mg [Ultram 50 mg] 50 mg PO Q6H PRN PRN PRN Reason: Pain Carboxymethylcellulose Sodium [Refresh Plus] 1 drop OP TID PRN PRN PRN Reason: dry eyes Valsartan [Diovan] 320 mg PO DAILY Acetaminophen 325 mg [Tylenol 325 mg] 650 mg PO Q6H PRN PRN PRN Reason: Pain Sennosides/Docusate Sodium [Senna-S Tablet] 1 tab PO BID Nitroglycerin 0.4 mg PO Q5MIN PRN MR X 3 PRN PRN Reason: Chest Pain Aspirin EC 81 mg [Ecotrin 81 mg] 81 mg PO DAILY Omeprazole 40 mg PO DAILY Levothyroxine Sodium 25 Mcg [Synthroid 25 Mcg] 25 mcg PO 0700 Isosorbide Mononitrate 30 mg [Imdur 30 MG] 30 mg PO HS Clopidogrel Bisulfate [PLAVIX Tablet] 75 mg PO DAILY Clonidine HCl 0.1 mg [Clonidine 0.1 mg Tablet] 0.1 mg PO BID Atorvastatin Calcium 40 mg PO HS Amlodipine Besylate [Norvasc] 10 mg PO DAILY Cholecalciferol (Vitamin D3) [Vitamin D] 2,000 unit PO DAILY 30 Days #60 tablet Spironolactone 50 mg PO DAILY Ipratropium/Albuterol Sulfate [Iprat-Albut 0.5-3(2.5) mg/3 ml] 3 ml IH TID Fluticasone Propion/Salmeterol [Fluticasone-Salmeterol 500-50] 1 each IH BID Insulin Aspart [Novolog] 100 unit SQ UD Gabapentin 100 mg PO TID Ferrous Sulfate 325 mg [Feosol 325 mg] 325 mg PO BID Calcium Carbonate 750 mg [Tums EX 750 MG] 750 mg PO DAILY Instructions: Anemia overview Additional Instructions: RESUME PREVIOUS ORDERS SEE ATTACHED MED LIST Follow up with: DEBORAH EDWARDS FNP [NON-STAFF PHY W/O PRIVILEGES] - 07/27/24 8:30 am KATHIE ESPINOZA MD [Primary Care Provider] - 03/25/24 3:30 pm ELPIDIO MENDOZA MD [NON-STAFF PHY W/O PRIVILEGES] - 03/29/24 2:00 pm
== END 2024-03-21 18:25 | disposition home health service (06) ==
LOC: ED 08:48 → MED SURG 12:54
PROVIDERS: ADMIT Internal Medicine; ATTEND Internal Medicine
DX: J18.9 Pneumonia, unspecified organism (principal); J96.21 Acute and chronic respiratory failure with hypoxia; D64.9 Anemia, unspecified; L03.116 Cellulitis of left lower limb; L03.115 Cellulitis of right lower limb; D72.829 Elevated white blood cell count, unspecified; R53.1 Weakness; I11.0 Hypertensive heart disease with heart failure; I50.9 Heart failure, unspecified; I73.9 Peripheral vascular disease, unspecified; E11.9 Type 2 diabetes mellitus without complications; E11.51 Type 2 diabetes mellitus with diabetic peripheral angiopathy without gangrene; I25.10 Atherosclerotic heart disease of native coronary artery without angina pectoris; E83.42 Hypomagnesemia; J44.1 Chronic obstructive pulmonary disease with (acute) exacerbation; E03.9 Hypothyroidism, unspecified; K21.9 Gastro-esophageal reflux disease without esophagitis; Z79.4 Long term (current) use of insulin; Z79.01 Long term (current) use of anticoagulants; Z79.899 Other long term (current) drug therapy
CPT/HCPCS: 0241U; 29580; 36415; 36430; 71045; 71250; 80053; 82607; 82728; 82746; 82947; 83540; 83550; 83735; 83880; 84134; 84145; 84484; 85025; 86850; 86900; 86901; 86922; 87040; 93005; 93268; 94640; 94760; 96360; 96365; 96367; 96374; 96375; 97161; 99222; 99285; G0378; P9016; Q3014; J0456; J0696; J1817; J1940; J2919; J3475; A9270-GY

== ENCOUNTER 2024-08-01 05:41 | Observation (INO) | payer MEDICARE, OTHER ==
--- NOTE | 2024-08-01 05:46 | ERPHSYRPT ---
- History of Present Illness Source: patient, EMS, old records Exam Limitations: other (Very hard of hearing) Timing/Duration: today Severity of Dyspnea-Max: mild Severity of Dyspnea-Current: mild Possible Cause: occasional episodes Associated Symptoms: ankle swelling (Bilateral, chronic), No cough, No chest pain/discomfort, No calf pain Hx Tetanus, Diphtheria Vaccination/Date Given: No Hx Influenza Vaccination/Date Given: Yes Hx Pneumococcal Vaccination/Date Given: Yes - History of Present Illness Time Seen by Provider: 08/01/24 05:45 Physician History: This is an 89-year-old white female patient brought to the emergency department by paramedics who is a patient of Dr. Sheppard and is a resident of [facility]. The last 2 mornings, per patient report, she has had "spells" of nonradiating left anterior chest wall pain and shortness of breath. She also has noticed that her blood pressure has been elevated. She does take clonidine. At 5:00 she took her clonidine. When the ambulance arrived this morning her systolic blood pressure was 197 mmHg. Patient has a history of hypothyroidism, gastroesophageal reflux disease, insulin-dependent diabetes, peripheral neuropathy, COPD, hypertension, hyperlipidemia and is taking Plavix. She has coronary artery disease and has had a cardiac stent in place. She currently states that she is not having chest pain at this time and her shortness of breath is improving. (VINITA NINO) Allergies/Adverse Reactions: clindamycin Allergy (Verified 08/01/24 06:00) hydralazine Allergy (Verified 08/01/24 06:00) oxytetracycline [From Terramycin] Allergy (Verified 08/01/24 06:00) sulfamethoxazole [From Bactrim] Allergy (Verified 08/01/24 06:00) trimethoprim [From Bactrim] Allergy (Verified 08/01/24 06:00) Home Medications: Acetaminophen 325 mg [Tylenol 325 mg] 650 mg PO Q6H PRN PRN 08/12/23 [History] Amlodipine Besylate [Norvasc] 10 mg PO DAILY 08/12/23 [History] Aspirin EC 81 mg [Ecotrin 81 mg] 81 mg PO DAILY 08/12/23 [History] Atorvastatin Calcium 40 mg PO HS 08/12/23 [History] Carboxymethylcellulose Sodium [Refresh Plus] 1 drop OP TID PRN PRN 08/12/23 [History] Carvedilol 12.5 mg [Coreg 12.5 mg] 12.5 mg PO BIDWMEALS 08/12/23 [History] Clonidine HCl 0.1 mg [Clonidine 0.1 mg Tablet] 0.1 mg PO BID 08/12/23 [History] Clopidogrel Bisulfate [PLAVIX Tablet] 75 mg PO DAILY 08/12/23 [History] Insulin Glargine,Hum.rec.anlog [Toujeo Solostar] 10 unit SQ HS 08/12/23 [History] Insulin Glargine,Hum.rec.anlog [Toujeo Solostar] 15 unit SQ BREAKFAST 08/12/23 [History] Isosorbide Mononitrate 30 mg [Imdur 30 MG] 30 mg PO HS 08/12/23 [History] Levothyroxine Sodium 25 Mcg [Synthroid 25 Mcg] 25 mcg PO 0700 08/12/23 [History] Nitroglycerin 0.4 mg PO Q5MIN PRN MR X 3 PRN 08/12/23 [History] Omeprazole 40 mg PO DAILY 08/12/23 [History] Sennosides/Docusate Sodium [Senna-S Tablet] 1 tab PO BID 08/12/23 [History] Tramadol HCl 50 mg [Ultram 50 mg] 50 mg PO Q6H PRN PRN 08/12/23 [History] Valsartan [Diovan] 320 mg PO DAILY 08/12/23 [History] Spironolactone 50 mg PO DAILY 01/26/24 [History] Calcium Carbonate 750 mg [Tums EX 750 MG] 750 mg PO DAILY 03/20/24 [History] Ferrous Sulfate 325 mg [Feosol 325 mg] 325 mg PO BID 03/20/24 [History] Fluticasone Propion/Salmeterol [Fluticasone-Salmeterol 500-50] 1 each IH BID 03/20/24 [History] Gabapentin 100 mg PO TID 03/20/24 [History] Insulin Aspart [Novolog] 100 unit SQ UD 03/20/24 [History] Ipratropium/Albuterol Sulfate [Iprat-Albut 0.5-3(2.5) mg/3 ml] 3 ml IH TID 03/20/24 [History] Travel Risk - International Travel Have you traveled outside of the country in past 3 weeks: No - Emerging Infectious Disease Are you exhibiting symptoms associated with any current EIDs: Yes Symptoms: Shortness of Breath - Review of Systems Constitutional: No Symptoms Eyes: No Symptoms Ears, Nose, & Throat: No Symptoms Respiratory: Dyspnea Cardiac: Chest Pain (Now resolved) Abdominal/Gastrointestinal: No Symptoms Genitourinary Symptoms: No Symptoms Musculoskeletal: No Symptoms Skin: No Symptoms Neurological: No Symptoms Psychological: No Symptoms Endocrine: No Symptoms Hematologic/Lymphatic: No Symptoms Immunological/Allergic: No Symptoms All Other Systems: Reviewed and Negative - Past Medical History Pertinent Past Medical History: Yes Neurological History: No Pertinent History ENT History: Cataracts, Other Cardiac History: Congestive Heart Failure, Coronary Artery Disease, High Cholesterol, Hypertension Respiratory History: Asthma Endocrine Medical History: Diabetes Type II, Hypothyroidism Musculoskeletal History: Arthritis GI Medical History: GERD, Gallbladder Disease History: No Pertinent History Psycho-Social History: No Pertinent History Female Reproductive Disorders: No Pertinent History Other Medical History: dry eyes, BLE wounds and cellulitis - Past Surgical History Past Surgical History: Yes Neuro Surgical History: No Pertinent History Cardiac: Cardiac Catheterization, Cardiac Stent Respiratory: No Pertinent History Gastrointestinal: Cholecystectomy Genitourinary: No Pertinent History Musculoskeletal: Orthopedic Surgery Female Surgical History: Other Other Surgical History: breast abcess removed, hip surgery, 2 stents - Social History Smoking Status: Never smoker Exposure to second hand smoke: Yes Drug Use: none - Social Determinants of Health Will the patient participate in the screening: Yes Do you worry about a steady place to live?: No In the past 12 months,have you had to go without utilities?: No Transportation Issues: No Has anyone in your support network made you feel unsafe?: No Have you or anyone in your house had to go w/o enough food: No Comment: Lives at [facility] - Physical Exam General Appearance: no apparent distress, alert, anxiety Eye Exam: PERRL/EOMI, eyes nml inspection Ears, Nose, Throat Exam: normal ENT inspection (Except patient is very hard of hearing), normal pharynx Neck Exam: normal inspection, non-tender, supple, full range of motion Respiratory Exam: normal breath sounds, lungs clear, airway intact, No chest tenderness, No respiratory distress Cardiovascular/Chest Exam: normal heart sounds, regular rate/rhythm Abdominal/Gastrointestinal Exam: soft, normal bowel sounds, No tenderness Rectal Exam: not done Extremity Exam: non-tender, normal range of motion, pelvis stable, pedal edema (Chronic bilateral feet and ankles) Neurologic Exam: alert, oriented x 3, cooperative, crop consultant II-XII nml as tested, sensation nml Skin Exam: normal color, warm, dry Lymphatic Exam: No adenopathy SpO2 Interpretation: normal O2 Delivery: Nasal Cannula - Nursing Vital Signs Nursing Vital Signs: Initial Vital Signs Pulse Rate 81 08/01/24 05:50 Respiratory Rate 23 08/01/24 05:50 Blood Pressure 197/70 08/01/24 05:50 O2 Sat by Pulse Oximetry 99 08/01/24 05:50 Pain Scale Pain Intensity 0 - Course Nursing assessment & vital signs reviewed: Yes EKG Interpreted by Me: RATE (73), Sinus Rhythm, LAFB, NORMAL INTERVALS, Right Bundle Branch Block, Other (QTc is 441. No acute ischemia on today's twelve- lead EKG.) Ordered Tests: Active Orders 24 hr Category Date Time Status EKG-ER Only STAT Care 08/01/24 05:46 Active EKG-ER Only STAT Care 08/01/24 08:30 Active IV Insertion STAT Care 08/01/24 05:46 Active Pulse Oximetry (ED) STAT Care 08/01/24 05:46 Active CHEST 1 VIEW (PORTABLE) Stat Exams 08/01/24 05:46 Taken CHEST WITH CONTRAST [CT] Stat Exams 08/01/24 08:10 Ordered BLOOD CULTURE Stat Lab 08/01/24 06:20 Received CBC W DIFF Stat Lab 08/01/24 06:29 Completed CMP Stat Lab 08/01/24 06:29 Completed MAGNESIUM Stat Lab 08/01/24 06:29 Completed NT PRO BNPII Stat Lab 08/01/24 06:29 Completed TROPONIN Q4H Lab 08/01/24 06:29 Completed TROPONIN Q4H Lab 08/01/24 08:22 Received TROPONIN Q4H Lab 08/01/24 14:00 Ordered Respiratory Therapy Assessment DAILY RT 08/01/24 05:56 Active Medication Summary Discontinued Medications Generic Name Dose Route Start Last Admin Trade Name Alyssa PRN Reason Stop Dose Admin Albuterol/Ipratropium Confirm 08/01/24 05:54 Ipratropium/Albuterol Sulfate 3 Ml Ampul.Neb Administered 08/01/24 05:55 Dose 3 ml IH .STK-MED ONE Albuterol/Ipratropium 3 ml 08/01/24 05:55 08/01/24 05:55 Ipratropium/Albuterol Sulfate 3 Ml Ampul.Neb IH 08/01/24 05:56 3 ml STAT ONE Administration Lab/Rad Data: Laboratory Result Diagrams 08/01/24 06:29 08/01/24 06:29 Laboratory Results 08/01/24 08/01/24 08/01/24 Range/Units 06:29 06:29 06:29 WBC 6.6 (3.98-10.04) x10^3/uL RBC 3.29 L (3.93-5.22) x10^6/uL Hgb 9.7 L (11.2-15.7) g/dL Hct 30.2 L (34.1-44.9) % MCV 91.8 (79.4-94.8) fL MCH 29.5 (25.6-32.2) pg MCHC 32.1 L (32.2-35.5) g/dL RDW 14.1 (11.7-14.4) % Plt Count 315 (182-369) x10^3/uL MPV 9.6 (9.4-12.3) fL Gran % 62.4 (34.0-71.1) % Immature Gran % (Auto) 0.9 H (0.001-0.429) % Nucleat RBC Rel Count 0.0 (0.00-0.2) % Eos # (Auto) 0.63 H (0.04-0.36) x10^3/uL Immature Gran # (Auto) 0.06 H (0.001-0.031) x10^3u/L Absolute Lymphs (auto) 1.27 (1.18-3.74) x10^3/uL Absolute Monos (auto) 0.48 (0.24-0.86) x10^3/uL Absolute Nucleated RBC 0.00 (0.00-0.012) x10^3u/L Lymphocytes % 19.1 L (19.3-51.7) % Monocytes % 7.2 (4.7-12.5) % Eosinophils % 9.5 H (0.7-5.8) % Basophils % 0.9 (0.1-1.2) % Absolute Granulocytes 4.14 (1.56-6.13) x10^3/uL Basophils # 0.06 (0.01-0.08) x10^3/uL Sodium 136 (135-145) mmol/L Potassium 4.3 (3.5-5.1) mmol/L Chloride 98 (98-107) mmol/L Carbon Dioxide 30 (22-30) mmol/L Anion Gap 11.9 (5-15) MEQ/L BUN 26 H (7-17) mg/dL Creatinine 1.08 H (0.52-1.04) mg/dL Estimated GFR 49.7 ML/MIN Glucose 140 H (74-106) mg/dL Calcium 9.3 (8.4-10.2) mg/dL Magnesium 1.6 (1.6-2.3) mg/dL Total Bilirubin 0.40 (0.2-1.3) mg/dL AST 21 (14-36) U/L ALT 12 (0-35) U/L Alkaline Phosphatase 59 (38-126) U/L Troponin I 0.019 (0.000-0.033) ng/mL NT-Pro-B Natriuret Pep 1400 (<300) pg/mL Serum Total Protein 6.3 (6.3-8.2) g/dL Albumin 3.5 (3.5-5.0) g/dL Influenza Type A Ag (NEGATIVE) Influenza Type B Ag (NEGATIVE) RSV (PCR) (NEGATIVE) SARS-CoV-2 (PCR) (NEGATIVE) 08/01/24 Range/Units 06:10 WBC (3.98-10.04) x10^3/uL RBC (3.93-5.22) x10^6/uL Hgb (11.2-15.7) g/dL Hct (34.1-44.9) % MCV (79.4-94.8) fL MCH (25.6-32.2) pg MCHC (32.2-35.5) g/dL RDW (11.7-14.4) % Plt Count (182-369) x10^3/uL MPV (9.4-12.3) fL Gran % (34.0-71.1) % Immature Gran % (Auto) (0.001-0.429) % Nucleat RBC Rel Count (0.00-0.2) % Eos # (Auto) (0.04-0.36) x10^3/uL Immature Gran # (Auto) (0.001-0.031) x10^3u/L Absolute Lymphs (auto) (1.18-3.74) x10^3/uL Absolute Monos (auto) (0.24-0.86) x10^3/uL Absolute Nucleated RBC (0.00-0.012) x10^3u/L Lymphocytes % (19.3-51.7) % Monocytes % (4.7-12.5) % Eosinophils % (0.7-5.8) % Basophils % (0.1-1.2) % Absolute Granulocytes (1.56-6.13) x10^3/uL Basophils # (0.01-0.08) x10^3/uL Sodium (135-145) mmol/L Potassium (3.5-5.1) mmol/L Chloride (98-107) mmol/L Carbon Dioxide (22-30) mmol/L Anion Gap (5-15) MEQ/L BUN (7-17) mg/dL Creatinine (0.52-1.04) mg/dL Estimated GFR ML/MIN Glucose (74-106) mg/dL Calcium (8.4-10.2) mg/dL Magnesium (1.6-2.3) mg/dL Total Bilirubin (0.2-1.3) mg/dL AST (14-36) U/L ALT (0-35) U/L Alkaline Phosphatase (38-126) U/L Troponin I (0.000-0.033) ng/mL NT-Pro-B Natriuret Pep (<300) pg/mL Serum Total Protein (6.3-8.2) g/dL Albumin (3.5-5.0) g/dL Influenza Type A Ag NEGATIVE (NEGATIVE) Influenza Type B Ag NEGATIVE (NEGATIVE) RSV (PCR) NEGATIVE (NEGATIVE) SARS-CoV-2 (PCR) NEGATIVE (NEGATIVE) - Progress Progress: improved, re-examined Air Movement: good Blood Culture(s) Obtained: Yes Antibiotics given: No Counseled pt/family regarding: lab results, diagnosis, need for follow-up, rad results - Progress Progress Note: 08/01/24 06:30 My medical decision making of the assignment of moderate complexity of this patient's medical issue today is based on review of the patient's past medical history, review the patient's medication list, reviewed patient drug allergy list, history present illness and physical findings on examination. The workup in this patient includes placement of intravenous line, CBC, CMP, BNP, troponin level, twelve-lead EKG, chest x-ray, magnesium level. We will also order viral swabs and monotest. Differential diagnosis includes but is not limited to upper respiratory infection, CHF exacerbation, COPD exacerbation, viral illness, myocardial infarction, arrhythmia, electrolyte abnormalities 08/01/24 07:26 I interpreted the patient's laboratory data results. Based on the laboratory data results, the patient has chronic anemia and her current hemoglobin level is within the range that she is usually in. Her white count is normal there is no left shift. There are no emergent, acute findings on her laboratory data results. I interpreted the patient's chest x-ray. This is a preliminary report. I do not see an acute cardiopulmonary process. There are chronic changes noted. I compared today's chest x-ray to similar study dated March 2024. I spoke with the patient and reviewed the results of her workup. Clinically, she states she does not have shortness of breath or chest pain at this time. Her oxygen saturation levels 99% on 3.5 L oxygen via nasal cannula. Her heart rate is in the 80s and it is normal sinus rhythm on the monitor. Her systolic blood pressure is 146 mmHg. My plan was to discharge her back to [facility]. However, she is a little hesitant. She states "I just do not want to have another 1 of those spells". I did tell her that I am not finding any emergent issue or any condition that she needs to be placed in the hospital for. I also discussed the need for her to arrange an appointment to see her primary care provider to discuss blood pressure findings/changes. We will keep her here for repeat troponin 12-lead EKG. Dr. Brooke will follow-up on the results of those studies/lab and make final disposition. (VINITA NINO) 08/01/24 08:43 As above, I did take over for patient. Initially plan was for patient to go straight home however, after reevaluation Dr. Nino requested a repeat EKG, repeat troponin. Reviewing chart I do feel this is reasonable. I did add on a CTA given her continued shortness of breath. Most of patient's labs are near their baseline. They appear to be chronically slightly abnormal. As of now, chest x-ray, CTA chest, repeat troponin, repeat EKG pending. After these have returned I will reevaluate the patient and make appropriate disposition. (RONNIE BROOKE) Medical Desision Making - Independent Historian Additional History obtained from: Supervisor Blood/EMT - Diagnostic Testing Diagnostic test were ordered, analyzed, and reviewed by me: Yes Radiological Interpretation: Interpreted by me, Teleradiologist Report - Risk of complications Low Risk: Low risk of morbidity from additional dx testing or treatment - Departure Departure Disposition: Home Critical Care Time: No - Departure Clinical Impression: Hypertension, COPD exacerbation, Chest pain Condition: Stable Referrals: JANE SINGLETON [Primary Care Provider, UNKNOWN] - Follow up/PCP as directed Instructions: Chronic Obstructive Pulmonary Disease
[2024-08-01] MEDS ORDERED: DUONEB 0.5-3 MG/3 ml Neb IH ONE (05:54)
[2024-08-01] MEDS: DUONEB 0.5-3 MG/3 ml Neb IH ONE (05:55)
[2024-08-01 06:25] LABS: Absolute Neutrophil Ct (ANC) 4.14 x10^3/uL (1.56-6.13); BASOPHIL % 0.9 % (0.1-1.2); Basophil (Absolute #) 0.06 x10^3/uL (0.01-0.08); Eosinophil % 9.5 % (0.7-5.8); Eosinophil (Absolute #) 0.63 x10^3/uL (0.04-0.36); Hematocrit 30.2 % (34.1-44.9); Hemoglobin 9.7 g/dL (11.2-15.7); IMMATURE GRAN # 0.06 x10^3u/L (0.001-0.031); IMMATURE GRAN % 0.9 % (0.001-0.429); Lymphocyte (Absolute #) 1.27 x10^3/uL (1.18-3.74); Lymphocytes % 19.1 % (19.3-51.7); Mean Cell Volume 91.8 fL (79.4-94.8); Mean Corpuscular Hemoglobin 29.5 pg (25.6-32.2); Mean Corpuscular Hgb Concent. 32.1 g/dL (32.2-35.5); Mean Platelet Volume 9.6 fL (9.4-12.3); Monocyte (Absolute #) 0.48 x10^3/uL (0.24-0.86); Monocytes % 7.2 % (4.7-12.5); Neutrophil % 62.4 % (34.0-71.1); Platelet Count 315 x10^3/uL (182-369); Red Blood Count 3.29 x10^6/uL (3.93-5.22); Red Cell Distribution Width 14.1 % (11.7-14.4); White Blood Count 6.6 x10^3/uL (3.98-10.04)
[2024-08-01 06:38] LABS: ALBUMIN 3.5 g/dL (3.5-5.0); ANION GAP 11.9 MEQ/L (5-15); BILIRUBIN,TOTAL 0.4 mg/dL (0.2-1.3); Calcium 9.3 mg/dL (8.4-10.2); Creatinine 1 1.08 mg/dL (0.52-1.04); EST GLOMERULAR FILTRATION RATE 49.7 ML/MIN; MAGNESIUM 1.6 mg/dL (1.6-2.3); Potassium 4.3 mmol/L (3.5-5.1); Total Protein 6.3 g/dL (6.3-8.2)
[2024-08-01 06:50] LABS: TROPONIN 0.019 ng/mL (0.000-0.033)
[2024-08-01 07:03] LABS: INFLUENZA A NEGATIVE (NEGATIVE); INFLUENZA B NEGATIVE (NEGATIVE); RESPIRATORY SYNCTIAL VIRUS NEGATIVE (NEGATIVE); SARS-CoV-2 Xpert Express NEGATIVE (NEGATIVE)
--- NOTE | 2024-08-01 08:47 | XRAY ---
Indication: Short of breath. Comparison: April 21, 2024 Portable chest demonstrates new mild pulmonary edema. Again minimal/mild bibasilar infiltrates/atelectasis/effusions. Heart not enlarged. Bony thorax intact again with osteopenia and degenerative changes.
--- NOTE | 2024-08-01 10:22 | XRAY ---
Indication: Short of breath. Hypertension. Multiple contiguous axial images obtained through the chest using 80 cc Isovue 370 contrast and PE protocol. Comparison: March 20, 2024. Good opacification pulmonary arteries. However mild diffuse respiration artifact limits evaluation of more distal lobar and segmental branches. No obvious central pulmonary embolus. Heart is now enlarged again with scattered coronary calcifications. Aorta again mildly arteriosclerotic without aneurysm/dissection. Again prominent subcarinal lymph node measuring 1.2 x 2.0 cm unchanged. Stable small hiatal hernia. Lungs again hyperinflated with new mild diffuse pulmonary edema. Again mild bibasilar infiltrates/atelectasis, less than before. Previous effusions improved with tiny residual versus recurrent bibasilar effusions. Right lower lobe demonstrates stable 3 mm peripheral calcified granuloma. Bony thorax intact again with osteopenia and mild degenerative changes throughout spine. Limited upper abdomen unremarkable. Impression: 1. Pulmonary embolus evaluation limited by diffuse respiration artifact. No obvious central pulmonary embolus. 2. New cardiomegaly and pulmonary edema. Also tiny bibasilar effusions. Rule out cardiac decompensation/CHF versus fluid overload. 3. Again bibasilar infiltrates/atelectasis, less than before. Superimposed pneumonia not completely excluded. 4. Chronic findings including pulmonary emphysema, prominent subcarinal lymph node, hiatal hernia, arteriosclerotic disease, chronic bony findings, and old granulomatous disease.
--- NOTE | 2024-08-01 11:22 | PCM.HP ---
<ALLISON LOVELL - Last Filed: 08/01/24 12:02> History of Present Illness - Chief Complaint Chief Complaint: New onset CHF Date: 08/01/24 History of Present Illness: is a 89 year old female a resident of [facility], with a com plex pmhx including coronary artery disease status-post stenting, hypertension, insulin-dependent diabetes mellitus, chronic obstructive pulmonary disease (3L at baseline), hyperlipidemia, hypothyroidism, peripheral neuropathy, and chronic anemia who presented to ED 08/01/24 after experiencing two consecutive mornings of non-radiating left anterior chest discomfort accompanied by shortness of breath around 5 a.m. this morning. She reports the pain was sharp-pressure like and lasted about 15 mins. She reported associated elevated blood pressure readings, with a recorded systolic pressure of 197 upon EMS arrival despite adherence to her clonidine regimen which she took this morning. She denied active chest pain at the time of assessment but expressed concern regarding potential recurrence of symptoms. Patient is currently under Hospice care but was unable to tell me her diagnosis. Upon evaluation in the ED, vitals remarkable for BP at 197/70. She denied active chest pain or dyspnea at the time of assessment but expressed concern regarding potential recurrence of symptoms. Initial workup, including ECG, demonstrated sinus rhythm with left anterior fascicular block, right bundle branch block, and no evidence of acute ischemia. Labs remarkable for normocytic anemia (hemoglobin 9.7), which was consistent with her baseline, an uptrending troponin from 0.019 to 0.046 , BNP elevated at 1400 pg/mL, and mild acute kidney injury with creatinine elevated from her baseline of 0.81 to 1.08. CTA of the chest revealed new cardiomegaly and pulmonary edema with small bibasilar effusions, fi ndings suggestive of new-onset congestive heart failure. There was no evidence of pulmonary embolism. Given the clinical, laboratory, and imaging findings, she was diagnosed with likely non-ST elevation myocardial infarction (NSTEMI) secondary to new decompensated congestive heart failure. Admission for New onset CHF. - Review of Systems Constitutional: No Symptoms Eyes: No Symptoms Ears, Nose, & Throat: No Symptoms Respiratory: Cough, Short Of Breath Cardiac: No Symptoms Abdominal/Gastrointestinal: No Symptoms Genitourinary Symptoms: No Symptoms Musculoskeletal: No Symptoms Skin: No Symptoms Neurological: No Symptoms Psychological: No Symptoms Endocrine: No Symptoms Hematologic/Lymphatic: No Symptoms Immunological/Allergic: No Symptoms Medications & Allergies Home Medications: Home Medication List Acetaminophen 325 mg [Tylenol 325 mg] 650 mg PO Q4H PRN PRN 08/12/23 [History Confirmed 08/01/24] Amlodipine Besylate [Norvasc] 10 mg PO DAILY 08/12/23 [History Confirmed 08/01] Aspirin EC 81 mg [Ecotrin 81 mg] 81 mg PO DAILY 08/12/23 [History Confirmed 08/01/24] Carboxymethylcellulose Sodium [Refresh Plus] 1 drop OP TID PRN PRN 08/12/23 [History Confirmed 08/01/24] Carvedilol 12.5 mg [Coreg 12.5 mg] 12.5 mg PO BIDWMEALS 08/12/23 [History Confirmed 08/01/24] Clonidine HCl 0.1 mg [Clonidine 0.1 mg Tablet] 0.1 mg PO BID PRN 08/12/23 [History Confirmed 08/01/24] Clopidogrel Bisulfate [PLAVIX Tablet] 75 mg PO DAILY 08/12/23 [History Confirmed 08/01/24] Insulin Glargine,Hum.rec.anlog [Woodrow Jasso] 15 unit SQ BREAKFAST 08/12/23 [History Confirmed 08/01/24] Isosorbide Mononitrate 30 mg [Imdur 30 MG] 30 mg PO HS 08/12/23 [History Confirmed 08/01/24] Levothyroxine Sodium 25 Mcg [Synthroid 25 Mcg] 25 mcg PO 0700 08/12/23 [History Confirmed 08/01/24] Nitroglycerin 0.4 mg PO Q5MIN PRN MR X 3 PRN 08/12/23 [History Confirmed 08/01/24] Omeprazole 40 mg PO DAILY 08/12/23 [History Confirmed 08/01/24] Sennosides/Docusate Sodium [Senna-S Tablet] 1 tab PO BID 08/12/23 [History Confirmed 08/01/24] Tramadol HCl 50 mg [Ultram 50 mg] 50 mg PO Q6H PRN PRN 08/12/23 [History Confirmed 08/01/24] Valsartan [Diovan] 320 mg PO HS 08/12/23 [History Confirmed 08/01/24] Spironolactone 50 mg PO DAILY 01/26/24 [History Confirmed 08/01/24] Fluticasone Propion/Salmeterol [Fluticasone-Salmeterol 500-50] 1 each IH BID 03/20/24 [History Confirmed 08/01/24] Insulin Aspart [Novolog] 100 unit SQ UD 03/20/24 [History Confirmed 08/01/24] Ipratropium/Albuterol Sulfate [Iprat-Albut 0.5-3(2.5) mg/3 ml] 3 ml IH TID 03/20/24 [History Confirmed 08/01/24] Cyanocobalamin 1000 Mcg/ml [Cyanocobalamin B-12 1000 MCG/ML] 1,000 mcg IM Q30D 08/01/24 [History Confirmed 08/01/24] Loperamide HCl [Loperamide] 2 mg PO 5XD PRN 08/01/24 [History Confirmed 08/01/24] Ondansetron [Ondansetron Odt] 4 mg PO Q6H PRN PRN 08/01/24 [History Confirmed 08/01/24] Allergies/Adverse Reactions: Allergies Allergy/AdvReac Type Severity Reaction Status Date / Time clindamycin Allergy Verified 08/01/24 06:00 hydralazine Allergy Verified 08/01/24 06:00 oxytetracycline Allergy Verified 08/01/24 06:00 [From Terramycin] sulfamethoxazole Allergy Verified 08/01/24 06:00 [From Bactrim] trimethoprim [From Bactrim] Allergy Verified 08/01/24 06:00 - Past Medical History Past Medical History: Yes Neurological History: No Pertinent History ENT History: Cataracts, Other Cardiac History: Congestive Heart Failure, Coronary Artery Disease, High Cholesterol, Hypertension Respiratory History: Asthma Endocrine Medical History: Diabetes Type II, Hypothyroidism Musculoskelatal History: Arthritis GI Medical History: GERD, Gallbladder Disease History: No Pertinent History Pyscho-Social History: No Pertinent History Reproductive Disorders: No Pertinent History Comment: dry eyes, BLE wounds and cellulitis - Past Surgical History Past Surgical History: Yes Neuro Surgical History: No Pertinent History Cardiac History: Cardiac Catheterization, Cardiac Stent Respiratory Surgery: No Pertinent History GI Surgical History: Cholecystectomy Genitourinary Surgical Hx: No Pertinent History Musculskeletal Surgical Hx: Orthopedic Surgery Female Surgical History: Other Other Surgical History: breast abcess removed, hip surgery, 2 stents - Social History Smoking Status: Never smoker Exposure to second hand smoke: Yes Alcohol: None Drug Use: none - Social Determinants of Health Will the patient participate in the screening: Yes Do you worry about a steady place to live?: No Do you have any problems with any of the following?: No known problems In the past 12 months,have you had to go without utilities?: No Have you or anyone in your house had to go without enough: No Transportation Issues: No Has anyone in your support network made you feel unsafe?: No Does the patient want assistance with any of the above?: No Comment: Lives at [facility] - Physical Exam Vital Signs: Vital Signs - 24 hr Pulse Resp BP BP Pulse Ox 08/01/24 10:46 60 15 173/64 96 08/01/24 10:31 60 15 137/69 98 08/01/24 10:16 57 L 21 154/57 97 08/01/24 10:00 57 L 18 138/59 97 08/01/24 09:45 57 L 25 H 138/66 97 08/01/24 09:30 70 14 138/69 98 08/01/24 09:17 72 15 143/65 97 08/01/24 09:10 82 15 96 08/01/24 09:08 85 24 97 08/01/24 08:30 137/55 08/01/24 08:01 52 L 15 128/63 97 08/01/24 07:30 58 L 16 166/80 97 08/01/24 07:00 57 L 13 146/64 98 08/01/24 06:30 56 L 8 L 141/68 97 08/01/24 06:07 99 08/01/24 06:00 60 18 191/79 99 08/01/24 05:58 67 18 98 08/01/24 05:50 81 19 197/70 97 General Appearance: no apparent distress Neurologic Exam: alert, oriented x 3, cooperative Eye Exam: PERRL/EOMI Ears, Nose, Throat Exam: normal ENT inspection Neck Exam: normal inspection Respiratory Exam: diminished breath sounds Cardiovascular Exam: regular rate/rhythm, normal heart sounds Gastrointestinal/Abdomen Exam: soft, normal bowel sounds Pelvic Exam: not done Rectal Exam: deferred Back Exam: normal inspection Extremity Exam: swelling (BLE +2 pitting) Skin Exam: normal color Results - Labs Lab/Micro Results: Lab Results-Last 24 Hours 08/01/24 08/01/24 08/01/24 Range/Units 06:10 06:29 06:29 WBC 6.6 (3.98-10.04) x10^3/uL RBC 3.29 L (3.93-5.22) x10^6/uL Hgb 9.7 L (11.2-15.7) g/dL Hct 30.2 L (34.1-44.9) % MCV 91.8 (79.4-94.8) fL MCH 29.5 (25.6-32.2) pg MCHC 32.1 L (32.2-35.5) g/dL RDW 14.1 (11.7-14.4) % Plt Count 315 (182-369) x10^3/uL MPV 9.6 (9.4-12.3) fL Gran % 62.4 (34.0-71.1) % Immature Gran % (Auto) 0.9 H (0.001-0.429) % Nucleat RBC Rel Count 0.0 (0.00-0.2) % Eos # (Auto) 0.63 H (0.04-0.36) x10^3/uL Immature Gran # (Auto) 0.06 H (0.001-0.031) x10^3u/L Absolute Lymphs (auto) 1.27 (1.18-3.74) x10^3/uL Absolute Monos (auto) 0.48 (0.24-0.86) x10^3/uL Absolute Nucleated RBC 0.00 (0.00-0.012) x10^3u/L Lymphocytes % 19.1 L (19.3-51.7) % Monocytes % 7.2 (4.7-12.5) % Eosinophils % 9.5 H (0.7-5.8) % Basophils % 0.9 (0.1-1.2) % Absolute Granulocytes 4.14 (1.56-6.13) x10^3/uL Basophils # 0.06 (0.01-0.08) x10^3/uL Sodium 136 (135-145) mmol/L Potassium 4.3 (3.5-5.1) mmol/L Chloride 98 (98-107) mmol/L Carbon Dioxide 30 (22-30) mmol/L Anion Gap 11.9 (5-15) MEQ/L BUN 26 H (7-17) mg/dL Creatinine 1.08 H (0.52-1.04) mg/dL Estimated GFR 49.7 ML/MIN Glucose 140 H (74-106) mg/dL Calcium 9.3 (8.4-10.2) mg/dL Magnesium 1.6 (1.6-2.3) mg/dL Total Bilirubin 0.40 (0.2-1.3) mg/dL AST 21 (14-36) U/L ALT 12 (0-35) U/L Alkaline Phosphatase 59 (38-126) U/L Troponin I (0.000-0.033) ng/mL NT-Pro-B Natriuret Pep (<300) pg/mL Serum Total Protein 6.3 (6.3-8.2) g/dL Albumin 3.5 (3.5-5.0) g/dL Influenza Type A Ag NEGATIVE (NEGATIVE) Influenza Type B Ag NEGATIVE (NEGATIVE) RSV (PCR) NEGATIVE (NEGATIVE) SARS-CoV-2 (PCR) NEGATIVE (NEGATIVE) 08/01/24 08/01/24 Range/Units 06:29 08:22 WBC (3.98-10.04) x10^3/uL RBC (3.93-5.22) x10^6/uL Hgb (11.2-15.7) g/dL Hct (34.1-44.9) % MCV (79.4-94.8) fL MCH (25.6-32.2) pg MCHC (32.2-35.5) g/dL RDW (11.7-14.4) % Plt Count (182-369) x10^3/uL MPV (9.4-12.3) fL Gran % (34.0-71.1) % Immature Gran % (Auto) (0.001-0.429) % Nucleat RBC Rel Count (0.00-0.2) % Eos # (Auto) (0.04-0.36) x10^3/uL Immature Gran # (Auto) (0.001-0.031) x10^3u/L Absolute Lymphs (auto) (1.18-3.74) x10^3/uL Absolute Monos (auto) (0.24-0.86) x10^3/uL Absolute Nucleated RBC (0.00-0.012) x10^3u/L Lymphocytes % (19.3-51.7) % Monocytes % (4.7-12.5) % Eosinophils % (0.7-5.8) % Basophils % (0.1-1.2) % Absolute Granulocytes (1.56-6.13) x10^3/uL Basophils # (0.01-0.08) x10^3/uL Sodium (135-145) mmol/L Potassium (3.5-5.1) mmol/L Chloride (98-107) mmol/L Carbon Dioxide (22-30) mmol/L Anion Gap (5-15) MEQ/L BUN (7-17) mg/dL Creatinine (0.52-1.04) mg/dL Estimated GFR ML/MIN Glucose (74-106) mg/dL Calcium (8.4-10.2) mg/dL Magnesium (1.6-2.3) mg/dL Total Bilirubin (0.2-1.3) mg/dL AST (14-36) U/L ALT (0-35) U/L Alkaline Phosphatase (38-126) U/L Troponin I 0.019 0.046 H* (0.000-0.033) ng/mL NT-Pro-B Natriuret Pep 1400 (<300) pg/mL Serum Total Protein (6.3-8.2) g/dL Albumin (3.5-5.0) g/dL Influenza Type A Ag (NEGATIVE) Influenza Type B Ag (NEGATIVE) RSV (PCR) (NEGATIVE) SARS-CoV-2 (PCR) (NEGATIVE) - Radiology Impressions Radiology Exams & Impressions: Radiology Procedures Category Date Time Status CHEST 1 VIEW (PORTABLE) Stat Exams 08/01/24 05:46 Completed CHEST WITH CONTRAST [CT] Stat Exams 08/01/24 08:10 Completed - Other Procedures and Tests Respiratory Therapy 08/01/24 05:56 Respiratory Therapy Assessment DAILY Assessment/Plan (1) CHF (congestive heart failure) Current Visit: Yes Status: Acute Assessment & Plan: -No echo on file- noted CHF listed on problem list of previous admissions- patient unsure if she has a formal diagnosis -CTA of the chest revealed new cardiomegaly and pulmonary edema with small bibasilar effusions, findings suggestive of new-onset congestive heart failure. There was no evidence of pulmonary embolism -BNP as stated above -Obtain Echo -Monitor I&O/elevated HOB/daily weights -Lasix 40mg IV daily Code(s): I50.9 - HEART FAILURE, UNSPECIFIED (2) Chest pain Current Visit: Yes Status: Acute Assessment & Plan: -ECG, demonstrated sinus rhythm with left anterior fascicular block, right bundle branch block, and no evidence of acute ischemia. - uptrending troponin from 0.019 to 0.046 -most likely secondary to new onset CHF- trend - BNP elevated at 1400 -Resolved since admission -Consider cardiac consult -Echo -Continue telemetry monitoring -Monitor for recurrent chest pain or arrhythmias Code(s): R07.9 - CHEST PAIN, UNSPECIFIED (3) HLD (hyperlipidemia) Current Visit: Yes Status: Acute Assessment & Plan: -continue statin Code(s): E78.5 - HYPERLIPIDEMIA, UNSPECIFIED (4) CAD (coronary artery disease) Current Visit: Yes Status: Acute Assessment & Plan: -S/P stenting -continue statin/plavix/asa and home meds Code(s): I25.10 - ATHSCL HEART DISEASE OF [place] CORONARY ARTERY W/O ANG PCTRS (5) Hypertension Current Visit: Yes Status: Chronic Assessment & Plan: -BP now stable- monitor closely- continue home meds Code(s): I10 - ESSENTIAL (PRIMARY) HYPERTENSION (6) GIANNI (acute kidney injury) Current Visit: No Status: Acute Assessment & Plan: -Baseline creat around 0.81 -Monitor renal/lytes daily -Avoid nephrotoxic agents -Adjust diuretic therapy carefully to avoid prerenal worsening Code(s): N17.9 - ACUTE KIDNEY FAILURE, UNSPECIFIED (7) Diabetes mellitus Current Visit: No Status: Acute Assessment & Plan: -ADA diet -SSI with meal/glargine -A1c 7.26 Code(s): E11.9 - TYPE 2 DIABETES MELLITUS WITHOUT COMPLICATIONS (8) Hypothyroid Current Visit: No Status: Acute Assessment & Plan: -continue home levothyroxine VTE: Lovenox PPI: protonix Dispo: 1-2 days Code status: SCO Code(s): E03.9 - HYPOTHYROIDISM, UNSPECIFIED Telemedicine Encounter - Telemedicine Encounter Telemedicine Encounter: "The entirety of this encounter was performed via Telemedicine" This visit was performed using real-time audio and video connection between my location and thepatients locationwith the assistance of a surrogateat the patients location. Written or verbal consent was obtained from the patient/guardian to perform this [facility]. Any patient questions regarding the telemedicine interaction were answered. <POORNIMA VALENTINE - Last Filed: 08/01/24 21:01> History of Present Illness - Chief Complaint History of Present Illness: is a 89 year old female. - Physical Exam Vital Signs: Vital Signs - 24 hr Temp Pulse Resp BP BP Pulse Ox 08/01/24 19:41 98.2 F 62 15 192/78 95 08/01/24 18:50 60 22 96 08/01/24 16:00 98.2 F 62 16 169/74 97 08/01/24 13:22 60 18 99 08/01/24 11:28 97.7 F 85 18 108/63 94 L 08/01/24 11:25 97.8 F 86 16 178/79 96 08/01/24 11:20 98 08/01/24 11:00 166/65 08/01/24 10:46 60 15 173/64 96 08/01/24 10:31 60 15 137/69 98 08/01/24 10:16 57 L 21 154/57 97 08/01/24 10:00 57 L 18 138/59 97 08/01/24 09:45 57 L 25 H 138/66 97 08/01/24 09:30 70 14 138/69 98 08/01/24 09:17 72 15 143/65 97 08/01/24 09:10 82 15 96 08/01/24 09:08 85 24 97 08/01/24 08:30 137/55 08/01/24 08:01 52 L 15 128/63 97 08/01/24 07:30 58 L 16 166/80 97 08/01/24 07:00 57 L 13 146/64 98 08/01/24 06:30 56 L 8 L 141/68 97 08/01/24 06:07 99 08/01/24 06:00 60 18 191/79 99 08/01/24 05:58 67 18 98 08/01/24 05:50 81 19 197/70 97 Results - Labs Lab/Micro Results: Lab Results-Last 24 Hours 08/01/24 08/01/24 08/01/24 Range/Units 06:10 06:29 06:29 WBC 6.6 (3.98-10.04) x10^3/uL RBC 3.29 L (3.93-5.22) x10^6/uL Hgb 9.7 L (11.2-15.7) g/dL Hct 30.2 L (34.1-44.9) % MCV 91.8 (79.4-94.8) fL MCH 29.5 (25.6-32.2) pg MCHC 32.1 L (32.2-35.5) g/dL RDW 14.1 (11.7-14.4) % Plt Count 315 (182-369) x10^3/uL MPV 9.6 (9.4-12.3) fL Gran % 62.4 (34.0-71.1) % Immature Gran % (Auto) 0.9 H (0.001-0.429) % Nucleat RBC Rel Count 0.0 (0.00-0.2) % Eos # (Auto) 0.63 H (0.04-0.36) x10^3/uL Immature Gran # (Auto) 0.06 H (0.001-0.031) x10^3u/L Absolute Lymphs (auto) 1.27 (1.18-3.74) x10^3/uL Absolute Monos (auto) 0.48 (0.24-0.86) x10^3/uL Absolute Nucleated RBC 0.00 (0.00-0.012) x10^3u/L Lymphocytes % 19.1 L (19.3-51.7) % Monocytes % 7.2 (4.7-12.5) % Eosinophils % 9.5 H (0.7-5.8) % Basophils % 0.9 (0.1-1.2) % Absolute Granulocytes 4.14 (1.56-6.13) x10^3/uL Basophils # 0.06 (0.01-0.08) x10^3/uL Sodium 136 (135-145) mmol/L Potassium 4.3 (3.5-5.1) mmol/L Chloride 98 (98-107) mmol/L Carbon Dioxide 30 (22-30) mmol/L Anion Gap 11.9 (5-15) MEQ/L BUN 26 H (7-17) mg/dL Creatinine 1.08 H (0.52-1.04) mg/dL Estimated GFR 49.7 ML/MIN Glucose 140 H (74-106) mg/dL POC Glucometer (74 to 106) mg/dL Calcium 9.3 (8.4-10.2) mg/dL Magnesium 1.6 (1.6-2.3) mg/dL Total Bilirubin 0.40 (0.2-1.3) mg/dL AST 21 (14-36) U/L ALT 12 (0-35) U/L Alkaline Phosphatase 59 (38-126) U/L Troponin I (0.000-0.033) ng/mL NT-Pro-B Natriuret Pep (<300) pg/mL Serum Total Protein 6.3 (6.3-8.2) g/dL Albumin 3.5 (3.5-5.0) g/dL Prealbumin (17.6-36.0) mg/dL Influenza Type A Ag NEGATIVE (NEGATIVE) Influenza Type B Ag NEGATIVE (NEGATIVE) RSV (PCR) NEGATIVE (NEGATIVE) SARS-CoV-2 (PCR) NEGATIVE (NEGATIVE) 08/01/24 08/01/24 08/01/24 Range/Units 06:29 08:22 13:43 WBC (3.98-10.04) x10^3/uL RBC (3.93-5.22) x10^6/uL Hgb (11.2-15.7) g/dL Hct (34.1-44.9) % MCV (79.4-94.8) fL MCH (25.6-32.2) pg MCHC (32.2-35.5) g/dL RDW (11.7-14.4) % Plt Count (182-369) x10^3/uL MPV (9.4-12.3) fL Gran % (34.0-71.1) % Immature Gran % (Auto) (0.001-0.429) % Nucleat RBC Rel Count (0.00-0.2) % Eos # (Auto) (0.04-0.36) x10^3/uL Immature Gran # (Auto) (0.001-0.031) x10^3u/L Absolute Lymphs (auto) (1.18-3.74) x10^3/uL Absolute Monos (auto) (0.24-0.86) x10^3/uL Absolute Nucleated RBC (0.00-0.012) x10^3u/L Lymphocytes % (19.3-51.7) % Monocytes % (4.7-12.5) % Eosinophils % (0.7-5.8) % Basophils % (0.1-1.2) % Absolute Granulocytes (1.56-6.13) x10^3/uL Basophils # (0.01-0.08) x10^3/uL Sodium (135-145) mmol/L Potassium (3.5-5.1) mmol/L Chloride (98-107) mmol/L Carbon Dioxide (22-30) mmol/L Anion Gap (5-15) MEQ/L BUN (7-17) mg/dL Creatinine (0.52-1.04) mg/dL Estimated GFR ML/MIN Glucose (74-106) mg/dL POC Glucometer 119 H (74 to 106) mg/dL Calcium (8.4-10.2) mg/dL Magnesium (1.6-2.3) mg/dL Total Bilirubin (0.2-1.3) mg/dL AST (14-36) U/L ALT (0-35) U/L Alkaline Phosphatase (38-126) U/L Troponin I 0.019 0.046 H* (0.000-0.033) ng/mL NT-Pro-B Natriuret Pep 1400 (<300) pg/mL Serum Total Protein (6.3-8.2) g/dL Albumin (3.5-5.0) g/dL Prealbumin (17.6-36.0) mg/dL Influenza Type A Ag (NEGATIVE) Influenza Type B Ag (NEGATIVE) RSV (PCR) (NEGATIVE) SARS-CoV-2 (PCR) (NEGATIVE) 08/01/24 08/01/24 08/01/24 Range/Units 14:40 14:40 14:40 WBC 8.6 (3.98-10.04) x10^3/uL RBC 3.35 L (3.93-5.22) x10^6/uL Hgb 9.8 L (11.2-15.7) g/dL Hct 31.1 L (34.1-44.9) % MCV 92.8 (79.4-94.8) fL MCH 29.3 (25.6-32.2) pg MCHC 31.5 L (32.2-35.5) g/dL RDW 14.4 (11.7-14.4) % Plt Count 321 (182-369) x10^3/uL MPV 10.0 (9.4-12.3) fL Gran % (34.0-71.1) % Immature Gran % (Auto) (0.001-0.429) % Nucleat RBC Rel Count (0.00-0.2) % Eos # (Auto) (0.04-0.36) x10^3/uL Immature Gran # (Auto) (0.001-0.031) x10^3u/L Absolute Lymphs (auto) (1.18-3.74) x10^3/uL Absolute Monos (auto) (0.24-0.86) x10^3/uL Absolute Nucleated RBC (0.00-0.012) x10^3u/L Lymphocytes % (19.3-51.7) % Monocytes % (4.7-12.5) % Eosinophils % (0.7-5.8) % Basophils % (0.1-1.2) % Absolute Granulocytes (1.56-6.13) x10^3/uL Basophils # (0.01-0.08) x10^3/uL Sodium 137 (135-145) mmol/L Potassium 4.3 (3.5-5.1) mmol/L Chloride 100 (98-107) mmol/L Carbon Dioxide 30 (22-30) mmol/L Anion Gap 11.3 (5-15) MEQ/L BUN 25 H (7-17) mg/dL Creatinine 1.01 (0.52-1.04) mg/dL Estimated GFR 53.9 ML/MIN Glucose 161 H (74-106) mg/dL POC Glucometer (74 to 106) mg/dL Calcium 9.2 (8.4-10.2) mg/dL Magnesium (1.6-2.3) mg/dL Total Bilirubin (0.2-1.3) mg/dL AST (14-36) U/L ALT (0-35) U/L Alkaline Phosphatase (38-126) U/L Troponin I 0.078 H* (0.000-0.033) ng/mL NT-Pro-B Natriuret Pep (<300) pg/mL Serum Total Protein (6.3-8.2) g/dL Albumin (3.5-5.0) g/dL Prealbumin 16.81 L (17.6-36.0) mg/dL Influenza Type A Ag (NEGATIVE) Influenza Type B Ag (NEGATIVE) RSV (PCR) (NEGATIVE) SARS-CoV-2 (PCR) (NEGATIVE) 08/01/24 08/01/24 Range/Units 16:09 20:45 WBC (3.98-10.04) x10^3/uL RBC (3.93-5.22) x10^6/uL Hgb (11.2-15.7) g/dL Hct (34.1-44.9) % MCV (79.4-94.8) fL MCH (25.6-32.2) pg MCHC (32.2-35.5) g/dL RDW (11.7-14.4) % Plt Count (182-369) x10^3/uL MPV (9.4-12.3) fL Gran % (34.0-71.1) % Immature Gran % (Auto) (0.001-0.429) % Nucleat RBC Rel Count (0.00-0.2) % Eos # (Auto) (0.04-0.36) x10^3/uL Immature Gran # (Auto) (0.001-0.031) x10^3u/L Absolute Lymphs (auto) (1.18-3.74) x10^3/uL Absolute Monos (auto) (0.24-0.86) x10^3/uL Absolute Nucleated RBC (0.00-0.012) x10^3u/L Lymphocytes % (19.3-51.7) % Monocytes % (4.7-12.5) % Eosinophils % (0.7-5.8) % Basophils % (0.1-1.2) % Absolute Granulocytes (1.56-6.13) x10^3/uL Basophils # (0.01-0.08) x10^3/uL Sodium (135-145) mmol/L Potassium (3.5-5.1) mmol/L Chloride (98-107) mmol/L Carbon Dioxide (22-30) mmol/L Anion Gap (5-15) MEQ/L BUN (7-17) mg/dL Creatinine (0.52-1.04) mg/dL Estimated GFR ML/MIN Glucose (74-106) mg/dL POC Glucometer 180 H 216 H (74 to 106) mg/dL Calcium (8.4-10.2) mg/dL Magnesium (1.6-2.3) mg/dL Total Bilirubin (0.2-1.3) mg/dL AST (14-36) U/L ALT (0-35) U/L Alkaline Phosphatase (38-126) U/L Troponin I (0.000-0.033) ng/mL NT-Pro-B Natriuret Pep (<300) pg/mL Serum Total Protein (6.3-8.2) g/dL Albumin (3.5-5.0) g/dL Prealbumin (17.6-36.0) mg/dL Influenza Type A Ag (NEGATIVE) Influenza Type B Ag (NEGATIVE) RSV (PCR) (NEGATIVE) SARS-CoV-2 (PCR) (NEGATIVE) Accuchecks Date 08/01/24 Date 08/01/24 Time 16:28 Time 14:18 - Radiology Impressions Radiology Exams & Impressions: Radiology Procedures Category Date Time Status CHEST 1 VIEW (PORTABLE) Stat Exams 08/01/24 05:46 Completed CHEST WITH CONTRAST [CT] Stat Exams 08/01/24 08:10 Completed - Other Procedures and Tests Respiratory Therapy 08/01/24 05:56 Respiratory Therapy Assessment DAILY 08/01/24 11:35 Oxygen Nasal Cannula 5 lpm 08/01/24 13:22 EKG REPEAT IN AM Telemedicine Encounter - Telemedicine Encounter Telemedicine Encounter: "The entirety of this encounter was performed via Telemedicine" This visit was performed using real-time audio and video connection between my location and thepatients locationwith the assistance of a surrogateat the patients location. Written or verbal consent was obtained from the patient/guardian to perform this visit usingHenable technology. Any patient questions regarding the telemedicine interaction were answered. AGUILA Encounter - AGUILA Encounter Attestation AGUILA Encounter Attestation: "IhsangeetapersonallysSTU Solo andvalenteiscussed pertinent aspects of their care with Allison Callejas agree with the history, physical exam (any modifications based on my personal exam will be noted below), assessment, and plan as outlined in original note. Please see immediately below for my summary of findings and additional assessment and plan along with any meaningful corrections/explanations to the Subjective/Objective portions of the AGUILA note will be noted." My portion of the encounter took place via telemedicine. -patient presenting with CHF exacerbation and chest pain with mildly positive trops, not consistent with ACS. In any case, patient is on hospice therefore we will not be pursuing any aggressive treatments. Patient likely stable to discharge in the morning after diuresis.
[2024-08-01] MEDS ORDERED: HUMALOG SQ PRN (13:22)
[2024-08-01] MEDS ORDERED: DUONEB 0.5-3 MG/3 ml Neb IH PRN (13:22)
[2024-08-01] MEDS ORDERED: TYLENOL 325 MG PO PRN (13:22)
[2024-08-01] MEDS ORDERED: Zofran 4 MG/2 ML VIAL IV PRN (13:22)
[2024-08-01] MEDS ORDERED: CARBOXYMETHYLCELLULOSE SODIUM OP PRN (13:31)
[2024-08-01] MEDS ORDERED: Nitrostat 0.4 MG Tablet SL PRN (13:31)
[2024-08-01] MEDS ORDERED: DROPERETTE OP PRN (13:31)
[2024-08-01] MEDS ORDERED: ULTRAM 50 MG PO PRN (13:31)
[2024-08-01] MEDS: DUONEB 0.5-3 MG/3 ml Neb IH SCH (13:43)
[2024-08-01 15:12] LABS: ANION GAP 11.3 MEQ/L (5-15); Calcium 9.2 mg/dL (8.4-10.2); Creatinine 1 1.01 mg/dL (0.52-1.04); EST GLOMERULAR FILTRATION RATE 53.9 ML/MIN; PREALBUMIN 16.81 mg/dL (17.6-36.0); Potassium 4.3 mmol/L (3.5-5.1)
[2024-08-01 15:34] LABS: Hematocrit 31.1 % (34.1-44.9); Hemoglobin 9.8 g/dL (11.2-15.7); Mean Cell Volume 92.8 fL (79.4-94.8); Mean Corpuscular Hemoglobin 29.3 pg (25.6-32.2); Mean Corpuscular Hgb Concent. 31.5 g/dL (32.2-35.5); Platelet Count 321 x10^3/uL (182-369); Red Blood Count 3.35 x10^6/uL (3.93-5.22); Red Cell Distribution Width 14.4 % (11.7-14.4); White Blood Count 8.6 x10^3/uL (3.98-10.04)
[2024-08-01] MEDS: CLONIDINE 0.1 MG TABLET PO SCH (15:55)
[2024-08-01] MEDS: Tums EX 750 MG PO SCH (16:03)
[2024-08-01] MEDS: DIOVAN 80 MG PO SCH ×2 (16:03→22:07)
[2024-08-01] MEDS: Advair Hfa 230/21 Mcg COMMON CANISTER IH SCH (18:48)
[2024-08-01] MEDS ORDERED: ADVAIR 500-50 DISKUS IH SCH (19:00)
[2024-08-01] MEDS: NORVASC 5 MG PO SCH (19:05)
[2024-08-01] MEDS: Protonix 40MG Tablet PO SCH (19:05)
[2024-08-01] MEDS: Lasix 40 MG/4 ML IV SCH (19:06)
[2024-08-01] MEDS: ECOTRIN 81 MG PO SCH (19:06)
[2024-08-01] MEDS: VITAMIN D PO SCH (19:06)
[2024-08-01] MEDS: PLAVIX Tablet PO SCH (19:06)
[2024-08-01] MEDS: COREG 12.5 MG PO SCH (19:06)
[2024-08-01] MEDS: ENOXAPARIN SODIUM SQ SCH (19:06)
[2024-08-01] MEDS ORDERED: CLONIDINE 0.1 MG TABLET PO PRN (20:01)
[2024-08-01] MEDS: Imdur 30 MG PO SCH (21:33)
[2024-08-01] MEDS ORDERED: NON-FORMULARY ITEM (Insulin Glargine,Hum.Rec.Anlog [Toujeo Solostar] 300 UNIT/ML Insuln.Pe SQ SCH (22:00)
[2024-08-01] MEDS ORDERED: CLONIDINE 0.1 MG TABLET PO SCH (22:00)
[2024-08-01] MEDS ORDERED: Lantus Insulin SQ SCH (22:00)
[2024-08-01] MEDS: Artificial Tears 15 ML OP PRN (22:07)
[2024-08-02 05:24] LABS: BASOPHIL % 0.7 % (0.1-1.2); Basophil (Absolute #) 0.06 x10^3/uL (0.01-0.08); Eosinophil % 6.1 % (0.7-5.8); Hematocrit 28.1 % (34.1-44.9); Hemoglobin 8.9 g/dL (11.2-15.7); IMMATURE GRAN # 0.04 x10^3u/L (0.001-0.031); IMMATURE GRAN % 0.5 % (0.001-0.429); Lymphocyte (Absolute #) 1.46 x10^3/uL (1.18-3.74); Lymphocytes % 17.7 % (19.3-51.7); Mean Cell Volume 91.8 fL (79.4-94.8); Mean Corpuscular Hemoglobin 29.1 pg (25.6-32.2); Mean Corpuscular Hgb Concent. 31.7 g/dL (32.2-35.5); Monocyte (Absolute #) 0.69 x10^3/uL (0.24-0.86); Monocytes % 8.4 % (4.7-12.5); Neutrophil % 66.6 % (34.0-71.1); Platelet Count 304 x10^3/uL (182-369); Red Blood Count 3.06 x10^6/uL (3.93-5.22); Red Cell Distribution Width 14.1 % (11.7-14.4); White Blood Count 8.3 x10^3/uL (3.98-10.04)
[2024-08-02 05:47] LABS: ALBUMIN 3.1 g/dL (3.5-5.0); ANION GAP 10.6 MEQ/L (5-15); BILIRUBIN,TOTAL 0.3 mg/dL (0.2-1.3); Calcium 8.7 mg/dL (8.4-10.2); Creatinine 1 1.02 mg/dL (0.52-1.04); EST GLOMERULAR FILTRATION RATE 53.3 ML/MIN; Potassium 4.3 mmol/L (3.5-5.1); Total Protein 5.7 g/dL (6.3-8.2)
[2024-08-02 07:52] VITALS: RESP 16; O2SAT 97
[2024-08-02] MEDS ORDERED: NON-FORMULARY ITEM (Insulin Glargine,Hum.Rec.Anlog [Toujeo Solostar] 300 UNIT/ML Insuln.Pe SQ SCH (08:00)
[2024-08-02] MEDS: Lantus Insulin SQ SCH (08:57)
--- NOTE | 2024-08-02 09:28 | PCM.DS ---
Discharge Summary Date of Admission: 08/01/24 11:19 Date of Discharge: 08/02/24 Admitting Physician: POORNIMA VALENTINE MD Primary Care Provider: TOD SINGLETON Allergies Allergies clindamycin Allergy (Verified 08/01/24 06:00) hydralazine Allergy (Verified 08/01/24 06:00) oxytetracycline [From Terramycin] Allergy (Verified 08/01/24 06:00) sulfamethoxazole [From Bactrim] Allergy (Verified 08/01/24 06:00) trimethoprim [From Bactrim] Allergy (Verified 08/01/24 06:00) Hospital Summary - Hospital Course Hospital Course: Ms. Kiser is an 89-year-old female under hospice care who presented 08/02/24 with chest discomfort and dyspnea with hypertensive urgency. Evaluation revealed congestive heart failure with imaging showing cardiomegaly, pulmonary edema, and small effusions. Troponin levels were mildly elevated, concerning for demand ischemia in the setting of heart failure, rather than primary acute coronary syndrome. She was managed conservatively in alignment with her hospice goals. Symptoms improved with IV diuresis and supportive measures. Creatinine improved toward baseline, and blood pressure stabilized. She remains clinically stable without recurrent chest pain or dyspnea at the time of discharge. Given her hospice status and goals of care, she will return to her baseline hospice services with a focus on symptom management. I spent 35 minutes [id number] with the patient on the day of discharge performing discharge exam, discussing hospital stay and discharge instructions with patient and caregivers, preparation of discharge records, prescriptions & referral forms and addressing any questions/concerns the patient had as documented above. - Vitals & Intake/Output Vital Signs: Vital Signs Temperature 97.8 F 08/02/24 07:51 Pulse Rate 62 08/02/24 07:51 Respiratory Rate 16 08/02/24 07:51 Blood Pressure 178/75 08/02/24 07:51 O2 Sat by Pulse Oximetry 97 08/02/24 07:51 Intake & Output: Intake & Output 07/30/24 07/31/24 08/01/24 08/02/24 11:59 11:59 11:59 11:59 Intake Total 1580 Output Total 1400 Balance 180 Weight 62.5 kg 61.1 kg - Lab Result Diagrams: 08/02/24 05:18 08/02/24 05:18 Lab Results-Last 24 Hrs: Lab Results-Last 24 Hours 08/01/24 08/01/24 08/01/24 Range/Units 13:43 14:40 14:40 WBC 8.6 (3.98-10.04) x10^3/uL RBC 3.35 L (3.93-5.22) x10^6/uL Hgb 9.8 L (11.2-15.7) g/dL Hct 31.1 L (34.1-44.9) % MCV 92.8 (79.4-94.8) fL MCH 29.3 (25.6-32.2) pg MCHC 31.5 L (32.2-35.5) g/dL RDW 14.4 (11.7-14.4) % Plt Count 321 (182-369) x10^3/uL MPV 10.0 (9.4-12.3) fL Gran % (34.0-71.1) % Immature Gran % (Auto) (0.001-0.429) % Nucleat RBC Rel Count (0.00-0.2) % Eos # (Auto) (0.04-0.36) x10^3/uL Immature Gran # (Auto) (0.001-0.031) x10^3u/L Absolute Lymphs (auto) (1.18-3.74) x10^3/uL Absolute Monos (auto) (0.24-0.86) x10^3/uL Absolute Nucleated RBC (0.00-0.012) x10^3u/L Lymphocytes % (19.3-51.7) % Monocytes % (4.7-12.5) % Eosinophils % (0.7-5.8) % Basophils % (0.1-1.2) % Absolute Granulocytes (1.56-6.13) x10^3/uL Basophils # (0.01-0.08) x10^3/uL Sodium (135-145) mmol/L Potassium (3.5-5.1) mmol/L Chloride (98-107) mmol/L Carbon Dioxide (22-30) mmol/L Anion Gap (5-15) MEQ/L BUN (7-17) mg/dL Creatinine (0.52-1.04) mg/dL Estimated GFR ML/MIN Glucose (74-106) mg/dL POC Glucometer 119 H (74 to 106) mg/dL Calcium (8.4-10.2) mg/dL Total Bilirubin (0.2-1.3) mg/dL AST (14-36) U/L ALT (0-35) U/L Alkaline Phosphatase (38-126) U/L Troponin I 0.078 H* (0.000-0.033) ng/mL Serum Total Protein (6.3-8.2) g/dL Albumin (3.5-5.0) g/dL Prealbumin (17.6-36.0) mg/dL 08/01/24 08/01/24 08/01/24 Range/Units 14:40 16:09 20:45 WBC (3.98-10.04) x10^3/uL RBC (3.93-5.22) x10^6/uL Hgb (11.2-15.7) g/dL Hct (34.1-44.9) % MCV (79.4-94.8) fL MCH (25.6-32.2) pg MCHC (32.2-35.5) g/dL RDW (11.7-14.4) % Plt Count (182-369) x10^3/uL MPV (9.4-12.3) fL Gran % (34.0-71.1) % Immature Gran % (Auto) (0.001-0.429) % Nucleat RBC Rel Count (0.00-0.2) % Eos # (Auto) (0.04-0.36) x10^3/uL Immature Gran # (Auto) (0.001-0.031) x10^3u/L Absolute Lymphs (auto) (1.18-3.74) x10^3/uL Absolute Monos (auto) (0.24-0.86) x10^3/uL Absolute Nucleated RBC (0.00-0.012) x10^3u/L Lymphocytes % (19.3-51.7) % Monocytes % (4.7-12.5) % Eosinophils % (0.7-5.8) % Basophils % (0.1-1.2) % Absolute Granulocytes (1.56-6.13) x10^3/uL Basophils # (0.01-0.08) x10^3/uL Sodium 137 (135-145) mmol/L Potassium 4.3 (3.5-5.1) mmol/L Chloride 100 (98-107) mmol/L Carbon Dioxide 30 (22-30) mmol/L Anion Gap 11.3 (5-15) MEQ/L BUN 25 H (7-17) mg/dL Creatinine 1.01 (0.52-1.04) mg/dL Estimated GFR 53.9 ML/MIN Glucose 161 H (74-106) mg/dL POC Glucometer 180 H 216 H (74 to 106) mg/dL Calcium 9.2 (8.4-10.2) mg/dL Total Bilirubin (0.2-1.3) mg/dL AST (14-36) U/L ALT (0-35) U/L Alkaline Phosphatase (38-126) U/L Troponin I (0.000-0.033) ng/mL Serum Total Protein (6.3-8.2) g/dL Albumin (3.5-5.0) g/dL Prealbumin 16.81 L (17.6-36.0) mg/dL 08/01/24 08/02/24 08/02/24 Range/Units 20:55 05:18 05:18 WBC 8.3 (3.98-10.04) x10^3/uL RBC 3.06 L (3.93-5.22) x10^6/uL Hgb 8.9 L (11.2-15.7) g/dL Hct 28.1 L (34.1-44.9) % MCV 91.8 (79.4-94.8) fL MCH 29.1 (25.6-32.2) pg MCHC 31.7 L (32.2-35.5) g/dL RDW 14.1 (11.7-14.4) % Plt Count 304 (182-369) x10^3/uL MPV 10.0 (9.4-12.3) fL Gran % 66.6 (34.0-71.1) % Immature Gran % (Auto) 0.5 H (0.001-0.429) % Nucleat RBC Rel Count 0.0 (0.00-0.2) % Eos # (Auto) 0.50 H (0.04-0.36) x10^3/uL Immature Gran # (Auto) 0.04 H (0.001-0.031) x10^3u/L Absolute Lymphs (auto) 1.46 (1.18-3.74) x10^3/uL Absolute Monos (auto) 0.69 (0.24-0.86) x10^3/uL Absolute Nucleated RBC 0.00 (0.00-0.012) x10^3u/L Lymphocytes % 17.7 L (19.3-51.7) % Monocytes % 8.4 (4.7-12.5) % Eosinophils % 6.1 H (0.7-5.8) % Basophils % 0.7 (0.1-1.2) % Absolute Granulocytes 5.50 (1.56-6.13) x10^3/uL Basophils # 0.06 (0.01-0.08) x10^3/uL Sodium 134 L (135-145) mmol/L Potassium 4.3 (3.5-5.1) mmol/L Chloride 99 (98-107) mmol/L Carbon Dioxide 29 (22-30) mmol/L Anion Gap 10.6 (5-15) MEQ/L BUN 26 H (7-17) mg/dL Creatinine 1.02 (0.52-1.04) mg/dL Estimated GFR 53.3 ML/MIN Glucose 185 H (74-106) mg/dL POC Glucometer (74 to 106) mg/dL Calcium 8.7 (8.4-10.2) mg/dL Total Bilirubin 0.30 (0.2-1.3) mg/dL AST 22 (14-36) U/L ALT 11 (0-35) U/L Alkaline Phosphatase 56 (38-126) U/L Troponin I 0.074 H* (0.000-0.033) ng/mL Serum Total Protein 5.7 L (6.3-8.2) g/dL Albumin 3.1 L (3.5-5.0) g/dL Prealbumin (17.6-36.0) mg/dL 08/02/24 Range/Units 07:37 WBC (3.98-10.04) x10^3/uL RBC (3.93-5.22) x10^6/uL Hgb (11.2-15.7) g/dL Hct (34.1-44.9) % MCV (79.4-94.8) fL MCH (25.6-32.2) pg MCHC (32.2-35.5) g/dL RDW (11.7-14.4) % Plt Count (182-369) x10^3/uL MPV (9.4-12.3) fL Gran % (34.0-71.1) % Immature Gran % (Auto) (0.001-0.429) % Nucleat RBC Rel Count (0.00-0.2) % Eos # (Auto) (0.04-0.36) x10^3/uL Immature Gran # (Auto) (0.001-0.031) x10^3u/L Absolute Lymphs (auto) (1.18-3.74) x10^3/uL Absolute Monos (auto) (0.24-0.86) x10^3/uL Absolute Nucleated RBC (0.00-0.012) x10^3u/L Lymphocytes % (19.3-51.7) % Monocytes % (4.7-12.5) % Eosinophils % (0.7-5.8) % Basophils % (0.1-1.2) % Absolute Granulocytes (1.56-6.13) x10^3/uL Basophils # (0.01-0.08) x10^3/uL Sodium (135-145) mmol/L Potassium (3.5-5.1) mmol/L Chloride (98-107) mmol/L Carbon Dioxide (22-30) mmol/L Anion Gap (5-15) MEQ/L BUN (7-17) mg/dL Creatinine (0.52-1.04) mg/dL Estimated GFR ML/MIN Glucose (74-106) mg/dL POC Glucometer 136 H (74 to 106) mg/dL Calcium (8.4-10.2) mg/dL Total Bilirubin (0.2-1.3) mg/dL AST (14-36) U/L ALT (0-35) U/L Alkaline Phosphatase (38-126) U/L Troponin I (0.000-0.033) ng/mL Serum Total Protein (6.3-8.2) g/dL Albumin (3.5-5.0) g/dL Prealbumin (17.6-36.0) mg/dL Micro Results-Entire Visit: Microbiology 08/01/24 06:20 Blood Culture - Preliminary Blood 08/01/24 06:10 Blood Culture - Preliminary Blood Accuchecks Date 08/02/24 Date 08/01/24 Date 08/01/24 Date 08/01/24 Time 07:52 Time 21:00 Time 16:28 Time 14:18 - Radiology Exams Ordered Rad Exams-Entire Visit: Radiology Procedures Category Date Time Status CHEST 1 VIEW (PORTABLE) Stat Exams 08/01/24 05:46 Completed CHEST WITH CONTRAST [CT] Stat Exams 08/01/24 08:10 Completed - Procedures and Test Procedures and Tests throughout Hospitalization: Therapy Orders & Screens 08/01/24 05:56 Respiratory Therapy Assessment DAILY Comment: 08/01/24 11:35 Oxygen Nasal Cannula 5 lpm Comment: Diagnosis: New onset CHF 08/01/24 13:22 EKG REPEAT IN AM Comment: Diagnosis: New onset CHF Respiratory Therapy Consult ONCE Comment: Reason For Exam: Diagnosis: New onset CHF Discharge Exam General Appearance: no apparent distress Neurologic Exam: alert, oriented x 3, cooperative Eye Exam: PERRL Ears, Nose, Throat Exam: normal ENT inspection Neck Exam: normal inspection Respiratory Exam: normal breath sounds, lungs clear Cardiovascular Exam: regular rate/rhythm, normal heart sounds Gastrointestinal/Abdomen Exam: soft, normal bowel sounds Pelvic Exam: deferred Rectal Exam: deferred Back Exam: normal inspection Extremity Exam: normal inspection Final Diagnosis/Problem List - Final Discharge Diagnosis/Problem (1) CHF (congestive heart failure) Current Visit: Yes Status: Acute Assessment & Plan: No further aggressive interventions planned per hospice goals. Continue diuretic therapy (home regimen) as needed for symptom relief per hospice protocol. Monitor for signs of volume overload (weight gain, dyspnea, edema). Supportive care with elevation of head of bed, oxygen as needed. Code(s): I50.9 - HEART FAILURE, UNSPECIFIED (2) Chest pain Current Visit: Yes Status: Acute Assessment & Plan: No further cardiac workup or interventions planned. Symptom monitoring by hospice team. Comfort-focused care for any recurrence of chest discomfort Code(s): R07.9 - CHEST PAIN, UNSPECIFIED (3) HLD (hyperlipidemia) Current Visit: Yes Status: Acute Assessment & Plan: Continue statin therapy for secondary prevention per hospice protocol or deprescribe if patient prefers medication reduction Code(s): E78.5 - HYPERLIPIDEMIA, UNSPECIFIED (4) CAD (coronary artery disease) Current Visit: Yes Status: Acute Assessment & Plan: Continue current home medications (statin, Plavix, aspirin) as tolerated and per hospice direction. No further interventions planned. Code(s): I25.10 - ATHSCL HEART DISEASE OF [place] CORONARY ARTERY W/O ANG PCTRS (5) Hypertension Current Visit: Yes Status: Chronic Assessment & Plan: Continue home antihypertensive medications, including clonidine, per hospice protocol. Monitor for symptomatic hypotension or hypertension and adjust for comfort. Code(s): I10 - ESSENTIAL (PRIMARY) HYPERTENSION (6) GIANNI (acute kidney injury) Current Visit: No Status: Acute Assessment & Plan: Creatinine improved toward baseline; no further interventions needed. Avoid nephrotoxic medications. Monitor hydration status through hospice Code(s): N17.9 - ACUTE KIDNEY FAILURE, UNSPECIFIED (7) Diabetes mellitus Current Visit: No Status: Acute Assessment & Plan: Continue current insulin regimen under hospice management. Blood glucose monitoring per hospice plan focusing on comfort and avoidance of hypoglycemia Code(s): E11.9 - TYPE 2 DIABETES MELLITUS WITHOUT COMPLICATIONS (8) Hypothyroid Current Visit: No Status: Acute Assessment & Plan: Continue home levothyroxine as previously prescribed. No further laboratory monitoring unless clinically indicated by hospice Code(s): E03.9 - HYPOTHYROIDISM, UNSPECIFIED - Discharge Discharge Date: 08/02/24 ([facility]) Disposition: XFER OTHER Condition: Stable Prescriptions: Continue Insulin Glargine,Hum.rec.anlog [Woodrow Jasso] 15 unit SQ BREAKFAST Carvedilol 12.5 mg [Coreg 12.5 mg] 12.5 mg PO BIDWMEALS Tramadol HCl 50 mg [Ultram 50 mg] 50 mg PO Q6H PRN PRN PRN Reason: Pain Carboxymethylcellulose Sodium [Refresh Plus] 1 drop OP TID PRN PRN PRN Reason: dry eyes Valsartan [Diovan] 320 mg PO HS Sennosides/Docusate Sodium [Senna-S Tablet] 1 tab PO BID Nitroglycerin 0.4 mg PO Q5MIN PRN MR X 3 PRN PRN Reason: Chest Pain Aspirin EC 81 mg [Ecotrin 81 mg] 81 mg PO DAILY Omeprazole 40 mg PO DAILY Levothyroxine Sodium 25 Mcg [Synthroid 25 Mcg] 25 mcg PO 0700 Isosorbide Mononitrate 30 mg [Imdur 30 MG] 30 mg PO HS Clopidogrel Bisulfate [PLAVIX Tablet] 75 mg PO DAILY Clonidine HCl 0.1 mg [Clonidine 0.1 mg Tablet] 0.1 mg PO BID PRN Amlodipine Besylate [Norvasc] 10 mg PO DAILY Spironolactone 50 mg PO DAILY Ipratropium/Albuterol Sulfate [Iprat-Albut 0.5-3(2.5) mg/3 ml] 3 ml IH TID Fluticasone Propion/Salmeterol [Fluticasone-Salmeterol 500-50] 1 each IH BID Insulin Aspart [Novolog] 100 unit SQ UD Ondansetron [Ondansetron Odt] 4 mg PO Q6H PRN PRN PRN Reason: Nausea/Vomiting Cyanocobalamin 1000 Mcg/ml [Cyanocobalamin B-12 1000 MCG/ML] 1,000 mcg IM Q30D Loperamide HCl [Loperamide] 2 mg PO 5XD PRN PRN Reason: Diarrhea Discontinued Acetaminophen 325 mg [Tylenol 325 mg] 650 mg PO Q4H PRN PRN PRN Reason: Pain Additional Instructions: [facility]UME CARE Follow up with: JANE SINGLETON [Primary Care Provider, UNKNOWN]
[2024-08-02] MEDS ORDERED: NON-FORMULARY ITEM (Valsartan [Diovan] 320 MG Tablet) PO SCH (10:00)
[2024-08-02] MEDS ORDERED: NON-FORMULARY ITEM (Omeprazole [Omeprazole] 40 MG Capsule.Dr) PO SCH (10:00)
[2024-08-02] MEDS ORDERED: NON-FORMULARY ITEM (Amlodipine Besylate [Norvasc] 10 MG Tablet) PO SCH (10:00)
[2024-08-02 11:35] VITALS: BP 160/72; PULSE 64; TEMP 97.9
[2024-08-02] MEDS ORDERED: SYNTHROID 25 MCG PO SCH (14:30)
[2024-08-02] MEDS ORDERED: DIOVAN 80 MG PO SCH (22:00)
== END 2024-08-02 12:55 ==
LOC: ED 05:41 → MED SURG 11:19
PROVIDERS: ADMIT Internal Medicine; ATTEND Internal Medicine
DX: I11.0 Hypertensive heart disease with heart failure (principal); I50.9 Heart failure, unspecified; R07.9 Chest pain, unspecified; E78.5 Hyperlipidemia, unspecified; I25.10 Atherosclerotic heart disease of native coronary artery without angina pectoris; N17.9 Acute kidney failure, unspecified; E11.9 Type 2 diabetes mellitus without complications; E03.9 Hypothyroidism, unspecified; J44.9 Chronic obstructive pulmonary disease, unspecified; Z99.81 Dependence on supplemental oxygen; D64.9 Anemia, unspecified; R60.0 Localized edema; Z79.01 Long term (current) use of anticoagulants; Z79.899 Other long term (current) drug therapy
CPT/HCPCS: 0241U; 36415; 71045; 71260; 80048; 80053; 82947; 83735; 83880; 84134; 84484; 85025; 85027; 87040; 93005; 94640; 94760; 99285; G0378; 99283; J1650; J1938; A9270-GY